=== PATIENT | female | born 1945 | race Caucasian/White ===

== ENCOUNTER 2016-10-27 12:00 | Emergency (ER) | payer MEDICARE, BC ==
--- NOTE | 2016-10-27 12:50 | ED ---
Abdominal Pain HPI - General Chief Complaint: Abdominal Pain Stated Complaint: pain in R side Time Seen by Provider: 10/27/16 12:33 Source: patient, RN notes reviewed Mode of arrival: ambulatory Limitations: no limitations - History of Present Illness Initial Comments: Patient is a 71-year-old female presents to the emergency room for evaluation of right-sided pain. Patient states the pain began about 3 days ago. Patient states she has been holding her niece over the past few days. Patient states pain is worse when she moves or takes a deep breath. Patient states the pain is over her right anterior rib area. Patient denies any nausea or vomiting. Patient denies fevers or chills. Patient denies shortness of breath or chest pain. Patient denies pain or burning during urination, trouble urinating or blood in urine. Patient denies any flank pain. Patient states she has a history of right nephrectomy and appendectomy. Patient denies any injury or direct trauma to her ribs. Patient states she's been taking ibuprofen with no relief of symptoms. - Related Data Home Medications Medication Instructions Recorded Confirmed Benazepril/Hydrochlorothiazide 1 tab PO BID 10/27/16 10/27/16 [Benazepril-Hctz 20-25 mg Tab] Estradiol [Yuvafem] 10 mcg VAGINAL DIRECTED 10/27/16 10/27/16 amLODIPine [Norvasc] 2.5 mg PO DAILY 10/27/16 10/27/16 Previous Rx's Medication Instructions Recorded Acetaminophen-Codeine 300-30mg 1 tab PO Q6H PRN #10 tablet 10/27/16 [Tylenol #3] Allergies Allergy/AdvReac Type Severity Reaction Status Date / Time codeine AdvReac Confusion Verified 10/27/16 12:45 Review of Systems ROS Statement: Those systems with pertinent positive or pertinent negative responses have been documented in the HPI. ROS Other: All systems not noted in ROS Statement are negative. Past Medical History Past Medical History: Hypertension, Skin Disorder Additional Past Medical History / Comment(s): rosacea, hx of heart murmur, only has one kidney History of Any Multi-Drug Resistant Organisms: None Reported Past Surgical History: Appendectomy, Tubal Ligation Additional Past Surgical History / Comment(s): had a non-functioning kidney removed Past Anesthesia/Blood Transfusion Reactions: No Reported Reaction Past Psychological History: No Psychological Hx Reported Smoking Status: Never smoker Past Alcohol Use History: None Reported Past Drug Use History: None Reported General Exam - General Exam Comments Initial Comments: Sitting in exam room in no acute distress. Limitations: no limitations General appearance: alert, in no apparent distress Head exam: Present: atraumatic, normocephalic, normal inspection Eye exam: Present: normal appearance ENT exam: Present: normal exam Neck exam: Present: normal inspection Respiratory exam: Present: normal lung sounds bilaterally, chest wall tenderness (Right anterior rib pain on palpation). Absent: respiratory distress Cardiovascular Exam: Present: regular rate, normal rhythm, normal heart sounds GI/Abdominal exam: Present: soft, tenderness (RUQ), normal bowel sounds. Absent : distended, guarding, rebound, rigid Extremities exam: Present: normal inspection Back exam: Present: normal inspection Neurological exam: Present: alert, oriented X3, CN II-XII intact, normal gait Psychiatric exam: Present: normal affect, normal mood Skin exam: Present: warm, dry, intact, normal color. Absent: rash Course Vital Signs 10/27/16 12:05 Temperature 97.3 F L Pulse Rate 86 Respiratory 20 Rate Blood Pressure 190/84 O2 Sat by Pulse 99 Oximetry Medical Decision Making - Medical Decision Making Patient is a 71-year-old female presents to the emergency room for evaluation of right anterior rib pain. Labs showed no significant findings. Checks x-ray shows no acute findings. Patient's symptoms most likely pleuritic. Advised patient to take anti-inflammatories and follow-up with her primary care provider on Saturday for reevaluation. It is sent patient home with pain medications. Patient states she hasn't taken Tylenol 3 in the past and has had no reaction. Patient states the only medication she has had a reaction to with codeine in it is cough syrup. Patient states she understands everything that was discussed with her. Return parameters discussed. Case discussed with Dr. Russell. - Lab Data Result diagrams: 10/27/16 13:15 10/27/16 13:15 Lab Results 10/27/16 10/27/16 10/27/16 Range/Units 13:15 13:15 13:33 WBC 12.0 H (3.8-10.6) k/uL RBC 4.24 (3.80-5.40) m/uL Hgb 14.0 (11.4-16.0) gm/dL Hct 41.5 (34.0-46.0) % MCV 97.7 (80.0-100.0) fL MCH 32.9 (25.0-35.0) pg MCHC 33.7 (31.0-37.0) g/dL RDW 13.1 (11.5-15.5) % Plt Count 203 (150-450) k/uL Neutrophils % 78 % Lymphocytes % 11 % Monocytes % 8 % Eosinophils % 1 % Basophils % 1 % Neutrophils # 9.4 H (1.3-7.7) k/uL Lymphocytes # 1.3 (1.0-4.8) k/uL Monocytes # 0.9 (0-1.0) k/uL Eosinophils # 0.1 (0-0.7) k/uL Basophils # 0.1 (0-0.2) k/uL Sodium 128 L (137-145) mmol/L Potassium 3.7 (3.5-5.1) mmol/L Chloride 92 L (98-107) mmol/L Carbon Dioxide 24 (22-30) mmol/L Anion Gap 12 mmol/L BUN 11 (7-17) mg/dL Creatinine 0.64 (0.52-1.04) mg/dL Est GFR (MDRD) Af Amer >60 (>60 ml/min/1.73 sqM) Est GFR (MDRD) Non-Af >60 (>60 ml/min/1.73 sqM) Glucose 92 (74-99) mg/dL Calcium 9.7 (8.4-10.2) mg/dL Total Bilirubin 0.8 (0.2-1.3) mg/dL AST 33 (14-36) U/L ALT 41 (9-52) U/L Alkaline Phosphatase 71 (38-126) U/L Total Protein 7.1 (6.3-8.2) g/dL Albumin 4.4 (3.5-5.0) g/dL Urine Color Light Yellow Urine Appearance Clear (Clear) Urine pH 7.0 (5.0-8.0) Ur Specific [place] 1.005 (1.001-1.035) Urine Protein Negative (Negative) Urine Glucose (UA) Negative (Negative) Urine Ketones Negative (Negative) Urine Blood Negative (Negative) Urine Nitrate Negative (Negative) Urine Bilirubin Negative (Negative) Urine Urobilinogen <2.0 (<2.0) mg/dL Ur Leukocyte Esterase Negative (Negative) - Radiology Data Radiology results: report reviewed, image reviewed Disposition Clinical Impression: Pleuritic pain Disposition: HOME SELF-CARE Condition: Good Instructions: Pleurisy (ED) Additional Instructions: Alternate Tylenol and ibuprofen. Please follow up with primary care provider on Saturday for reevaluation. If any new symptom arises, symptoms worsen or fever develops, return to ER as soon as possible. Prescriptions: Acetaminophen-Codeine 300-30mg [Tylenol #3] 1 tab PO Q6H PRN #10 tablet PRN Reason: Pain Referrals: Delano Lemus MD [Primary Care Provider] - 1-2 days Time of Disposition: 14:45
[2016-10-27 13:32] LABS: Basophils # (A) 0.1 k/uL (0-0.2); Basophils % (A) 1 %; CH 34.7; CHCM 35.7; Eosinophils # (A) 0.1 k/uL (0-0.7); Eosinophils % (A) 1 %; HCT 41.5 % (34.0-46.0); HDW 2.42; Luc # (Auto) 0.16; Luc % (Auto) 1; Lymphocytes # (A) 1.3 k/uL (1.0-4.8); Lymphocytes % (A) 11 %; MCH 32.9 pg (25.0-35.0); MCHC 33.7 g/dL (31.0-37.0); MCV 97.7 fL (80.0-100.0); Mean Platelet Volume 8.2; Monocytes # (A) 0.9 k/uL (0-1.0); Monocytes % (A) 8 %; Neutrophils # (A) 9.4 k/uL (1.3-7.7); Neutrophils % (A) 78 %; RBC 4.24 m/uL (3.80-5.40); RDW 13.1 % (11.5-15.5); WBC (Perox) 11.95
[2016-10-27 13:39] LABS: Appearance,Urine Clear (Clear); Bilirubin,Urine Negative (Negative); Glucose,Urine (UA) Negative (Negative); Ketones,Urine Negative (Negative); Leukocyte Esterase,Urine Negative (Negative); Nitrite,Urine Negative (Negative); Protein,Urine Negative (Negative); Specific Gravity,Urine 1.005 (1.001-1.035); UA Billing (MACRO vs. MICRO) CHEM; Urobilinogen,Urine <2.0 mg/dL (<2.0)
[2016-10-27 13:41] LABS: ALT 41 U/L (9-52); AST 33 U/L (14-36); Alkaline Phosphatase 71 U/L (38-126); Anion Gap 12 mmol/L; Blood Urea Nitrogen 11 mg/dL (7-17); Calcium 9.7 mg/dL (8.4-10.2); Carbon Dioxide 24 mmol/L (22-30); Chloride 92 mmol/L (98-107); Glucose 92 mg/dL (74-99); Non-African American GFR(MDRD) >60 (>60 ml/min/1.73 sqM); Potassium 3.7 mmol/L (3.5-5.1); Sodium 128 mmol/L (137-145); Total Bilirubin 0.8 mg/dL (0.2-1.3); Total Protein 7.1 g/dL (6.3-8.2)
--- NOTE | 2016-10-27 14:23 | XR ---
EXAMINATION TYPE: XR chest 2V DATE OF EXAM: 10/27/2016 1:46 PM COMPARISON: None HISTORY: 71-year-old female right-sided mid axillary rib pain TECHNIQUE: PA and lateral views FINDINGS: Heart is upper limits of normal in size. Aorta within normal limits. Normal variant azygos fissure. D iffuse interstitial opacities likely chronic. There are trace pleural effusions OR posterior basilar patchy atelectasis. No enrique consolidation. IMPRESSION: Chronic appearing changes. There are either trace effusions OR patchy posterior basilar atelectasis.
[2016-10-27] MEDS ORDERED: Acetaminophen-Codeine 300-30mg TAB PO STA (14:47)
[2016-10-27 15:08] VITALS: BP 168/72; PULSE 88; RESP 18; TEMP 97.4
== END 2016-10-27 15:07 | disposition home or self-care (01) ==
LOC: EC 12:00
DX: R09.1 Pleurisy (principal); R10.11 Right upper quadrant pain; I10 Essential (primary) hypertension; Z86.79 Personal history of other diseases of the circulatory system; Z79.899 Other long term (current) drug therapy; Z79.3 Long term (current) use of hormonal contraceptives; Z88.5 Allergy status to narcotic agent; Z90.49 Acquired absence of other specified parts of digestive tract; Z90.5 Acquired absence of kidney; Z98.51 Tubal ligation status
CPT/HCPCS: 36415; 71020; 80053; 81003; 85025; 99284

== ENCOUNTER → 2017-05-13 | Outpatient (CLI) | payer MEDICARE, BC ==
[2017-05-13 09:04] LABS: Basophils # (A) 0.1 k/uL (0-0.2); Basophils % (A) 1 %; CH 34.3; CHCM 35.2; Eosinophils # (A) 0.2 k/uL (0-0.7); Eosinophils % (A) 3 %; HCT 41.9 % (34.0-46.0); HDW 2.42; HGB 14.5 gm/dL (11.4-16.0); Luc # (Auto) 0.26; Luc % (Auto) 4; Lymphocytes # (A) 1.8 k/uL (1.0-4.8); Lymphocytes % (A) 25 %; MCH 33.8 pg (25.0-35.0); MCHC 34.6 g/dL (31.0-37.0); MCV 97.7 fL (80.0-100.0); Mean Platelet Volume 7.8; Monocytes # (A) 0.5 k/uL (0-1.0); Monocytes % (A) 7 %; Neutrophils # (A) 4.3 k/uL (1.3-7.7); Neutrophils % (A) 60 %; RBC 4.28 m/uL (3.80-5.40); WBC 7.1 k/uL (3.8-10.6); WBC (Perox) 7.21
[2017-05-13 09:13] LABS: ALT 35 U/L (9-52); AST 30 U/L (14-36); Alkaline Phosphatase 60 U/L (38-126); Anion Gap 12 mmol/L; Blood Urea Nitrogen 13 mg/dL (7-17); Carbon Dioxide 27 mmol/L (22-30); Chloride 95 mmol/L (98-107); Cholesterol 178 mg/dL (<200); Glucose 82 mg/dL (74-99); HDL Cholesterol 59 mg/dL (40-60); Non-African American GFR(MDRD) >60 (>60 ml/min/1.73 sqM); Potassium 4.2 mmol/L (3.5-5.1); Sodium 134 mmol/L (137-145); Total Bilirubin 0.9 mg/dL (0.2-1.3); Total Protein 7.1 g/dL (6.3-8.2); Triglycerides 135 mg/dL (<150)
== END | disposition home or self-care (01) ==
LOC: LABWHC1 08:04
PROVIDERS: ATTEND Family Medicine
DX: E78.5 Hyperlipidemia, unspecified (principal); E55.9 Vitamin D deficiency, unspecified
CPT/HCPCS: 36415; 80053; 80061; 82306; 84443; 85025

== ENCOUNTER → 2018-06-05 | Outpatient (CLI) | payer MEDICARE, BC ==
[2018-06-05 09:21] LABS: Basophils # (A) 0.1 k/uL (0-0.2); Basophils % (A) 1 %; Eosinophils # (A) 0.2 k/uL (0-0.7); Eosinophils % (A) 2 %; HCT 42.6 % (34.0-46.0); HGB 14.5 gm/dL (11.4-16.0); Lymphocytes # (A) 1.5 k/uL (1.0-4.8); Lymphocytes % (A) 22 %; MCH 33.6 pg (25.0-35.0); Mean Platelet Volume 7.9; Monocytes # (A) 0.6 k/uL (0-1.0); Monocytes % (A) 9 %; Neutrophils # (A) 4.6 k/uL (1.3-7.7); Neutrophils % (A) 65 %; Platelet Count 212 k/uL (150-450); RDW 13.1 % (11.5-15.5)
[2018-06-05 09:58] LABS: ALT 40 U/L (9-52); AST 35 U/L (14-36); Albumin 4.5 g/dL (3.5-5.0); Alkaline Phosphatase 56 U/L (38-126); Anion Gap 8 mmol/L; Blood Urea Nitrogen 12 mg/dL (7-17); Carbon Dioxide 29 mmol/L (22-30); Chloride 95 mmol/L (98-107); Cholesterol 169 mg/dL (<200); Glucose 88 mg/dL (74-99); HDL Cholesterol 59 mg/dL (40-60); LDL Cholesterol,Calculated 85 mg/dL (0-99); Potassium 4.7 mmol/L (3.5-5.1); Sodium 132 mmol/L (137-145); Total Bilirubin 0.9 mg/dL (0.2-1.3); Triglycerides 125 mg/dL (<150)
[2018-06-05 10:11] LABS: T4, Free (Free Thyroxine) 0.98 ng/dL (0.78-2.19)
== END | disposition home or self-care (01) ==
LOC: LABWHC1 08:54
PROVIDERS: ATTEND Family Medicine
DX: I10 Essential (primary) hypertension (principal); Z20.9 Contact with and (suspected) exposure to unspecified communicable disease
CPT/HCPCS: 36415; 80053; 80061; 84439; 84443; 85025; 86803

== ENCOUNTER → 2019-06-16 | Outpatient (CLI) | payer MEDICARE ==
--- NOTE | 2019-06-17 09:25 | ECHOF ---
Referral Reason:I34.1 nonrhematic mitral valve prolapse MEASUREMENTS -------- HEIGHT: 162.6 cm WEIGHT: 61.2 kg BP: RVIDd: 3.0 cm (< 3.3) IVSd: 0.9 cm (0.6 - 1.1) LVIDd: 4.8 cm (3.9 - 5.3) LVPWd: 1.0 cm (0.6 - 1.1) IVSs: 1.5 cm LVIDs: 3.0 cm LVPWs: 1.4 cm LA Diam: 5.2 cm (2.7 - 3.8) LAESV Index (A-L): 47.94 ml/m Ao Diam: 2.6 cm (2.0 - 3.7) AV Cusp: 1.8 cm (1.5 - 2.6) LA Diam: 4.2 cm (2.7 - 3.8) MV EXCURSION: 28.460 mm (> 18.000) MV EF SLOPE: 59 mm/s (70 - 150) EPSS: 0.3 cm MV E Fred: 0.59 m/s MV DecT: 205 ms MV A Fred: 0.82 m/s MV E/A Ratio: 0.72 AR PHT: 778 ms RAP: 5.00 mmHg RVSP: 26.16 mmHg FINDINGS -------- Sinus rhythm. This was a technically good study. LV size, wall thickness and systolic function are normal, with an EF greater than 55%. The left parish tricular size is normal. The right ventricle is normal in size. The left atrium is markedly dilated. LA is severely dilated >40 ml/m2 The right atrial size is normal. There is mild aortic valve sclerosis. There is mild aortic regurgitation. The mitral valve leaflets are mildly thickened. [id number] mitral regurgitation is present. Cannot exclude mitral valve prolapse , predominately a posteriorly directed jet. Mild tricuspid regurgitation present. There is no evidence of pulmonary hypertension. The right v entricular systolic pressure, as measured by Doppler, is 26.16mmHg. There is no pulmonic regurgitation present. The aortic root size is normal. There is no pericardial effusion. CONCLUSIONS -------- 1. Sinus rhythm. 2. This was a technically good study. 3. LV size, wall thickness and systolic function are normal, with an EF greater than 55%. 4. The left ventricular size is normal. 5. The right ventricle is normal in size. 6. The left atrium is markedly dilated. 7. LA is severely dilated >40 ml/m2 8. The right atrial size is normal. 9. There is mild aortic valve sclerosis. 10. There is mild aortic regurgitation. 11. The mitral valve leaflets are mildly thickened. 12. [id number]-txqpcb mitral regurgitation is present. 13. Cannot exclude mitral valve prolapse. 14. , predominately a posteriorly directed jet. 15. Mild tricuspid regurgitation present. 16. There is no evidence of pulmonary hypertension. 17. The right ventricular systolic pressure, as measured by Doppler, is 26.16mmHg. 18. There is no pulmonic regurgitation present. 19. The aortic root size is normal. 20. There is no pericardial effusion. SOLID TIRE FINISHER: Crissy Rodriguez RDCS
== END | disposition home or self-care (01) ==
LOC: RADECHMAIN 11:09
PROVIDERS: ATTEND Family Medicine
DX: I08.3 Combined rheumatic disorders of mitral, aortic and tricuspid valves (principal)
CPT/HCPCS: 93306

== ENCOUNTER → 2019-07-15 | Outpatient (CLI) | payer MEDICARE ==
[2019-07-15 09:08] LABS: Basophils # (A) 0.1 k/uL (0-0.2); Basophils % (A) 1 %; Eosinophils # (A) 0.3 k/uL (0-0.7); Eosinophils % (A) 3 %; HCT 39.1 % (34.0-46.0); Lymphocytes # (A) 1.6 k/uL (1.0-4.8); Lymphocytes % (A) 21 %; MCH 34.4 pg (25.0-35.0); MCHC 35.8 g/dL (31.0-37.0); Mean Platelet Volume 6.8; Monocytes # (A) 0.7 k/uL (0-1.0); Monocytes % (A) 9 %; Neutrophils # (A) 4.9 k/uL (1.3-7.7); Neutrophils % (A) 63 %; Platelet Count 226 k/uL (150-450); RBC 4.08 m/uL (3.80-5.40); RDW 13.5 % (11.5-15.5); WBC 7.7 k/uL (3.8-10.6)
[2019-07-15 21:27] LABS: African American GFR (CKD) 73.5 (60.0-200.0); Albumin 4.4 g/dL (3.80-4.90); Albumin/Globulin Ratio 2.2 (1.60-3.17); BUN/Creat Ratio 17.78 Ratio (12.00-20.00); Calcium 9.7 mg/dL (8.7-10.3); Chol/HDL Ratio 3.13; LDL Cholesterol,Calculated 95.2 mg/dL (0.0-131.0); Potassium 3.7 mmol/L (3.5-5.5); Total Protein 6.4 g/dL (6.2-8.2); VLDL Calculation 23.8 mg/dL (5.00-40.00)
[2019-07-15 21:51] LABS: T4, Free (Free Thyroxine) 1.1 ng/dL (0.80-1.80)
== END | disposition home or self-care (01) ==
LOC: LABWHC1 08:20
PROVIDERS: ATTEND Family Medicine
DX: E78.5 Hyperlipidemia, unspecified (principal)
CPT/HCPCS: 36415; 80053; 80061; 84439; 84443; 85025

== ENCOUNTER → 2020-06-03 | Outpatient (CLI) | payer MEDICARE ==
[2020-06-03 19:51] LABS: African American GFR (CKD) 84.2 (60.0-200.0); Anion Gap 11.6 mmol/L (4.00-12.00); BUN/Creat Ratio 18.75 Ratio (12.00-20.00); Calcium 10.1 mg/dL (8.7-10.3); Carbon Dioxide 24.4 mmol/L (21.6-31.8); Non-African American GFR(CKD) 72.6 (60.0-200.0); Potassium 3.9 mmol/L (3.5-5.5)
== END | disposition home or self-care (01) ==
LOC: LABWHC1 11:01
PROVIDERS: ATTEND Nurse Practitioner Family
DX: E87.1 Hypo-osmolality and hyponatremia (principal)
CPT/HCPCS: 36415; 80048

== ENCOUNTER → 2020-06-03 | Outpatient (CLI) | payer MEDICARE ==
--- NOTE | 2020-06-22 10:03 | P.CEMON ---
This is a report on 7 day event monitor. Patient rhythm is sinus. Patient had frequent PVCs with of episodes of wide complex tachycardia the longest episode lasting about almost 19 seconds. She had frequent episodes. Patient in addition had episodes of supraventricular tachycardia with the higher started up about 160. Patient has reported several nonspecific symptoms, mostly cor relating PVCs and episodes of nonsustained V. tach/sustained V. tach. Final impression #1. Sinus rhythm. #2. Frequent PVCs with episodes of sustained or nonsustained V. tach. The longest run consisting of 19 seconds. #3. APCs and episodes of supraventricular tachycardia. The fastest heart rate with SVT is about 160 and fastest heart rate at the nonsustained V. tach since 197. #4. Patient did complain of several symptoms which are nonspecific correlating with ventricular arrhythmias, mostly with nonsustained/sustained V. tach
--- NOTE | 2020-06-22 12:24 | EM ---
This is a report on 7 day event monitor. Patient rhythm is sinus. Patient had frequent PVCs with of episodes of wide complex tachycardia the longest episode lasting about almost 19 seconds. She had frequent episodes. Patient in addition had episodes of supraventricular tachycardia with the higher started up about 160. Patient has reported several nonspecific symptoms, mostly correlating PVCs and episodes of nonsustained V. tach/sustained V. tach. Final impression #1. Sinus rhythm. #2. Frequent PVCs with episodes of sustained and nonsustained V. tach. The longest run consisting of 19 seconds. #3. APCs and episodes of supraventricular tachycardia. The fastest heart rate with SVT is about 160 and fastest heart rate at the nonsustained V. tach since 197. #4. Patient did complain of several symptoms which are nonspecific correlating with ventricular arrhythmias, mostly with nonsustained/sustained V. tach MTDD
== END | disposition home or self-care (01) ==
LOC: RADECHMAIN 11:34
PROVIDERS: ATTEND Family Medicine
DX: R00.2 Palpitations (principal); I47.1 Supraventricular tachycardia
CPT/HCPCS: 93270

== ENCOUNTER 2020-06-10 21:41 | Inpatient (IN) | payer MEDICARE ==
[2020-06-10] MEDS ORDERED: ASPIRIN 81 MG PO STA (22:34)
[2020-06-10] MEDS ORDERED: SODIUM CHLORIDE 0.9% 500 ML 500 ML IV STA (22:34)
[2020-06-10 22:53] LABS: Basophils # (A) 0.1 k/uL (0-0.2); Basophils % (A) 1 %; Eosinophils # (A) 0.2 k/uL (0-0.7); Eosinophils % (A) 2 %; HCT 44.2 % (34.0-46.0); HGB 15.3 gm/dL (11.4-16.0); Lymphocytes % (A) 21 %; MCH 34.1 pg (25.0-35.0); MCHC 34.5 g/dL (31.0-37.0); MCV 98.7 fL (80.0-100.0); Mean Platelet Volume 8.9; Monocytes % (A) 11 %; Neutrophils # (A) 5.8 k/uL (1.3-7.7); Neutrophils % (A) 62 %; Platelet Count 217 k/uL (150-450); RBC 4.48 m/uL (3.80-5.40); RDW 13.6 % (11.5-15.5); WBC 9.3 k/uL (3.8-10.6)
[2020-06-10 23:01] LABS: INR 0.9 (<1.2); Partial Thromboplastin Time 24.4 sec (22.0-30.0); Prothrombin Time 9.9 sec (9.0-12.0)
[2020-06-10 23:02] LABS: ALT 20 U/L (4-34); AST 34 U/L (14-36); African American GFR (CKD) >90 (>60 ml/min/1.73 sqM); Albumin 5.1 g/dL (3.5-5.0); Alkaline Phosphatase 66 U/L (38-126); Anion Gap 13 mmol/L; Blood Urea Nitrogen 17 mg/dL (7-17); Calcium 10.1 mg/dL (8.4-10.2); Carbon Dioxide 22 mmol/L (22-30); Chloride 90 mmol/L (98-107); Glucose 90 mg/dL (74-99); Magnesium 1.9 mg/dL (1.6-2.3); Non-African American GFR(CKD) 82 (>60 ml/min/1.73 sqM); Potassium 3.4 mmol/L (3.5-5.1); Sodium 125 mmol/L (137-145); Total Protein 7.5 g/dL (6.3-8.2)
--- NOTE | 2020-06-10 23:10 | ED ---
Chest Pain HPI - General Chief Complaint: Chest Pain Stated Complaint: Heart Issues Time Seen by Provider: 06/10/20 22:13 Source: patient, family Mode of arrival: wheelchair Limitations: no limitations - History of Present Illness Initial Comments: 75-year-old female patient presents to the emergency department today for evaluation of palpitations. Patient states for the last 3 weeks she has been having intermittent episodes where she feels like her heart is racing and she feels unwell. Patient states that she feels dizzy when the episodes come on. She denies any chest pain, shortness of breath, or sweats with this. States that she did see her primary care physician for this and did wear a heart monitor for a week. States the heart monitor came off today and she is supposed to get results in a week or 2. Patient does have a history of high blood pressure and mitral valve prolapse. Denies any new medications. States her blood pressure is controlled. Patient denies any recent rash, fever, chills, cough, abdominal pain, nausea, vomiting, diarrhea, constipation, back pain, numbness, tingling, hematuria, dysuria, urinary urgency, urinary frequency, headache, visual changes, or any other complaints. - Related Data Home Medications Medication Instructions Recorded Confirmed Benazepril/Hydrochlorothiazide 1 tab PO BID@0730,1930 10/27/16 06/10/20 [Benazepril-Hctz 20-25 mg Tab] amLODIPine [Norvasc] 2.5 mg PO DAILY@0730 10/27/16 06/10/20 Allergies Allergy/AdvReac Type Severity Reaction Status Date / Time codeine AdvReac Confusion Verified 06/10/20 23:32 Review of Systems ROS Statement: Those systems with pertinent positive or pertinent negative responses have been documented in the HPI. ROS Other: All systems not noted in ROS Statement are negative. EKG Findings - EKG Comments: EKG Findings:: EKG obtained at 2203 shows sinus rhythm with premature atrial complexes. Ventricular rate is 73, ME interval 182, QRS duration 118, QTC 396, QTc 436. No evidence of ST elevation or depression 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 Past Anesthesia/Blood Transfusion Reactions: No Reported Reaction Past Psychological History: No Psychological Hx Reported Smoking Status: Never smoker Past Alcohol Use History: None Reported Past Drug Use History: None Reported - Past Family History Mother Family Medical History: Hypertension General Exam Limitations: no limitations General appearance: alert, in no apparent distress, other (This is a well- developed, well-nourished elderly female patient in no acute distress. Vital signs upon presentation are temperature 98.8F, pulse 77, respirations 16, blood pressure 172/81, pulse ox 98% on room air.) Eye exam: Present: normal appearance, PERRL, EOMI. Absent: scleral icterus, conjunctival injection, periorbital swelling ENT exam: Present: normal exam, normal oropharynx, mucous membranes moist Respiratory exam: Present: normal lung sounds bilaterally. Absent: respiratory distress, wheezes, rales, rhonchi, stridor Cardiovascular Exam: Present: regular rate, normal rhythm, irregular rhythm, normal heart sounds, other (PVCs on the gambling monitor). Absent: systolic m urmur, diastolic murmur, rubs, gallop, clicks GI/Abdominal exam: Present: soft, normal bowel sounds. Absent: distended, tenderness, guarding, rebound, rigid Neurological exam: Present: alert, oriented X3, CN II-XII intact Psychiatric exam: Present: normal affect, normal mood Skin exam: Present: warm, dry, intact, normal color. Absent: rash Course Vital Signs 06/10/20 06/10/20 21:47 22:54 Temperature 98.8 F Pulse Rate 77 68 Respiratory 16 17 Rate Blood Pressure 172/81 139/80 O2 Sat by Pulse 98 98 Oximetry Chest Pain MDM - MDM 75-year-old female patient presents to the emergency department today for evaluation of palpitations and dizziness. Patient states she's had multiple episodes today. States that this is been going on for the last 3 weeks but today feels worse. Physical examination is unremarkable. EKG showed sinus rhythm with PACs. Review of her cardiac monitoring does reveal PVCs. Labs reviewed and does reveal decreased potassium, we did replace this with 40 mEq. Remainder of labs are unremarkable. Upon reevaluation patient is resting comfortably in bed. States she feels quite fatigued. We'll admit to the hospital for further cardiac monitoring evaluation by cardiology. She is agreeable to this plan. Disposition Clinical Impression: Palpitations, Dizziness Disposition: ADMITTED IP TO THIS HOSP Condition: Serious Referrals: Delano Lemus MD [Primary Care Provider] - 1-2 days Decision to Admit Reason: Admit from EC Decision Date: 06/11/20 Decision Time: 00:26
--- NOTE | 2020-06-10 23:24 | XR ---
EXAMINATION TYPE: XR chest 2V DATE OF EXAM: 06/10/2020 COMPARISON: 10/27/2016 HISTORY: Dysrhythmia TECHNIQUE: FINDINGS: Heart is normal. Lungs are clear of infiltrate. There is no heart failure. There are no hil ar masses. There are chest leads. Bony thorax is intact. IMPRESSION: No active cardiopulmonary disease. There is clearing of the mild pleural reaction at the left lung base compared to old exam.
[2020-06-10] MEDS ORDERED: POTASSIUM CHLORIDE ER 20 MEQ TAB.ER PO STA (23:25)
[2020-06-10 23:58] LABS: T4, Free (Free Thyroxine) 1.31 ng/dL (0.78-2.19)
[2020-06-11] MEDS ORDERED: NALOXONE 0.4 MG/ML 1 ML VIAL IV PRN (00:26)
[2020-06-11] MEDS ORDERED: hydroCHLOROthiazide 25 MG TAB PO SCH (08:00)
[2020-06-11 08:29] LABS: African American GFR (CKD) >90 (>60 ml/min/1.73 sqM); Anion Gap 7 mmol/L; Blood Urea Nitrogen 14 mg/dL (7-17); Calcium 9.6 mg/dL (8.4-10.2); Carbon Dioxide 24 mmol/L (22-30); Chloride 96 mmol/L (98-107); Glucose 94 mg/dL (74-99); Magnesium 1.8 mg/dL (1.6-2.3); Non-African American GFR(CKD) 85 (>60 ml/min/1.73 sqM); Potassium 4.1 mmol/L (3.5-5.1); Sodium 127 mmol/L (137-145)
[2020-06-11 08:46] LABS: T4, Free (Free Thyroxine) 1.26 ng/dL (0.78-2.19)
[2020-06-11] MEDS: METOPROLOL TARTRATE 25 MG TAB PO SCH ×2 (09:37→20:44)
[2020-06-11] MEDS: lisinopriL 20 MG TAB PO SCH (09:37)
[2020-06-11] MEDS: FAMOTIDINE 20 MG/2 ML VIAL IV SCH ×2 (09:39→20:45)
[2020-06-11] MEDS: HEPARIN SODIUM,PORCINE 5,000 UNIT/ML 1 ML VIAL SQ SCH ×2 (09:39→20:44)
--- NOTE | 2020-06-11 10:16 | P.HPIM ---
History of Present Illness This is a pleasant 75 years old female with past medical history of hypertension and hysterectomy. She is a patient of Dr. Lemus. She presents because of 3 weeks of racing heart and lightheadedness on and off. Usually she sits on for a few minutes and the lightheadedness goes away but she keeps feeling "chon" as per patient description for about half an hour. She denies chest pain or dyspnea or coughing. No headache or neck pain. No weakness or numbness or slurred speech or blurred vision. No change in urine or bowel habits. No fever. She went to see her PCP Dr. Lemus who put her on a heart monitor for 1 week and has been taken off yesterday, however patient decided this time to come to the hospital. 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 She says that she drinks a lot of water and a standard of coffee, she does not have great home which however she starts with a cup in the morning and keep drinking as well as a day. She denies smoking, alcohol or illicit drugs. Labs including CBC, INR unremarkable, BMP showing hyponatremia of 125. Creatinine is normal, troponin is slightly elevated at less than 0.012, 0.041, 0.031, TSH is elevated at 6.7 and normal free T4 at 1.3 Echocardiogram on 06/16/2019 showed ejection fraction of 55%, and moderate to severe mitral regurgitation In the emergency room patient received 500 bolus normal saline and aspirin 325 mg 1 tab Review of Systems CONSTITUTIONAL: No fever, no malaise, no fatigue. HEENT: No recent visual problems or hearing problems. Denied any sore throat. CARDIOVASCULAR: No orthopnea, PND, no palpitations, no syncope. PULMONARY: No shortness of breath, no cough, no hemoptysis. GASTROINTESTINAL: No diarrhea, no nausea, no vomiting, no abdominal pain. Normoactive bowel sounds. NEUROLOGICAL: No headaches, no weakness, no numbness. HEMATOLOGICAL: Denies any bleeding or petechiae. GENITOURINARY: Denies any burning micturition, frequency, or urgency. MUSCULOSKELETAL/RHEUMATOLOGICAL: Denies any joint pain, swelling, or any muscle pain. ENDOCRINE: Denies any polyuria or polydipsia. Past Medical History Past Medical History: Hypertension Additional Past Medical History / Comment(s): HAS ONE KIDNEY ON THE LEFT History of Any Multi-Drug Resistant Organisms: None Reported Past Surgical History: Appendectomy, Hysterectomy, Tubal Ligation Additional Past Surgical History / Comment(s): had a non-functioning kidney r emoved on the right Past Anesthesia/Blood Transfusion Reactions: No Reported Reaction Past Psychological History: No Psychological Hx Reported Smoking Status: Never smoker Past Alcohol Use History: None Reported Past Drug Use History: None Reported - Past Family History Mother Family Medical History: Hypertension Medications and Allergies Home Medications Medication Instructions Recorded Confirmed Type Benazepril/Hydrochlorothiazide 1 tab PO BID@0730,1930 10/27/16 06/10/20 History [Benazepril-Hctz 20-25 mg Tab] amLODIPine [Norvasc] 2.5 mg PO DAILY@0730 10/27/16 06/10/20 History Allergies Allergy/AdvReac Type Severity Reaction Status Date / Time codeine AdvReac Confusion Verified 06/10/20 23:32 Physical Exam Vitals: Vital Signs Temp Pulse Pulse Resp BP BP Pulse Ox 06/11/20 03:00 98.1 F 71 16 138/54 98 06/11/20 02:07 16 06/11/20 01:09 97.9 F 64 16 145/76 98 06/11/20 00:55 98.3 F 64 18 133/65 98 06/10/20 22:54 68 17 139/80 98 06/10/20 21:47 98.8 F 77 16 172/81 98 Intake and Output 06/10/20 06/11/20 06/11/20 22:59 06:59 14:59 Other: Voiding Method Toilet # Voids 1 Weight 62.596 kg 62.596 kg GENERAL: The patient is alert and oriented x3, not in any acute distress. Well developed, well nourished. HEENT: Pupils are round and equally reacting to light. EOMI. No scleral icterus. No conjunctival pallor. Normocephalic, atraumatic. No pharyngeal erythema. No thyromegaly. CARDIOVASCULAR: S1 and S2 present. No murmurs, rubs, or gallops. PULMONARY: Chest is clear to auscultation, no wheezing or crackles. ABDOMEN: Soft, nontender, nondistended, normoactive bowel sounds. No palpable organomegaly. MUSCULOSKELETAL: No joint swelling or deformity. EXTREMITIES: No cyanosis, clubbing, or pedal edema. NEUROLOGICAL: Gross neurological examination did not reveal any focal deficits. Meningeal signs are absent, strength is 5/5 in all extremities and sensation is intact. Cranial nerves are grossly intact SKIN: No rashes. No petechiae Results CBC & Chem 7: 06/10/20 22:41 06/11/20 08:02 Labs: Abnormal Lab Results - Last 24 Hours (Table) 06/10/20 06/11/20 Range/Units 22:41 03:14 Sodium 125 L (137-145) mmol/L Potassium 3.4 L (3.5-5.1) mmol/L Chloride 90 L (98-107) mmol/L Troponin I 0.041 H* (0.000-0.034) ng/mL Albumin 5.1 H (3.5-5.0) g/dL TSH 6.700 H (0.465-4.680) mIU/L Thrombosis Risk Factor Assmnt - Choose All That Apply Any of the Below Risk Factors Present?: No Each Risk Factor Represents 2 Points: Age 61-74 years Other congenital or acquired thrombophilia - If yes, enter type in comment: No Thrombosis Risk Factor Assessment Total Risk Factor Score: 2 Thrombosis Risk Factor Assessment Level: Low Risk Assessment and Plan Assessment: Lightheadedness with racing heartbeat, rule out cardiac causes Acute and chronic hyponatremia. Looks like patient is euvolemic. Patient also drinks a lot of water Hypertension Moderate to severe mitral regurgitation Subclinical hypothyroidism Plan: This is a pleasant 75 race old female who presents because of chest pain and hyponatremia. Loose red troponin, echocardiogram, cardiology consult. Continue with aspirin . Check serum and urine osmolality and urine sodium. Follow-up sodium level. Continue with telemetry. We will check lipid profile and We'll call him for nephrology consult for hyponatremia. Patient is counseled to cut down on her water drinking. We'll check hemoglobin A1c Labs and medication were reviewed.. Continue same treatment. Continue with symptomatic treatment. Resume home medication. Monitor lytes and vitals. DVT and GI prophylaxis. Further recommendations of the clinical course of the edita ent DVT prophylaxis: Subcutaneous heparin GI Prophylaxis: Pepcid PT/OT: Pending Prognosis is guarded
[2020-06-11 10:53] LABS: Cholesterol 152 mg/dL (<200); HDL Cholesterol 52 mg/dL (40-60); LDL Cholesterol,Calculated 85 mg/dL (0-99); Triglycerides 76 mg/dL (<150)
[2020-06-11] MEDS ORDERED: AMIODARONE 360 MG in DEXTROSE 5% IN WATER 200 ML IV ONE ×2 (11:00)
[2020-06-11] MEDS ORDERED: DEXTROSE 5% IN WATER 100 ML with AMIODARONE 150 MG IV ONE (11:00)
[2020-06-11] MEDS ORDERED: ALPRAZolam 0.25 MG TAB PO PRN (12:10)
[2020-06-11] MEDS ORDERED: SODIUM CHLORIDE 0.9% 1,000 ML in EMPTY BAG 1 BAG IV ONE (12:10)
[2020-06-11] MEDS ORDERED: ALPRAZolam 0.5 MG TAB PO PRN (12:10)
[2020-06-11] MEDS ORDERED: NITROGLYCERIN SL TABS 0.4 MG TAB SUBLINGUAL PRN (12:10)
--- NOTE | 2020-06-11 12:10 | P.CRDCN ---
History of Present Illness History of present illness: HISTORY OF PRESENTING ILLNESS This is a pleasant 75-year-old female past medical history significant for hypertension and nephrectomy. She follows in the office with a general internal medicine doctor out of [facility] who she has not seen in over 5 years. We have been asked to see in consultation for old palpitations. She states for the previous 3 weeks she has been experiencing a rapid heartbeat most days after eating one and dinner. She states it feels like her heart is beating very rapidly for a few seconds associated with feeling lightheaded, weak and generally unwell. She states the palpitations themselves only last for a few seconds but she continues to feel lightheaded and not herself for a few minutes afterwards. She denies ever having had symptoms of chest pain, shortness of breath, nausea or diaphoresis associated with these episodes. She did follow-up with her PCP r aguila this and wore an event monitor over the previous one week. Those records are unavailable at this time. Yesterday she had the episode after lunch and again after dinner but then had it again in the evening and it seemed more intense and lasted a little bit longer prompting her to come to the hospital for further evaluation. Telemetry tracings indicate multiple PVCs with a short run of nonsustained ventricular tachycardia at 5:00 this morning of 5 beats. She was given a breakfast tray after eating breakfast she got up to walk to the restroom and she had a sustained episode of ventricular tachycardia. Her DVT begins with a single PVC and then transitions to a sustained wide complex tachycardia of a different morphology. She has symptomatic this morning when this occurred. DIAGNOSTICS EKG reveals sinus mechanism with APCs. Chest xray negative for an acute cardiopulmonary process. Laboratory reviewed, CBC unremarkable, sodium 127, potassium on admission 3. 4 repeat today 4.1, creatinine 0.71, magnesium 1.9, troponin 0.041, 0.031 and 0.020, LDL 85, TSH 3.79 and free T4 1 0.26. Current cardiac medications include amlodipine 2.5 mg daily and benazepril/HCTZ 20/25 mg twice a day. Most recent echocardiogram obtained June 2019 revealed preserved LV systolic function with ejection fraction greater than 55%, severely dilated left atrium, moderate to severe mitral regurgitation with a posterior directed mitral valve prolapse and mild tricuspid regurgitation. REVIEW OF SYSTEMS At the time of my exam: CONSTITUTIONAL: Denies fever or chills. CARDIOVASCULAR: Denies chest pain, shortness of breath, orthopnea, PND or palpitations. RESPIRATORY: Denies cough. GASTROINTESTINAL: Denies abdominal pain, diarrhea, constipation, nausea or vomiting. MUSCULOSKELETAL: Denies myalgias. NEUROLOGIC: Denies numbness, tingling or weakness. ENDOCRINE: Denies fatigue, weight change, polydipsia or polyurina. GENITOURINARY: Denies burning, hematuria or urgency with micturation. HEMATOLOGIC: Denies history of anemia or bleeding. PHYSICAL EXAMINATION Blood pressure 156/83 heart rate 80 afebrile and maintaining oxygen saturation on room air. CONSTITUTIONAL: No apparent distress. HEENT: Head is normocephalic. Pupils are equal, round. Sclerae anicteric. Mucous membranes of the mouth are moist. No JVD. No carotid bruit. CHEST EXAMINATION: Lungs are clear to auscultation. No chest wall tenderness is noted on palpation or with deep breathing. HEART EXAMINATION: Irregular rate and rhythm. S1, S2 heard. Soft systolic ejection murmur at the apex, no gallops or rub. ABDOMEN: Soft, nontender. Positive bowel sounds. EXTREMITIES: 2+ peripheral pulses, no lower extremity edema and no calf tenderness. NEUROLOGIC EXAMINATION: Patient is awake, alert and oriented x3. ASSESSMENT Near syncope and palpitations Polymorphic ventricular tachycardia Hypertension History of nephrectomy PLAN Initiate amiodarone bolus and infusion. Transfer to selective care unit. Initiate Lopressor 25 mg twice a day. Obtain 2-D echocardiogram and Doppler study to assess cardiac structure and f unction. Discontinue hydrochlorothiazide secondary to hyponatremia. Recommend proceeding with cardiac catheterization to assess for underlying coronary artery disease. I have discussed the risks, benefits and alternative therapies for the above-mentioned procedure and for both sedation/analgesia as well as necessary blood product administration, if indicated, as they pertain to this patient. The patient has indicated understanding and acceptance of the risks and procedures discussed. Questions have been answered appropriately and she is agreeable to move forward with the above-stated procedure. Further recommendations to follow based upon clinical course. Thank you kindly for this consultation. Nurse Practitioner note has been reviewed, I agree with a documented findings and plan of care. Patient was seen and examined. 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 Past Anesthesia/Blood Transfusion Reactions: No Reported Reaction Past Psychological History: No Psychological Hx Reported Smoking Status: Never smoker Past Alcohol Use History: None Reported Past Drug Use History: None Reported - Past Family History Mother Family Medical History: Hypertension Medications and Allergies Home Medications Medication Instructions Recorded Confirmed Type Benazepril/Hydrochlorothiazide 1 tab PO BID@0730,1930 10/27/16 06/10/20 History [Benazepril-Hctz 20-25 mg Tab] amLODIPine [Norvasc] 2.5 mg PO DAILY@0730 10/27/16 06/10/20 History Allergies Allergy/AdvReac Type Severity Reaction Status Date / Time codeine AdvReac Confusion Verified 06/10/20 23:32 Physical Exam Vitals: Vital Signs Temp Pulse Pulse Pulse Pulse Pulse Resp 06/11/20 08:53 71 16 06/11/20 08:19 98.5 F 72 78 63 16 06/11/20 03:00 98.1 F 71 16 06/11/20 02:07 16 06/11/20 01:09 97.9 F 64 16 06/11/20 00:55 98.3 F 64 18 06/10/20 22:54 68 17 06/10/20 21:47 98.8 F 77 16 BP BP BP BP BP Pulse Ox 06/11/20 08:53 06/11/20 08:19 160/78 153/78 139/75 99 06/11/20 03:00 138/54 98 06/11/20 02:07 06/11/20 01:09 145/76 98 06/11/20 00:55 133/65 98 06/10/20 22:54 139/80 98 06/10/20 21:47 172/81 98 Intake and Output 06/10/20 06/11/20 06/11/20 22:59 06:59 14:59 Other: Voiding Method Toilet Toilet # Voids 1 Weight 62.596 kg 62.596 kg Results 06/10/20 22:41 06/11/20 08:02 Cardiac Enzymes 06/10/20 06/10/20 06/11/20 Range/Units 22:41 22:41 03:14 AST 34 (14-36) U/L Troponin I <0.012 0.041 H* (0.000-0.034) ng/mL 06/11/20 06/11/20 Range/Units 05:43 08:02 AST (14-36) U/L Troponin I 0.031 0.020 (0.000-0.034) ng/mL Coagulation 06/10/20 Range/Units 22:41 PT 9.9 (9.0-12.0) sec APTT 24.4 (22.0-30.0) sec CBC 06/10/20 Range/Units 22:41 WBC 9.3 (3.8-10.6) k/uL RBC 4.48 (3.80-5.40) m/uL Hgb 15.3 (11.4-16.0) gm/dL Hct 44.2 (34.0-46.0) % Plt Count 217 (150-450) k/uL Comprehensive Metabolic Panel 06/10/20 06/11/20 Range/Units 22:41 08:02 Sodium 125 L 127 L (137-145) mmol/L Potassium 3.4 L 4.1 (3.5-5.1) mmol/L Chloride 90 L 96 L (98-107) mmol/L Carbon Dioxide 22 24 (22-30) mmol/L BUN 17 14 (7-17) mg/dL Creatinine 0.73 0.71 (0.52-1.04) mg/dL Glucose 90 94 (74-99) mg/dL Calcium 10.1 9.6 (8.4-10.2) mg/dL AST 34 (14-36) U/L ALT 20 (4-34) U/L Alkaline Phosphatase 66 (38-126) U/L Total Protein 7.5 (6.3-8.2) g/dL Albumin 5.1 H (3.5-5.0) g/dL Current Medications Generic Name Dose Route Start Last Admin Trade Name Freq PRN Reason Stop Dose Admin Amlodipine Besylate 2.5 mg 06/11/20 08:00 Norvasc PO DAILY@0730 [facility] Famotidine 20 mg 06/11/20 09:00 Pepcid IV Q12HR [facility] Heparin Sodium (Porcine) 5,000 unit 06/11/20 09:00 Heparin SQ Q12HR [facility] Hydrochlorothiazide 25 mg 06/11/20 08:00 Hydrodiuril PO BID@0730,1930 [facility] Lisinopril 40 mg 06/11/20 08:00 Zestril PO DAILY@0730 [facility] Metoprolol Tartrate 25 mg 06/11/20 09:15 Lopressor PO BID [facility] Naloxone HCl 0.2 mg 06/11/20 00:26 Narcan IV Q2M PRN Opioid Reversal Intake and Output 06/10/20 06/11/20 06/11/20 22:59 06:59 14:59 Other: Voiding Method Toilet Toilet # Voids 1 Weight 62.596 kg 62.596 kg 06/10/20 22:41 06/11/20 08:02
[2020-06-11] MEDS: amLODIPine 2.5 MG TAB PO SCH (12:30)
--- NOTE | 2020-06-11 14:48 | ECHOF ---
Referral Reason:trop elev MEASUREMENTS -------- HEIGHT: 165.1 cm WEIGHT: 62.6 kg BP: 160/78 RVIDd: 3.3 cm (< 3.3) IVSd: 1.1 cm (0.6 - 1.1) LVIDd: 4.4 cm (3.9 - 5.3) LVPWd: 1.0 cm (0.6 - 1.1) IVSs: 1.4 cm LVIDs: 3.6 cm LVPWs: 1.4 cm LA Diam: 5.9 cm (2.7 - 3.8) LAESV Index (A-L): 53.70 ml/m Ao Diam: 2.7 cm (2.0 - 3.7) AV Cusp: 1.6 cm (1.5 - 2.6) MV EXCURSION: 24.989 mm (> 18.000) MV EF SLOPE: 145 mm/s (70 - 150) EPSS: 0.5 cm MV E Fred: 0.90 m/s MV DecT: 186 ms MV A Fred: 0.86 m/s MV E/A Ratio: 1.04 RAP: 5.00 mmHg RVSP: 26.27 mmHg FINDINGS -------- Sinus rhythm. This was a technically good study. The left ventricular size is normal. Left ventricular wall thickness is normal. Overall left vent ricular systolic function is low-normal with, an EF between 50 - 55 %. The right ventricle is normal in size. The left atrium is markedly dilated. LA is severely dilated >40 ml/m2 The right atrial size is normal. There is mild aortic regurgitation. The mitral valve leaflets are mildly thickened. Moderate EXTRINSIC mitral regurgitation is present . Mild prolapse of the anterior mitral valve leaflet. Mild tricuspid regurgitation present. Right ventricular systolic pressure is normal at < 35 mmHg. There is no pulmonic regurgitation present. The aortic root is dilated measuring 2.7cm. There is no pericardial effusion. CONCLUSIONS -------- 1. The left ventricular size is normal. 2. Left ventricular wall thickness is normal. 3. Overall left ventricular systolic function is low-normal with, an EF between 50 - 55 %. 4. The right ventricle is normal in size. 5. The left atrium is markedly dilated. 6. LA is severely dilated >40 ml/m2 7. The right atrial size is normal. 8. There is mild aortic regurgitation. 9. The mitral valve leaflets are mildly thickened. 10. Moderate EXTRINSIC mitral regurgitation is present. 11. Mild prolapse of the anterior mitral valve leaflet. 12. Mild tricuspid regurgitation present. 13. There is no pulmonic regurgitation present. SERVICE CONSULTANT: Crissy Rodriguez RDCS
[2020-06-11] MEDS: AMIODARONE 300 MG in DEXTROSE 5% IN WATER 250 ML IV SCH ×2 (17:06)
[2020-06-11] MEDS: ASPIRIN 81 MG PO SCH (17:11)
[2020-06-11 19:58] LABS: Hemoglobin A1C 5.1 % (4.0-6.0)
[2020-06-11] MEDS: MAGNESIUM OXIDE 400 MG TAB PO SCH (20:44)
[2020-06-12] MEDS: AMIODARONE 300 MG in DEXTROSE 5% IN WATER 250 ML IV SCH ×2 (03:52)
[2020-06-12] MEDS ORDERED: ATORVASTATIN 80 MG TAB PO ONE (06:00)
[2020-06-12] MEDS ORDERED: ASPIRIN 325 MG TAB PO ONE (06:00)
[2020-06-12] MEDS: MAGNESIUM OXIDE 400 MG TAB PO SCH ×2 (06:35→20:45)
[2020-06-12] MEDS: amLODIPine 2.5 MG TAB PO SCH (06:35)
[2020-06-12] MEDS: FAMOTIDINE 20 MG/2 ML VIAL IV SCH ×2 (06:36→20:45)
[2020-06-12] MEDS: lisinopriL 20 MG TAB PO SCH (06:36)
[2020-06-12 07:06] LABS: African American GFR (CKD) >90 (>60 ml/min/1.73 sqM); Anion Gap 7 mmol/L; Blood Urea Nitrogen 15 mg/dL (7-17); Carbon Dioxide 24 mmol/L (22-30); Chloride 99 mmol/L (98-107); Glucose 87 mg/dL (74-99); Non-African American GFR(CKD) 85 (>60 ml/min/1.73 sqM); Potassium 3.9 mmol/L (3.5-5.1); Sodium 130 mmol/L (137-145)
[2020-06-12] MEDS: ASPIRIN 81 MG PO SCH (07:40)
[2020-06-12] MEDS: HEPARIN SODIUM,PORCINE 5,000 UNIT/ML 1 ML VIAL SQ SCH ×2 (07:41→20:46)
[2020-06-12] MEDS ORDERED: LIDOCAINE 1% INJ 10MG/ML (20 ML MDV) ONE (07:53)
[2020-06-12] MEDS ORDERED: VERAPAMIL 2.5 MG/ML 2 ML AMP ONE (07:53)
[2020-06-12] MEDS ORDERED: fentaNYL (PF) 50 MCG/ML 2 ML AMP ONE (07:54)
[2020-06-12] MEDS ORDERED: IV FLUID CONTINUATION 900 ML IV ONE (07:58)
[2020-06-12] MEDS ORDERED: MIDAZOLAM 2 MG/2 ML VIAL IVP ONE (08:03)
[2020-06-12] MEDS ORDERED: fentaNYL (PF) 50 MCG/ML 2 ML AMP IVP ONE (08:03)
[2020-06-12] MEDS: LIDOCAINE 1% INJ 10MG/ML (20 ML MDV) SQ ONE ×2 (08:06→08:13)
[2020-06-12] MEDS ORDERED: IOPAMIDOL-370 50ML BTL INJ ONE (08:41)
[2020-06-12] MEDS ORDERED: IOPAMIDOL-370 125ML BTL INJ ONE (08:49)
[2020-06-12] MEDS ORDERED: RX INFO: IV CONTRAST WAS GIVEN 1 EACH MISC MISCELLANE PRN (08:59)
--- NOTE | 2020-06-12 09:23 | P.CARDCATH ---
Date of Procedure: 06/12/20 Preoperative Diagnosis: Ventricular arrhythmias, mitral valve prolapse and mitral regurgitation Postoperative Diagnosis: Normal coronary arteries, severe mitral regurgitation and mitral valve prolapse Procedure(s) Performed: Left heart catheterization with left ventriculography Description of Procedure: HISTORY: This is a 75-year-old female with history of mitral valve prolapse and mitral regurgitation who was admitted to the hospital with episodes of dizziness. She was found to have and the tachycardia lasting about 9-10 seconds associated with symptoms. She was treated with IV amiodarone. She is advised to have a cardiac catheterization for definitive diagnosis CONSENT:I have discussed the risks, benefits and alternative therapies for the above-mentioned procedure and for both sedation/analgesia as well as necessary blood product administration, if indicated, as they pertain to this patient. The patient has indicated understanding and acceptance of the risks and procedures discussed. [] PROCEDURE: Patient was brought to the lab in a fasting state. Patient was given some IV sedation. Attempts were made to do catheterization from the right patient. Radial artery was entered and the wire could not be advanced beyond the elbow. The procedure was abandoned and was carried out from the right groin approach. TR band was applied for hemostasis. The right groin is infiltrated with lidocaine and right femoral artery was entered using Seldinger technique. The iliac arteries are very tortuous and it was difficult to manage the catheters a 90 the coronary system.. Regular 6- Irish sheath was changed to long sheath and selective coronary arteriography and left ventriculography was performed. The right coronary artery is posterior in origin. Jorgito posterior catheter was used pain in the right coronary artery. 4 bend left Jacqueline catheter was used to study the left coronary system Patient tolerated the procedure well. . No immediate complications were noted and patient was transferred to [facility] in a stable condition Conscious Sedation: Versed 1mg Fentanyl 25 g Duration 45minutes HEMODYNAMICS: Aortic pressure is about 150/70. Left ventricular end-diastolic pressure was 16. There was no gradient across the aortic valve SELECTIVE CORONARY ARTERIOGRAPHY: LEFT MAIN: Short and divides into left anterior descending and left circumflex. Free of occlusive disease THE LEFT ANTERIOR DESCENDING CORONARY ARTERY:. This is a good caliber vessel giving rise good-sized diagonal branch. The LAD and branches are free of any significant occlusive disease THE LEFT CIRCUMFLEX AND IS CORONARY ARTERY:. This is a good caliber vessel giving rise to good-sized PLV branch. The circumflex coronary artery and branches are free of occlusive disease THE RIGHT CORONARY ARTERY:. This is a good caliber vessel and posterior in origin. It gives rise to PDA and PLV branches. The right coronary artery and branches are free of occlusive disease LEFT VENTRICULOGRAPHY: This revealed mildly enlarged left ventricle with ejection fraction about 50-55%. There is evidence of mitral valve prolapse and 4+ mitral regurgitation FINAL IMPRESSION: #1. Normal coronary arteries #2. Mitral valve prolapse #3. Severe mitral regurgitation #4. Left ventricular function is near normal. 5. left atrium is enlarged PLAN: Patient requires mitral valve repair. Subsequently she needs an EP evaluation and possible AICD implantation was of minus ablation. Meanwhile we'll continue amiodarone PROGNOSIS: Guarded
[2020-06-12] MEDS: SODIUM CHLORIDE 0.9% 1,000 ML IV SCH ×2 (11:19→20:46)
--- NOTE | 2020-06-12 12:15 | P.GSCN ---
History of Present Illness Consult date: 06/12/20 Reason for Consult: Mitral valve regurgitation Requesting physician: Migel Mathew History of present illness: This is a 75-year-old active female who follows on an outpatient basis with Dr. Delano Lemus. She has a previous medical history of hypertension, mitral valve prolapse, and right nephrectomy. She presented to [facility] emergency room 2 days ago with complaints of intermittent spells of dizziness and heart palpitations for the last 3 weeks. Apparently she had reported this to her primary care physician who had placed a Holter monitor which was returned to the registered safety engineer, yet to be red. She denies any chest pain, shortness of breath, or diaphoresis. White blood cell count 9.3, hemoglobin 15.3, BUN 0.73, sodium 127, troponins negative, TSH 6.7 with free T4 1 0.31. Chest x-ray demonstrated no acute process. EKG showed normal sinus rhythm with occasional PACs and evidence of biatrial enlargement. She was admitted for evaluation and treatment with consultation placed to cardiology. Yesterday a transthoracic echocardiogram was completed demonstrating normal left ventricular systolic function with EF 50- 55%, dilated left atrium, mild aortic insufficiency, moderate eccentric mitral regurgitation with mild prolapse of the anterior mitral leaflet, and mild tricuspid regurgitation. She had runs of nonsustained ventricular tachycardia and subsequently was recommended to undergo heart catheterization which was completed today and which demonstrated normal coronary arteries with 4+ mitral regurgitation. Due to these findings consultation was placed to Dr. Durán for recommendations for surgical mitral valve repair versus replacement. Review of Systems Review of systems was completed and was negative except as noted - Cardiovascular Reports as per HPI, Reports lightheadedness, Reports palpitations Past Medical History Past Medical History: Hypertension, Mitral Valve Prolapse (MVP) Additional Past Medical History / Comment(s): HAS ONE KIDNEY ON THE LEFT History of Any Multi-Drug Resistant Organisms: None Reported Past Surgical History: Appendectomy, Hysterectomy, Tubal Ligation Additional Past Surgical History / Comment(s): Right nephrectomy Past Anesthesia/Blood Transfusion Reactions: No Reported Reaction Past Psychological History: No Psychological Hx Reported Smoking Status: Never smoker Past Alcohol Use History: None Reported Past Drug Use History: None Reported - Past Family History Mother Family Medical History: Hypertension Medications and Allergies Home Medications Medication Instructions Recorded Confirmed Type Benazepril/Hydrochlorothiazide 1 tab PO BID@0730,1930 10/27/16 06/10/20 History [Benazepril-Hctz 20-25 mg Tab] amLODIPine [Norvasc] 2.5 mg PO DAILY@0730 10/27/16 06/10/20 History Allergies Allergy/AdvReac Type Severity Reaction Status Date / Time codeine AdvReac Confusion Verified 06/10/20 23:32 Surgical - Exam Vital Signs Temp Pulse Resp BP Pulse Ox 98.8 F 77 16 172/81 98 06/10/20 21:47 06/10/20 21:47 06/10/20 21:47 06/10/20 21:47 06/10/20 21:47 - General well developed, well nourished, no distress, no pain - Eyes normal ocular movement - ENT no hearing loss - Neck no masses, no bruits, trachea midline - Respiratory Lungs sounds clear bilaterally. Respirations even, nonlabored. Currently on room air with oxygen saturation 98%. No chest wall deformities. No clubbing or cyanosis present. - Cardiovascular S1, S2 present. Slow but regular rate and rhythm, sinus bradycardia on telemetry. Palpable peripheral pulses bilaterally. No edema present. No calf pain or tenderness noted. - Abdomen Abdomen: soft, non tender, bowel sounds - Genitourinary Deferred - Rectum Deferred - Integumentary no rash, no growths - Neurologic normal coordination, normal sensation - Musculoskeletal normal posture - Psychiatric oriented to time, oriented to person, oriented to place, speech is normal, memory intact Results - Labs 06/10/20 22:41 06/12/20 06:06 Abnormal Lab Results - Last 24 Hours (Table) 06/12/20 Range/Units 06:06 Sodium 130 L (137-145) mmol/L Diabetes panel 06/10/20 06/12/20 Range/Units 22:30 06:06 Sodium 130 L (137-145) mmol/L Potassium 3.9 (3.5-5.1) mmol/L Chloride 99 (98-107) mmol/L Carbon Dioxide 24 (22-30) mmol/L BUN 15 (7-17) mg/dL Creatinine 0.71 (0.52-1.04) mg/dL Glucose 87 (74-99) mg/dL Hemoglobin A1c 5.1 (4.0-6.0) % Calcium 9.0 (8.4-10.2) mg/dL Calcium panel 06/12/20 Range/Units 06:06 Calcium 9.0 (8.4-10.2) mg/dL Pituitary panel 06/12/20 Range/Units 06:06 Sodium 130 L (137-145) mmol/L Potassium 3.9 (3.5-5.1) mmol/L Chloride 99 (98-107) mmol/L Carbon Dioxide 24 (22-30) mmol/L BUN 15 (7-17) mg/dL Creatinine 0.71 (0.52-1.04) mg/dL Glucose 87 (74-99) mg/dL Calcium 9.0 (8.4-10.2) mg/dL Adrenal panel 06/12/20 Range/Units 06:06 Sodium 130 L (137-145) mmol/L Potassium 3.9 (3.5-5.1) mmol/L Chloride 99 (98-107) mmol/L Carbon Dioxide 24 (22-30) mmol/L BUN 15 (7-17) mg/dL Creatinine 0.71 (0.52-1.04) mg/dL Glucose 87 (74-99) mg/dL Calcium 9.0 (8.4-10.2) mg/dL - Imaging Chest x-ray: report reviewed, image reviewed EKG: image reviewed Additional studies: Heart catheterization films and echocardiogram films were reviewed with Dr. Jose xie Assessment and Plan Assessment: 1. Mitral valve regurgitation with mitral valve prolapse of the anterior leaflet 2. Nonsustained V. tach 3. History of hypertension 4. History of nephrectomy Plan: The patient was seen and examined at the bedside with Dr. Durán. Chart/diagnostics were reviewed. Case was discussed between Dr. Durán and Dr. Mathew. The usual perioperative course of mitral valve surgery was discus sed in detail the patient and her , risks and benefits were reviewed, questions were answered. We recommend transesophageal echocardiogram which likely will be completed tomorrow morning by Dr. Mathew. Preoperative workup was initiated. Once all testing has been completed patient may be discharged to home from our standpoint when okay with other services to follow- up in the office with Dr. Durán to discuss appropriateness and timing of mitral valves surgery. If surgery is felt to be appropriate patient will need dental clearance prior to surgery. This was discussed with the patient and her and they are in agreement. More recommendations to follow. Thank you Dr. Mathew for this consult. We look forward to working with you in the care of your patient. Time with Patient: Greater than 30
--- NOTE | 2020-06-12 14:03 | US ---
EXAMINATION TYPE: US carotid duplex BILAT DATE OF EXAM: 06/12/2020 COMPARISON: NONE CLINICAL HISTORY: Pre-Op Cardiac Surgery. EXAM MEASUREMENTS: RIGHT: Peak Systolic Velocity (PSV) cm/sec ----- Right CCA: 60.7 ----- Right ICA: 95.0 ----- Right ECA: 42.0 ICA/CCA ratio: 1.6 RIGHT: End Diastole cm/sec ----- Right CCA: 14.5 ----- Right ICA: 0.0 ----- Right ECA: 0.0 LEFT: Peak Systolic Velocity (PSV) cm/sec ----- Left CCA: 62.2 ----- Left ICA: 105.0 ----- Left ECA: 43.4 ICA/CCA ratio: 1.7 LEFT: End Diastole cm/sec ----- Left CCA: 13.8 ----- Left ICA: 38.4 ----- Left ECA: 4.6 VERTEBRALS (direction of flow): Right Vertebral: Antegrade Left Vertebral: Antegrade Rhythm: Arrhythmia Mild atherosclerotic changes with no significant velocity elevations. IMPRESSION: 1. Atheromatous plaquing without significant flow-limiting stenosis. Bilateral intimal thickening is noted. Criteria for Assigning % of Stenosis / Diameter reduction (Estimation based on the indirect measurements of the internal carotid artery velocities (ICA PSV). 1. Normal (no stenosis)=ICA PSV < 125 cm/s: ratio < 2.0: ICA EDV<40 cm/s. 2. Less than 50% stenosis=ICA PSV < 125 cm/s: ratio < 2.0: ICA EDV<40 cm/s. 3. 50 to 69% stenosis=ICA PSV of 125 to 230 cm/s: ration 2.0 ? 4.0: ICA EDV 40-100 cm/s. 4. Greater than 70% stenosis to near occlusion= ICA PSV > 230 cm/s: ratio > 4.0: ICA EDV > 100 cm/s. 5. Near occlusion= ICA PSV velocities may be low or undetectable: variable ratio and ICA EDV. 6. Total occlusion=unable to detect flow.
[2020-06-12] MEDS: AMIODARONE 200 MG TAB PO SCH ×2 (16:15→21:00)
[2020-06-12 16:32] LABS: Appearance,Urine Clear (Clear); Bilirubin,Urine Negative (Negative); Blood,Urine Negative (Negative); Color,Urine Light Yellow; Glucose,Urine (UA) Negative (Negative); Ketones,Urine Negative (Negative); Leukocyte Esterase,Urine Negative (Negative); Nitrite,Urine Negative (Negative); Protein,Urine Negative (Negative); Specific Gravity,Urine 1.027 (1.001-1.035); Urobilinogen,Urine <2.0 mg/dL (<2.0)
--- NOTE | 2020-06-12 21:30 | P.PN ---
Subjective This is a 75-year-old active female who follows on an outpatient basis with Dr. Delano Lemus. She has a previous medical history of hypertension, mitral valve prolapse, and right nephrectomy. She presented to [facility] emergency room 2 days ago with complaints of intermittent spells of dizziness and heart palpitations for the last 3 weeks. Apparently she had reported this to her primary care physician who had placed a Holter monitor which was returned to the umbrella frame maker, yet to be red. She denies any chest pain, shortness of breath, or diaphoresis. White blood cell count 9.3, hemoglobin 15.3, BUN 0.73, sodium 127, troponins negative, TSH 6.7 with free T4 1 0.31. Chest x-ray demonstrated no acute process. EKG showed normal sinus rhythm with occasional PACs and evidence of biatrial enlargement. She was admitted for evaluation and treatment with consultation placed to cardiology. Yesterday a transthoracic echocardiogram was completed demonstrating normal left ventricular systolic function with EF 50- 55%, dilated left atrium, mild aortic insufficiency, moderate eccentric mitral regurgitation with mild prolapse of the anterior mitral leaflet, and mild tricuspid regurgitation. She had runs of nonsustained ventricular tachycardia and subsequently was recommended to undergo heart catheterization which was completed today and which demonstrated normal coronary arteries with 4+ mitral regurgitation. Due to these findings consultation was placed to Dr. Durán for recommendations for surgical mitral valve repair versus replacement. 06/12/2020 Patient underwent cardiac cath today which showed normal coronary artery but with mitral prolapse and severe mitral valve regurgitation Surgical consult was requested, patient is going for a LAURIE tomorrow by cardiology team, and most likely patient will be discharged to follow-up with vascular surgery as an outpatient for appropriate time of surgical intervention after further workup. Review of systems CONSTITUTIONAL: No fever, no malaise, no fatigue. HEENT: No recent visual problems or hearing problems. Denied any sore throat. CARDIOVASCULAR: No orthopnea, PND, no palpitations, no syncope. PULMONARY: No shortness of breath, no cough, no hemoptysis. GASTROINTESTINAL: No diarrhea, no nausea, no vomiting, no abdominal pain. Normoactive bowel sounds. NEUROLOGICAL: No headaches, no weakness, no numbness. Active Medications Generic Name Dose Route Start Last Admin Trade Name Freq PRN Reason Stop Dose Admin Alprazolam 0.25 mg 06/11/20 12:10 Xanax PO Q6HR PRN Mild Anxiety Alprazolam 0.5 mg 06/11/20 12:10 Xanax PO Q6HR PRN Moderate Anxiety Amiodarone HCl 200 mg 06/12/20 16:00 06/12/20 21:00 Cordarone PO 200 mg TID [facility] Administration Amlodipine Besylate 5 mg 06/13/20 07:30 Norvasc PO DAILY@0730 [facility] Aspirin 81 mg 06/11/20 12:15 06/12/20 07:40 Aspirin PO Not Given DAILY [facility] Famotidine 20 mg 06/11/20 09:00 06/12/20 20:45 Pepcid IV 20 mg Q12HR [facility] Administration Furosemide 20 mg 06/13/20 09:00 Lasix PO DAILY [facility] Heparin Sodium (Porcine) 5,000 unit 06/11/20 09:00 06/12/20 20:46 Heparin SQ Not Given Q12HR [facility] Sodium Chloride 1,000 mls @ 75 mls/hr 06/12/20 09:00 06/12/20 20:46 Saline 0.9% IV 75 mls/hr .[id number] [facility] Administration Lisinopril 40 mg 06/11/20 08:00 06/12/20 06:36 Zestril PO 40 mg DAILY@0730 [facility] Administration Miscellaneous Information 1 each 06/12/20 08:59 Rx Info: Iv Contrast Was Given MISCELLANE 06/14/20 08:59 DAILY PRN Per Protocol Naloxone HCl 0.2 mg 06/11/20 00:26 Narcan IV Q2M PRN Opioid Reversal Nitroglycerin 0.4 mg 06/11/20 12:10 Nitrostat SUBLINGUAL Q5M PRN Chest Pain Potassium Chloride 10 meq 06/13/20 09:00 K-Dur 10 PO DAILY [facility] Objective - Vital Signs Vital signs: Vital Signs Temp 98.1 F 06/12/20 11:00 Pulse 54 L 06/12/20 11:50 Resp 18 06/12/20 11:50 BP 133/65 06/12/20 11:50 Pulse Ox 98 06/12/20 11:50 Intake & Output 06/11/20 06/12/20 06/12/20 18:59 06:59 18:59 Intake Total 945 226 8007 Balance 607 370 8828 Weight 63.1 kg Intake: IV 1100 .9 @ 75 900 Intake, IV Titration 300 250 Amount Amiodarone 300 mg In 250 Dextrose 5% in Water 250 ml @ 0.5 MG/MIN 25 mls/hr IV .Q10H [facility] Rx#: [id number] Amiodarone 360 mg In 200 Dextrose 5% in Water 200 ml @ 1 MG/MIN 33.333 mls/ hr IV .Q6H ONE Rx#: [id number] Dextrose 5% in Water 100 100 ml @ 618 mls/hr IV .Q10M ONE with Amiodarone 150 mg Rx#:[id number] Oral 580 Other: Voiding Method Toilet Toilet Toilet # Voids 3 1 1 - Exam GENERAL: The patient is alert and oriented x3, not in any acute distress. Well developed, well nourished. HEENT: Pupils are round and equally reacting to light. EOMI. No scleral icterus. No conjunctival pallor. Normocephalic, atraumatic. No pharyngeal erythema. No thyromegaly. CARDIOVASCULAR: S1 and S2 present. No murmurs, rubs, or gallops. PULMONARY: Chest is clear to auscultation, no wheezing or crackles. ABDOMEN: Soft, nontender, nondistended, normoactive bowel sounds. No palpable organomegaly. MUSCULOSKELETAL: No joint swelling or deformity. EXTREMITIES: No cyanosis, clubbing, or pedal edema. NEUROLOGICAL: Gross neurological examination did not reveal any focal deficits. SKIN: No rashes. no petechiae. - Labs CBC & Chem 7: 06/10/20 22:41 06/12/20 06:06 Labs: Abnormal Lab Results - Last 24 Hours (Table) 06/12/20 Range/Units 06:06 Sodium 130 L (137-145) mmol/L Assessment and Plan Assessment: Severe mitral regurgitation Lightheadedness with racing heartbeat, feels better Acute and chronic hyponatremia. Looks like patient is euvolemic. Patient also drinks a lot of water Hypertension Moderate to severe mitral regurgitation Subclinical hypothyroidism Plan: This is a pleasant 75 race old female who presents because of severe mitral regurgitation. and hyponatremia. Cardiology and cardio-thoracic surgery on the case. Patient is scheduled for LAURIE tomorrow and then she will follow up with cardiac surgery team upon discharge. Sodium is improved. Check the level, We'll check hemoglobin A1c Labs and medication were reviewed.. Continue same treatment. Continue with symptomatic treatment. Resume home medication. Monitor lytes and vitals. DVT and GI prophylaxis. Further recommendations of the clinical course of the patient DVT prophylaxis: Subcutaneous heparin GI Prophylaxis: Pepcid PT/OT: Pending Prognosis is guarded
[2020-06-13] MEDS: amLODIPine 5 MG TAB PO SCH (06:32)
[2020-06-13] MEDS: lisinopriL 20 MG TAB PO SCH (06:32)
[2020-06-13 07:34] LABS: Basophils # (A) 0.1 k/uL (0-0.2); Basophils % (A) 1 %; Eosinophils # (A) 0.2 k/uL (0-0.7); Eosinophils % (A) 3 %; HCT 39.8 % (34.0-46.0); HGB 13.3 gm/dL (11.4-16.0); Lymphocytes # (A) 1.9 k/uL (1.0-4.8); Lymphocytes % (A) 25 %; MCH 33.9 pg (25.0-35.0); MCHC 33.5 g/dL (31.0-37.0); MCV 101.2 fL (80.0-100.0); Macrocytosis Slight; Mean Platelet Volume 8.8; Monocytes # (A) 0.5 k/uL (0-1.0); Monocytes % (A) 7 %; Neutrophils % (A) 63 %; Platelet Count 176 k/uL (150-450); RBC 3.93 m/uL (3.80-5.40); RDW 13.7 % (11.5-15.5); WBC 7.9 k/uL (3.8-10.6)
[2020-06-13 07:54] LABS: Albumin 4.1 g/dL (3.5-5.0); Calcium 9.2 mg/dL (8.4-10.2); Potassium 4.2 mmol/L (3.5-5.1); Total Bilirubin 0.7 mg/dL (0.2-1.3); Total Protein 6.4 g/dL (6.3-8.2)
[2020-06-13] MEDS ORDERED: fentaNYL (PF) 50 MCG/ML 2 ML AMP ONE (08:03)
[2020-06-13] MEDS ORDERED: BENZOCAINE SPRAY 1 CAN MUCOUS MEM ONE ×2 (08:19→08:27)
[2020-06-13] MEDS ORDERED: IV FLUID CONTINUATION 700 ML IV ONE (08:20)
[2020-06-13] MEDS ORDERED: fentaNYL (PF) 50 MCG/ML 2 ML AMP IVP ONE ×2 (08:40→08:44)
[2020-06-13] MEDS ORDERED: MIDAZOLAM 2 MG/2 ML VIAL IVP ONE ×2 (08:40→08:43)
--- NOTE | 2020-06-13 09:19 | P.TEE ---
Indications for Procedure(s): Assessment mitral regurgitation and mitral valve prolapse Date of Procedure: 06/13/20 Preoperative Diagnosis: Mitral valve prolapse and mitral regurgitation Postoperative Diagnosis: Prolapse of the anterior mitral leaflet with a maximum changes. Eccentric mitral regurgitation appears to be 3-4+ Procedure(s) Performed: LAURIE Description of Procedure(s): This is a 75-year-old female who was admitted to the hospital with recurrent episodes of ventricular tachycardia lasting up to 9-10 seconds associated with symptoms of dizziness. Patient is found to have evidence of mitral valve prolapse and mitral regurgitation. Had a cardiac catheterization which revealed severe mitral regurgitation and normal coronary arteries. Patient is advised to have a LAURIE examination for further evaluation of mitral valve disease. CONSENT: Informed consent was obtained from the patient verbally PROCEDURE: Patient was brought to the lab in a fasting state. Patient was prepped and draped in the usual fashion. The throat was sprayed with Cetacaine. A lubricated Omni probe was introduced into the oropharynx and was advanced into the esophagus. Multiple views were obtained from the esophagus and stomach. Color pulse and continuous-wave Doppler studies were performed. Saline contrast bubble injection is done. Patient tolerated the procedure well FINDINGS:. The aortic valve is tricuspid and function normally. The mitral valve shows thickening of the especially mitral leaflet with prolapse. There is eccentric mitral regurgitation. The PISA of value is about 0.8 to 1. The mitral regurgitation appears to be 3-4+. There is no reversal of flow in a rather of the pulmonary veins. No clot in the left atrial appendage. Interatrial septum is intact. No shunt noted. Aorta showed minimal plaque. The left atrium is enlarged. The LV function appears to be in a normal IMPRESSION: #1. Mitral valve prolapse and 3-4+ mitral regurgitation #2. No PFO #3. No clot in left atrial appendage. #4. Left atrial enlargement. #5. Left ankle function appears to be near normal PLAN: Mitral valve repair
--- NOTE | 2020-06-13 09:42 | P.PN ---
Subjective Progress Note Date: 06/13/20 Principal diagnosis: Moderate to severe mitral valve regurgitation, nonsustained V. tach. Previous medical history of hypertension and right nephrectomy The patient was seen this morning sitting up in the recliner in no acute distress. She denied any pain or shortness of breath or any other symptomatology. She was waiting to have her transesophageal echocardiogram done which has since been completed, per report from Dr. Mathew there is 3-4+ eccentric mitral valve regurgitation with anterior mitral valve leaflet prolapse. No new concerns. Objective - Vital Signs Vital signs: Vital Signs Temp 97.8 F 06/13/20 04:00 Pulse 58 L 06/13/20 08:51 Resp 16 06/13/20 08:51 BP 133/58 06/13/20 08:51 Pulse Ox 100 06/13/20 08:51 Intake & Output 06/12/20 06/13/20 06/13/20 18:59 06:59 18:59 Intake Total 1540 600 100 Output Total 950 Balance 590 600 100 Weight 61.9 kg Intake: IV 1100 600 100 .9 @ 75 900 600 Oral 440 Output: Urine 950 Other: Voiding Method Toilet Toilet # Voids 1 1 - Constitutional General appearance: Present: cooperative, no acute distress - Respiratory Details: Lungs sounds clear bilaterally. Respirations even, nonlabored. Currently on room air with oxygen saturation 99%. Able to achieve 1750 mL on her incentive spirometry - Cardiovascular Details: S1, S2 present. Regular rate and rhythm, sinus rhythm on telemetry. Palpable peripheral pulses bilaterally. No edema present. No calf pain or tenderness noted. - Gastrointestinal Gastrointestinal Comment(s): Abdomen soft, nontender, nondistended. Active bowel sounds present x 4 quadrants. - Genitourinary Genitourinary Comment(s): Continues to void - Integumentary Integumentary Comment(s): Skin is warm and dry with evidence of good perfusion - Neurologic Neurologic: Present: CNII-XII intact - Musculoskeletal Musculoskeletal: Present: gait normal, strength equal bilaterally - Psychiatric Psychiatric: Present: A&O x's 3, appropriate affect, intact judgment & insight - Allied health notes Allied health notes reviewed: nursing - Labs CBC & Chem 7: 06/13/20 06:37 06/13/20 06:37 Labs: Abnormal Lab Results - Last 24 Hours (Table) 06/13/20 06/13/20 Range/Units 06:37 06:37 MCV 101.2 H (80.0-100.0) fL Sodium 133 L (137-145) mmol/L Microbiology - Last 24 Hours (Table) 06/12/20 12:30 Nasal Screen MRSA/MSSA - Preliminary Nasal Swab - Imaging and Cardiology Chest x-ray: report reviewed, image reviewed Carotid Doppler results reviewed Assessment and Plan Assessment: 1. Mitral valve regurgitation with mitral valve prolapse of the anterior leaflet 2. Nonsustained V. tach 3. History of hypertension 4. History of right nephrectomy Plan: 1. LAURIE completed this morning, results discussed with Dr. Mathew. Will discuss results with Dr. Durán 2. Preoperative testing completed, will calculate STS risk and discuss with the patient 3. Patient may be discharged to home from cardiothoracic surgery standpoint when okay with Dr. Mathew, follow-up appointment has been made with Dr. Durán for 07/01/20 at 10:45 AM to discuss surgical recommendations. Our contact information was given to the patient 4. Patient will need dental clearance prior to surgery, this was discussed with the patient, she does see a dentist on a regular basis. 5. Management of other comorbidities per primary care service, cardiology 6. Please call us with any further questions Time with Patient: Greater than 30
[2020-06-13] MEDS: AMIODARONE 200 MG TAB PO SCH ×3 (11:08→20:50)
[2020-06-13] MEDS: POTASSIUM CHLORIDE ER 10 MEQ TAB.ER.PRT PO SCH (11:08)
[2020-06-13] MEDS: ASPIRIN 81 MG PO SCH (11:08)
[2020-06-13] MEDS: FUROSEMIDE 20 MG TAB PO SCH (11:08)
[2020-06-13] MEDS: HEPARIN SODIUM,PORCINE 5,000 UNIT/ML 1 ML VIAL SQ SCH ×3 (11:09→20:52)
[2020-06-13] MEDS: FAMOTIDINE 20 MG/2 ML VIAL IV SCH (11:09)
[2020-06-13] MEDS: SODIUM CHLORIDE 0.9% 1,000 ML IV SCH ×2 (11:10→13:26)
[2020-06-13 12:41] LABS: Hepatitis A Antibody IgM Non-Reactive (Non-Reactive); Hepatitis B Core IgM Non-Reactive (Non-Reactive); Hepatitis B Surface Antigen Non-Reactive (Non-Reactive); Hepatitis C IgG Antibody Non-Reactive (Non-Reactive)
[2020-06-13] MEDS: METOPROLOL TARTRATE 12.5 MG TAB PO SCH (13:23)
--- NOTE | 2020-06-13 17:48 | P.CRDCN ---
History of Present Illness History of present illness: This is Dr. Holloway dictating a consult on this patient The patient was interviewed and examined This is an electrophysiology consult requested by Dr. Mathew. Patient of Dr. Delano Lemus IMPRESSION / ASSESSMENT: 75-year-old female presenting with several weeks of recurrent palpitations without syncope Telemetry documented fast ventricular tachycardia with a right bundle branch block like morphology upright QRS and AV dissociation consistent with fast left ventricular VT PVCs noted of a different morphology Past history of sustained tachycardia almost 20 years back. At that time she went to the emergency room and she was given an intravenous medication. She does not remember the diagnosis Mitral valve prolapse with 3-4+ mitral regurgitation, normal coronary arteries mildly dilated left ventricle, severely dilated left atrium PLAN: I had a detailed discussion with the patient and I would recommend the following. This was also discussed with Dr. Mathew who is her primary copy machine operator. Proceed with mitral valve repair LifeVest for about 4 months Continue amiodarone 200 mg 3 times a day for one week, then 200 mg twice a day for 2 weeks and then 200 mg daily Stop amiodarone 2-3 weeks following mitral valve repair After mitral valve repair and being off amiodarone for at least 6 weeks, I would recommend a diagnostic EP study Further recommendations will be made based on the EP study. She has had an episode of sustained palpitations almost 20 years back. She was treated with intravenous medications in the ER. She comes with episodes of ventricular tachycardia, recurrent She also has a PVC of a different morphology as well as PVCs and ventricular couplets of the same morphology as the ventricular tachycardia I discussed the options of ICD implantation versus radio frequency ablation the final decision will be made at EP study It is important that she must be off amiodarone for at least 6-8 weeks prior to the EP study Continue LifeVest therapy as a backup until then HPI Patient presented with recurrent palpitations. She saw Dr. Delano Lemus/nurse practitioner Junie An event monitor was prescribed She presents to the hospital once again with palpitations Here on telemetry. Documented PVCs as well as almost sustained fast ventricular tachycardia The tachycardia has an upright morphology in lead 23 and aVF, right bundle branch block like morphology in V1 and evidence of AV dissociation 20 years back the patient had an episode of sustained palpitations that took her to an ER there and she says she was given an intravenous medication and sent home No details available ROS: No fever chills or rigors, no cough, phlegm or expectoration, no nausea, vomiting or diarrhea, no hematuria, dysuria, no musculoskeletal complaints, no strokes or seizures, no skin lesions. EXAMINATION: afebrile 97.8F, pulse rate in the 50s and 60s blood pressure 126/68 mmHg Breath sounds are clear no rhonchi no crackles Heart sounds S2 are normal, systolic murmur Abdomen is soft nontender Extremities warm no edema No JVD REVIEW OF LABS, ECG & MEDICAL DATA Currently on amiodarone 200 mg 3 times a day metoprolol lisinopril 12-lead ECG showed sinus rhythm normal SC narrow QRS normal ST segments 2-D echo shows normal LV size, ejection fraction at the lower limits of normal, markedly dilated left atrium, eccentric mitral regurgitation with prolapse of the anterior mitral leaflet Cardiac catheterization revealed a mildly enlarged left ventricle with ejection fraction of about 50%. 4+ mitral regurgitation, normal coronary arteries, left atrial enlargement Past Medical History Past Medical History: Hypertension, Mitral Valve Prolapse (MVP) Additional Past Medical History / Comment(s): HAS ONE KIDNEY ON THE LEFT History of Any Multi-Drug Resistant Organisms: None Reported Past Surgical History: Appendectomy, Hysterectomy, Tubal Ligation Additional Past Surgical History / Comment(s): Right nephrectomy Past Anesthesia/Blood Transfusion Reactions: No Reported Reaction Past Psychological History: No Psychological Hx Reported Smoking Status: Never smoker Past Alcohol Use History: None Reported Past Drug Use History: None Reported - Past Family History Mother Family Medical History: Hypertension Medications and Allergies Home Medications Medication Instructions Recorded Confirmed Type Benazepril/Hydrochlorothiazide 1 tab PO BID@0730,1930 10/27/16 06/10/20 History [Benazepril-Hctz 20-25 mg Tab] amLODIPine [Norvasc] 2.5 mg PO DAILY@0730 10/27/16 06/10/20 History Allergies Allergy/AdvReac Type Severity Reaction Status Date / Time codeine AdvReac Confusion Verified 06/10/20 23:32 Physical Exam Vitals: Vital Signs Temp Pulse Resp BP BP Pulse Ox 06/13/20 16:00 97.8 F 54 L 18 160/93 98 06/13/20 12:00 66 18 126/68 100 06/13/20 10:37 18 140/64 99 06/13/20 10:27 18 146/66 98 06/13/20 10:12 18 141/55 06/13/20 09:57 18 157/68 98 06/13/20 09:42 98.7 F 68 18 176/72 98 06/13/20 08:51 58 L 16 133/58 100 06/13/20 08:47 57 L 16 138/63 100 06/13/20 08:43 55 L 16 159/67 100 06/13/20 08:40 57 L 18 138/63 100 06/13/20 08:28 61 18 178/70 100 06/13/20 08:00 18 06/13/20 04:00 97.8 F 59 L 18 137/62 99 06/13/20 03:34 67 18 06/12/20 23:39 67 18 06/12/20 23:36 98.3 F 67 18 128/70 99 06/12/20 20:00 98.1 F 66 18 170/69 96 Intake and Output 06/13/20 06/13/20 06/13/20 06:59 14:59 22:59 Intake Total 600 940 Balance 600 940 Intake: IV 600 700 .9 @ 75 600 600 Oral 240 Other: Voiding Method Toilet Toilet Toilet # Voids 1 Weight 61.9 kg Results 06/13/20 06:37 06/13/20 06:37 Cardiac Enzymes 06/13/20 Range/Units 06:37 AST 32 (14-36) U/L CBC 06/13/20 Range/Units 06:37 WBC 7.9 (3.8-10.6) k/uL RBC 3.93 (3.80-5.40) m/uL Hgb 13.3 (11.4-16.0) gm/dL Hct 39.8 (34.0-46.0) % Plt Count 176 (150-450) k/uL Comprehensive Metabolic Panel 06/13/20 Range/Units 06:37 Sodium 133 L (137-145) mmol/L Potassium 4.2 (3.5-5.1) mmol/L Chloride 102 (98-107) mmol/L Carbon Dioxide 24 (22-30) mmol/L BUN 13 (7-17) mg/dL Creatinine 0.80 (0.52-1.04) mg/dL Glucose 81 (74-99) mg/dL Calcium 9.2 (8.4-10.2) mg/dL AST 32 (14-36) U/L ALT 22 (4-34) U/L Alkaline Phosphatase 50 (38-126) U/L Total Protein 6.4 (6.3-8.2) g/dL Albumin 4.1 (3.5-5.0) g/dL Current Medications Generic Name Dose Route Start Last Admin Trade Name Freq PRN Reason Stop Dose Admin Alprazolam 0.25 mg 06/11/20 12:10 Xanax PO Q6HR PRN Mild Anxiety Alprazolam 0.5 mg 06/11/20 12:10 Xanax PO Q6HR PRN Moderate Anxiety Amiodarone HCl 200 mg 06/12/20 16:00 06/13/20 15:59 Cordarone PO 200 mg TID [facility] Administration Amlodipine Besylate 5 mg 06/13/20 07:30 06/13/20 06:32 Norvasc PO 5 mg DAILY@0730 [facility] Administration Aspirin 81 mg 06/11/20 12:15 06/13/20 11:08 Aspirin PO 81 mg DAILY [facility] Administration Famotidine 20 mg 06/13/20 21:00 Pepcid PO Q12HR [facility] Furosemide 20 mg 06/13/20 09:00 06/13/20 11:08 Lasix PO 20 mg DAILY [facility] Administration Heparin Sodium (Porcine) 5,000 unit 06/11/20 09:00 06/13/20 11:09 Heparin SQ Not Given Q12HR [facility] Sodium Chloride 1,000 mls @ 75 mls/hr 06/12/20 09:00 06/13/20 13:26 Saline 0.9% IV 75 mls/hr .[id number] [facility] Administration Sodium Chloride 1,000 mls @ 20 mls/hr 06/13/20 09:15 06/13/20 11:10 Saline 0.9% IV 20 mls/hr .Q24H [facility] Administration Lisinopril 40 mg 06/11/20 08:00 06/13/20 06:32 Zestril PO 40 mg DAILY@0730 [facility] Administration Metoprolol Tartrate 12.5 mg 06/13/20 13:15 06/13/20 13:23 Lopressor PO 12.5 mg DAILY [facility] Administration Miscellaneous Information 1 each 06/12/20 08:59 Rx Info: Iv Contrast Was Given MISCELLANE 06/14/20 08:59 DAILY PRN Per Protocol Naloxone HCl 0.2 mg 06/11/20 00:26 Narcan IV Q2M PRN Opioid Reversal Nitroglycerin 0.4 mg 06/11/20 12:10 Nitrostat SUBLINGUAL Q5M PRN Chest Pain Potassium Chloride 10 meq 06/13/20 09:00 06/13/20 11:08 K-Dur 10 PO 10 meq DAILY [facility] Administration Intake and Output 06/13/20 06/13/20 06/13/20 06:59 14:59 22:59 Intake Total 600 940 Balance 600 940 Intake: IV 600 700 .9 @ 75 600 600 Oral 240 Other: Voiding Method Toilet Toilet Toilet # Voids 1 Weight 61.9 kg 06/13/20 06:37 06/13/20 06:37
[2020-06-13] MEDS: FAMOTIDINE 20 MG TAB PO SCH (20:50)
[2020-06-14] MEDS: SODIUM CHLORIDE 0.9% 1,000 ML IV SCH ×3 (03:54→14:20)
[2020-06-14] MEDS: lisinopriL 20 MG TAB PO SCH (06:31)
[2020-06-14] MEDS: amLODIPine 5 MG TAB PO SCH (06:31)
[2020-06-14 08:10] VITALS: RESP 16
[2020-06-14] MEDS: METOPROLOL TARTRATE 12.5 MG TAB PO SCH (08:10)
[2020-06-14] MEDS: FAMOTIDINE 20 MG TAB PO SCH (08:10)
[2020-06-14] MEDS: FUROSEMIDE 20 MG TAB PO SCH (08:10)
[2020-06-14] MEDS: ASPIRIN 81 MG PO SCH (08:10)
[2020-06-14] MEDS: AMIODARONE 200 MG TAB PO SCH ×2 (08:10→15:37)
[2020-06-14] MEDS: POTASSIUM CHLORIDE ER 10 MEQ TAB.ER.PRT PO SCH (08:11)
[2020-06-14] MEDS: HEPARIN SODIUM,PORCINE 5,000 UNIT/ML 1 ML VIAL SQ SCH (08:11)
--- NOTE | 2020-06-14 10:23 | PN ---
PROGRESS NOTE This lady has severe mitral regurgitation, preserved LV function and also has nonsustained ventricular tachycardia. Electrolyte profile is good. She is going to go home today with a life vest. We will see Dr. Mathew in one week and Dr. Durán next Saturday for discussion regarding the timing of mitral valve repair that she requires. She has no CAD. She will go home on amiodarone. This was explained to the patient. She is doing well. Vitals are stable. No JVD, S1-S2 heard normally. Systolic murmur at the apex is audible, not very obvious. Lungs are clear. Abdomen and lower extremity exam otherwise unchanged. PLAN: To increase activity and discharge her today on current medications including amiodarone and a small dose of beta evelyn and she will see Dr. Mathew in one week. She will also see Dr. Durán next Saturday. All questions were answered and patient is quite comfortable about going home today. MMODL / IJN: [id number] /
[2020-06-14 12:02] VITALS: BP 132/65; PULSE 57; TEMP 98
--- NOTE | 2020-06-14 22:50 | P.DS ---
Providers Date of admission: 06/11/20 15:29 Attending physician: Gonzalez Meng Consults: 06/11/20 00:27 Consult Physician Routine Consulting Provider: [facility] Consult Reason/Comments: Palpitations; Dizziness Do you want consulting provider notified?: Yes 06/12/20 09:42 Consult Physician Routine Consulting Provider: Nain Durán Consult Reason/Comments: MR and mitral valve prolapse Do you want consulting provider notified?: Yes 06/13/20 12:10 Consult Physician Routine Consulting Provider: Sourav Holloway Consult Reason/Comments: run of V-tach Do you want consulting provider notified?: Yes Primary care physician: Delano Lemus Hospital Course: Diagnoses: Severe mitral regurgitation, with plan for follow-up with cardiothoracic surgery for surgical repair in the outpatient setting Ventricular tachycardia, status post life vest upon discharge, patient needs to follow up with Dr. Roa 4 weeks after her mitral valve repair surgery Near-syncope secondary to above Acute and chronic hyponatremia. Looks like patient is euvolemic. Patient also drinks a lot of water. Patient is counseled and her sodium improved close to normal Hypertension Subclinical hypothyroidism Hospital course: This is a 75-year-old active female who follows on an outpatient basis with Dr. Delano Lemus. She has a previous medical history of hypertension, mitral valve prolapse, and right nephrectomy. She presented to [facility] emergency room 2 days ago with complaints of intermittent spells of dizziness and heart palpitations for the last 3 weeks. Patient was admitted to observation unit, noticed to have purulence of ventricular tachycardia and patient was started on amiodarone drip and transferred to select unit, O on switched to oral amiodarone, Lopressor is added and Dr. Roa evaluated the patient with recommendation for outpatient follow-up. transthoracic echocardiogram was completed demonstrating normal left ventricular systolic function with EF 50-55%, dilated left atrium, mild aortic insufficiency, moderate eccentric mitral regurgitation with mild prolapse of the anterior mitral leaflet, and mild tricuspid regurgitation. She had runs of nonsustained ventricular tachycardia and subsequently was recommended to undergo heart catheterization which was completed and demonstrated normal coronary arteries with 4+ mitral regurgitation. Due to these findings consultation was placed to Dr. Durán for recommendations for surgical mitral valve repair versus replacement. However they recommended a LAURIE showing mitral valve prolapse and 3-4+ mitral regurgitation, no PFO, no clot in the left atrial appendage, left atrial enlargement. Patient remains asymptomatic, after workup cardiothoracic surgical team wanted to discharge patient to follow-up in the office with Dr. Durán to discuss appropriateness and timing of mitral valves surgery. surgical team cleared The patient for discharge for outpatient and to follow up with Dr. Durán on 07/01 and patient agrees with this appointment. Cardiology team also cleared The patient for discharge after LifeVest provided at bedside prior to discharge. Problems and management plan were discussed with the patient and he verbalized understanding and acceptance Patient was found stable and can be discharged home however he needs follow-up as an outpatient. Patient was instructed to follow up with PCP within one week a nd patient agrees. Patient agrees with Dr. Lemus appointment on 06/28, and Dr. Durán appointment as above. Dr. Mathew office for contacted and they were going to call the patient for appointment, patient informed and she agrees. Also Dr. Roa's wanted the patient to follow-up with him and 4 weeks after mitral valve repair for EP study, with recommendation to hold amiodarone for 6-8 weeks prior to that, patient is aware of this recommendation and states she will follow up with him as well Gen: patient is a AAOx3, no distress CVS: S1-S2, RRR, no murmur Lungs: B/L CTA, no wheezing Abdomen: soft, no distention, no tenderness, positive bowel sounds Extremity: no leg edema or induration Time spent more than 35 minutes Patient Condition at Discharge: Serious Plan - Discharge Summary New Discharge Prescriptions: New Amiodarone [Cordarone] 200 mg PO TID #90 tab Aspirin 81 mg PO DAILY #30 chew Potassium Chloride ER [K-Dur 10] 10 meq PO DAILY #30 tab.er.prt Furosemide [Lasix] 20 mg PO DAILY #30 tab Metoprolol Tartrate [Lopressor] 12.5 mg PO DAILY #30 tab Nitroglycerin Sl Tabs [Nitrostat] 0.4 mg SUBLINGUAL Q5M PRN #20 tab PRN Reason: Chest Pain amLODIPine [Norvasc] 5 mg PO DAILY@07 #30 tab Famotidine [Pepcid] 20 mg PO DAILY #30 tab lisinopriL [Zestril] 40 mg PO DAILY@0730 30 Days #40 tab Discontinued Benazepril/Hydrochlorothiazide [Benazepril-Hctz 20-25 mg Tab] 1 tab PO BID@729,193 amLODIPine [Norvasc] 2.5 mg PO DAILY@729 Discharge Medication List Amiodarone [Cordarone] 200 mg PO TID #90 tab 06/14/20 [Rx] Aspirin 81 mg PO DAILY #30 chew 06/14/20 [Rx] Famotidine [Pepcid] 20 mg PO DAILY #30 tab 06/14/20 [Rx] Furosemide [Lasix] 20 mg PO DAILY #30 tab 06/14/20 [Rx] Metoprolol Tartrate [Lopressor] 12.5 mg PO DAILY #30 tab 06/14/20 [Rx] Nitroglycerin Sl Tabs [Nitrostat] 0.4 mg SUBLINGUAL Q5M PRN #20 tab 06/14/20 [Rx] Potassium Chloride ER [K-Dur 10] 10 meq PO DAILY #30 tab.er.prt 06/14/20 [Rx] amLODIPine [Norvasc] 5 mg PO DAILY@729 #30 tab 06/14/20 [Rx] lisinopriL [Zestril] 40 mg PO DAILY@729 30 Days #40 tab 06/14/20 [Rx] Follow up Appointment(s)/Referral(s): Delano Lemus MD [Primary Care Provider] - 06/28/20 2:00 pm Nain Durán MD [STAFF PHYSICIAN] - 07/01/20 10:45 am () Migel Mathew MD [STAFF PHYSICIAN] - 1 Week (Doctor's office will call with appt.) Patient Instructions/Handouts: Heart Palpitations (DC), Dizziness (GEN) Activity/Diet/Wound Care/Special Instructions: heart healthy diet activity is limited till you see your doctor Follow-up with Dr. Holloway 4 weeks after mitral valve repair Amiodarone should be stopped a few weeks after valve surgery Dr. Holloway will discuss the role of a diagnostic EP study and consider device implantation versus radiofrequency ablation based upon the results of the EP study you must be off amiodarone for at least 6-8 weeks prior to the EP study to look for any inducible VT as well as any other arrhythmias Discharge Disposition: HOME SELF-CARE
--- NOTE | 2020-06-15 09:36 | P.VSCSTY ---
Greater Saphenous Vein Mapping This is bilateral lower extremity greater saphenous vein mapping. Date of service: 06/12/2020 Vein quality and ultrasound appearance: We see no obvious intraluminal thrombus or wall changes.. Vein size groin right : 3 x 2.5 groin left: 4.6 x 4.6 High thigh right: 2 x 2 high thigh left: 4.6 x 4.6 Mid thigh right: 2.4 x 2.4 mid thigh left:2.8 x 2.1 Above-knee right: 2.7 x 3.3 above- knee left: 3 x 2.3 Below knee right: 2.5 x 2.2 below-knee left: 1.2 x 1 Mid calf right: 2.7 x 1.7 mid calf left: 1 x 0.8 Ankle right: 1.7 x 1.3 ankle left: 1.4 x 0.9 Impression: There appears to be usable vein in both eyes. Both lower legs look small especially on the left. Clinical correlation recommended..
--- NOTE | 2020-06-15 09:39 | P.ARTDOP ---
Arterial Doppler LOWER EXTREMITY ARTERIAL DOPPLER: DATE OF SERVICE: 06/13/2020 Reason for study: Preop CABG. Doppler waveforms: Multiphasic bilaterally throughout. Pulse volume recording: Pressure gradients: Only at the foot level. Ankle-brachial indices: greater than 1 bilaterally. Toe brachial indices: 0.36 on the right, 0.39left Impression: Normal study proximally. Decreased toe pressures related either to significant vasospasm or less likely distal disease.
== END 2020-06-14 15:42 | disposition home or self-care (01) | DRG 287 ==
LOC: EC 21:41 → 3NCARDOBS 06-11 00:14 → 3SCARD 06-11 11:04 → OBSVTOIN 06-11 15:29
PROVIDERS: ADMIT Hospitalist; ATTEND Hospitalist
PROC: B54DZZZ Ultrasonography of Bilateral Lower Extremity Veins (ICD-10-PCS; 2020-06-12)
PROC: B2151ZZ Fluoroscopy of Left Heart using Low Osmolar Contrast (ICD-10-PCS; principal; 2020-06-12 08:00)
PROC: B2111ZZ Fluoroscopy of Multiple Coronary Arteries using Low Osmolar Contrast (ICD-10-PCS; principal; 2020-06-12 08:00)
PROC: 4A023N7 Measurement of Cardiac Sampling and Pressure, Left Heart, Percutaneous Approach (ICD-10-PCS; principal; 2020-06-12 08:00)
PROC: B246ZZ4 Ultrasonography of Right and Left Heart, Transesophageal (ICD-10-PCS; 2020-06-13)
DX: I47.2 Ventricular tachycardia (principal); E87.1 Hypo-osmolality and hyponatremia; I10 Essential (primary) hypertension; E03.9 Hypothyroidism, unspecified; I08.1 Rheumatic disorders of both mitral and tricuspid valves; I45.10 Unspecified right bundle-branch block; F41.9 Anxiety disorder, unspecified; Z79.899 Other long term (current) drug therapy; Z90.5 Acquired absence of kidney; Z90.710 Acquired absence of both cervix and uterus; Z90.49 Acquired absence of other specified parts of digestive tract; Z88.5 Allergy status to narcotic agent; Z82.49 Family history of ischemic heart disease and other diseases of the circulatory system
CPT/HCPCS: 36415; 71046; 80048; 80053; 80061; 80074; 81003; 83036; 83735; 83930; 83935; 84300; 84439; 84443; 84484; 85025; 85610; 85730; 87070; 93005; 93306; 93312; 93320; 93325; 93458; 93880; 93922; 93923; 93970; 94150; 99285

== ENCOUNTER → 2020-07-08 | Outpatient (CLI) | payer MEDICARE ==
[2020-07-08 11:30] LABS: HCT 41.9 % (34.0-46.0); HGB 14.3 gm/dL (11.4-16.0); MCHC 34.1 g/dL (31.0-37.0); MCV 102.7 fL (80.0-100.0); Macrocytosis Slight; Mean Platelet Volume 8.9; Platelet Count 214 k/uL (150-450); RBC 4.07 m/uL (3.80-5.40); RDW 14.9 % (11.5-15.5); WBC 11.4 k/uL (3.8-10.6)
[2020-07-08 11:35] LABS: INR 0.9 (<1.2); Partial Thromboplastin Time 24.6 sec (22.0-30.0); Prothrombin Time 9.9 sec (9.0-12.0)
[2020-07-08 11:43] LABS: Albumin 4.5 g/dL (3.5-5.0); Calcium 9.5 mg/dL (8.4-10.2); Potassium 4.4 mmol/L (3.5-5.1); Total Bilirubin 0.9 mg/dL (0.2-1.3)
--- NOTE | 2020-07-08 13:27 | P.PN ---
Progress Note - Text Progress Note Date: 07/08/20 5 meter walk completed: #1 3.77 sec #2 3.26 sec #3 4.15 sec Patient tolerated well. STS risk was calculated and discussed with patient and .
== END | disposition home or self-care (01) ==
LOC: LABPAT 08:07
PROVIDERS: ATTEND Surgery
DX: Z20.828 Contact with and (suspected) exposure to other viral communicable diseases (principal); Z95.4 Presence of other heart-valve replacement; Z79.01 Long term (current) use of anticoagulants
CPT/HCPCS: 80053; 85027; 85610; 85730; 36415; U0003; C9803

== ENCOUNTER 2020-07-13 08:00 | Inpatient (IN) | payer MEDICARE ==
[~2020-07-13 08:00] MED LIST: ALBUMIN HUMAN 25% 50 ML IV ONE; ALBUMIN HUMAN 5% 500 ML IVPB ONE; ASPIRIN 325 MG TAB PO ONE; ATORVASTATIN 10 MG TAB PO ONE; CALCIUM CHLORIDE 100 MG/ML 10 ML SYRINGE IV ONE; CHLORHEXIDINE GLUCONATE 15 ML CUP MUCOUS MEM ONE; CLEVIDIPINE BUTYRATE 25 MG in EMPTY BAG 1 BAG IV ONE; DEXTROSE 5% IN WATER 1,000 ML with POTASSIUM CHLORIDE 110 MEQ, MAGNESIUM SULFATE 16 MEQ... IV ONE; DEXTROSE 5% IN WATER 1,000 ML with POTASSIUM CHLORIDE 25 MEQ, SODIUM CHLORIDE 2.5MEQ/ML... IRRIGATION ONE; HEPARIN SODIUM 1,000 UN/ML (10ML VL) IV ONE; HEPARIN SODIUM,PORCINE 5,000 UNIT in SODIUM CHLORIDE 0.9% 500 ML 500 ML IV ONE; INSULIN REGULAR 100 UNIT in SODIUM CHLORIDE 0.9% 100 ML IV ONE; LACTATED RINGERS 1,000 ML IV ONE; MAGNESIUM SULFATE MG 500 MG/ML IV ONE; MANNITOL 25% 12.5 GM/50 ML VIAL IV ONE; METOPROLOL TARTRATE 12.5 MG TAB PO ONE; NITROGLYCERIN-D5W PMX 25 MG/250 ML BTL IV ONE; NOREPINEPHRINE 4 MG in SODIUM CHLORIDE 0.9% 250 ML IV ONE; PAPAVERINE 360 MG in SODIUM CHLORIDE 0.9% 90 ML IV ONE; PHENYLEPHRINE 10 MG/ML VIAL IV ONE; PHENYLEPHRINE 40 MG in SODIUM CHLORIDE 0.9% 250 ML IV ONE; PROTAMINE SULFATE 10 MG/ML 25 ML VIAL IV ONE; PROTAMINE SULFATE 250 MG in EMPTY BAG 1 BAG IV ONE; SODIUM BICARB 8.4% 50 ML SYR (1 MEQ/ML) IV ONE; SODIUM CHLORIDE 0.9% 1,000 ML IV ONE; TRANEXAMIC ACID 2,000 MG in SODIUM CHLORIDE 0.9% 80 ML IV ONE; VANCOMYCIN 1,000 MG VIAL MISCELLANE ONE; ceFAZolin 1,000 MG in SODIUM CHLORIDE 0.9% IRRIGATIO 1,000 ML IRRIGATION ONE; ceFAZolin 2,000 MG in SODIUM CHLORIDE 0.9% 30 ML IVPB ONE; propofoL 1,000 MG/100 ML VIAL IV ONE
[2020-07-13] MEDS ORDERED: MUPIROCIN 2% OINT 22 GM TUBE NASAL ONE (15:30)
[2020-07-15] MEDS ORDERED: DEXTROSE 5% IN WATER 1,000 ML with POTASSIUM CHLORIDE 110 MEQ, MAGNESIUM SULFATE 16 MEQ... IV ONE ×5 (05:00)
[2020-07-15] MEDS ORDERED: MANNITOL 25% 12.5 GM/50 ML VIAL IV ONE (05:00)
[2020-07-15] MEDS ORDERED: SODIUM CHLORIDE 0.9% 1,000 ML IV ONE (05:00)
[2020-07-15] MEDS ORDERED: SODIUM BICARB 8.4% 50 ML SYR (1 MEQ/ML) IV ONE (05:00)
[2020-07-15] MEDS ORDERED: NOREPINEPHRINE 4 MG in SODIUM CHLORIDE 0.9% 250 ML IV ONE (05:00)
[2020-07-15] MEDS ORDERED: ATORVASTATIN 10 MG TAB PO ONE (05:00)
[2020-07-15] MEDS ORDERED: VANCOMYCIN 1,000 MG VIAL MISCELLANE ONE (05:00)
[2020-07-15] MEDS ORDERED: ceFAZolin 2,000 MG in SODIUM CHLORIDE 0.9% 30 ML IVPB ONE ×4 (05:00)
[2020-07-15] MEDS ORDERED: LACTATED RINGERS 1,000 ML IV ONE (05:00)
[2020-07-15] MEDS ORDERED: PAPAVERINE 360 MG in SODIUM CHLORIDE 0.9% 90 ML IV ONE (05:00)
[2020-07-15] MEDS ORDERED: DEXTROSE 5% IN WATER 1,000 ML with POTASSIUM CHLORIDE 25 MEQ, SODIUM CHLORIDE 2.5MEQ/ML... IRRIGATION ONE ×6 (05:00)
[2020-07-15] MEDS ORDERED: ASPIRIN 325 MG TAB PO ONE (05:00)
[2020-07-15] MEDS ORDERED: INSULIN REGULAR 100 UNIT in SODIUM CHLORIDE 0.9% 100 ML IV ONE (05:00)
[2020-07-15] MEDS ORDERED: HEPARIN SODIUM 1,000 UN/ML (10ML VL) IV ONE (05:00)
[2020-07-15] MEDS ORDERED: TRANEXAMIC ACID 2,000 MG in SODIUM CHLORIDE 0.9% 80 ML IV ONE (05:00)
[2020-07-15] MEDS ORDERED: MAGNESIUM SULFATE MG 500 MG/ML IV ONE (05:00)
[2020-07-15] MEDS ORDERED: NITROGLYCERIN-D5W PMX 25 MG/250 ML BTL IV ONE (05:00)
[2020-07-15] MEDS ORDERED: METOPROLOL TARTRATE 12.5 MG TAB PO ONE (05:00)
[2020-07-15] MEDS ORDERED: ALBUMIN HUMAN 25% 50 ML IV ONE ×2 (05:00)
[2020-07-15] MEDS ORDERED: PROTAMINE SULFATE 10 MG/ML 25 ML VIAL IV ONE (05:00)
[2020-07-15] MEDS ORDERED: CLEVIDIPINE BUTYRATE 25 MG in EMPTY BAG 1 BAG IV ONE (05:00)
[2020-07-15] MEDS ORDERED: propofoL 1,000 MG/100 ML VIAL IV ONE (05:00)
[2020-07-15] MEDS ORDERED: CHLORHEXIDINE GLUCONATE 15 ML CUP MUCOUS MEM ONE (05:00)
[2020-07-15] MEDS ORDERED: PHENYLEPHRINE 40 MG in SODIUM CHLORIDE 0.9% 250 ML IV ONE (05:00)
[2020-07-15] MEDS ORDERED: CALCIUM CHLORIDE 100 MG/ML 10 ML SYRINGE IV ONE (05:00)
[2020-07-15] MEDS ORDERED: ALBUMIN HUMAN 5% 500 ML IVPB ONE ×6 (05:00)
[2020-07-15] MEDS ORDERED: PROTAMINE SULFATE 250 MG in EMPTY BAG 1 BAG IV ONE (05:00)
[2020-07-15] MEDS ORDERED: ceFAZolin 1,000 MG in SODIUM CHLORIDE 0.9% IRRIGATIO 1,000 ML IRRIGATION ONE (05:00)
[2020-07-15] MEDS ORDERED: PHENYLEPHRINE 10 MG/ML VIAL IV ONE (05:00)
[2020-07-15] MEDS ORDERED: HEPARIN SODIUM,PORCINE 5,000 UNIT in SODIUM CHLORIDE 0.9% 500 ML 500 ML IV ONE (05:00)
[2020-07-15] MEDS ORDERED: LACTATED RINGERS 1,000 ML IV SCH (05:33)
[2020-07-15] MEDS ORDERED: LIDOCAINE 1% (10MG/ML) FOR IV START INTRADERMA PRN (05:33)
[2020-07-15 06:19] LABS: Glucose,Whole Blood 93 mg/dL (75-99)
[2020-07-15] MEDS ORDERED: SODIUM CHLORIDE 0.9% IRRIG 1,000 ML BTL IRRIGATION ONE (07:39)
[2020-07-15] MEDS ORDERED: POTASSIUM CHLORIDE OPEN HEART 20 MEQ/50 ML BAG IVPB ONE (07:39)
[2020-07-15] MEDS ORDERED: PROPOFOL 10 MG/ML 20 ML VIAL IV ONE (07:39)
[2020-07-15] MEDS ORDERED: ALBUMIN HUMAN 5% (25gm) 500 ML VIAL IVPB ONE (07:39)
[2020-07-15] MEDS ORDERED: fentaNYL (PF) 50 MCG/ML 2 ML AMP ONE (07:39)
[2020-07-15] MEDS ORDERED: PROTAMINE SULFATE 10 MG/ML 5 ML VIAL IV ONE (07:39)
[2020-07-15] MEDS ORDERED: SODIUM CHLORIDE 0.9% 250 ML BAG ONE (07:39)
[2020-07-15] MEDS ORDERED: fentaNYL (PF) 50 MCG/ML 50 ML VIAL ONE (07:39)
[2020-07-15] MEDS ORDERED: LIDOCAINE 2% SYG (PF) 100 MG/5 ML ONE (07:39)
[2020-07-15] MEDS ORDERED: MIDAZOLAM 2 MG/2 ML VIAL ONE (07:39)
[2020-07-15] MEDS ORDERED: INSULIN REGULAR 100 UNIT/ML VIAL ONE (07:39)
[2020-07-15] MEDS ORDERED: ELECTROLYTE-R (PH 7.4) 1,000 ML IV.SOLN IV ONE (07:39)
[2020-07-15] MEDS ORDERED: VECURONIUM 10 MG VIAL IV ONE (07:39)
[2020-07-15] MEDS ORDERED: HEPARIN SODIUM,PORCINE 10,000 UNIT/ML 1 ML VIAL ONE (07:39)
[2020-07-15] MEDS ORDERED: ePHEDrine SULFATE/0.9% NACL/PF 50 MG/5 ML SYRINGE IV ONE (07:39)
[2020-07-15] MEDS ORDERED: TRANEXAMIC ACID 1,000 MG/10 ML VIAL ONE (07:39)
[2020-07-15 08:11] LABS: ABG Base Excess -1.1 mmol/L; ABG Glucose Whole Blood 94 mg/dL (75-99); ABG HCO3 23 mmol/L (21-25); ABG Hematocrit 38 % (34.0-46.0); ABG Ionized Calcium 4.8 mg/dL (4.5-5.3); ABG Lactic Acid Whole Blood 1.3 mmol/L (0.5-1.6); ABG PCO2 35 mmHg (35-45); ABG PH 7.43 (7.35-7.45); ABG Potassium Whole Blood 3.8 mmol/L (3.4-4.5); ABG Sodium Whole Blood 135 mmol/L (135-146); ABG TCO2 24 mmol/L (19-24)
[2020-07-15 09:14] LABS: ABG Base Excess -1.4 mmol/L; ABG Glucose Whole Blood 104 mg/dL (75-99); ABG HCO3 24 mmol/L (21-25); ABG Hematocrit 34 % (34.0-46.0); ABG Ionized Calcium 4.7 mg/dL (4.5-5.3); ABG Lactic Acid Whole Blood 0.5 mmol/L (0.5-1.6); ABG Oxygen Saturation 99.9 % (94-97); ABG PCO2 41 mmHg (35-45); ABG PH 7.37 (7.35-7.45); ABG PO2 270 mmHg (83-108); ABG Potassium Whole Blood 3.8 mmol/L (3.4-4.5); ABG Sodium Whole Blood 135 mmol/L (135-146); ABG TCO2 25 mmol/L (19-24)
[2020-07-15 10:09] LABS: ABG Base Excess -2.1 mmol/L; ABG Glucose Whole Blood 110 mg/dL (75-99); ABG HCO3 21 mmol/L (21-25); ABG Hematocrit 26 % (34.0-46.0); ABG Ionized Calcium 4.2 mg/dL (4.5-5.3); ABG Lactic Acid Whole Blood 0.7 mmol/L (0.5-1.6); ABG PCO2 30 mmHg (35-45); ABG PH 7.46 (7.35-7.45); ABG Potassium Whole Blood 3.8 mmol/L (3.4-4.5); ABG Sodium Whole Blood 134 mmol/L (135-146); ABG TCO2 22 mmol/L (19-24)
[2020-07-15 10:32] LABS: ABG Base Excess -2.5 mmol/L; ABG Glucose Whole Blood 174 mg/dL (75-99); ABG HCO3 22 mmol/L (21-25); ABG Ionized Calcium 4.2 mg/dL (4.5-5.3); ABG Lactic Acid Whole Blood 0.8 mmol/L (0.5-1.6); ABG PCO2 38 mmHg (35-45); ABG PH 7.38 (7.35-7.45); ABG PO2 393 mmHg (83-108); ABG Potassium Whole Blood 4.7 mmol/L (3.4-4.5); ABG Sodium Whole Blood 130 mmol/L (135-146); ABG TCO2 24 mmol/L (19-24)
[2020-07-15 11:03] LABS: ABG Base Excess 0.6 mmol/L; ABG Glucose Whole Blood 162 mg/dL (75-99); ABG HCO3 25 mmol/L (21-25); ABG Ionized Calcium 4.2 mg/dL (4.5-5.3); ABG Lactic Acid Whole Blood 1.1 mmol/L (0.5-1.6); ABG PCO2 39 mmHg (35-45); ABG PH 7.42 (7.35-7.45); ABG PO2 367 mmHg (83-108); ABG Potassium Whole Blood 4.3 mmol/L (3.4-4.5); ABG Sodium Whole Blood 133 mmol/L (135-146); ABG TCO2 26 mmol/L (19-24)
[2020-07-15 11:38] LABS: ABG Base Excess 0.1 mmol/L; ABG Glucose Whole Blood 139 mg/dL (75-99); ABG HCO3 24 mmol/L (21-25); ABG Lactic Acid Whole Blood 1.8 mmol/L (0.5-1.6); ABG PCO2 37 mmHg (35-45); ABG PH 7.43 (7.35-7.45); ABG PO2 418 mmHg (83-108); ABG Potassium Whole Blood 4.2 mmol/L (3.4-4.5); ABG Sodium Whole Blood 133 mmol/L (135-146); ABG TCO2 25 mmol/L (19-24)
[2020-07-15] MEDS ORDERED: CLEVIDIPINE BUTYRATE 25 MG in EMPTY BAG 1 BAG IV SCH (13:19)
[2020-07-15] MEDS ORDERED: Phosphorus Replacement Protoco 1 EACH MISC MISCELLANE PRN (13:19)
[2020-07-15] MEDS ORDERED: IPRATROPIUM-ALBUTEROL 3 ML NEB INHALATION PRN (13:19)
[2020-07-15] MEDS ORDERED: CALCIUM GLUCONATE 2 GM in SODIUM CHLORIDE 0.9% 100 ML IVPB PRN (13:19)
[2020-07-15] MEDS ORDERED: hydrALAZINE HCL 20 MG/ML 1 ML VIAL IVP PRN (13:19)
[2020-07-15] MEDS ORDERED: AMIODARONE 300 MG in DEXTROSE 5% IN WATER 250 ML IV PRN ×2 (13:19)
[2020-07-15] MEDS ORDERED: Magnesium Replacement Protocol 1 EACH MISC MISCELLANE PRN (13:19)
[2020-07-15] MEDS ORDERED: INSULIN REGULAR 100 UNIT in SODIUM CHLORIDE 0.9% 100 ML IV SCH (13:19)
[2020-07-15] MEDS ORDERED: MORPHINE SULFATE 2 MG/ML SYRINGE IVP PRN (13:19)
[2020-07-15] MEDS ORDERED: DEXTROSE 5% IN WATER 100 ML with AMIODARONE 150 MG IV PRN (13:19)
[2020-07-15] MEDS ORDERED: METOCLOPRAMIDE 5 MG/ML 2 ML VIAL IVP PRN (13:19)
[2020-07-15] MEDS ORDERED: DEXMEDETOMIDINE/0.9% NACL(PMX) 400 MCG in EMPTY BAG 1 BAG IV SCH (13:19)
[2020-07-15] MEDS ORDERED: Potassium Replacement Protocol 1 EACH MISC MISCELLANE PRN (13:19)
[2020-07-15] MEDS ORDERED: AMIODARONE 360 MG in DEXTROSE 5% IN WATER 200 ML IV PRN ×2 (13:19)
[2020-07-15 13:24] LABS: ABG PO2 >420 mmHg (83-108)
[2020-07-15 13:25] LABS: ABG PO2 >420 mmHg (83-108)
[2020-07-15 13:26] LABS: ABG Hematocrit 23 % (34.0-46.0)
[2020-07-15 13:26] LABS: ABG Hematocrit 23 % (34.0-46.0)
[2020-07-15 13:27] LABS: ABG Hematocrit 23 % (34.0-46.0)
[2020-07-15 13:38] LABS: Glucose,Whole Blood 104 mg/dL (75-99)
[2020-07-15 14:03] LABS: Basophils % (A) 0 %; Eosinophils # (A) 0.3 k/uL (0-0.7); Eosinophils % (A) 2 %; HCT 31.4 % (34.0-46.0); Lymphocytes % (A) 7 %; MCH 34.3 pg (25.0-35.0); MCHC 33.3 g/dL (31.0-37.0); MCV 103.1 fL (80.0-100.0); Macrocytosis Slight; Monocytes # (A) 0.7 k/uL (0-1.0); Monocytes % (A) 5 %; Neutrophils # (A) 13.7 k/uL (1.3-7.7); Neutrophils % (A) 86 %; RBC 3.04 m/uL (3.80-5.40); RDW 15.1 % (11.5-15.5); WBC 15.9 k/uL (3.8-10.6)
[2020-07-15 14:06] LABS: Ionized Calcium 4.5 mg/dL (4.5-5.3)
[2020-07-15 14:07] LABS: ABG Base Excess -0.6 mmol/L; ABG HCO3 25 mmol/L (21-25); ABG PCO2 43 mmHg (35-45); ABG PH 7.37 (7.35-7.45); ABG PO2 >400 mmHg (83-108); ABG TCO2 26 mmol/L (19-24); Allen Test Performed? Yes
[2020-07-15 14:07] LABS: HGB 10.4 gm/dL (11.4-16.0); Platelet Count 102 k/uL (150-450)
[2020-07-15] MEDS: SODIUM CHLORIDE 0.9% 1,000 ML IV SCH (14:20)
[2020-07-15 14:24] LABS: Albumin 2.7 g/dL (3.5-5.0); Calcium 7.8 mg/dL (8.4-10.2); Magnesium 2.6 mg/dL (1.6-2.3); Total Protein 4.3 g/dL (6.3-8.2)
--- NOTE | 2020-07-15 14:24 | XR ---
EXAMINATION TYPE: XR chest 1V portable DATE OF EXAM: 07/15/2020 COMPARISON: Prior chest x-ray 06/10/2020 HISTORY: Postop cardiac surgery, intubated TECHNIQUE: Single frontal view of the chest is obtained. FINDINGS: Patient is post median sternotomy, left atrial appendage clipping placement, cardiac valve replacement. Endotracheal tube, NG tube, right jugular central venous catheter, median sternal drain , right chest 2R overlying appropriate positions. There is no sizable pneumothorax or pleural effusio n. Subsegmental basilar atelectatic changes are suspected. Heart size may be accentuated by technique , rotation, there is a spinal curvature. Interstitium is mildly increased. There is an azygos fissure noted incidentally. Epicardial pacing leads are present. IMPRESSION: Satisfactory postoperative chest x-ray. Probable basilar atelectatic changes, there may b e a component of volume overload, interstitial edema.
[2020-07-15 14:25] LABS: INR 1.3 (<1.2); Partial Thromboplastin Time 51.7 sec (22.0-30.0); Prothrombin Time 12.6 sec (9.0-12.0)
[2020-07-15 14:29] LABS: Glucose,Whole Blood 118 mg/dL (75-99)
[2020-07-15] MEDS: ALBUMIN HUMAN 5% 250 ML in EMPTY BAG 1 BAG IVPB PRN ×4 (14:30→17:06)
[2020-07-15] MEDS: IPRATROPIUM-ALBUTEROL 3 ML NEB INHALATION SCH ×2 (15:32→19:08)
--- NOTE | 2020-07-15 15:34 | P.CNPUL ---
History of Present Illness Consult date: 07/15/20 Requesting physician: Laura Pineda Reason for consult: other Chief complaint: Dizzy spells, heart palpitations, mitral valve prolapse History of present illness: 75-year-old white female patient of Dr. Delano Lemus with a history of hypertension, known history of mitral valve prolapse, and right nephrectomy who was recently hospitalized from 06/10/2020 through all 06/14/2020 4 complaints of intermittent spells of dizziness, heart palpitations. Patient was admitted, she did have episodes of ventricular tachycardia while in the hospital, she was evaluated by Dr. Roa. Echocardiogram showed moderate eccentric mitral regurgitation with mild prolapse of the anterior mitral leaflet, mild tricuspid regurgitation, dilated left atrium, mild aortic insufficiency, preserved LV function with EF of 50-55%. Heart catheterization showed normal coronary arteries, with 4+ mitral regurgitation. Transesophageal echocardiogram showed mitral valve prolapse and 3-4+ mitral regurgitation, no evidence of PFO, and no clot in the left atrial appendage, it did show left atrial enlargement. Patient was referred to cardiothoracic surgical team for evaluation, and today on 07/15/2020 patient underwent mitral valve repair, modified Scott, and exclusion of the left atrial appendage. Patient is seen in the postoperative period in the intensive care unit, sedated and intubated on mechanical ventilator, currently on SIMV with a rate of 12, tidal lines 450, FiO2 is 40% PEEP of 5, and a pressure support of 5. Hemodynamically patient is stable, 0.9 normal sinus rhythm at 50 ML per hour, Diprivan is at 20 mics per kilo per minute, no other drips. Patient has mediastinal chest tube with 140 mL of single is output and pleural chest tube with 10 mL of sanguinous output, epicardial wires to external pacemaker and patient is currently being atrially paced at a rate of 80 BPM, PA pressures of 35/19, CVP is 13, cardiac output is 3.5, cardiac index is 2.1. Postoperative chest x-ray was viewed showing satisfactory postoperative chest x- ray, probable basilar atelectatic changes and the possibility of some volume overload and interstitial edema. Postoperative blood gas showed pO2 of greater than 400, pCO2 43, pH of 7.37, this was done on FiO2 of 100%, which has since been dropped to 40%. Postoperative blood work shows white blood cell count of 15.9, hemoglobin of 10.4, INR is 1.3, sodium is 132, direct electrolytes and renal profile were within normal limits. Review of Systems All systems: negative Constitutional: Denies chills, Denies fever Eyes: denies blurred vision, denies pain Ears, nose, mouth and throat: Denies headache, Denies sore throat Cardiovascular: Reports palpitations, Denies chest pain, Denies shortness of breath Respiratory: Denies cough Gastrointestinal: Denies abdominal pain, Denies diarrhea, Denies nausea, Denies vomiting Genitourinary: Denies dysuria, Denies hematuria Musculoskeletal: Denies myalgias Integumentary: Denies pruritus, Denies rash Neurological: Denies numbness, Denies weakness Psychiatric: Denies anxiety, Denies depression Endocrine: Denies fatigue, Denies weight change Past Medical History Past Medical History: Hypertension, Mitral Valve Prolapse (MVP) Additional Past Medical History / Comment(s): HAS ONE KIDNEY ON THE LEFT, wearing life vest currently History of Any Multi-Drug Resistant Organisms: None Reported Past Surgical History: Appendectomy, Heart Catheterization, Hysterectomy, Tubal Ligation Additional Past Surgical History / Comment(s): Right nephrectomy Past Anesthesia/Blood Transfusion Reactions: No Reported Reaction Past Psychological History: No Psychological Hx Reported Smoking Status: Never smoker Past Alcohol Use History: None Reported Past Drug Use History: None Reported - Past Family History Mother Family Medical History: Hypertension Medications and Allergies Home Medications Medication Instructions Recorded Confirmed Type Aspirin 81 mg PO DAILY #30 chew 06/14/20 07/15/20 Rx Furosemide [Lasix] 20 mg PO DAILY #30 tab 06/14/20 07/15/20 Rx Metoprolol Tartrate [Lopressor] 12.5 mg PO DAILY #30 tab 06/14/20 07/15/20 Rx Nitroglycerin Sl Tabs [Nitrostat] 0.4 mg SUBLINGUAL Q5M PRN #20 tab 06/14/20 07/15/20 Rx Potassium Chloride ER [K-Dur 10] 10 meq PO DAILY #30 tab.er.prt 06/14/20 0 Rx amLODIPine [Norvasc] 5 mg PO DAILY@0730 #30 tab 06/14/20 07/15/20 Rx lisinopriL [Zestril] 40 mg PO DAILY@0730 30 Days #40 tab 06/14/20 07/15/20 Rx Amiodarone [Cordarone] 200 mg PO DAILY 07/08/20 07/15/20 History Ascorbic Acid [Vitamin C] 500 mg PO DAILY 07/08/20 07/15/20 History Cholecalciferol [Vitamin D3 (25 1,000 unit PO DAILY 07/08/20 07/15/20 History Mcg = 1000 Iu)] Famotidine [Pepcid] 20 mg PO DAILY PRN 07/08/20 07/15/20 History Multivitamins, Thera [Multivitamin 1 tab PO DAILY 07/08/20 07/15/20 History (formulary)] Mupirocin 2% Oint [Bactroban 2% 1 applic NASAL BID #1 tube 07/09/20 07/15/20 Rx Oint] Allergies Allergy/AdvReac Type Severity Reaction Status Date / Time codeine AdvReac Confusion Verified 07/15/20 06:00 Physical Exam Vitals: Vital Signs Temp Pulse Pulse Resp BP BP BP 07/15/20 14:00 80 12 07/15/20 13:50 80 12 07/15/20 13:40 80 12 113/67 07/15/20 13:30 96.4 F L 70 12 07/15/20 06:27 179/80 07/15/20 06:23 98.3 F 55 L 18 150/78 Pulse Ox 07/15/20 14:00 100 07/15/20 13:50 100 07/15/20 13:40 100 07/15/20 13:30 100 07/15/20 06:27 07/15/20 06:23 98 Intake and Output 07/15/20 07/15/20 07/15/20 06:59 14:59 22:59 Intake Total 100 32 11.346 Output Total 1650 Balance 100 -1618 11.346 Intake: IV 100 32 Intake, IV Titration 11.346 Amount propofoL 1,000 mg In 11.346 Empty Bag 1 bag @ Titrate IV .Q[facility]M [facility] Rx#: [id number] Output: Urine 450 Estimated Blood Loss 1200 Other: Weight 61 kg ABP, PAP, CO, CI - Last 8 Hours Arterial Blood Pressure 131/74 Arterial Blood Pressure 138/63 Arterial Blood Pressure 130/69 Arterial Blood Pressure 102/65 Pulmonary Artery Pressure 35/24 Pulmonary Artery Pressure 34/19 Pulmonary Artery Pressure 38/23 Pulmonary Artery Pressure 39/20 Cardiac Output 3.6 Cardiac Output 3.7 Cardiac Index 2.2 Cardiac Index 2.2 GENERAL EXAM: Sedated, intubated, 75-year-old white female, on SIMV mode of ventilation with FiO2 40% and per support of 5, comfortable in no apparent distress. HEAD: Normocephalic/atraumatic. EYES: Normal reaction of pupils, equal size. Conjunctiva pink, sclera white. NOSE: Clear with pink turbinates. THROAT: No erythema or exudates. NECK: No masses, no JVD, no thyroid enlargement, no adenopathy. CHEST: No chest wall deformity. Symmetrical expansion. Midsternal incision is clean dry and intact, chest tube sites clean dry and intact, with small amount of serous output in the Pleur-evac, no air leak, to wall suction. Epicardial wires connected to external pacemaker box, and patient is being H we paced at a rate of 80 BPM LUNGS: Equal air entry with no crackles, wheeze, rhonchi or dullness. CVS: Regular rate and rhythm, normal S1 and S2, no gallops, no murmurs, no rubs ABDOMEN: Soft, nontender. No hepatosplenomegaly, normal bowel sounds, no guarding or rigidity. EXTREMITIES: No clubbing, no edema, no cyanosis, 2+ pulses and upper and lower extremities. MUSCULOSKELETAL: Muscle strength and tone normal. SPINE: No scoliosis or deformity SKIN: No rashes CENTRAL NERVOUS SYSTEM: Sedated. No focal deficits, tone is normal in all 4 extremities. Results - Laboratory Findings CBC and BMP: 07/15/20 13:30 07/15/20 13:30 ABG ABG pH 7.37 (7.35-7.45) 07/15/20 14:06 ABG pCO2 43 mmHg (35-45) 07/15/20 14:06 ABG pO2 >400 mmHg (83-108) H 07/15/20 14:06 ABG O2 Saturation 100.0 % (94-97) H 07/15/20 14:06 PT/INR, D-dimer PT 12.6 sec (9.0-12.0) H 07/15/20 13:30 INR 1.3 (<1.2) H 07/15/20 13:30 Abnormal lab findings: Abnormal Labs 0907/15/20 07/15/20 10:00 08:16 09:19 WBC RBC Hgb Hct MCV Plt Count Neutrophils # PT INR APTT ABG pH ABG pCO2 ABG pO2 >420 H 270 H ABG Total CO2 25 H ABG O2 Saturation 100.0 H 99.9 H ABG Hematocrit ABG Sodium ABG Potassium ABG Ionized Calcium ABG Glucose 104 H ABG Lactic Acid Hemoglobin 11.1 L Sodium Glucose POC Glucose (mg/dL) Calcium Magnesium AST Total Protein Albumin Arterial Blood Potassium Arterial Blood Glucose 104 H Crossmatch See Detail 07/15/20 07/15/20 07/15/20 10:14 10:37 11:08 WBC RBC Hgb Hct MCV Plt Count Neutrophils # PT INR APTT ABG pH 7.46 H ABG pCO2 30 L ABG pO2 >420 H 393 H 367 H ABG Total CO2 26 H ABG O2 Saturation 100.0 H 100.0 H 100.0 H ABG Hematocrit 26 L 23 L 23 L ABG Sodium 134 L 130 L 133 L ABG Potassium 4.7 H ABG Ionized Calcium 4.2 L 4.2 L 4.2 L ABG Glucose 110 H 174 H 162 H ABG Lactic Acid Hemoglobin 8.4 L 7.5 L 7.5 L Sodium Glucose POC Glucose (mg/dL) Calcium Magnesium AST Total Protein Albumin Arterial Blood Potassium 4.7 H Arterial Blood Glucose 110 H 174 H 162 H Crossmatch 07/15/20 07/15/20 07/15/20 11:43 13:30 13:30 WBC 15.9 H RBC 3.04 L Hgb 10.4 L D Hct 31.4 L MCV 103.1 H Plt Count 102 L D Neutrophils # 13.7 H PT 12.6 H INR 1.3 H APTT 51.7 H ABG pH ABG pCO2 ABG pO2 418 H ABG Total CO2 25 H ABG O2 Saturation 100.0 H ABG Hematocrit 23 L ABG Sodium 133 L ABG Potassium ABG Ionized Calcium 4.0 L ABG Glucose 139 H ABG Lactic Acid 1.8 H Hemoglobin 7.6 L Sodium Glucose POC Glucose (mg/dL) Calcium Magnesium AST Total Protein Albumin Arterial Blood Potassium Arterial Blood Glucose 139 H Crossmatch 07/15/20 07/15/20 07/15/20 13:30 13:34 14:06 WBC RBC Hgb Hct MCV Plt Count Neutrophils # PT INR APTT ABG pH ABG pCO2 ABG pO2 >400 H ABG Total CO2 26 H ABG O2 Saturation 100.0 H ABG Hematocrit ABG Sodium ABG Potassium ABG Ionized Calcium ABG Glucose ABG Lactic Acid Hemoglobin Sodium 132 L Glucose 106 H POC Glucose (mg/dL) 104 H Calcium 7.8 L Magnesium 2.6 H AST 65 H Total Protein 4.3 L Albumin 2.7 L Arterial Blood Potassium Arterial Blood Glucose Crossmatch 07/15/20 14:28 WBC RBC Hgb Hct MCV Plt Count Neutrophils # PT INR APTT ABG pH ABG pCO2 ABG pO2 ABG Total CO2 ABG O2 Saturation ABG Hematocrit ABG Sodium ABG Potassium ABG Ionized Calcium ABG Glucose ABG Lactic Acid Hemoglobin Sodium Glucose POC Glucose (mg/dL) 118 H Calcium Magnesium AST Total Protein Albumin Arterial Blood Potassium Arterial Blood Glucose Crossmatch - Diagnostic Findings Chest x-ray: report reviewed, image reviewed Assessment and Plan Plan: Assessment: #1. Severe mitral regurgitation, status post mitral valve repair, modified Scott Maze procedure, and exclusion of left atrial appendage, postoperative day #0 #2. Recent hospitalization for nonsustained ventricular tachycardia, palpitations, and intermittent spells of dizziness related to severe mitral regurgitation #3. Routine postoperative ventilator management #4. History of hypertension #5. History of right nephrectomy #6. Lifetime nonsmoker, preop PFT showed FEV1 of 70% of predicted #7. Leukocytosis likely reactive secondary to surgery #8. Hyponatremia, likely hypervolemic Plan: Postoperative blood gases reviewed, chest x-ray reviewed, patient was evaluated along with Dr. Og, hemodynamically stable, no significant output from the chest tubes, no vasoactive drips, no arrhythmias. Wean sedation, we'll proceed with spontaneous breathing trials once the patient is awake and following command. Maintain pain control, nebulized bronchodilators every 4 hours a [id number] while on the ventilator and 4 times a day and when necessary after extubation. Incentive spirometer to the bedside. Follow-up blood work in 4 hours per protocol, and on a daily basis, daily chest x-rays. We'll continue monitoring electrolytes, serum sodium level. GI and DVT prophylaxis per cardiothoracic surgery. We'll continue to closely follow with the patient along with cardiothoracic surgery. I performed a history & physical examination of the patient and discussed their management with my nurse practitioner, Natasha Arellano. I reviewed the nurse practitioner's note and agree with the documented findings and plan of care. Lung sounds are positive for clear breath sounds. The findings and the impression was discussed with the patient. I attest to the documentation by the nurse practitioner. Time with Patient: Greater than 30
[2020-07-15 15:39] LABS: Glucose,Whole Blood 114 mg/dL (75-99)
[2020-07-15 15:48] LABS: Basophils # (A) 0.1 k/uL (0-0.2); Basophils % (A) 0 %; Eosinophils # (A) 0.2 k/uL (0-0.7); Eosinophils % (A) 2 %; HCT 28.7 % (34.0-46.0); HGB 9.4 gm/dL (11.4-16.0); Lymphocytes # (A) 0.8 k/uL (1.0-4.8); Lymphocytes % (A) 6 %; MCH 33.9 pg (25.0-35.0); MCHC 32.8 g/dL (31.0-37.0); MCV 103.3 fL (80.0-100.0); Macrocytosis Slight; Mean Platelet Volume 10.6; Monocytes # (A) 0.6 k/uL (0-1.0); Monocytes % (A) 5 %; Neutrophils # (A) 10.9 k/uL (1.3-7.7); Neutrophils % (A) 87 %; RBC 2.77 m/uL (3.80-5.40); RDW 14.6 % (11.5-15.5); WBC 12.6 k/uL (3.8-10.6)
[2020-07-15 15:59] LABS: Platelet Count 92 k/uL (150-450)
[2020-07-15] MEDS ORDERED: IPRATROPIUM-ALBUTEROL 3 ML NEB INHALATION SCH (16:00)
[2020-07-15] MEDS ORDERED: MUPIROCIN 2% OINT 22 GM TUBE NASAL ONE (16:00)
[2020-07-15] MEDS: POTASSIUM CHLORIDE 10 MEQ in WATER FOR INJECTION 1 100ML.BAG IVPB SCH ×2 (16:44→17:57)
[2020-07-15 16:51] LABS: Glucose,Whole Blood 123 mg/dL (75-99)
[2020-07-15] MEDS: KETOROLAC 15 MG/ML 1 ML VIAL IVP SCH (17:58)
[2020-07-15] MEDS: ACETAMINOPHEN IV (For NPO) 1,000 MG in EMPTY BAG 1 BAG IVPB SCH ×2 (18:01→23:34)
[2020-07-15 18:05] LABS: Glucose,Whole Blood 136 mg/dL (75-99)
[2020-07-15] MEDS ORDERED: CALCIUM GLUCONATE 1 GM in SODIUM CHLORIDE 0.9% 100 ML IVPB ONE (18:45)
[2020-07-15 18:56] LABS: Glucose,Whole Blood 140 mg/dL (75-99)
[2020-07-15 18:58] LABS: ABG Base Excess -3.5 mmol/L; ABG HCO3 22 mmol/L (21-25); ABG Oxygen Saturation 97.3 % (94-97); ABG PCO2 37 mmHg (35-45); ABG PH 7.38 (7.35-7.45); ABG PO2 86 mmHg (83-108); ABG TCO2 23 mmol/L (19-24); Allen Test Performed? Yes
[2020-07-15 19:10] LABS: Basophils % (A) 0 %; Eosinophils % (A) 0 %; HGB 9.1 gm/dL (11.4-16.0); Lymphocytes # (A) 0.5 k/uL (1.0-4.8); Lymphocytes % (A) 4 %; MCH 33.8 pg (25.0-35.0); MCHC 32.6 g/dL (31.0-37.0); MCV 103.5 fL (80.0-100.0); Macrocytosis Slight; Mean Platelet Volume 10.8; Monocytes # (A) 0.5 k/uL (0-1.0); Monocytes % (A) 4 %; Neutrophils # (A) 11.6 k/uL (1.3-7.7); Neutrophils % (A) 91 %; RBC 2.71 m/uL (3.80-5.40); RDW 14.7 % (11.5-15.5); WBC 12.7 k/uL (3.8-10.6)
[2020-07-15 19:11] LABS: Platelet Count 98 k/uL (150-450)
[2020-07-15 19:59] LABS: Glucose,Whole Blood 136 mg/dL (75-99)
[2020-07-15] MEDS: HEPARIN SODIUM,PORCINE 5,000 UNIT/ML 1 ML VIAL SQ SCH (20:53)
--- NOTE | 2020-07-15 20:53 | P.CONS ---
History of Present Illness - Reason for Consult Consult date: 07/15/20 Medical Management - Chief Complaint Status post mitral valve repair due to severe MR - History of Present Illness Patient is a 75-year-old female with a known history of hypertension, mitral valve prolapse and history of right nephrectomy was admitted to the hospital for mitral valve repair. Patient was recently admitted to the hospital with dizziness and palpitations and was found to have ventricular tachycardia. Echocardiogram showed moderate eccentric mitral regurgitation with mitral prolapse of the anterior mitral leaflet, mild tricuspid regurgitation, dilated left atrium and mild aortic insufficiency preserved LV function with ejection fraction 40 to 55%. Cardiac catheterization showed normal coronaries and 4+ MR. LARUIE showed mitral valve prolapse and 3-4+ mitral regurgitation with no evidence of PFO. No left atrial appendage thrombus noted. Did show left atrial enlargement. Patient was evaluated by CT surgery and is currently admitted for mitral valve repair. Postoperatively patient is currently in the intensive care unit. Patient is currently intubated. Sedation is off and is planning for extubation. Laboratory data showed WBC 15.9, hemoglobin 10.4 and platelets 102 INR 1.3 ABG showed pH of 7.43, PCO2 37 and PO2 418 Sodium 132, potassium 4.0 BUN 13 and creatinine 0.86 Albumin 2.7 AST 65, ALT 27 and alk phos 44 Blood sugar is 104 Chest x-ray showed satisfactory postoperative chest x-ray. Probable bibasilar atelectatic changes. There may be component of volume overload, interstitial edema. Review of Systems Review of systems could not be obtained from the patient at this time Past Medical History Past Medical History: Hypertension, Mitral Valve Prolapse (MVP) Additional Past Medical History / Comment(s): HAS ONE KIDNEY ON THE LEFT, wearing life vest currently History of Any Multi-Drug Resistant Organisms: None Reported Past Surgical History: Appendectomy, Heart Catheterization, Hysterectomy, Tubal Ligation Additional Past Surgical History / Comment(s): Right nephrectomy Past Anesthesia/Blood Transfusion Reactions: No Reported Reaction Past Psychological History: No Psychological Hx Reported Smoking Status: Never smoker Past Alcohol Use History: None Reported Past Drug Use History: None Reported - Past Family History Mother Family Medical History: Hypertension Medications and Allergies Home Medications Medication Instructions Recorded Confirmed Type Aspirin 81 mg PO DAILY #30 chew 06/14/20 07/15/20 Rx Furosemide [Lasix] 20 mg PO DAILY #30 tab 06/14/20 07/15/20 Rx Metoprolol Tartrate [Lopressor] 12.5 mg PO DAILY #30 tab 06/14/20 07/15/20 Rx Nitroglycerin Sl Tabs [Nitrostat] 0.4 mg SUBLINGUAL Q5M PRN #20 tab 06/14/20 07/15/20 Rx Potassium Chloride ER [K-Dur 10] 10 meq PO DAILY #30 tab.er.prt 06/14/20 07/15/20 Rx amLODIPine [Norvasc] 5 mg PO DAILY@0730 #30 tab 06/14/20 07/15/20 Rx lisinopriL [Zestril] 40 mg PO DAILY@0730 30 Days #40 tab 06/14/20 07/15/20 Rx Amiodarone [Cordarone] 200 mg PO DAILY 07/08/20 07/15/20 History Ascorbic Acid [Vitamin C] 500 mg PO DAILY 07/08/20 07/15/20 History Cholecalciferol [Vitamin D3 (25 1,000 unit PO DAILY 07/08/20 07/15/20 History Mcg = 1000 Iu)] Famotidine [Pepcid] 20 mg PO DAILY PRN 07/08/20 07/15/20 History Multivitamins, Thera [Multivitamin 1 tab PO DAILY 07/08/20 07/15/20 History (formulary)] Mupirocin 2% Oint [Bactroban 2% 1 applic NASAL BID #1 tube 07/09/20 07/15/20 Rx Oint] Allergies Allergy/AdvReac Type Severity Reaction Status Date / Time codeine AdvReac Confusion Verified 07/15/20 06:00 Physical Exam Vitals: Vital Signs Temp Pulse Pulse Resp BP BP BP 07/15/20 15:16 80 07/15/20 15:00 95.7 F L 80 12 07/15/20 14:45 80 12 07/15/20 14:30 80 12 07/15/20 14:15 80 12 114/65 07/15/20 14:00 80 12 07/15/20 13:50 80 12 07/15/20 13:40 80 12 113/67 07/15/20 13:30 96.4 F L 70 12 07/15/20 06:27 179/80 07/15/20 06:23 98.3 F 55 L 18 150/78 Pulse Ox 07/15/20 15:16 07/15/20 15:00 99 07/15/20 14:45 100 07/15/20 14:30 99 07/15/20 14:15 100 07/15/20 14:00 100 07/15/20 13:50 100 07/15/20 13:40 100 07/15/20 13:30 100 07/15/20 06:27 07/15/20 06:23 98 Intake and Output 07/15/20 07/15/20 07/15/20 06:59 14:59 22:59 Intake Total 100 532 311.346 Output Total 2155 100 Balance 100 -1623 211.346 Intake: IV 100 32 Intake, IV Titration 500 311.346 Amount Albumin Human 5% 250 ml 250 250 In Empty Bag 1 bag @ 250 mls/hr IVPB Q1HR PRN Rx#: [id number] Sodium Chloride 0.9% 1, 250 50 000 ml @ 50 mls/hr IV . Q20H [facility] Rx#:[id number] propofoL 1,000 mg In 11.346 Empty Bag 1 bag @ Titrate IV .Q0M [facility] Rx#: [id number] Output: Chest Tube Drainage 145 25 LEFT PLEURAL 5 5 Mediastinal 140 20 Urine 810 75 Estimated Blood Loss 1200 Other: Weight 61 kg ABP, PAP, CO, CI - Last 8 Hours Arterial Blood Pressure 102/55 Arterial Blood Pressure 101/57 Arterial Blood Pressure 100/57 Arterial Blood Pressure 115/65 Arterial Blood Pressure 131/74 Arterial Blood Pressure 138/63 Arterial Blood Pressure 130/69 Arterial Blood Pressure 102/65 Pulmonary Artery Pressure 34/19 Pulmonary Artery Pressure 35/21 Pulmonary Artery Pressure 30/18 Pulmonary Artery Pressure 33/22 Pulmonary Artery Pressure 35/24 Pulmonary Artery Pressure 34/19 Pulmonary Artery Pressure 38/23 Pulmonary Artery Pressure 39/20 Cardiac Output 4.8 Cardiac Output 3.5 Cardiac Output 3.6 Cardiac Output 3.7 Cardiac Index 2.9 Cardiac Index 2.1 Cardiac Index 2.2 Cardiac Index 2.2 PHYSICAL EXAMINATION: Patient is Currently on mechanical ventilator. Sedated. HEENT: Normocephalic. Neck is supple. Pupils reactive. Nostrils clear. Oral cavity is moist. Ears reveal no drainage. Neck reveals no JVD, carotid bruits, or thyromegaly. CHEST EXAMINATION: Trachea is central. Symmetrical expansion. Bibasilar diminished air entry otherwiseLung torres clear to auscultation and percussion. Chest tubes in place. CARDIAC: Normal S1, S2 with no gallops. No murmurs ABDOMEN: Soft. Bowel sounds present. No organomegaly. No abdominal bruits. Extremities: reveal no edema. No clubbing or cyanosis Neurologically on vent. No focal deficits noted Skin: No rash or skin lesions. Psychiatric:Could not be assessed at this time. Musculoskeletal: No joint swelling or deformity. Results CBC & Chem 7: 07/15/20 19:00 07/15/20 15:40 Labs: Abnormal Lab Results - Last 24 Hours (Table) 07/08/20 07/15/20 07/15/20 Range/Units 10:00 08:16 09:19 WBC (3.8-10.6) k/uL RBC (3.80-5.40) m/uL Hgb (11.4-16.0) gm/dL Hct (34.0-46.0) % MCV (80.0-100.0) fL Plt Count (150-450) k/uL Neutrophils # (1.3-7.7) k/uL PT (9.0-12.0) sec INR (<1.2) APTT (22.0-30.0) sec ABG pH (7.35-7.45) ABG pCO2 (35-45) mmHg ABG pO2 >420 H 270 H (83-108) mmHg ABG Total CO2 25 H (19-24) mmol/L ABG O2 Saturation 100.0 H 99.9 H (94-97) % ABG Hematocrit (34.0-46.0) % ABG Sodium (135-146) mmol/L ABG Potassium (3.4-4.5) mmol/L ABG Ionized Calcium (4.5-5.3) mg/dL ABG Glucose 104 H (75-99) mg/dL ABG Lactic Acid (0.5-1.6) mmol/L Hemoglobin 11.1 L (11.4-16.0) gm/dL Sodium (137-145) mmol/L Glucose (74-99) mg/dL POC Glucose (mg/dL) (75-99) mg/dL Calcium (8.4-10.2) mg/dL Magnesium (1.6-2.3) mg/dL AST (14-36) U/L Total Protein (6.3-8.2) g/dL Albumin (3.5-5.0) g/dL Arterial Blood Potassium (3.4-4.5) mmol/L Arterial Blood Glucose 104 H (75-99) mg/dL Crossmatch See Detail 07/15/20 07/15/20 07/15/20 Range/Units 10:14 10:37 11:08 WBC (3.8-10.6) k/uL RBC (3.80-5.40) m/uL Hgb (11.4-16.0) gm/dL Hct (34.0-46.0) % MCV (80.0-100.0) fL Plt Count (150-450) k/uL Neutrophils # (1.3-7.7) k/uL PT (9.0-12.0) sec INR (<1.2) APTT (22.0-30.0) sec ABG pH 7.46 H (7.35-7.45) ABG pCO2 30 L (35-45) mmHg ABG pO2 >420 H 393 H 367 H (83-108) mmHg ABG Total CO2 26 H (19-24) mmol/L ABG O2 Saturation 100.0 H 100.0 H 100.0 H (94-97) % ABG Hematocrit 26 L 23 L 23 L (34.0-46.0) % ABG Sodium 134 L 130 L 133 L (135-146) mmol/L ABG Potassium 4.7 H (3.4-4.5) mmol/L ABG Ionized Calcium 4.2 L 4.2 L 4.2 L (4.5-5.3) mg/dL ABG Glucose 110 H 174 H 162 H (75-99) mg/dL ABG Lactic Acid (0.5-1.6) mmol/L Hemoglobin 8.4 L 7.5 L 7.5 L (11.4-16.0) gm/dL Sodium (137-145) mmol/L Glucose (74-99) mg/dL POC Glucose (mg/dL) (75-99) mg/dL Calcium (8.4-10.2) mg/dL Magnesium (1.6-2.3) mg/dL AST (14-36) U/L Total Protein (6.3-8.2) g/dL Albumin (3.5-5.0) g/dL Arterial Blood Potassium 4.7 H (3.4-4.5) mmol/L Arterial Blood Glucose 110 H 174 H 162 H (75-99) mg/dL Crossmatch 07/15/20 07/15/20 07/15/20 Range/Units 11:43 13:30 13:30 WBC 15.9 H (3.8-10.6) k/uL RBC 3.04 L (3.80-5.40) m/uL Hgb 10.4 L D (11.4-16.0) gm/dL Hct 31.4 L (34.0-46.0) % MCV 103.1 H (80.0-100.0) fL Plt Count 102 L D (150-450) k/uL Neutrophils # 13.7 H (1.3-7.7) k/uL PT 12.6 H (9.0-12.0) sec INR 1.3 H (<1.2) APTT 51.7 H (22.0-30.0) sec ABG pH (7.35-7.45) ABG pCO2 (35-45) mmHg ABG pO2 418 H (83-108) mmHg ABG Total CO2 25 H (19-24) mmol/L ABG O2 Saturation 100.0 H (94-97) % ABG Hematocrit 23 L (34.0-46.0) % ABG Sodium 133 L (135-146) mmol/L ABG Potassium (3.4-4.5) mmol/L ABG Ionized Calcium 4.0 L (4.5-5.3) mg/dL ABG Glucose 139 H (75-99) mg/dL ABG Lactic Acid 1.8 H (0.5-1.6) mmol/L Hemoglobin 7.6 L (11.4-16.0) gm/dL Sodium (137-145) mmol/L Glucose (74-99) mg/dL POC Glucose (mg/dL) (75-99) mg/dL Calcium (8.4-10.2) mg/dL Magnesium (1.6-2.3) mg/dL AST (14-36) U/L Total Protein (6.3-8.2) g/dL Albumin (3.5-5.0) g/dL Arterial Blood Potassium (3.4-4.5) mmol/L Arterial Blood Glucose 139 H (75-99) mg/dL Crossmatch 07/15/20 07/15/20 07/15/20 Range/Units 13:30 13:34 14:06 WBC (3.8-10.6) k/uL RBC (3.80-5.40) m/uL Hgb (11.4-16.0) gm/dL Hct (34.0-46.0) % MCV (80.0-100.0) fL Plt Count (150-450) k/uL Neutrophils # (1.3-7.7) k/uL PT (9.0-12.0) sec INR (<1.2) APTT (22.0-30.0) sec ABG pH (7.35-7.45) ABG pCO2 (35-45) mmHg ABG pO2 >400 H (83-108) mmHg ABG Total CO2 26 H (19-24) mmol/L ABG O2 Saturation 100.0 H (94-97) % ABG Hematocrit (34.0-46.0) % ABG Sodium (135-146) mmol/L ABG Potassium (3.4-4.5) mmol/L ABG Ionized Calcium (4.5-5.3) mg/dL ABG Glucose (75-99) mg/dL ABG Lactic Acid (0.5-1.6) mmol/L Hemoglobin (11.4-16.0) gm/dL Sodium 132 L (137-145) mmol/L Glucose 106 H (74-99) mg/dL POC Glucose (mg/dL) 104 H (75-99) mg/dL Calcium 7.8 L (8.4-10.2) mg/dL Magnesium 2.6 H (1.6-2.3) mg/dL AST 65 H (14-36) U/L Total Protein 4.3 L (6.3-8.2) g/dL Albumin 2.7 L (3.5-5.0) g/dL Arterial Blood Potassium (3.4-4.5) mmol/L Arterial Blood Glucose (75-99) mg/dL Crossmatch 07/15/20 Range/Units 14:28 WBC (3.8-10.6) k/uL RBC (3.80-5.40) m/uL Hgb (11.4-16.0) gm/dL Hct (34.0-46.0) % MCV (80.0-100.0) fL Plt Count (150-450) k/uL Neutrophils # (1.3-7.7) k/uL PT (9.0-12.0) sec INR (<1.2) APTT (22.0-30.0) sec ABG pH (7.35-7.45) ABG pCO2 (35-45) mmHg ABG pO2 (83-108) mmHg ABG Total CO2 (19-24) mmol/L ABG O2 Saturation (94-97) % ABG Hematocrit (34.0-46.0) % ABG Sodium (135-146) mmol/L ABG Potassium (3.4-4.5) mmol/L ABG Ionized Calcium (4.5-5.3) mg/dL ABG Glucose (75-99) mg/dL ABG Lactic Acid (0.5-1.6) mmol/L Hemoglobin (11.4-16.0) gm/dL Sodium (137-145) mmol/L Glucose (74-99) mg/dL POC Glucose (mg/dL) 118 H (75-99) mg/dL Calcium (8.4-10.2) mg/dL Magnesium (1.6-2.3) mg/dL AST (14-36) U/L Total Protein (6.3-8.2) g/dL Albumin (3.5-5.0) g/dL Arterial Blood Potassium (3.4-4.5) mmol/L Arterial Blood Glucose (75-99) mg/dL Crossmatch Assessment and Plan Assessment: Status post mitral valve repair. Modified Scott maze procedure. Postoperative day 0 Severe 4+ mitral regurgitation with Normal EF Patient hospitalized with nonsustained V. tach and dizziness related to valvular insufficiency. Hypertension History of right nephrectomy Mild protein calorie malnutrition GI and DVT prophylaxis Plan: Patient is currently on mechanical ventilation and is on weaning trial. Replace electrolytes. Continue with IV hydration. On insulin drip for better blood sugar control. Continue supportive care and follow-up closely. Further re commendations based on clinical course. Intensive care team and CT surgery is on board. Thank you for consult. Time with Patient: Greater than 30
[2020-07-15 21:12] LABS: Glucose,Whole Blood 137 mg/dL (75-99)
[2020-07-15 22:07] LABS: Glucose,Whole Blood 136 mg/dL (75-99)
[2020-07-15 22:58] LABS: Glucose,Whole Blood 132 mg/dL (75-99)
--- NOTE | 2020-07-15 22:59 | OP ---
OPERATIVE REPORT DATE OF SURGERY: 07/15/2020. SURGEON: Dr. Nain Durán. ASSISTANTS: 1. FELIPE Zhao. 2. FELIPE Zhang. PREOPERATIVE DIAGNOSES: 1. Severe mitral valve regurgitation. 2. Ventricular tachycardia. 3. Hypertension. 4. Status post nephrectomy. 5. Biatrial enlargement. POSTOPERATIVE DIAGNOSES: 1. Severe mitral valve regurgitation. 2. Ventricular tachycardia. 3. Hypertension. 4. Status post nephrectomy. 5. Biatrial enlargement. 6. 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 PROCEDURES: 1. Complex mitral valve repair by construction of 6 NeoChords to the A-2 segment and complete semi-rigid annuloplasty using a 34 mm [id number]. 2. Modified left-sided MAZE procedure by performing a box lesion using radiofrequency ablation. 3. Exclusion of the left atrial appendage using a 35 mm AtriClip. 4. Intraoperative transesophageal echocardiogram and epiaortic scanning. INDICATION FOR SURGERY: The patient is a 75-year-old lady who has been complaining of progressive dyspnea on exertion. Workup showed severe mitral valve regurgitation with dilated left atrium from what seems to be a thickened anterior leaflet and a prolapsed A-2 segment. She had evidence of wide-complex tachycardia when she presented initially to the emergency room and she was wearing a LifeVest. The patient has been brought in today for mitral valve repair, possible replacement, and I will probably be performing a limited radiofrequency ablation in a box lesion in view of her indeterminant arrhythmia along with exclusion of her left atrial appendage. The STS risk was discussed with her and her . They understood and agreed to proceed. DESCRIPTION OF THE PROCEDURE: With the patient in supine position in the preoperative holding area, right internal jugular Virgilina-Tracy catheter and right radial arterial line were placed. Cardiac index was 2.6 and she had normal PA pressure. Subsequently she was brought to the operative room, where general endotracheal anesthesia was induced uneventfully. Jasso catheter was inserted. The chest, abdomen and both lower extremities were prepped and draped using ChloraPrep. Ioban was used to cover the skin. The patient received 2 grams of cefazolin intravenously. Transesophageal echocardiogram confirmed the preoperative finding of prolapsed A-2 with thickened anterior leaflet and preserved systolic function. There were no clots in the left atrial appendage. Midline sternotomy was performed and the bone was moderately osteoporotic. No bone wax was used. There was a small breach in the right pleura that was drained with a 19- Haitian Andrew drain. Mediastinal fat was transected between 2 ties and epiaortic scanning revealed normal ascending aorta. Pericardium was opened in an inverted T- fashion and a pericardial cradle was created. Findings included a normal soft aorta and a mildly enlarged heart and dilated atria. After systemic heparinization, after placement of respective pledgeted pursestrings, aortic cannulation with a 21-H[place]ian Softflow cannula, direct SVC cannulation with a 28- Haitian right-angle cannula and IVC cannulation via the right atrial appendage with a 30- Haitian cannula was performed. Antegrade as well as retrograde cardioplegia catheters were placed. Cardiopulmonary bypass was initiated. The patient's temperature was allowed to drift down to 34 degrees Celsius. I initially performed with the heart beating and empty an ablation of the right-sided pulmonary vein using a bipolar clamp from AtriCure. Three ablations were performed at that level. Subsequently the aorta was clamped, as it was hard to see the left side, and myocardial protection was achieved. An initial dose of 800 mL of antegrade cold blood cardioplegia was followed by 400 mL of retrograde cold blood cardioplegia. All subsequent doses were given retrograde at 15-minute intervals. At this point, I completed the left-sided encircling left pulmonary vein and ablation. Initially the ligament of Reinaldo was incised with the Bovie, and the space between the pulmonary artery and the left superior pulmonary vein was developed and a radiofrequency bipolar clamp from AtriCure was used to perform 3 ablations at the level of the antrum of the left-sided pulmonary veins. At this point, the left atrial appendage was excluded using a 35 mm AtriClip deployed at its base. The Ibeth mitral retractor was used to help us for good exposure in this case. The interatrial groove was developed. Both vena cavae were encircled but not snared. A standard transverse left atriotomy was performed. We had good exposure of the mitral valve. Findings included what seemed to be dilated anulus and an obviously prolapsing A-2 with some filiform chords from the P3 area and from the A-2. They were disrupted. Those chords were excised and sent for pathology. The posterior leaflet appeared to be not prolapsing and was very well supported by good primary chordae. The A-2 segment which was large was thickened, not calcified, and there was an obvious prolapse of A-2. There was no prolapse of A-1 or A-3. I started by placing a posterior annuloplasty suture using TiCron 2-0 from trigone to trigone. That helped with the exposure. Subsequently I passed 2 pairs of NeoChords using [place] 4-0 from the anterior papillary muscle and one pair of NeoChords from the posterior papillary muscles that were deployed on the A-2 segment all along its free margin, and the length was judged appropriately. Those NeoChords, after proper testing showing no leaks, were tied. The anulus was measured at 34 mm and a Physio-2- Ring from the same size was selected. We completed the annuloplasty sutures anteriorly. A total of 12 sutures was placed and they were passed symmetrically into the ring that seated nicely. All the needles were cut and the sutures tied using the Corknot device. Testing of the valve revealed excellent seal. With that, rewarming was started as we closed the left atrium using a single layer of Prolene 4-0. This was reinforced in some areas with a thinned-out left atrial wall with 2 pledgeted 4-0 Prolene in the mid aspect of the atriotomy. At this point, the CO2 that was flowing over the field was stopped. We gave a total of 800 mL of warm blood via the retrograde route. The patient was given lidocaine and magnesium. De-airing maneuvers were followed and the patient was placed in Trendelenburg position as we unclamped the aorta with the aortic root vent on maximum. The patient regained spontaneous sinus rhythm with good conduction. Two monopolar atrial pacing wires were affixed to the respective pursestrings of the right atrium. One bipolar ventricular pacing wire was driven via the inferior aspect of the right ventricle. After a period of reperfusion and after proper de-airing, we were able to wean off cardiopulmonary bypass without the need of any inotropic or vasopressor support. LAURIE at this point showed no evidence of any mitral regurgitation and no evidence of GIUSEPPE. De-airing was adequate. Left ventricular function was acceptable. With that, all suckers were stopped. Test-dose and full-dose protamine were given. One 32-H[place]ian chest tube was left substernally. Mediastinal fat was approximated with one suture. After ensuring adequate hemostasis and hemodynamics and after correct sponge, instrument and needle count, the sternum was closed using 5 [id number] pineal cables after interposing Fibrillar between the sternal edges. Thorough irrigation with cefazolin followed. The rest of the closure proceeded in layers. Patient did not receive any blood bank product but received 440 mL of CellSaver blood. She was transferred to the ICU with stable hemodynamics, on no drips, and normal EKG and conduction. MMODL / IJN: [id number] /
[2020-07-16] MEDS: ONDANSETRON 4 MG/2 ML VIAL IVP PRN ×2 (00:04→10:17)
[2020-07-16 00:09] LABS: Glucose,Whole Blood 139 mg/dL (75-99)
[2020-07-16] MEDS: KETOROLAC 15 MG/ML 1 ML VIAL IVP SCH ×4 (00:09→17:55)
[2020-07-16] MEDS ORDERED: HYDROcodone/APAP 5-325MG 1 EACH TAB PO PRN (00:10)
[2020-07-16] MEDS: ALBUMIN HUMAN 5% 250 ML in EMPTY BAG 1 BAG IVPB PRN ×5 (00:45→06:38)
[2020-07-16 01:05] LABS: Glucose,Whole Blood 147 mg/dL (75-99)
[2020-07-16 02:06] LABS: Glucose,Whole Blood 150 mg/dL (75-99)
[2020-07-16 03:08] LABS: Glucose,Whole Blood 129 mg/dL (75-99)
[2020-07-16 03:58] LABS: Glucose,Whole Blood 120 mg/dL (75-99)
[2020-07-16] MEDS: HEPARIN SODIUM,PORCINE 5,000 UNIT/ML 1 ML VIAL SQ SCH ×3 (04:10→20:09)
[2020-07-16 04:13] LABS: Basophils % (A) 0 %; Eosinophils % (A) 0 %; HCT 26.6 % (34.0-46.0); HGB 8.6 gm/dL (11.4-16.0); Lymphocytes # (A) 0.8 k/uL (1.0-4.8); Lymphocytes % (A) 6 %; MCH 33.8 pg (25.0-35.0); MCHC 32.5 g/dL (31.0-37.0); Macrocytosis Moderate; Monocytes # (A) 0.7 k/uL (0-1.0); Monocytes % (A) 5 %; Neutrophils # (A) 12.2 k/uL (1.3-7.7); Neutrophils % (A) 89 %; RBC 2.55 m/uL (3.80-5.40); RDW 14.9 % (11.5-15.5); WBC 13.8 k/uL (3.8-10.6)
[2020-07-16 04:17] LABS: Platelet Count 90 k/uL (150-450)
[2020-07-16] MEDS: HYDROcodone/APAP 5-325MG 1 EACH TAB PO PRN ×2 (04:24→16:10)
[2020-07-16 04:25] LABS: Ionized Calcium 4.7 mg/dL (4.5-5.3)
[2020-07-16 04:35] LABS: Albumin 3.4 g/dL (3.5-5.0); Calcium 8.1 mg/dL (8.4-10.2); Total Bilirubin 0.7 mg/dL (0.2-1.3); Total Protein 4.9 g/dL (6.3-8.2)
[2020-07-16 05:17] LABS: Glucose,Whole Blood 126 mg/dL (75-99)
[2020-07-16 06:09] LABS: Glucose,Whole Blood 136 mg/dL (75-99)
[2020-07-16 07:04] LABS: Glucose,Whole Blood 132 mg/dL (75-99)
--- NOTE | 2020-07-16 07:33 | XR ---
EXAMINATION TYPE: XR chest 1V portable DATE OF EXAM: 07/16/2020 COMPARISON: Prior chest x-ray 07/15/2020 HISTORY: Postop cardiac surgery, extubated TECHNIQUE: Single frontal view of the chest is obtained. FINDINGS: There is been interval removal of endotracheal tube and NG tube. Right jugular [place] o[place] catheter, median sternal drain, right chest tube are again noted and are stable. No evident pneum othorax. Heart size appears prominently. Patient is post median sternotomy and atrial appendage clipp ing placement, cardiac valve replacement. Bibasilar increased attenuation is noted. There are overlyi ng cardiac leads, artifacts. There is some improvement in the interstitium. IMPRESSION: Improvement in patient's volume status, lung volumes and aeration. Interval extubation. Bibasilar atelectasis versus edema, associated effusions. Pneumonia not excluded.
[2020-07-16] MEDS ORDERED: CALCIUM GLUCONATE 1 GM in SODIUM CHLORIDE 0.9% 100 ML IVPB ONE (08:04)
[2020-07-16] MEDS ORDERED: FUROSEMIDE 10 MG/ML 2 ML VIAL IV STA (08:04)
[2020-07-16 08:09] LABS: Glucose,Whole Blood 173 mg/dL (75-99)
[2020-07-16] MEDS: CHOLECALCIFEROL 1,000 UNIT TAB PO SCH (08:23)
[2020-07-16] MEDS: MULTIVITAMINS, THERA 1 EACH TAB PO SCH (08:24)
[2020-07-16] MEDS: METOPROLOL TARTRATE 12.5 MG TAB PO SCH ×2 (08:24→20:09)
[2020-07-16] MEDS: ASPIRIN 325 MG TAB PO SCH (08:24)
[2020-07-16] MEDS: CLOPIDOGREL 75 MG TAB PO SCH (08:24)
[2020-07-16] MEDS: ASCORBIC ACID 500 MG TAB PO SCH (08:24)
[2020-07-16] MEDS: NOREPINEPHRINE 4 MG in SODIUM CHLORIDE 0.9% 250 ML IV SCH (08:24)
[2020-07-16] MEDS: ATORVASTATIN 40 MG TAB PO SCH (08:24)
[2020-07-16] MEDS: MAGNESIUM SULFATE-D5W PMX 1 GM in DEXTROSE/WATER 1 100ML.BAG IVPB SCH ×2 (08:25→09:47)
[2020-07-16] MEDS: AMIODARONE 200 MG TAB PO SCH (08:27)
[2020-07-16] MEDS: IPRATROPIUM-ALBUTEROL 3 ML NEB INHALATION SCH ×4 (08:29→20:50)
--- NOTE | 2020-07-16 08:36 | P.PN ---
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 Previous medical history of nonsustained ventr icular tachycardia, hypertension, right nephrectomy, biatrial enlargement, lifelong nonsmoker with mild obstructive lung disease and preoperative FEV1 70% of predicted POD #1 complex mitral valve repair by construction of 6 Shan-chords to the A-2 segment and complete semi-rigid annuloplasty using a 34 mm Physio-2 ring, modified left-sided maze procedure by performing a box lesion using radiofreque ncy ablation, exclusion of the left atrial appendage using a 35 mm AtriClip, intraoperative transesophageal echocardiogram and epi-aortic scanning Postoperative acute blood loss anemia, thrombocytopenia, expected secondary to hemodilution and cardiopulmonary bypass pump Postoperative hypotension, expected The patient is currently sitting up in a recliner in the intensive care unit in no acute distress. She was successfully extubated last night and at 19:10. She states pain is controlled on current medication regimen, denies shortness of breath, only complaint is being sleepy. She is atrially paced at 80 bpm with underlying rhythm sinus in the high 50s-low 60s. Her blood pressure has been on the low side and she did receive 2 1/2 liters of IV albumin since surgery. Right internal jugular [place]/Cordis, right radial arterial line, mediastinal and right pleural chest tubes all present. Objective - Vital Signs Vital signs: Vital Signs Temp 97.9 F 07/16/20 06:00 Pulse 90 07/16/20 07:00 Resp 0 L 07/16/20 07:00 BP 99/65 07/16/20 07:00 Pulse Ox 96 07/16/20 07:00 Intake & Output 07/15/20 07/16/20 07/16/20 18:59 06:59 18:59 Intake Total 8910.367 8670.869 559 Output Total 3305 1202 185 Balance -1655.698 746.869 374 Weight 65.5 kg Intake: IV 32 189 9 0.9% CO/CI 90 Pressure bags 99 9 Intake, IV Titration 4835.087 5719.869 550 Amount ACETAMINOPHEN IV (For NPO 100 100 ) 1,000 mg In Empty Bag 1 bag @ 400 mls/hr IVPB Q6HR [facility] Rx#:[id number] Albumin Human 5% 250 ml 1000 1000 500 In Empty Bag 1 bag @ 250 mls/hr IVPB Q1HR PRN Rx#: [id number] Insulin Regular 100 unit 1.381 9.869 In Sodium Chloride 0.9% 100 ml @ Per Protocol IV .Q0M [facility] Rx#:[id number] Potassium Chloride 10 meq 200 In Water For Injection 1 100ml.bag @ 100 mls/hr IVPB Q1H [facility] Rx#: [id number] Sodium Chloride 0.9% 1, 250 600 50 000 ml @ 50 mls/hr IV . Q20H [facility] Rx#:[id number] ceFAZolin 2 gm In Sodium 50 50 Chloride 0.9% 50 ml @ 100 mls/hr IVPB Q8HR [facility] Rx# :[id number] propofoL 1,000 mg In 15.921 Empty Bag 1 bag @ Titrate IV .Q0M [facility] Rx#: [id number] Output: Chest Tube Drainage 280 258 150 LEFT PLEURAL 50 88 140 Mediastinal 230 170 10 Urine 1825 944 35 Estimated Blood Loss 1200 Other: Voiding Method Indwelling Catheter Indwelling Catheter ABP, PAP, CO, CI - Last Documented Arterial Blood Pressure 110/45 Pulmonary Artery Pressure 28/15 Cardiac Output 3.9 Cardiac Index 2.3 - Constitutional General appearance: Present: cooperative, no acute distress - Respiratory Details: Lungs sounds diminished bilaterally. Respirations even, nonlabored. Currently on 2 L nasal cannula with oxygen saturation 96%. Able to achieve 750 mL on her incentive spirometry. Strong cough. Mediastinal and right pleural chest tubes present to continuous wall suction without any air leak present. Mediastinal chest tube with 80 mL serosanguineous drainage right, 420 mL since surgery. Right pleural chest tube with 40 mL serosanguineous drainage overnight, 250 mL since surgery. - Cardiovascular Details: S1, S2 present. Regular rate and rhythm, atrially paced at 80 bpm on telemetry with underlying rhythm sinus in the 50s-60s with occasional PVCs. Sternum stable. A/V epicardial pacemaker wires present, connected to generator, AAI mode with with rate 80 bpm. Right internal jugular [place]/Cordis, right radial arterial line present. Last CO/CI 3.9/2.3. Palpable peripheral pulses bilaterally. No edema present. No calf pain or tenderness noted. Heart hugger in place patient demonstrating appropriate use. Antiembolism stockings, SCDs present. - Gastrointestinal Gastrointestinal Comment(s): Abdomen soft, nontender, nondistended. Hypoactive bowel sounds present 4 quadrants. Tolerating sips of clear liquids. Negative flatus, positive belching - Genitourinary Genitourinary Comment(s): Jasso present draining clear, yellow urine. Output 30-40 mL/h overnight. - Integumentary Integumentary Comment(s): Skin is warm and dry with evidence of good perfusion. Anterior chest incision well approximated and covered with dry intact dressing. - Neurologic Neurologic: Present: CNII-XII intact - Musculoskeletal Musculoskeletal: Present: strength equal bilaterally - Psychiatric Psychiatric: Present: A&O x's 3, appropriate affect, intact judgment & insight - Allied health notes Allied health notes reviewed: nursing - Labs CBC & Chem 7: 07/16/20 03:55 07/16/20 03:55 Labs: Abnormal Lab Results - Last 24 Hours (Table) 07/08/20 07/15/20 07/15/20 Range/Units 10:00 08:16 09:19 WBC (3.8-10.6) k/uL RBC (3.80-5.40) m/uL Hgb (11.4-16.0) gm/dL Hct (34.0-46.0) % MCV (80.0-100.0) fL Plt Count (150-450) k/uL Neutrophils # (1.3-7.7) k/uL Lymphocytes # (1.0-4.8) k/uL PT (9.0-12.0) sec INR (<1.2) APTT (22.0-30.0) sec ABG pH (7.35-7.45) ABG pCO2 (35-45) mmHg ABG pO2 >420 H 270 H (83-108) mmHg ABG Total CO2 25 H (19-24) mmol/L ABG O2 Saturation 100.0 H 99.9 H (94-97) % ABG Hematocrit (34.0-46.0) % ABG Sodium (135-146) mmol/L ABG Potassium (3.4-4.5) mmol/L ABG Ionized Calcium (4.5-5.3) mg/dL ABG Glucose 104 H (75-99) mg/dL ABG Lactic Acid (0.5-1.6) mmol/L Hemoglobin 11.1 L (11.4-16.0) gm/dL Sodium (137-145) mmol/L Carbon Dioxide (22-30) mmol/L Glucose (74-99) mg/dL POC Glucose (mg/dL) (75-99) mg/dL Calcium (8.4-10.2) mg/dL Magnesium (1.6-2.3) mg/dL AST (14-36) U/L Alkaline Phosphatase (38-126) U/L Total Protein (6.3-8.2) g/dL Albumin (3.5-5.0) g/dL Arterial Blood Potassium (3.4-4.5) mmol/L Arterial Blood Glucose 104 H (75-99) mg/dL Crossmatch See Detail 07/15/20 07/15/20 07/15/20 Range/Units 10:14 10:37 11:08 WBC (3.8-10.6) k/uL RBC (3.80-5.40) m/uL Hgb (11.4-16.0) gm/dL Hct (34.0-46.0) % MCV (80.0-100.0) fL Plt Count (150-450) k/uL Neutrophils # (1.3-7.7) k/uL Lymphocytes # (1.0-4.8) k/uL PT (9.0-12.0) sec INR (<1.2) APTT (22.0-30.0) sec ABG pH 7.46 H (7.35-7.45) ABG pCO2 30 L (35-45) mmHg ABG pO2 >420 H 393 H 367 H (83-108) mmHg ABG Total CO2 26 H (19-24) mmol/L ABG O2 Saturation 100.0 H 100.0 H 100.0 H (94-97) % ABG Hematocrit 26 L 23 L 23 L (34.0-46.0) % ABG Sodium 134 L 130 L 133 L (135-146) mmol/L ABG Potassium 4.7 H (3.4-4.5) mmol/L ABG Ionized Calcium 4.2 L 4.2 L 4.2 L (4.5-5.3) mg/dL ABG Glucose 110 H 174 H 162 H (75-99) mg/dL ABG Lactic Acid (0.5-1.6) mmol/L Hemoglobin 8.4 L 7.5 L 7.5 L (11.4-16.0) gm/dL Sodium (137-145) mmol/L Carbon Dioxide (22-30) mmol/L Glucose (74-99) mg/dL POC Glucose (mg/dL) (75-99) mg/dL Calcium (8.4-10.2) mg/dL Magnesium (1.6-2.3) mg/dL AST (14-36) U/L Alkaline Phosphatase (38-126) U/L Total Protein (6.3-8.2) g/dL Albumin (3.5-5.0) g/dL Arterial Blood Potassium 4.7 H (3.4-4.5) mmol/L Arterial Blood Glucose 110 H 174 H 162 H (75-99) mg/dL Crossmatch 07/15/20 07/15/20 07/15/20 Range/Units 11:43 13:30 13:30 WBC 15.9 H (3.8-10.6) k/uL RBC 3.04 L (3.80-5.40) m/uL Hgb 10.4 L D (11.4-16.0) gm/dL Hct 31.4 L (34.0-46.0) % MCV 103.1 H (80.0-100.0) fL Plt Count 102 L D (150-450) k/uL Neutrophils # 13.7 H (1.3-7.7) k/uL Lymphocytes # (1.0-4.8) k/uL PT 12.6 H (9.0-12.0) sec INR 1.3 H (<1.2) APTT 51.7 H (22.0-30.0) sec ABG pH (7.35-7.45) ABG pCO2 (35-45) mmHg ABG pO2 418 H (83-108) mmHg ABG Total CO2 25 H (19-24) mmol/L ABG O2 Saturation 100.0 H (94-97) % ABG Hematocrit 23 L (34.0-46.0) % ABG Sodium 133 L (135-146) mmol/L ABG Potassium (3.4-4.5) mmol/L ABG Ionized Calcium 4.0 L (4.5-5.3) mg/dL ABG Glucose 139 H (75-99) mg/dL ABG Lactic Acid 1.8 H (0.5-1.6) mmol/L Hemoglobin 7.6 L (11.4-16.0) gm/dL Sodium (137-145) mmol/L Carbon Dioxide (22-30) mmol/L Glucose (74-99) mg/dL POC Glucose (mg/dL) (75-99) mg/dL Calcium (8.4-10.2) mg/dL Magnesium (1.6-2.3) mg/dL AST (14-36) U/L Alkaline Phosphatase (38-126) U/L Total Protein (6.3-8.2) g/dL Albumin (3.5-5.0) g/dL Arterial Blood Potassium (3.4-4.5) mmol/L Arterial Blood Glucose 139 H (75-99) mg/dL Crossmatch 07/15/20 07/15/20 07/15/20 Range/Units 13:30 13:34 14:06 WBC (3.8-10.6) k/uL RBC (3.80-5.40) m/uL Hgb (11.4-16.0) gm/dL Hct (34.0-46.0) % MCV (80.0-100.0) fL Plt Count (150-450) k/uL Neutrophils # (1.3-7.7) k/uL Lymphocytes # (1.0-4.8) k/uL PT (9.0-12.0) sec INR (<1.2) APTT (22.0-30.0) sec ABG pH (7.35-7.45) ABG pCO2 (35-45) mmHg ABG pO2 >400 H (83-108) mmHg ABG Total CO2 26 H (19-24) mmol/L ABG O2 Saturation 100.0 H (94-97) % ABG Hematocrit (34.0-46.0) % ABG Sodium (135-146) mmol/L ABG Potassium (3.4-4.5) mmol/L ABG Ionized Calcium (4.5-5.3) mg/dL ABG Glucose (75-99) mg/dL ABG Lactic Acid (0.5-1.6) mmol/L Hemoglobin (11.4-16.0) gm/dL Sodium 132 L (137-145) mmol/L Carbon Dioxide (22-30) mmol/L Glucose 106 H (74-99) mg/dL POC Glucose (mg/dL) 104 H (75-99) mg/dL Calcium 7.8 L (8.4-10.2) mg/dL Magnesium 2.6 H (1.6-2.3) mg/dL AST 65 H (14-36) U/L Alkaline Phosphatase (38-126) U/L Total Protein 4.3 L (6.3-8.2) g/dL Albumin 2.7 L (3.5-5.0) g/dL Arterial Blood Potassium (3.4-4.5) mmol/L Arterial Blood Glucose (75-99) mg/dL Crossmatch 07/15/20 07/15/20 07/15/20 Range/Units 14:28 15:38 15:40 WBC 12.6 H (3.8-10.6) k/uL RBC 2.77 L (3.80-5.40) m/uL Hgb 9.4 L (11.4-16.0) gm/dL Hct 28.7 L (34.0-46.0) % MCV 103.3 H (80.0-100.0) fL Plt Count 92 L (150-450) k/uL Neutrophils # 10.9 H (1.3-7.7) k/uL Lymphocytes # 0.8 L (1.0-4.8) k/uL PT (9.0-12.0) sec INR (<1.2) APTT (22.0-30.0) sec ABG pH (7.35-7.45) ABG pCO2 (35-45) mmHg ABG pO2 (83-108) mmHg ABG Total CO2 (19-24) mmol/L ABG O2 Saturation (94-97) % ABG Hematocrit (34.0-46.0) % ABG Sodium (135-146) mmol/L ABG Potassium (3.4-4.5) mmol/L ABG Ionized Calcium (4.5-5.3) mg/dL ABG Glucose (75-99) mg/dL ABG Lactic Acid (0.5-1.6) mmol/L Hemoglobin (11.4-16.0) gm/dL Sodium (137-145) mmol/L Carbon Dioxide (22-30) mmol/L Glucose (74-99) mg/dL POC Glucose (mg/dL) 118 H 114 H (75-99) mg/dL Calcium (8.4-10.2) mg/dL Magnesium (1.6-2.3) mg/dL AST (14-36) U/L Alkaline Phosphatase (38-126) U/L Total Protein (6.3-8.2) g/dL Albumin (3.5-5.0) g/dL Arterial Blood Potassium (3.4-4.5) mmol/L Arterial Blood Glucose (75-99) mg/dL Crossmatch 07/15/20 07/15/20 07/15/20 Range/Units 16:50 18:03 18:53 WBC (3.8-10.6) k/uL RBC (3.80-5.40) m/uL Hgb (11.4-16.0) gm/dL Hct (34.0-46.0) % MCV (80.0-100.0) fL Plt Count (150-450) k/uL Neutrophils # (1.3-7.7) k/uL Lymphocytes # (1.0-4.8) k/uL PT (9.0-12.0) sec INR (<1.2) APTT (22.0-30.0) sec ABG pH (7.35-7.45) ABG pCO2 (35-45) mmHg ABG pO2 (83-108) mmHg ABG Total CO2 (19-24) mmol/L ABG O2 Saturation (94-97) % ABG Hematocrit (34.0-46.0) % ABG Sodium (135-146) mmol/L ABG Potassium (3.4-4.5) mmol/L ABG Ionized Calcium (4.5-5.3) mg/dL ABG Glucose (75-99) mg/dL ABG Lactic Acid (0.5-1.6) mmol/L Hemoglobin (11.4-16.0) gm/dL Sodium (137-145) mmol/L Carbon Dioxide (22-30) mmol/L Glucose (74-99) mg/dL POC Glucose (mg/dL) 123 H 136 H 140 H (75-99) mg/dL Calcium (8.4-10.2) mg/dL Magnesium (1.6-2.3) mg/dL AST (14-36) U/L Alkaline Phosphatase (38-126) U/L Total Protein (6.3-8.2) g/dL Albumin (3.5-5.0) g/dL Arterial Blood Potassium (3.4-4.5) mmol/L Arterial Blood Glucose (75-99) mg/dL Crossmatch 07/15/20 07/15/20 07/15/20 Range/Units 18:56 19:00 19:57 WBC 12.7 H (3.8-10.6) k/uL RBC 2.71 L (3.80-5.40) m/uL Hgb 9.1 L (11.4-16.0) gm/dL Hct 28.0 L (34.0-46.0) % MCV 103.5 H (80.0-100.0) fL Plt Count 98 L (150-450) k/uL Neutrophils # 11.6 H (1.3-7.7) k/uL Lymphocytes # 0.5 L (1.0-4.8) k/uL PT (9.0-12.0) sec INR (<1.2) APTT (22.0-30.0) sec ABG pH (7.35-7.45) ABG pCO2 (35-45) mmHg ABG pO2 (83-108) mmHg ABG Total CO2 (19-24) mmol/L ABG O2 Saturation 97.3 H (94-97) % ABG Hematocrit (34.0-46.0) % ABG Sodium (135-146) mmol/L ABG Potassium (3.4-4.5) mmol/L ABG Ionized Calcium (4.5-5.3) mg/dL ABG Glucose (75-99) mg/dL ABG Lactic Acid (0.5-1.6) mmol/L Hemoglobin (11.4-16.0) gm/dL Sodium (137-145) mmol/L Carbon Dioxide (22-30) mmol/L Glucose (74-99) mg/dL POC Glucose (mg/dL) 136 H (75-99) mg/dL Calcium (8.4-10.2) mg/dL Magnesium (1.6-2.3) mg/dL AST (14-36) U/L Alkaline Phosphatase (38-126) U/L Total Protein (6.3-8.2) g/dL Albumin (3.5-5.0) g/dL Arterial Blood Potassium (3.4-4.5) mmol/L Arterial Blood Glucose (75-99) mg/dL Crossmatch 07/15/20 07/15/20 07/15/20 Range/Units 21:09 22:06 22:56 WBC (3.8-10.6) k/uL RBC (3.80-5.40) m/uL Hgb (11.4-16.0) gm/dL Hct (34.0-46.0) % MCV (80.0-100.0) fL Plt Count (150-450) k/uL Neutrophils # (1.3-7.7) k/uL Lymphocytes # (1.0-4.8) k/uL PT (9.0-12.0) sec INR (<1.2) APTT (22.0-30.0) sec ABG pH (7.35-7.45) ABG pCO2 (35-45) mmHg ABG pO2 (83-108) mmHg ABG Total CO2 (19-24) mmol/L ABG O2 Saturation (94-97) % ABG Hematocrit (34.0-46.0) % ABG Sodium (135-146) mmol/L ABG Potassium (3.4-4.5) mmol/L ABG Ionized Calcium (4.5-5.3) mg/dL ABG Glucose (75-99) mg/dL ABG Lactic Acid (0.5-1.6) mmol/L Hemoglobin (11.4-16.0) gm/dL Sodium (137-145) mmol/L Carbon Dioxide (22-30) mmol/L Glucose (74-99) mg/dL POC Glucose (mg/dL) 137 H 136 H 132 H (75-99) mg/dL Calcium (8.4-10.2) mg/dL Magnesium (1.6-2.3) mg/dL AST (14-36) U/L Alkaline Phosphatase (38-126) U/L Total Protein (6.3-8.2) g/dL Albumin (3.5-5.0) g/dL Arterial Blood Potassium (3.4-4.5) mmol/L Arterial Blood Glucose (75-99) mg/dL Crossmatch 07/16/20 07/16/20 07/16/20 Range/Units 00:07 01:04 02:04 WBC (3.8-10.6) k/uL RBC (3.80-5.40) m/uL Hgb (11.4-16.0) gm/dL Hct (34.0-46.0) % MCV (80.0-100.0) fL Plt Count (150-450) k/uL Neutrophils # (1.3-7.7) k/uL Lymphocytes # (1.0-4.8) k/uL PT (9.0-12.0) sec INR (<1.2) APTT (22.0-30.0) sec ABG pH (7.35-7.45) ABG pCO2 (35-45) mmHg ABG pO2 (83-108) mmHg ABG Total CO2 (19-24) mmol/L ABG O2 Saturation (94-97) % ABG Hematocrit (34.0-46.0) % ABG Sodium (135-146) mmol/L ABG Potassium (3.4-4.5) mmol/L ABG Ionized Calcium (4.5-5.3) mg/dL ABG Glucose (75-99) mg/dL ABG Lactic Acid (0.5-1.6) mmol/L Hemoglobin (11.4-16.0) gm/dL Sodium (137-145) mmol/L Carbon Dioxide (22-30) mmol/L Glucose (74-99) mg/dL POC Glucose (mg/dL) 139 H 147 H 150 H (75-99) mg/dL Calcium (8.4-10.2) mg/dL Magnesium (1.6-2.3) mg/dL AST (14-36) U/L Alkaline Phosphatase (38-126) U/L Total Protein (6.3-8.2) g/dL Albumin (3.5-5.0) g/dL Arterial Blood Potassium (3.4-4.5) mmol/L Arterial Blood Glucose (75-99) mg/dL Crossmatch 07/16/20 07/16/20 07/16/20 Range/Units 03:05 03:55 03:55 WBC 13.8 H (3.8-10.6) k/uL RBC 2.55 L (3.80-5.40) m/uL Hgb 8.6 L (11.4-16.0) gm/dL Hct 26.6 L (34.0-46.0) % MCV 104.0 H (80.0-100.0) fL Plt Count 90 L (150-450) k/uL Neutrophils # 12.2 H (1.3-7.7) k/uL Lymphocytes # 0.8 L (1.0-4.8) k/uL PT (9.0-12.0) sec INR (<1.2) APTT (22.0-30.0) sec ABG pH (7.35-7.45) ABG pCO2 (35-45) mmHg ABG pO2 (83-108) mmHg ABG Total CO2 (19-24) mmol/L ABG O2 Saturation (94-97) % ABG Hematocrit (34.0-46.0) % ABG Sodium (135-146) mmol/L ABG Potassium (3.4-4.5) mmol/L ABG Ionized Calcium (4.5-5.3) mg/dL ABG Glucose (75-99) mg/dL ABG Lactic Acid (0.5-1.6) mmol/L Hemoglobin (11.4-16.0) gm/dL Sodium 133 L (137-145) mmol/L Carbon Dioxide 21 L (22-30) mmol/L Glucose 111 H (74-99) mg/dL POC Glucose (mg/dL) 129 H (75-99) mg/dL Calcium 8.1 L (8.4-10.2) mg/dL Magnesium (1.6-2.3) mg/dL AST 69 H (14-36) U/L Alkaline Phosphatase 32 L (38-126) U/L Total Protein 4.9 L (6.3-8.2) g/dL Albumin 3.4 L (3.5-5.0) g/dL Arterial Blood Potassium (3.4-4.5) mmol/L Arterial Blood Glucose (75-99) mg/dL Crossmatch 07/16/20 07/16/20 07/16/20 Range/Units 03:55 05:15 06:07 WBC (3.8-10.6) k/uL RBC (3.80-5.40) m/uL Hgb (11.4-16.0) gm/dL Hct (34.0-46.0) % MCV (80.0-100.0) fL Plt Count (150-450) k/uL Neutrophils # (1.3-7.7) k/uL Lymphocytes # (1.0-4.8) k/uL PT (9.0-12.0) sec INR (<1.2) APTT (22.0-30.0) sec ABG pH (7.35-7.45) ABG pCO2 (35-45) mmHg ABG pO2 (83-108) mmHg ABG Total CO2 (19-24) mmol/L ABG O2 Saturation (94-97) % ABG Hematocrit (34.0-46.0) % ABG Sodium (135-146) mmol/L ABG Potassium (3.4-4.5) mmol/L ABG Ionized Calcium (4.5-5.3) mg/dL ABG Glucose (75-99) mg/dL ABG Lactic Acid (0.5-1.6) mmol/L Hemoglobin (11.4-16.0) gm/dL Sodium (137-145) mmol/L Carbon Dioxide (22-30) mmol/L Glucose (74-99) mg/dL POC Glucose (mg/dL) 120 H 126 H 136 H (75-99) mg/dL Calcium (8.4-10.2) mg/dL Magnesium (1.6-2.3) mg/dL AST (14-36) U/L Alkaline Phosphatase (38-126) U/L Total Protein (6.3-8.2) g/dL Albumin (3.5-5.0) g/dL Arterial Blood Potassium (3.4-4.5) mmol/L Arterial Blood Glucose (75-99) mg/dL Crossmatch 07/16/20 Range/Units 07:02 WBC (3.8-10.6) k/uL RBC (3.80-5.40) m/uL Hgb (11.4-16.0) gm/dL Hct (34.0-46.0) % MCV (80.0-100.0) fL Plt Count (150-450) k/uL Neutrophils # (1.3-7.7) k/uL Lymphocytes # (1.0-4.8) k/uL PT (9.0-12.0) sec INR (<1.2) APTT (22.0-30.0) sec ABG pH (7.35-7.45) ABG pCO2 (35-45) mmHg ABG pO2 (83-108) mmHg ABG Total CO2 (19-24) mmol/L ABG O2 Saturation (94-97) % ABG Hematocrit (34.0-46.0) % ABG Sodium (135-146) mmol/L ABG Potassium (3.4-4.5) mmol/L ABG Ionized Calcium (4.5-5.3) mg/dL ABG Glucose (75-99) mg/dL ABG Lactic Acid (0.5-1.6) mmol/L Hemoglobin (11.4-16.0) gm/dL Sodium (137-145) mmol/L Carbon Dioxide (22-30) mmol/L Glucose (74-99) mg/dL POC Glucose (mg/dL) 132 H (75-99) mg/dL Calcium (8.4-10.2) mg/dL Magnesium (1.6-2.3) mg/dL AST (14-36) U/L Alkaline Phosphatase (38-126) U/L Total Protein (6.3-8.2) g/dL Albumin (3.5-5.0) g/dL Arterial Blood Potassium (3.4-4.5) mmol/L Arterial Blood Glucose (75-99) mg/dL Crossmatch - Imaging and Cardiology Chest x-ray: report reviewed, image reviewed Assessment and Plan Assessment: 1. 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 Recent history of nonsustained ventricular tachycardia 3. History of hypertension, currently hypotensive, expected 4. History of right nephrectomy 5. Lifelong nonsmoker with mild obstructive lung disease and preoperative FEV1 70% of predicted 6. Postoperative acute blood loss anemia, thrombocytopenia, expected Plan: 1. Continue aspirin, statin, Plavix, beta evelyn therapy. Will restart oral amiodarone 2. May use low-dose IV Levophed to support blood pressure, keep mean arterial pressure greater than 60 3. Wean O2 as tolerated. Bronchodilators per pulmonology. Encourage incentive spirometry use 10 times every hour while awake 4. Will monitor daily labs and x-rays. Electrolyte replacement per protocol. We will give IV Lasix today as well as replace calcium, magnesium, potassium 5. Increase activity, ambulate as tolerated. PT/OT/cardiac rehab consulted 6. Discontinue [place]. Connect Cordis to continue CVP monitoring 7. Insulin management per primary care service. Patient is not diabetic, hemoglobin A1c 5.1% 8. Pain control with current medication regimen. 9. Continue chest tubes for another 24 hours 10. Continue Jasso for another 24 hours. Strict accurate intake and output. Daily weights 11. More recommendations to follow a stone patient's progress Time with Patient: Greater than 30
[2020-07-16] MEDS ORDERED: MAGNESIUM HYDROXIDE 2,400 MG/10 ML CUP PO PRN (09:00)
[2020-07-16] MEDS ORDERED: bisacodyL 10 MG SUPP RECTAL PRN (09:00)
[2020-07-16] MEDS ORDERED: POTASSIUM CHLORIDE ER 20 MEQ TAB.ER PO SCH (09:00)
[2020-07-16] MEDS ORDERED: PANTOPRAZOLE 40 MG/10 ML VIAL IVP SCH (09:00)
[2020-07-16 09:12] LABS: Glucose,Whole Blood 211 mg/dL (75-99)
--- NOTE | 2020-07-16 10:11 | P.PN ---
Subjective Progress Note Date: 07/16/20 Principal diagnosis: Severe mitral regurgitation, status post mitral valve repair. Postoperative day #1 75-year-old white female patient of Dr. Delano Lemus with a history of hyp ertension, known history of mitral valve prolapse, and right nephrectomy who was recently hospitalized from 06/10/2020 through all 06/14/2020 4 complaints of intermittent spells of dizziness, heart palpitations. Patient was admitted, she did have episodes of ventricular tachycardia while in the hospital, she was evaluated by Dr. Roa. Echocardiogram showed moderate eccentric mitral regurgitation with mild prolapse of the anterior mitral leaflet, mild tricuspid regurgitation, dilated left atrium, mild aortic insufficiency, preserved LV function with EF of 50-55%. Heart catheterization showed normal coronary arteries, with 4+ mitral regurgitation. Transesophageal echocardiogram showed m itral valve prolapse and 3-4+ mitral regurgitation, no evidence of PFO, and no clot in the left atrial appendage, it did show left atrial enlargement. Patient was referred to cardiothoracic surgical team for evaluation, and today on 07/15/2020 patient underwent mitral valve repair, modified Scott, and exclusion of the left atrial appendage. Patient is seen in the postoperative period in the intensive care unit, sedated and intubated on mechanical ventilator, currently on SIMV with a rate of 12, tidal lines 450, FiO2 is 40% PEEP of 5, and a pressure support of 5. Hemodynamically patient is stable, 0.9 normal sinus rhythm at 50 ML per hour, Diprivan is at 20 mics per kilo per minute, no other drips. Patient has mediastinal chest tube with 140 mL of single is output and pleural chest tube with 10 mL of sanguinous output, epicardial wires to external pacemaker and patient is currently being atrially paced at a rate of 80 BPM, PA pressures of 35/19, CVP is 13, cardiac output is 3.5, cardiac index is 2.1. Postoperative chest x-ray was viewed showing satisfactory postoperative chest x-ray, probable basilar atelectatic changes and the possibility of some volume overload and interstitial edema. Postoperative blood gas showed pO2 of greater than 400, pCO2 43, pH of 7.37, this was done on FiO2 of 100%, which has since been dropped to 40%. Postoperative blood work shows white blood cell count of 15.9, hemoglobin of 10.4, INR is 1.3, sodium is 132, direct electrolytes and renal profile were within normal limits. The patient is seen today 07/16/2020 in follow-up in the intensive care unit. She is status post mitral valve repair and Maze procedure. Postoperative day #1. He was successfully extubated within 6 hours as leaving the OR. She is currently sitting up in a chair at the bedside. Awake and alert in no acute distress. She is somewhat drowsy and sleepy she states feeling the effects of anesthesia still. She is maintaining O2 saturations in the 90s on 2 L/m per n shiv cannula. She's receiving 0.9% normal saline at 50 MLS per hour. Insulin drip at 3 units per hour. Norepinephrine at 1.3 mcg/m. Mediastinal and right pleural chest tubes are present to continuous wall suction without any air leak. 420 ML's out since surgery on the mediastinal with 250 out on the right pleural chest tube. Chest x-ray reveals improved aeration the patient's volume status. Bibasilar atelectasis. Working with the incentive spirometer. White count 13.8. Hemoglobin 8.6. Platelets 90,000. Sodium 133. Potassium 4.0. Creatinine 0.76. Objective - Vital Signs Vital signs: Vital Signs Temp 98.1 F 07/16/20 08:00 Pulse 80 07/16/20 09:00 Resp 16 07/16/20 09:00 BP 94/49 07/16/20 09:00 Pulse Ox 94 L 07/16/20 09:00 Intake & Output 07/15/20 07/16/20 07/16/20 18:59 06:59 18:59 Intake Total 7302.556 2884.869 1169.386 Output Total 3305 1202 615 Balance -1655.698 746.869 554.386 Weight 65.5 kg Intake: IV 32 189 37 0.9% CO/CI 90 10 Pressure bags 99 27 Intake, IV Titration 9560.112 1810.869 892.386 Amount ACETAMINOPHEN IV (For NPO 100 100 ) 1,000 mg In Empty Bag 1 bag @ 400 mls/hr IVPB Q6HR [facility] Rx#:[id number] Albumin Human 5% 250 ml 1000 1000 500 In Empty Bag 1 bag @ 250 mls/hr IVPB Q1HR PRN Rx#: [id number] Calcium Gluconate 1 gm In 100 Sodium Chloride 0.9% 100 ml @ 100 mls/hr IVPB ONCE ONE Rx#:[id number] Insulin Regular 100 unit 1.381 9.869 10.532 In Sodium Chloride 0.9% 100 ml @ Per Protocol IV .Q0M [facility] Rx#:[id number] Magnesium Sulfate-D5w Pmx 100 1 gm In Dextrose/Water 1 100ml.bag @ 100 mls/hr IVPB Q1H [facility] Rx#: [id number] Norepinephrine 4 mg In 11.854 Sodium Chloride 0.9% 250 ml @ 0.05 MCG/KG/MIN 12. 478 mls/hr IV .[id number] [facility] Rx#:[id number] Potassium Chloride 10 meq 200 In Water For Injection 1 100ml.bag @ 100 mls/hr IVPB Q1H [facility] Rx#: [id number] Sodium Chloride 0.9% 1, 250 600 120 000 ml @ 20 mls/hr IV . Q24H [facility] Rx#:[id number] ceFAZolin 2 gm In Sodium 50 50 50 Chloride 0.9% 50 ml @ 100 mls/hr IVPB Q8HR [facility] Rx# :[id number] propofoL 1,000 mg In 15.921 Empty Bag 1 bag @ Titrate IV .Q0M [facility] Rx#: [id number] Oral 240 Output: Chest Tube Drainage 280 258 250 LEFT PLEURAL 50 88 240 Mediastinal 230 170 10 Urine 1825 944 365 Estimated Blood Loss 1200 Other: Voiding Method Indwelling Catheter Indwelling Catheter ABP, PAP, CO, CI - Last Documented Arterial Blood Pressure 134/42 Pulmonary Artery Pressure 29/13 Cardiac Output 3.9 Cardiac Index 2.3 - Exam GENERAL EXAM: Awake, alert very pleasant 75-year-old female patient, on 2 L nasal cannula, fairly comfortable in no apparent distress. HEAD: Normocephalic/atraumatic. EYES: Normal reaction of pupils, equal size. Conjunctiva pink, sclera white. NOSE: Clear with pink turbinates. THROAT: No erythema or exudates. NECK: Right IJ [place] catheter in place. No masses, no JVD, no thyroid enlargement, no adenopathy. CHEST: No chest wall deformity. Symmetrical expansion. Midsternal incision is clean dry and intact, chest tube sites clean dry and intact, no air leak, to wall suction. Epicardial wires connected to external pacemaker box, and patient is being A paced at a rate of 80 BPM, underlying rhythm reveals sinus in the high 50s and low 60s LUNGS: Equal air entry with crackles in the bilateral bases. CVS: Regular rate and rhythm, normal S1 and S2, no gallops, no murmurs, no rubs ABDOMEN: Soft, nontender. No hepatosplenomegaly, normal bowel sounds, no guarding or rigidity. EXTREMITIES: No clubbing, no edema, no cyanosis, 2+ pulses and upper and lower extremities. MUSCULOSKELETAL: Muscle strength and tone normal. SPINE: No scoliosis or deformity SKIN: No rashes CENTRAL NERVOUS SYSTEM: Sedated. No focal deficits, tone is normal in all 4 extremities. - Labs CBC & Chem 7: 07/16/20 03:55 07/16/20 03:55 Labs: Abnormal Lab Results - Last 24 Hours (Table) 07/08/20 07/15/20 07/15/20 Range/Units 10:00 08:16 09:19 WBC (3.8-10.6) k/uL RBC (3.80-5.40) m/uL Hgb (11.4-16.0) gm/dL Hct (34.0-46.0) % MCV (80.0-100.0) fL Plt Count (150-450) k/uL Neutrophils # (1.3-7.7) k/uL Lymphocytes # (1.0-4.8) k/uL PT (9.0-12.0) sec INR (<1.2) APTT (22.0-30.0) sec ABG pH (7.35-7.45) ABG pCO2 (35-45) mmHg ABG pO2 >420 H 270 H (83-108) mmHg ABG Total CO2 25 H (19-24) mmol/L ABG O2 Saturation 100.0 H 99.9 H (94-97) % ABG Hematocrit (34.0-46.0) % ABG Sodium (135-146) mmol/L ABG Potassium (3.4-4.5) mmol/L ABG Ionized Calcium (4.5-5.3) mg/dL ABG Glucose 104 H (75-99) mg/dL ABG Lactic Acid (0.5-1.6) mmol/L Hemoglobin 11.1 L (11.4-16.0) gm/dL Sodium (137-145) mmol/L Carbon Dioxide (22-30) mmol/L Glucose (74-99) mg/dL POC Glucose (mg/dL) (75-99) mg/dL Calcium (8.4-10.2) mg/dL Magnesium (1.6-2.3) mg/dL AST (14-36) U/L Alkaline Phosphatase (38-126) U/L Total Protein (6.3-8.2) g/dL Albumin (3.5-5.0) g/dL Arterial Blood Potassium (3.4-4.5) mmol/L Arterial Blood Glucose 104 H (75-99) mg/dL Crossmatch See Detail 07/15/20 07/15/20 07/15/20 Range/Units 10:14 10:37 11:08 WBC (3.8-10.6) k/uL RBC (3.80-5.40) m/uL Hgb (11.4-16.0) gm/dL Hct (34.0-46.0) % MCV (80.0-100.0) fL Plt Count (150-450) k/uL Neutrophils # (1.3-7.7) k/uL Lymphocytes # (1.0-4.8) k/uL PT (9.0-12.0) sec INR (<1.2) APTT (22.0-30.0) sec ABG pH 7.46 H (7.35-7.45) ABG pCO2 30 L (35-45) mmHg ABG pO2 >420 H 393 H 367 H (83-108) mmHg ABG Total CO2 26 H (19-24) mmol/L ABG O2 Saturation 100.0 H 100.0 H 100.0 H (94-97) % ABG Hematocrit 26 L 23 L 23 L (34.0-46.0) % ABG Sodium 134 L 130 L 133 L (135-146) mmol/L ABG Potassium 4.7 H (3.4-4.5) mmol/L ABG Ionized Calcium 4.2 L 4.2 L 4.2 L (4.5-5.3) mg/dL ABG Glucose 110 H 174 H 162 H (75-99) mg/dL ABG Lactic Acid (0.5-1.6) mmol/L Hemoglobin 8.4 L 7.5 L 7.5 L (11.4-16.0) gm/dL Sodium (137-145) mmol/L Carbon Dioxide (22-30) mmol/L Glucose (74-99) mg/dL POC Glucose (mg/dL) (75-99) mg/dL Calcium (8.4-10.2) mg/dL Magnesium (1.6-2.3) mg/dL AST (14-36) U/L Alkaline Phosphatase (38-126) U/L Total Protein (6.3-8.2) g/dL Albumin (3.5-5.0) g/dL Arterial Blood Potassium 4.7 H (3.4-4.5) mmol/L Arterial Blood Glucose 110 H 174 H 162 H (75-99) mg/dL Crossmatch 07/15/20 07/15/20 07/15/20 Range/Units 11:43 13:30 13:30 WBC 15.9 H (3.8-10.6) k/uL RBC 3.04 L (3.80-5.40) m/uL Hgb 10.4 L D (11.4-16.0) gm/dL Hct 31.4 L (34.0-46.0) % MCV 103.1 H (80.0-100.0) fL Plt Count 102 L D (150-450) k/uL Neutrophils # 13.7 H (1.3-7.7) k/uL Lymphocytes # (1.0-4.8) k/uL PT 12.6 H (9.0-12.0) sec INR 1.3 H (<1.2) APTT 51.7 H (22.0-30.0) sec ABG pH (7.35-7.45) ABG pCO2 (35-45) mmHg ABG pO2 418 H (83-108) mmHg ABG Total CO2 25 H (19-24) mmol/L ABG O2 Saturation 100.0 H (94-97) % ABG Hematocrit 23 L (34.0-46.0) % ABG Sodium 133 L (135-146) mmol/L ABG Potassium (3.4-4.5) mmol/L ABG Ionized Calcium 4.0 L (4.5-5.3) mg/dL ABG Glucose 139 H (75-99) mg/dL ABG Lactic Acid 1.8 H (0.5-1.6) mmol/L Hemoglobin 7.6 L (11.4-16.0) gm/dL Sodium (137-145) mmol/L Carbon Dioxide (22-30) mmol/L Glucose (74-99) mg/dL POC Glucose (mg/dL) (75-99) mg/dL Calcium (8.4-10.2) mg/dL Magnesium (1.6-2.3) mg/dL AST (14-36) U/L Alkaline Phosphatase (38-126) U/L Total Protein (6.3-8.2) g/dL Albumin (3.5-5.0) g/dL Arterial Blood Potassium (3.4-4.5) mmol/L Arterial Blood Glucose 139 H (75-99) mg/dL Crossmatch 07/15/20 07/15/20 07/15/20 Range/Units 13:30 13:34 14:06 WBC (3.8-10.6) k/uL RBC (3.80-5.40) m/uL Hgb (11.4-16.0) gm/dL Hct (34.0-46.0) % MCV (80.0-100.0) fL Plt Count (150-450) k/uL Neutrophils # (1.3-7.7) k/uL Lymphocytes # (1.0-4.8) k/uL PT (9.0-12.0) sec INR (<1.2) APTT (22.0-30.0) sec ABG pH (7.35-7.45) ABG pCO2 (35-45) mmHg ABG pO2 >400 H (83-108) mmHg ABG Total CO2 26 H (19-24) mmol/L ABG O2 Saturation 100.0 H (94-97) % ABG Hematocrit (34.0-46.0) % ABG Sodium (135-146) mmol/L ABG Potassium (3.4-4.5) mmol/L ABG Ionized Calcium (4.5-5.3) mg/dL ABG Glucose (75-99) mg/dL ABG Lactic Acid (0.5-1.6) mmol/L Hemoglobin (11.4-16.0) gm/dL Sodium 132 L (137-145) mmol/L Carbon Dioxide (22-30) mmol/L Glucose 106 H (74-99) mg/dL POC Glucose (mg/dL) 104 H (75-99) mg/dL Calcium 7.8 L (8.4-10.2) mg/dL Magnesium 2.6 H (1.6-2.3) mg/dL AST 65 H (14-36) U/L Alkaline Phosphatase (38-126) U/L Total Protein 4.3 L (6.3-8.2) g/dL Albumin 2.7 L (3.5-5.0) g/dL Arterial Blood Potassium (3.4-4.5) mmol/L Arterial Blood Glucose (75-99) mg/dL Crossmatch 07/15/20 07/15/20 07/15/20 Range/Units 14:28 15:38 15:40 WBC 12.6 H (3.8-10.6) k/uL RBC 2.77 L (3.80-5.40) m/uL Hgb 9.4 L (11.4-16.0) gm/dL Hct 28.7 L (34.0-46.0) % MCV 103.3 H (80.0-100.0) fL Plt Count 92 L (150-450) k/uL Neutrophils # 10.9 H (1.3-7.7) k/uL Lymphocytes # 0.8 L (1.0-4.8) k/uL PT (9.0-12.0) sec INR (<1.2) APTT (22.0-30.0) sec ABG pH (7.35-7.45) ABG pCO2 (35-45) mmHg ABG pO2 (83-108) mmHg ABG Total CO2 (19-24) mmol/L ABG O2 Saturation (94-97) % ABG Hematocrit (34.0-46.0) % ABG Sodium (135-146) mmol/L ABG Potassium (3.4-4.5) mmol/L ABG Ionized Calcium (4.5-5.3) mg/dL ABG Glucose (75-99) mg/dL ABG Lactic Acid (0.5-1.6) mmol/L Hemoglobin (11.4-16.0) gm/dL Sodium (137-145) mmol/L Carbon Dioxide (22-30) mmol/L Glucose (74-99) mg/dL POC Glucose (mg/dL) 118 H 114 H (75-99) mg/dL Calcium (8.4-10.2) mg/dL Magnesium (1.6-2.3) mg/dL AST (14-36) U/L Alkaline Phosphatase (38-126) U/L Total Protein (6.3-8.2) g/dL Albumin (3.5-5.0) g/dL Arterial Blood Potassium (3.4-4.5) mmol/L Arterial Blood Glucose (75-99) mg/dL Crossmatch 07/15/20 07/15/20 07/15/20 Range/Units 16:50 18:03 18:53 WBC (3.8-10.6) k/uL RBC (3.80-5.40) m/uL Hgb (11.4-16.0) gm/dL Hct (34.0-46.0) % MCV (80.0-100.0) fL Plt Count (150-450) k/uL Neutrophils # (1.3-7.7) k/uL Lymphocytes # (1.0-4.8) k/uL PT (9.0-12.0) sec INR (<1.2) APTT (22.0-30.0) sec ABG pH (7.35-7.45) ABG pCO2 (35-45) mmHg ABG pO2 (83-108) mmHg ABG Total CO2 (19-24) mmol/L ABG O2 Saturation (94-97) % ABG Hematocrit (34.0-46.0) % ABG Sodium (135-146) mmol/L ABG Potassium (3.4-4.5) mmol/L ABG Ionized Calcium (4.5-5.3) mg/dL ABG Glucose (75-99) mg/dL ABG Lactic Acid (0.5-1.6) mmol/L Hemoglobin (11.4-16.0) gm/dL Sodium (137-145) mmol/L Carbon Dioxide (22-30) mmol/L Glucose (74-99) mg/dL POC Glucose (mg/dL) 123 H 136 H 140 H (75-99) mg/dL Calcium (8.4-10.2) mg/dL Magnesium (1.6-2.3) mg/dL AST (14-36) U/L Alkaline Phosphatase (38-126) U/L Total Protein (6.3-8.2) g/dL Albumin (3.5-5.0) g/dL Arterial Blood Potassium (3.4-4.5) mmol/L Arterial Blood Glucose (75-99) mg/dL Crossmatch 07/15/20 07/15/20 07/15/20 Range/Units 18:56 19:00 19:57 WBC 12.7 H (3.8-10.6) k/uL RBC 2.71 L (3.80-5.40) m/uL Hgb 9.1 L (11.4-16.0) gm/dL Hct 28.0 L (34.0-46.0) % MCV 103.5 H (80.0-100.0) fL Plt Count 98 L (150-450) k/uL Neutrophils # 11.6 H (1.3-7.7) k/uL Lymphocytes # 0.5 L (1.0-4.8) k/uL PT (9.0-12.0) sec INR (<1.2) APTT (22.0-30.0) sec ABG pH (7.35-7.45) ABG pCO2 (35-45) mmHg ABG pO2 (83-108) mmHg ABG Total CO2 (19-24) mmol/L ABG O2 Saturation 97.3 H (94-97) % ABG Hematocrit (34.0-46.0) % ABG Sodium (135-146) mmol/L ABG Potassium (3.4-4.5) mmol/L ABG Ionized Calcium (4.5-5.3) mg/dL ABG Glucose (75-99) mg/dL ABG Lactic Acid (0.5-1.6) mmol/L Hemoglobin (11.4-16.0) gm/dL Sodium (137-145) mmol/L Carbon Dioxide (22-30) mmol/L Glucose (74-99) mg/dL POC Glucose (mg/dL) 136 H (75-99) mg/dL Calcium (8.4-10.2) mg/dL Magnesium (1.6-2.3) mg/dL AST (14-36) U/L Alkaline Phosphatase (38-126) U/L Total Protein (6.3-8.2) g/dL Albumin (3.5-5.0) g/dL Arterial Blood Potassium (3.4-4.5) mmol/L Arterial Blood Glucose (75-99) mg/dL Crossmatch 07/15/20 07/15/20 07/15/20 Range/Units 21:09 22:06 22:56 WBC (3.8-10.6) k/uL RBC (3.80-5.40) m/uL Hgb (11.4-16.0) gm/dL Hct (34.0-46.0) % MCV (80.0-100.0) fL Plt Count (150-450) k/uL Neutrophils # (1.3-7.7) k/uL Lymphocytes # (1.0-4.8) k/uL PT (9.0-12.0) sec INR (<1.2) APTT (22.0-30.0) sec ABG pH (7.35-7.45) ABG pCO2 (35-45) mmHg ABG pO2 (83-108) mmHg ABG Total CO2 (19-24) mmol/L ABG O2 Saturation (94-97) % ABG Hematocrit (34.0-46.0) % ABG Sodium (135-146) mmol/L ABG Potassium (3.4-4.5) mmol/L ABG Ionized Calcium (4.5-5.3) mg/dL ABG Glucose (75-99) mg/dL ABG Lactic Acid (0.5-1.6) mmol/L Hemoglobin (11.4-16.0) gm/dL Sodium (137-145) mmol/L Carbon Dioxide (22-30) mmol/L Glucose (74-99) mg/dL POC Glucose (mg/dL) 137 H 136 H 132 H (75-99) mg/dL Calcium (8.4-10.2) mg/dL Magnesium (1.6-2.3) mg/dL AST (14-36) U/L Alkaline Phosphatase (38-126) U/L Total Protein (6.3-8.2) g/dL Albumin (3.5-5.0) g/dL Arterial Blood Potassium (3.4-4.5) mmol/L Arterial Blood Glucose (75-99) mg/dL Crossmatch 07/16/20 07/16/20 07/16/20 Range/Units 00:07 01:04 02:04 WBC (3.8-10.6) k/uL RBC (3.80-5.40) m/uL Hgb (11.4-16.0) gm/dL Hct (34.0-46.0) % MCV (80.0-100.0) fL Plt Count (150-450) k/uL Neutrophils # (1.3-7.7) k/uL Lymphocytes # (1.0-4.8) k/uL PT (9.0-12.0) sec INR (<1.2) APTT (22.0-30.0) sec ABG pH (7.35-7.45) ABG pCO2 (35-45) mmHg ABG pO2 (83-108) mmHg ABG Total CO2 (19-24) mmol/L ABG O2 Saturation (94-97) % ABG Hematocrit (34.0-46.0) % ABG Sodium (135-146) mmol/L ABG Potassium (3.4-4.5) mmol/L ABG Ionized Calcium (4.5-5.3) mg/dL ABG Glucose (75-99) mg/dL ABG Lactic Acid (0.5-1.6) mmol/L Hemoglobin (11.4-16.0) gm/dL Sodium (137-145) mmol/L Carbon Dioxide (22-30) mmol/L Glucose (74-99) mg/dL POC Glucose (mg/dL) 139 H 147 H 150 H (75-99) mg/dL Calcium (8.4-10.2) mg/dL Magnesium (1.6-2.3) mg/dL AST (14-36) U/L Alkaline Phosphatase (38-126) U/L Total Protein (6.3-8.2) g/dL Albumin (3.5-5.0) g/dL Arterial Blood Potassium (3.4-4.5) mmol/L Arterial Blood Glucose (75-99) mg/dL Crossmatch 07/16/20 07/16/20 07/16/20 Range/Units 03:05 03:55 03:55 WBC 13.8 H (3.8-10.6) k/uL RBC 2.55 L (3.80-5.40) m/uL Hgb 8.6 L (11.4-16.0) gm/dL Hct 26.6 L (34.0-46.0) % MCV 104.0 H (80.0-100.0) fL Plt Count 90 L (150-450) k/uL Neutrophils # 12.2 H (1.3-7.7) k/uL Lymphocytes # 0.8 L (1.0-4.8) k/uL PT (9.0-12.0) sec INR (<1.2) APTT (22.0-30.0) sec ABG pH (7.35-7.45) ABG pCO2 (35-45) mmHg ABG pO2 (83-108) mmHg ABG Total CO2 (19-24) mmol/L ABG O2 Saturation (94-97) % ABG Hematocrit (34.0-46.0) % ABG Sodium (135-146) mmol/L ABG Potassium (3.4-4.5) mmol/L ABG Ionized Calcium (4.5-5.3) mg/dL ABG Glucose (75-99) mg/dL ABG Lactic Acid (0.5-1.6) mmol/L Hemoglobin (11.4-16.0) gm/dL Sodium 133 L (137-145) mmol/L Carbon Dioxide 21 L (22-30) mmol/L Glucose 111 H (74-99) mg/dL POC Glucose (mg/dL) 129 H (75-99) mg/dL Calcium 8.1 L (8.4-10.2) mg/dL Magnesium (1.6-2.3) mg/dL AST 69 H (14-36) U/L Alkaline Phosphatase 32 L (38-126) U/L Total Protein 4.9 L (6.3-8.2) g/dL Albumin 3.4 L (3.5-5.0) g/dL Arterial Blood Potassium (3.4-4.5) mmol/L Arterial Blood Glucose (75-99) mg/dL Crossmatch 07/16/20 07/16/20 07/16/20 Range/Units 03:55 05:15 06:07 WBC (3.8-10.6) k/uL RBC (3.80-5.40) m/uL Hgb (11.4-16.0) gm/dL Hct (34.0-46.0) % MCV (80.0-100.0) fL Plt Count (150-450) k/uL Neutrophils # (1.3-7.7) k/uL Lymphocytes # (1.0-4.8) k/uL PT (9.0-12.0) sec INR (<1.2) APTT (22.0-30.0) sec ABG pH (7.35-7.45) ABG pCO2 (35-45) mmHg ABG pO2 (83-108) mmHg ABG Total CO2 (19-24) mmol/L ABG O2 Saturation (94-97) % ABG Hematocrit (34.0-46.0) % ABG Sodium (135-146) mmol/L ABG Potassium (3.4-4.5) mmol/L ABG Ionized Calcium (4.5-5.3) mg/dL ABG Glucose (75-99) mg/dL ABG Lactic Acid (0.5-1.6) mmol/L Hemoglobin (11.4-16.0) gm/dL Sodium (137-145) mmol/L Carbon Dioxide (22-30) mmol/L Glucose (74-99) mg/dL POC Glucose (mg/dL) 120 H 126 H 136 H (75-99) mg/dL Calcium (8.4-10.2) mg/dL Magnesium (1.6-2.3) mg/dL AST (14-36) U/L Alkaline Phosphatase (38-126) U/L Total Protein (6.3-8.2) g/dL Albumin (3.5-5.0) g/dL Arterial Blood Potassium (3.4-4.5) mmol/L Arterial Blood Glucose (75-99) mg/dL Crossmatch 07/16/20 07/16/20 07/16/20 Range/Units 07:02 08:07 09:11 WBC (3.8-10.6) k/uL RBC (3.80-5.40) m/uL Hgb (11.4-16.0) gm/dL Hct (34.0-46.0) % MCV (80.0-100.0) fL Plt Count (150-450) k/uL Neutrophils # (1.3-7.7) k/uL Lymphocytes # (1.0-4.8) k/uL PT (9.0-12.0) sec INR (<1.2) APTT (22.0-30.0) sec ABG pH (7.35-7.45) ABG pCO2 (35-45) mmHg ABG pO2 (83-108) mmHg ABG Total CO2 (19-24) mmol/L ABG O2 Saturation (94-97) % ABG Hematocrit (34.0-46.0) % ABG Sodium (135-146) mmol/L ABG Potassium (3.4-4.5) mmol/L ABG Ionized Calcium (4.5-5.3) mg/dL ABG Glucose (75-99) mg/dL ABG Lactic Acid (0.5-1.6) mmol/L Hemoglobin (11.4-16.0) gm/dL Sodium (137-145) mmol/L Carbon Dioxide (22-30) mmol/L Glucose (74-99) mg/dL POC Glucose (mg/dL) 132 H 173 H 211 H (75-99) mg/dL Calcium (8.4-10.2) mg/dL Magnesium (1.6-2.3) mg/dL AST (14-36) U/L Alkaline Phosphatase (38-126) U/L Total Protein (6.3-8.2) g/dL Albumin (3.5-5.0) g/dL Arterial Blood Potassium (3.4-4.5) mmol/L Arterial Blood Glucose (75-99) mg/dL Crossmatch Assessment and Plan Assessment: 1 Severe mitral regurgitation, status post mitral valve repair, modified Scott Maze procedure, and exclusion of left atrial appendage, postoperative day #1 2 Recent hospitalization for nonsustained ventricular tachycardia, palpitations, and intermittent spells of dizziness related to severe mitral regurgitation 3 Routine postoperative ventilator management and was successfully extubated within 6 hours of leaving the operating room 4 History of hypertension 5 History of right nephrectomy 6 Lifetime nonsmoker, preop PFT showed FEV1 of 70% of predicted 7 Leukocytosis likely reactive secondary to surgery 8 Hyponatremia, likely hypervolemic Plan: The patient was seen and evaluated by Dr. Og Chest x-ray and labs reviewed Continue bronchodilators Encouraged the increased use of the incentive spirometer Up in a chair at the bedside Requiring low-dose norepinephrine Titrate insulin drip as tolerated We will continue to follow and make further recommendations based on her clinical status I, the cosigning physician, performed a history & physical examination of the patient. Lungs sounds with crackles in the bilateral posterior bases. Maintaining good O2 saturations in the 90s on 2 L/m per nasal. I discussed the assessment and plan of care with my nurse practitioner, Pati Block. I attest to the above note as dictated by her.
[2020-07-16 10:22] LABS: Glucose,Whole Blood 194 mg/dL (75-99)
[2020-07-16 11:18] LABS: Glucose,Whole Blood 153 mg/dL (75-99)
[2020-07-16 12:26] LABS: Glucose,Whole Blood 122 mg/dL (75-99)
--- NOTE | 2020-07-16 12:26 | CONS ---
CONSULTATION Mrs. Scales is a 75-year-old female who underwent mitral valve repair. She presented to the hospital in May and was found to have an ejection fraction of 50% to 55% with severe mitral regurgitation. She had runs of nonsustained ventricular tachycardia, underwent cardiac catheterization at that time. She had no evidence of obstructive coronary artery disease. She is extubated, sitting up in the chair. Denies any symptoms of chest discomfort. She is feeling sore and sleepy, but otherwise no other symptoms. She has been told that she had a heart murmur for a long time, but no recent cardiac workup was noted. She has a prior history of hypertension and prior history of nephrectomy. She underwent transesophageal echocardiogram prior to her surgical intervention and at that time was found to have an eccentric mitral regurgitation with 4+ mitral regurgitation. Left ventricular systolic function was near normal. The patient has no history of smoking. Her coronary risk factors are remarkable for history of hypertension. MEDICATION: As an outpatient include: Amiodarone 200 mg daily, aspirin once a day, Lasix 20 mg daily, metoprolol tartrate 12.5 mg daily, amlodipine 5 mg daily, Zestril 40 mg daily. She was maintained on a LifeVest preoperatively. In her surgical intervention, she underwent an exclusion of left atrial appendage with a Maze procedure and mitral valve repair and annuloplasty. REVIEW OF SYSTEMS: Respiratory system: She has no recent wheezing or cough. No history of obstructive lung disease. GI system: No recent GI bleeding. No peptic ulcer disease. system: No dysuria or hematuria. She has history of nephrectomy. NERVOUS SYSTEM: No history of seizure. PHYSICAL EXAMINATION: She is a 75-year-old female, alert, oriented, in no apparent distress. Blood pressure running in the 90s with a heart rate in the 90s. HEAD: Normocephalic. Eyes sclerae anicteric. NECK with Hinkley-Tracy noted. LUNGS: With mild decrease in breath sounds. No wheezes. HEART: Regular rate and rhythm S1, S2. No S3 with systolic murmur at the base. No diastolic murmur. ABDOMEN: Soft. Nontender. Positive bowel sounds. No organomegaly. EXTREMITIES: With no edema. LAB DATA: Revealed BUN and creatinine 9 and 0.76, potassium 4.0, hemoglobin of 8.6, white blood cell of 13.8. IMPRESSION: 1. Status post mitral valve repair for severe mitral regurgitation. 2. Evidence of ventricular tachycardia preoperatively. The patient was on a LifeVest. She has been started on amiodarone. 3. History of hypertension. RECOMMENDATIONS: From the cardiac standpoint, we will continue present therapy. Follow her blood pressure and adjust her antihypertensive regimen and depending on her progress, further recommendations will be made. We will continue incentive spirometry and continue to increase her level of activity. Thank you for this consult. We will follow with you. MMODL / IJN: [id number] /
[2020-07-16] MEDS: SODIUM CHLORIDE 0.9% 1,000 ML IV SCH (13:07)
[2020-07-16 13:10] VITALS: BMI 24.0
[2020-07-16 13:37] LABS: Glucose,Whole Blood 205 mg/dL (75-99)
[2020-07-16 14:39] LABS: Glucose,Whole Blood 151 mg/dL (75-99)
[2020-07-16 16:00] LABS: Glucose,Whole Blood 97 mg/dL (75-99)
[2020-07-16 17:02] LABS: Glucose,Whole Blood 112 mg/dL (75-99)
[2020-07-16 18:05] LABS: Glucose,Whole Blood 177 mg/dL (75-99)
[2020-07-16 19:14] LABS: Glucose,Whole Blood 182 mg/dL (75-99)
[2020-07-16 20:09] LABS: Glucose,Whole Blood 136 mg/dL (75-99)
[2020-07-16] MEDS: SENNOSIDES-DOCUSATE SODIUM 1 EACH TAB PO SCH (20:09)
[2020-07-16] MEDS: ACETAMINOPHEN TAB 500 MG TAB PO PRN (20:13)
[2020-07-16 21:59] LABS: Glucose,Whole Blood 109 mg/dL (75-99)
[2020-07-17 00:03] LABS: Glucose,Whole Blood 116 mg/dL (75-99)
[2020-07-17] MEDS: KETOROLAC 15 MG/ML 1 ML VIAL IVP SCH ×5 (00:09→23:19)
[2020-07-17] MEDS: BENZOCAINE/MENTHOL LOZENG 1 EACH LOZENGE MUCOUS MEM PRN (00:13)
[2020-07-17 02:02] LABS: Glucose,Whole Blood 124 mg/dL (75-99)
[2020-07-17 03:56] LABS: Glucose,Whole Blood 119 mg/dL (75-99)
[2020-07-17 04:09] LABS: Basophils % (A) 0 %; Eosinophils # (A) 0.1 k/uL (0-0.7); Eosinophils % (A) 1 %; HCT 26.4 % (34.0-46.0); HGB 8.7 gm/dL (11.4-16.0); Lymphocytes # (A) 1.3 k/uL (1.0-4.8); Lymphocytes % (A) 8 %; MCH 34.1 pg (25.0-35.0); MCHC 32.8 g/dL (31.0-37.0); MCV 104.1 fL (80.0-100.0); Macrocytosis Moderate; Mean Platelet Volume 9.9; Monocytes % (A) 6 %; Neutrophils % (A) 84 %; Platelet Count 100 k/uL (150-450); RBC 2.54 m/uL (3.80-5.40); WBC 16.6 k/uL (3.8-10.6)
[2020-07-17 04:15] LABS: Ionized Calcium 4.9 mg/dL (4.5-5.3)
[2020-07-17 04:31] LABS: Albumin 3.6 g/dL (3.5-5.0); Calcium 8.7 mg/dL (8.4-10.2); Magnesium 2.4 mg/dL (1.6-2.3); Potassium 3.6 mmol/L (3.5-5.1); Total Bilirubin 0.5 mg/dL (0.2-1.3)
[2020-07-17] MEDS: HEPARIN SODIUM,PORCINE 5,000 UNIT/ML 1 ML VIAL SQ SCH ×3 (04:50→20:02)
[2020-07-17] MEDS: NOREPINEPHRINE 4 MG in SODIUM CHLORIDE 0.9% 250 ML IV SCH (05:40)
[2020-07-17 05:59] LABS: Glucose,Whole Blood 114 mg/dL (75-99)
[2020-07-17] MEDS ORDERED: POTASSIUM BICARBONATE/CIT AC 20 MEQ TABLET.EFF NG-TUBE SCH (06:00)
[2020-07-17] MEDS: PANTOPRAZOLE 40 MG TABLET PO SCH (06:54)
--- NOTE | 2020-07-17 08:00 | XR ---
EXAMINATION TYPE: XR chest 1V portable DATE OF EXAM: 07/17/2020 COMPARISON: 07/16/2020 INDICATION: Postop cardiac surgery TECHNIQUE: Single frontal view of the chest is obtained. FINDINGS: The heart size is mild a prominent. The pulmonary vasculature is normal. Small bilateral pleural fluid collections are present. Some mild bibasilar atelectasis may be adjacen t. Sternotomy wires are present from cardiac valve CABG. Mediastinal tube is present in the midline. Cushing-Tracy catheter is been removed. IMPRESSION: 1. All bilateral pleural effusions with minimal adjacent atelectasis. 2. Mediastinal tube remains present
--- NOTE | 2020-07-17 08:01 | P.PN ---
Subjective Progress Note Date: 07/17/20 Principal diagnosis: Severe mitral valve regurgitation with myxomatous mitral valve and prolapse of A-2 segment with dilated annulus. Previous medical history of nonsustained ventr icular tachycardia, hypertension, right nephrectomy, biatrial enlargement, lifelong nonsmoker with mild obstructive lung disease and preoperative FEV1 70% of predicted POD #2 complex mitral valve repair by construction of 6 Shan-chords to the A-2 segment and complete semi-rigid annuloplasty using a 34 mm Physio-2 ring, modified left-sided maze procedure by performing a box lesion using radiofreque ncy ablation, exclusion of the left atrial appendage using a 35 mm AtriClip, intraoperative transesophageal echocardiogram and epi-aortic scanning Postoperative acute blood loss anemia, thrombocytopenia, expected secondary to hemodilution and cardiopulmonary bypass pump Postoperative hypotension, expected The patient is currently sitting up in a recliner in the intensive care unit in no acute distress. She states pain is controlled on current medication regimen, denies shortness of breath, states she did get some sleep last night. She is atrially paced at 80 bpm with underlying rhythm sinus in the high 60s. Her blood pressure has stable, was started on IV levo yesterday but has been off since early last night. Right internal jugular Cordis, right radial arterial line, mediastinal and right pleural chest tubes all remain present. Objective - Vital Signs Vital signs: Vital Signs Temp 97.9 F 07/17/20 04:00 Pulse 78 07/17/20 07:00 Resp 13 07/17/20 07:00 BP 97/61 07/17/20 06:00 Pulse Ox 95 07/17/20 07:00 Intake & Output 07/16/20 07/17/20 07/17/20 18:59 06:59 18:59 Intake Total 2124.532 1241.461 Output Total 2335 535 Balance -210.468 706.461 Weight 65.5 kg 65.7 kg Intake: IV 97 318 0.9% CO/CI 10 Pressure bags 87 78 Sodium Chloride 0.9% 1, 240 000 ml @ 20 mls/hr IV . Q24H [facility] Rx#:[id number] Intake, IV Titration 1307.532 23.461 Amount Albumin Human 5% 250 ml 500 In Empty Bag 1 bag @ 250 mls/hr IVPB Q1HR PRN Rx#: [id number] Calcium Gluconate 1 gm In 100 Sodium Chloride 0.9% 100 ml @ 100 mls/hr IVPB ONCE ONE Rx#:[id number] Insulin Regular 100 unit 35.648 17.389 In Sodium Chloride 0.9% 100 ml @ Per Protocol IV .Q0M [facility] Rx#:[id number] Magnesium Sulfate-D5w Pmx 200 1 gm In Dextrose/Water 1 100ml.bag @ 100 mls/hr IVPB Q1H [facility] Rx#: [id number] Norepinephrine 4 mg In 41.884 6.072 Sodium Chloride 0.9% 250 ml @ 0.05 MCG/KG/MIN 12. 478 mls/hr IV .[id number] [facility] Rx#:[id number] Sodium Chloride 0.9% 1, 330 000 ml @ 20 mls/hr IV . Q24H [facility] Rx#:[id number] ceFAZolin 2 gm In Sodium 100 Chloride 0.9% 50 ml @ 100 mls/hr IVPB Q8HR [facility] Rx# :[id number] Oral 720 900 Output: Chest Tube Drainage 450 170 Mediastinal 60 70 RIGHT PLEURAL 390 100 Urine 1885 365 Other: Voiding Method Indwelling Catheter Indwelling Catheter ABP, PAP, CO, CI - Last Documented Arterial Blood Pressure 107/47 Pulmonary Artery Pressure 25/9 Cardiac Output 3.9 Cardiac Index 2.3 - Constitutional General appearance: Present: cooperative, no acute distress - Respiratory Details: Lungs sounds diminished bilaterally. Respirations even, nonlabored. Currently on 2 L nasal cannula with oxygen saturation 94%. Able to achieve 1000 mL on her incentive spirometry. Strong cough. Mediastinal and right pleural chest tubes present to continuous wall suction without any air leak present. Mediastinal chest tube with 20 mL serosanguineous drainage right, 100 mL in the last 24 hours. Right pleural chest tube with 70 mL serosanguineous drainage overnight, 400 mL the last 24 hours. - Cardiovascular Details: S1, S2 present. Regular rate and rhythm, atrially paced at 80 bpm on telemetry with underlying rhythm sinus in the 60s with occasional PVCs. Sternum stable. A/V epicardial pacemaker wires present, connected to generator, AAI mode with with rate 80 bpm. Right internal jugular Cordis, right radial arterial line present. Palpable peripheral pulses bilaterally. No edema present. No calf pain or tenderness noted. Heart hugger in place patient demonstrating appropriate use. Antiembolism stockings, SCDs present. - Gastrointestinal Gastrointestinal Comment(s): Abdomen soft, nontender, nondistended. Hypoactive bowel sounds present 4 quadrants. Tolerating sips of clear liquids. Negative flatus, positive belching - Genitourinary Genitourinary Comment(s): Jasso present draining clear, yellow urine. Output 20-30 mL/h overnight. - Integumentary Integumentary Comment(s): Skin is warm and dry with evidence of good perfusion. Anterior chest incision well approximated and covered with dry intact dressing. - Neurologic Neurologic: Present: CNII-XII intact - Musculoskeletal Musculoskeletal: Present: gait normal, strength equal bilaterally - Psychiatric Psychiatric: Present: A&O x's 3, appropriate affect, intact judgment & insight - Allied health notes Allied health notes reviewed: nursing - Labs CBC & Chem 7: 07/17/20 04:00 07/17/20 04:00 Labs: Abnormal Lab Results - Last 24 Hours (Table) 07/16/20 07/16/20 07/16/20 Range/Units 08:07 09:11 10:20 WBC (3.8-10.6) k/uL RBC (3.80-5.40) m/uL Hgb (11.4-16.0) gm/dL Hct (34.0-46.0) % MCV (80.0-100.0) fL Plt Count (150-450) k/uL Neutrophils # (1.3-7.7) k/uL Sodium (137-145) mmol/L Carbon Dioxide (22-30) mmol/L Glucose (74-99) mg/dL POC Glucose (mg/dL) 173 H 211 H 194 H (75-99) mg/dL Magnesium (1.6-2.3) mg/dL AST (14-36) U/L Total Protein (6.3-8.2) g/dL 07/16/20 07/16/20 07/16/20 Range/Units 11:16 12:24 13:33 WBC (3.8-10.6) k/uL RBC (3.80-5.40) m/uL Hgb (11.4-16.0) gm/dL Hct (34.0-46.0) % MCV (80.0-100.0) fL Plt Count (150-450) k/uL Neutrophils # (1.3-7.7) k/uL Sodium (137-145) mmol/L Carbon Dioxide (22-30) mmol/L Glucose (74-99) mg/dL POC Glucose (mg/dL) 153 H 122 H 205 H (75-99) mg/dL Magnesium (1.6-2.3) mg/dL AST (14-36) U/L Total Protein (6.3-8.2) g/dL 07/16/20 07/16/20 07/16/20 Range/Units 14:37 17:00 18:04 WBC (3.8-10.6) k/uL RBC (3.80-5.40) m/uL Hgb (11.4-16.0) gm/dL Hct (34.0-46.0) % MCV (80.0-100.0) fL Plt Count (150-450) k/uL Neutrophils # (1.3-7.7) k/uL Sodium (137-145) mmol/L Carbon Dioxide (22-30) mmol/L Glucose (74-99) mg/dL POC Glucose (mg/dL) 151 H 112 H 177 H (75-99) mg/dL Magnesium (1.6-2.3) mg/dL AST (14-36) U/L Total Protein (6.3-8.2) g/dL 07/16/20 07/16/20 07/16/20 Range/Units 19:12 20:07 21:58 WBC (3.8-10.6) k/uL RBC (3.80-5.40) m/uL Hgb (11.4-16.0) gm/dL Hct (34.0-46.0) % MCV (80.0-100.0) fL Plt Count (150-450) k/uL Neutrophils # (1.3-7.7) k/uL Sodium (137-145) mmol/L Carbon Dioxide (22-30) mmol/L Glucose (74-99) mg/dL POC Glucose (mg/dL) 182 H 136 H 109 H (75-99) mg/dL Magnesium (1.6-2.3) mg/dL AST (14-36) U/L Total Protein (6.3-8.2) g/dL 07/17/20 07/17/20 07/17/20 Range/Units 00:02 02:01 03:55 WBC (3.8-10.6) k/uL RBC (3.80-5.40) m/uL Hgb (11.4-16.0) gm/dL Hct (34.0-46.0) % MCV (80.0-100.0) fL Plt Count (150-450) k/uL Neutrophils # (1.3-7.7) k/uL Sodium (137-145) mmol/L Carbon Dioxide (22-30) mmol/L Glucose (74-99) mg/dL POC Glucose (mg/dL) 116 H 124 H 119 H (75-99) mg/dL Magnesium (1.6-2.3) mg/dL AST (14-36) U/L Total Protein (6.3-8.2) g/dL 07/17/20 07/17/20 07/17/20 Range/Units 04:00 04:00 05:58 WBC 16.6 H (3.8-10.6) k/uL RBC 2.54 L (3.80-5.40) m/uL Hgb 8.7 L (11.4-16.0) gm/dL Hct 26.4 L (34.0-46.0) % MCV 104.1 H (80.0-100.0) fL Plt Count 100 L (150-450) k/uL Neutrophils # 14.0 H (1.3-7.7) k/uL Sodium 130 L (137-145) mmol/L Carbon Dioxide 21 L (22-30) mmol/L Glucose 103 H (74-99) mg/dL POC Glucose (mg/dL) 114 H (75-99) mg/dL Magnesium 2.4 H (1.6-2.3) mg/dL AST 62 H (14-36) U/L Total Protein 5.0 L (6.3-8.2) g/dL - Imaging and Cardiology Chest x-ray: image reviewed Assessment and Plan Assessment: 1. 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 Recent history of nonsustained ventricular tachycardia 3. History of hypertension, currently hypotensive, expected 4. History of right nephrectomy 5. Lifelong nonsmoker with mild obstructive lung disease and preoperative FEV1 70% of predicted 6. Postoperative acute blood loss anemia, thrombocytopenia, expected Plan: 1. Continue aspirin, statin, Plavix, beta evelyn therapy, amiodarone. Patient disconnected from pacemaker generator, intrinsic heart rate in the high 60s and mean blood pressure in the mid 70s 2. Wean O2 as tolerated. Bronchodilators per pulmonology. Encourage incentive spirometry use 10 times every hour while awake 3. Will monitor daily labs and x-rays. Electrolyte replacement per protocol. Will give potassium replacement followed by IV Lasix 4. Increase activity, ambulate as tolerated. PT/OT/cardiac rehab consulted 5. GI/DVT prophylaxis 6. Discontinue arterial line. Keep Cordis for another 24 hours 7. Insulin management per primary care service. Patient is not diabetic, he moglobin A1c 5.1% 8. Pain control with current medication regimen. 9. Will discontinue mediastinal chest tube. Continue right pleural chest tube for another 24 hours 10. Discontinue Jasso after diuresis from Lasix. May bladder scan and straight cathed for greater than 300 mL residual. 11. Strict accurate intake and output. Daily weights on standup scale 12. More recommendations to follow based on patient's progress Time with Patient: Greater than 30
[2020-07-17] MEDS: ATORVASTATIN 40 MG TAB PO SCH (08:34)
[2020-07-17] MEDS: MULTIVITAMINS, THERA 1 EACH TAB PO SCH (08:35)
[2020-07-17] MEDS: CLOPIDOGREL 75 MG TAB PO SCH (08:35)
[2020-07-17] MEDS: CHOLECALCIFEROL 1,000 UNIT TAB PO SCH (08:35)
[2020-07-17] MEDS: ASCORBIC ACID 500 MG TAB PO SCH (08:35)
[2020-07-17] MEDS: ASPIRIN 325 MG TAB PO SCH (08:35)
[2020-07-17] MEDS: METOPROLOL TARTRATE 12.5 MG TAB PO SCH ×2 (08:35→20:02)
[2020-07-17] MEDS: IPRATROPIUM-ALBUTEROL 3 ML NEB INHALATION SCH ×4 (08:46→19:42)
[2020-07-17] MEDS ORDERED: FUROSEMIDE 10 MG/ML 2 ML VIAL IV ONE (09:27)
--- NOTE | 2020-07-17 09:31 | PN ---
PROGRESS NOTE Mrs. Scales is a 75-year-old female who presented and underwent mitral valve repair. She is doing well this morning, appears to be more awake, sitting up in the chair. She continues to be in sinus mechanism, not paced at this time. She denies any dizziness or palpitation. Her appetite is stable. She is on no hemodynamics support. She continued to be on aspirin once a day. Lipitor 40 mg daily, Plavix 75 mg daily, metoprolol tartrate 12.5 mg twice a day. PHYSICAL EXAMINATION: Blood pressure 107/40 with a heart rate 70. LUNGS: With a few crackles at the bases. CARDIOVASCULAR: S1, S2. No S3 with systolic murmur at the base. No diastolic murmur. No rub. ABDOMEN: Soft, nontender, positive bowel sounds. No organomegaly. EXTREMITIES: No edema. LAB DATA: Chest x-ray reveals small pericardial effusion. BUN and creatinine 30 and 0.96, potassium 3.6, hemoglobin 8.7. IMPRESSION: 1. Status post mitral valve repair, stable. 2. Prior history of ventricular ectopic activity prior to surgery, stable. 3. History of hypertension. RECOMMENDATION: From the cardiac standpoint, she is stable. Continue to increase her level activity. Patient has been started on amiodarone 200 mg daily. If her pressure is stable, I will increase the dose of her beta evelyn and depending on her progress, further recommendation will be made. SARA / LESLYEN: [id number] /
[2020-07-17] MEDS: POTASSIUM CHLORIDE 20 MEQ in WATER FOR INJECTION 1 100ML.BAG IVPB SCH ×3 (09:37→14:21)
[2020-07-17] MEDS: AMIODARONE 200 MG TAB PO SCH (09:38)
--- NOTE | 2020-07-17 11:29 | P.PN ---
Subjective Progress Note Date: 07/17/20 Principal diagnosis: Severe mitral regurgitation, status post mitral valve repair. Postoperative day #1 75-year-old white female patient of Dr. Delano Lemus with a history of hyp ertension, known history of mitral valve prolapse, and right nephrectomy who was recently hospitalized from 06/10/2020 through all 06/14/2020 4 complaints of intermittent spells of dizziness, heart palpitations. Patient was admitted, she did have episodes of ventricular tachycardia while in the hospital, she was evaluated by Dr. Roa. Echocardiogram showed moderate eccentric mitral regurgitation with mild prolapse of the anterior mitral leaflet, mild tricuspid regurgitation, dilated left atrium, mild aortic insufficiency, preserved LV function with EF of 50-55%. Heart catheterization showed normal coronary arteries, with 4+ mitral regurgitation. Transesophageal echocardiogram showed m itral valve prolapse and 3-4+ mitral regurgitation, no evidence of PFO, and no clot in the left atrial appendage, it did show left atrial enlargement. Patient was referred to cardiothoracic surgical team for evaluation, and today on 07/15/2020 patient underwent mitral valve repair, modified Scott, and exclusion of the left atrial appendage. Patient is seen in the postoperative period in the intensive care unit, sedated and intubated on mechanical ventilator, currently on SIMV with a rate of 12, tidal lines 450, FiO2 is 40% PEEP of 5, and a pressure support of 5. Hemodynamically patient is stable, 0.9 normal sinus rhythm at 50 ML per hour, Diprivan is at 20 mics per kilo per minute, no other drips. Patient has mediastinal chest tube with 140 mL of single is output and pleural chest tube with 10 mL of sanguinous output, epicardial wires to external pacemaker and patient is currently being atrially paced at a rate of 80 BPM, PA pressures of 35/19, CVP is 13, cardiac output is 3.5, cardiac index is 2.1. Postoperative chest x-ray was viewed showing satisfactory postoperative chest x-ray, probable basilar atelectatic changes and the possibility of some volume overload and interstitial edema. Postoperative blood gas showed pO2 of greater than 400, pCO2 43, pH of 7.37, this was done on FiO2 of 100%, which has since been dropped to 40%. Postoperative blood work shows white blood cell count of 15.9, hemoglobin of 10.4, INR is 1.3, sodium is 132, direct electrolytes and renal profile were within normal limits. The patient is seen today 07/16/2020 in follow-up in the intensive care unit. She is status post mitral valve repair and Maze procedure. Postoperative day #1. He was successfully extubated within 6 hours as leaving the OR. She is currently sitting up in a chair at the bedside. Awake and alert in no acute distress. She is somewhat drowsy and sleepy she states feeling the effects of anesthesia still. She is maintaining O2 saturations in the 90s on 2 L/m per n shiv cannula. She's receiving 0.9% normal saline at 50 MLS per hour. Insulin drip at 3 units per hour. Norepinephrine at 1.3 mcg/m. Mediastinal and right pleural chest tubes are present to continuous wall suction without any air leak. 420 ML's out since surgery on the mediastinal with 250 out on the right pleural chest tube. Chest x-ray reveals improved aeration the patient's volume status. Bibasilar atelectasis. Working with the incentive spirometer. White count 13.8. Hemoglobin 8.6. Platelets 90,000. Sodium 133. Potassium 4.0. Creatinine 0.76. The patient is seen today 07/17/2020 in follow-up in the intensive care unit. She is awake and alert in no acute distress. Sitting up in the recliner at the bedside. She is status post mitral valve repair, maze procedure, postoperative day #2. She is maintaining good O2 saturations in the 90s on 2 L/m per nasal cannula. Chest x-ray reveals small bilateral pleural effusions with minimal adjacent atelectasis. Mediastinal and right pleural chest tubes remains in place. Woodbine-Tracy catheter removed. Cordis in place White count 16.6. Hemoglobin 8.7. Platelet count 100,000. Sodium 1:30. Potassium 3.6. Creatinine 0.96. Magnesium 2.4. Remains on bronchodilators. Heparin for DVT prophylaxis. Protonix for GI prophylaxis. Norepinephrine discontinued last evening. Objective - Vital Signs Vital signs: Vital Signs Temp 97.9 F 07/17/20 08:00 Pulse 62 07/17/20 11:00 Resp 16 07/17/20 11:00 BP 99/55 07/17/20 11:00 Pulse Ox 96 07/17/20 08:00 Intake & Output 07/16/20 07/17/2020 18:59 06:59 18:59 Intake Total 2124.532 1241.461 435 Output Total 2335 535 310 Balance -210.468 706.461 125 Weight 65.5 kg 65.7 kg Intake: IV 97 318 95 0.9% CO/CI 10 Pressure bags 87 78 15 Sodium Chloride 0.9% 1, 240 80 000 ml @ 20 mls/hr IV . Q24H [facility] Rx#:[id number] Intake, IV Titration 1307.532 23.461 100 Amount Albumin Human 5% 250 ml 500 In Empty Bag 1 bag @ 250 mls/hr IVPB Q1HR [facility] Rx#: [id number] Calcium Gluconate 1 gm In 100 Sodium Chloride 0.9% 100 ml @ 100 mls/hr IVPB ONCE ONE Rx#:[id number] Insulin Regular 100 unit 35.648 17.389 In Sodium Chloride 0.9% 100 ml @ Per Protocol IV .Q0M [facility] Rx#:[id number] Magnesium Sulfate-D5w Pmx 200 1 gm In Dextrose/Water 1 100ml.bag @ 100 mls/hr IVPB Q1H [facility] Rx#: [id number] Norepinephrine 4 mg In 41.884 6.072 Sodium Chloride 0.9% 250 ml @ 0.05 MCG/KG/MIN 12. 478 mls/hr IV .[id number] [facility] Rx#:[id number] Potassium Chloride 20 meq 100 In Water For Injection 1 100ml.bag @ 50 mls/hr IVPB Q2H [facility] Rx#: [id number] Sodium Chloride 0.9% 1, 330 000 ml @ 20 mls/hr IV . Q24H [facility] Rx#:[id number] ceFAZolin 2 gm In Sodium 100 Chloride 0.9% 50 ml @ 100 mls/hr IVPB Q8HR [facility] Rx# :[id number] Oral 720 900 240 Output: Chest Tube Drainage 450 170 240 Mediastinal 60 70 0 RIGHT PLEURAL 390 100 240 Urine 1885 365 70 Other: Voiding Method Indwelling Catheter Indwelling Catheter ABP, PAP, CO, CI - Last Documented Arterial Blood Pressure 107/47 Pulmonary Artery Pressure 25/9 Cardiac Output 3.9 Cardiac Index 2.3 - Exam GENERAL EXAM: Awake, alert very pleasant 75-year-old female patient, on 2 L nasal cannula, fairly comfortable in no apparent distress. HEAD: Normocephalic/atraumatic. EYES: Normal reaction of pupils, equal size. Conjunctiva pink, sclera white. NOSE: Clear with pink turbinates. THROAT: No erythema or exudates. NECK: Right IJ Woodbine-Tracy catheter in place. No masses, no JVD, no thyroid enlargement, no adenopathy. CHEST: No chest wall deformity. Symmetrical expansion. Midsternal incision is clean dry and intact, mediastinal and right pleural chest tubes clean dry and intact, no air leak, to wall suction. LUNGS: Equal air entry with crackles in the bilateral bases. CVS: Regular rate and rhythm, normal S1 and S2, no gallops, no murmurs, no rubs ABDOMEN: Soft, nontender. No hepatosplenomegaly, normal bowel sounds, no guarding or rigidity. EXTREMITIES: No clubbing, no edema, no cyanosis, 2+ pulses and upper and lower extremities. MUSCULOSKELETAL: Muscle strength and tone normal. SPINE: No scoliosis or deformity SKIN: No rashes CENTRAL NERVOUS SYSTEM: Sedated. No focal deficits, tone is normal in all 4 extremities. - Labs CBC & Chem 7: 07/17/20 04:00 07/17/20 04:00 Labs: Abnormal Lab Results - Last 24 Hours (Table) 07/16/20 07/16/20 07/16/20 Range/Units 12:24 13:33 14:37 WBC (3.8-10.6) k/uL RBC (3.80-5.40) m/uL Hgb (11.4-16.0) gm/dL Hct (34.0-46.0) % MCV (80.0-100.0) fL Plt Count (150-450) k/uL Neutrophils # (1.3-7.7) k/uL Sodium (137-145) mmol/L Carbon Dioxide (22-30) mmol/L Glucose (74-99) mg/dL POC Glucose (mg/dL) 122 H 205 H 151 H (75-99) mg/dL Magnesium (1.6-2.3) mg/dL AST (14-36) U/L Total Protein (6.3-8.2) g/dL 07/16/20 07/16/20 07/16/20 Range/Units 17:00 18:04 19:12 WBC (3.8-10.6) k/uL RBC (3.80-5.40) m/uL Hgb (11.4-16.0) gm/dL Hct (34.0-46.0) % MCV (80.0-100.0) fL Plt Count (150-450) k/uL Neutrophils # (1.3-7.7) k/uL Sodium (137-145) mmol/L Carbon Dioxide (22-30) mmol/L Glucose (74-99) mg/dL POC Glucose (mg/dL) 112 H 177 H 182 H (75-99) mg/dL Magnesium (1.6-2.3) mg/dL AST (14-36) U/L Total Protein (6.3-8.2) g/dL 07/16/20 07/16/20 07/17/20 Range/Units 20:07 21:58 00:02 WBC (3.8-10.6) k/uL RBC (3.80-5.40) m/uL Hgb (11.4-16.0) gm/dL Hct (34.0-46.0) % MCV (80.0-100.0) fL Plt Count (150-450) k/uL Neutrophils # (1.3-7.7) k/uL Sodium (137-145) mmol/L Carbon Dioxide (22-30) mmol/L Glucose (74-99) mg/dL POC Glucose (mg/dL) 136 H 109 H 116 H (75-99) mg/dL Magnesium (1.6-2.3) mg/dL AST (14-36) U/L Total Protein (6.3-8.2) g/dL 07/17/20 07/17/20 07/17/20 Range/Units 02:01 03:55 04:00 WBC 16.6 H (3.8-10.6) k/uL RBC 2.54 L (3.80-5.40) m/uL Hgb 8.7 L (11.4-16.0) gm/dL Hct 26.4 L (34.0-46.0) % MCV 104.1 H (80.0-100.0) fL Plt Count 100 L (150-450) k/uL Neutrophils # 14.0 H (1.3-7.7) k/uL Sodium (137-145) mmol/L Carbon Dioxide (22-30) mmol/L Glucose (74-99) mg/dL POC Glucose (mg/dL) 124 H 119 H (75-99) mg/dL Magnesium (1.6-2.3) mg/dL AST (14-36) U/L Total Protein (6.3-8.2) g/dL 07/17/20 07/17/20 Range/Units 04:00 05:58 WBC (3.8-10.6) k/uL RBC (3.80-5.40) m/uL Hgb (11.4-16.0) gm/dL Hct (34.0-46.0) % MCV (80.0-100.0) fL Plt Count (150-450) k/uL Neutrophils # (1.3-7.7) k/uL Sodium 130 L (137-145) mmol/L Carbon Dioxide 21 L (22-30) mmol/L Glucose 103 H (74-99) mg/dL POC Glucose (mg/dL) 114 H (75-99) mg/dL Magnesium 2.4 H (1.6-2.3) mg/dL AST 62 H (14-36) U/L Total Protein 5.0 L (6.3-8.2) g/dL Assessment and Plan Assessment: 1 Severe mitral regurgitation, status post mitral valve repair, modified Scott Maze procedure, and exclusion of left atrial appendage, postoperative day #2 2 Recent hospitalization for nonsustained ventricular tachycardia, palpitations, and intermittent spells of dizziness related to severe mitral regurgitation 3 Routine postoperative ventilator management and was successfully extubated within 6 hours of leaving the operating room 4 History of hypertension 5 History of right nephrectomy 6 Lifetime nonsmoker, preop PFT showed FEV1 of 70% of predicted 7 Leukocytosis likely reactive secondary to surgery 8 Hyponatremia, likely hypervolemic Plan: The patient was seen and evaluated by Dr. Og Chest x-ray and labs reviewed Continue bronchodilators Encouraged the increased use of the incentive spirometer Up in a chair at the bedside Up ambulating with assistance We will continue to follow and make further recommendations based on her clinical status I, the cosigning physician, performed a history & physical examination of the patient. Lungs sounds with crackles in the bilateral posterior bases. Maintaining good O2 saturations in the 90s on 2 L/m per nasal. I discussed the assessment and plan of care with my nurse practitioner, Pati Block. I attest to the above note as dictated by her.
[2020-07-17 11:53] LABS: Glucose,Whole Blood 107 mg/dL (75-99)
[2020-07-17] MEDS: INSULIN ASPART (NovoLOG) 100 UNIT/ML VIAL SQ SCH ×3 (12:01→21:26)
[2020-07-17] MEDS: SODIUM CHLORIDE 0.9% 1,000 ML IV SCH (12:13)
[2020-07-17 16:28] LABS: Glucose,Whole Blood 133 mg/dL (75-99)
[2020-07-17] MEDS: SENNOSIDES-DOCUSATE SODIUM 1 EACH TAB PO SCH (20:02)
[2020-07-17 20:55] LABS: Glucose,Whole Blood 123 mg/dL (75-99)
[2020-07-17] MEDS: ACETAMINOPHEN TAB 500 MG TAB PO PRN (20:56)
--- NOTE | 2020-07-17 21:24 | P.PN ---
Subjective Progress Note Date: 07/16/20 Principal diagnosis: Status post mitral valve repair. Modified Scott maze procedure. Patient is a 75-year-old female with a known history of hypertension, mitral valve prolapse and history of right nephrectomy was admitted to the hospital for mitral valve repair. Patient was recently admitted to the hospital with dizziness and palpitations and was found to have ventricular tachycardia. Echocardiogram showed moderate eccentric mitral regurgitation with mitral prolapse of the anterior mitral leaflet, mild tricuspid regurgitation, dilated left atrium and mild aortic insufficiency preserved LV function with ejection fraction 40 to 55%. Cardiac catheterization showed normal coronaries and 4+ MR. LAURIE showed mitral valve prolapse and 3-4+ mitral regurgitation with no evidence of PFO. No left atrial appendage thrombus noted. Did show left atrial enlargement. Patient was evaluated by CT surgery and is currently admitted for mitral valve repair. Postoperatively patient is currently in the intensive care unit. Patient is currently intubated. Sedation is off and is planning for extubation. Laboratory data showed WBC 15.9, hemoglobin 10.4 and platelets 102 INR 1.3 ABG showed pH of 7.43, PCO2 37 and PO2 418 Sodium 132, potassium 4.0 BUN 13 and creatinine 0.86 Albumin 2.7 AST 65, ALT 27 and alk phos 44 Blood sugar is 104 Chest x-ray showed satisfactory postoperative chest x-ray. Probable bibasilar atelectatic changes. There may be component of volume overload, interstitial edema. 07/16/2020 Patient is currently sitting in the chair comfortably patient was extubated successfully yesterday. Awake alert and oriented x3. Some soreness at the surgical site otherwise pain is well controlled. Patient is also on insulin sliding scale and drip for blood sugar control. Currently on low-dose norepinephrine drip. Patient does have chest tubes. Chest x-ray showed improvement in patient's volume status, lung volumes and aeration. Interval extubation. Bibasilar atelectasis versus edema associated effusions. Pneumonia not excluded. Laboratory data showed WBC 13.8, hemoglobin 8.6 and platelets 90 BUN 9 and creatinine 0.76 sodium 133, bicarb is 21 Magnesium 2.0 Current medications reviewed. Objective - Vital Signs Vital signs: Vital Signs Temp 98.1 F 07/17/20 16:00 Pulse 67 07/17/20 19:00 Resp 16 07/17/20 19:00 BP 112/60 10/04/20 19:00 Pulse Ox 94 L 07/17/20 16:00 Intake & Output 07/17/20 07/17/20 07/18/20 06:59 18:59 06:59 Intake Total 7585.094 1308 23 Output Total 535 990 60 Balance 706.461 286 -37 Weight 65.7 kg Intake: IV 318 256 23 Pressure bags 78 36 3 Sodium Chloride 0.9% 1, 240 220 20 000 ml @ 20 mls/hr IV . Q24H [facility] Rx#:[id number] Intake, IV Titration 23.461 300 Amount Insulin Regular 100 unit 17.389 In Sodium Chloride 0.9% 100 ml @ Per Protocol IV .Q0M [facility] Rx#:[id number] Norepinephrine 4 mg In 6.072 Sodium Chloride 0.9% 250 ml @ 0.05 MCG/KG/MIN 12. 478 mls/hr IV .[id number] [facility] Rx#:[id number] Potassium Chloride 20 meq 300 In Water For Injection 1 100ml.bag @ 50 mls/hr IVPB Q2H [facility] Rx#: [id number] Oral 900 720 Output: Chest Tube Drainage 170 320 Mediastinal 70 0 RIGHT PLEURAL 100 320 Urine 365 670 60 Other: Voiding Method Indwelling Catheter Indwelling Catheter ABP, PAP, CO, CI - Last Documented Arterial Blood Pressure 107/47 Pulmonary Artery Pressure 25/9 Cardiac Output 3.9 Cardiac Index 2.3 - Exam PHYSICAL EXAMINATION: Patient is lying in the bed comfortably, no acute distress, awake alert and oriented.. HEENT: Normocephalic. Neck is supple. Pupils reactive. Nostrils clear. Oral cavity is moist. Ears reveal no drainage. Neck reveals no JVD, carotid bruits, or thyromegaly. CHEST EXAMINATION: Trachea is central. Symmetrical expansion. Bibasilar dim inished air entry and minimal crackles .Lung torres clear to auscultation and percussion. Sternal surgical site is bandaged. Chest tubes in place. CARDIAC: Normal S1, S2 with no gallops. No murmurs ABDOMEN: Soft. Bowel sounds normal. No organomegaly. No abdominal bruits. Extremities: trace edema. No clubbing or cyanosis Neurologically awake, alert, oriented x3 with well-coordinated movements. No focal deficits noted Skin: No rash or skin lesions. Psychiatric: Coperative. Nonsuicidal Musculoskeletal: No joint swelling or deformity. Normal range of motion. - Labs CBC & Chem 7: 07/17/20 04:00 07/17/20 04:00 Labs: Abnormal Lab Results - Last 24 Hours (Table) 07/16/20 07/17/20 07/17/20 Range/Units 21:58 00:02 02:01 WBC (3.8-10.6) k/uL RBC (3.80-5.40) m/uL Hgb (11.4-16.0) gm/dL Hct (34.0-46.0) % MCV (80.0-100.0) fL Plt Count (150-450) k/uL Neutrophils # (1.3-7.7) k/uL Sodium (137-145) mmol/L Carbon Dioxide (22-30) mmol/L Glucose (74-99) mg/dL POC Glucose (mg/dL) 109 H 116 H 124 H (75-99) mg/dL Magnesium (1.6-2.3) mg/dL AST (14-36) U/L Total Protein (6.3-8.2) g/dL 07/17/20 07/17/20 07/17/20 Range/Units 03:55 04:00 04:00 WBC 16.6 H (3.8-10.6) k/uL RBC 2.54 L (3.80-5.40) m/uL Hgb 8.7 L (11.4-16.0) gm/dL Hct 26.4 L (34.0-46.0) % MCV 104.1 H (80.0-100.0) fL Plt Count 100 L (150-450) k/uL Neutrophils # 14.0 H (1.3-7.7) k/uL Sodium 130 L (137-145) mmol/L Carbon Dioxide 21 L (22-30) mmol/L Glucose 103 H (74-99) mg/dL POC Glucose (mg/dL) 119 H (75-99) mg/dL Magnesium 2.4 H (1.6-2.3) mg/dL AST 62 H (14-36) U/L Total Protein 5.0 L (6.3-8.2) g/dL 07/17/20 07/17/20 07/17/20 Range/Units 05:58 11:51 16:26 WBC (3.8-10.6) k/uL RBC (3.80-5.40) m/uL Hgb (11.4-16.0) gm/dL Hct (34.0-46.0) % MCV (80.0-100.0) fL Plt Count (150-450) k/uL Neutrophils # (1.3-7.7) k/uL Sodium (137-145) mmol/L Carbon Dioxide (22-30) mmol/L Glucose (74-99) mg/dL POC Glucose (mg/dL) 114 H 107 H 133 H (75-99) mg/dL Magnesium (1.6-2.3) mg/dL AST (14-36) U/L Total Protein (6.3-8.2) g/dL Assessment and Plan Assessment: Status post mitral valve repair. Modified Scott maze procedure. Postoperative day 1 Severe 4+ mitral regurgitation with Normal EF Patient hospitalized with nonsustained V. tach and dizziness related to valvular insufficiency. Hypertension History of right nephrectomy Mild protein calorie malnutrition GI and DVT prophylaxis Plan: Patient is Extubated successfully. c/w IS , Replace electrolytes. Continue with IV hydration. On insulin drip for better blood sugar control. Continue supportive care and follow-up closely. Further recommendations based on clinical course. Intensive care team and CT surgery is on board. Thank you for consult. Time with Patient: Greater than 30
--- NOTE | 2020-07-17 21:27 | P.PN ---
Subjective Progress Note Date: 07/17/20 Principal diagnosis: Status post mitral valve repair. Modified Scott maze procedure. Patient is a 75-year-old female with a known history of hypertension, mitral valve prolapse and history of right nephrectomy was admitted to the hospital for mitral valve repair. Patient was recently admitted to the hospital with dizziness and palpitations and was found to have ventricular tachycardia. Echocardiogram showed moderate eccentric mitral regurgitation with mitral prolapse of the anterior mitral leaflet, mild tricuspid regurgitation, dilated left atrium and mild aortic insufficiency preserved LV function with ejection fraction 40 to 55%. Cardiac catheterization showed normal coronaries and 4+ MR. LAURIE showed mitral valve prolapse and 3-4+ mitral regurgitation with no evidence of PFO. No left atrial appendage thrombus noted. Did show left atrial enlargement. Patient was evaluated by CT surgery and is currently admitted for mitral valve repair. Postoperatively patient is currently in the intensive care unit. Patient is currently intubated. Sedation is off and is planning for extubation. Laboratory data showed WBC 15.9, hemoglobin 10.4 and platelets 102 INR 1.3 ABG showed pH of 7.43, PCO2 37 and PO2 418 Sodium 132, potassium 4.0 BUN 13 and creatinine 0.86 Albumin 2.7 AST 65, ALT 27 and alk phos 44 Blood sugar is 104 Chest x-ray showed satisfactory postoperative chest x-ray. Probable bibasilar atelectatic changes. There may be component of volume overload, interstitial edema. 07/16/2020 Patient is currently sitting in the chair comfortably patient was extubated successfully yesterday. Awake alert and oriented x3. Some soreness at the surgical site otherwise pain is well controlled. Patient is also on insulin sliding scale and drip for blood sugar control. Currently on low-dose norepinephrine drip. Patient does have chest tubes. Chest x-ray showed improvement in patient's volume status, lung volumes and aeration. Interval extubation. Bibasilar atelectasis versus edema associated effusions. Pneumonia not excluded. Laboratory data showed WBC 13.8, hemoglobin 8.6 and platelets 90 BUN 9 and creatinine 0.76 sodium 133, bicarb is 21 Magnesium 2.0 07/17/2020 Patient is currently sitting in his bed comfortably. In the MICU. Awake alert oriented x3. No complaints of chest pain or worsening shortness of breath. Currently on oxygen via nasal cannula 2 L/min. Patient is off pressor support since yesterday evening. Chest tube was removed x1. Chest x-ray showed all bilateral pleural effusions with minimal adjacent atelectasis. Mediastinal tube remains present. Laboratory data showed WBC 16.69, hemoglobin 8.7, MCV 104.1 and platelets 100 Sodium 130, potassium 3.6, bicarb is 21, BUN 13 and creatinine 0.96 Current medications reviewed. Objective - Vital Signs Vital signs: Vital Signs Temp 98.1 F 07/17/20 16:00 Pulse 67 07/17/20 19:00 Resp 16 07/17/20 19:00 BP 112/60 07/17/20 19:00 Pulse Ox 94 L 07/17/20 16:00 Intake & Output 07/17/20 07/17/20 07/18/20 06:59 18:59 06:59 Intake Total 9892.996 5697 23 Output Total 535 990 60 Balance 706.461 286 -37 Weight 65.7 kg Intake: IV 318 256 23 Pressure bags 78 36 3 Sodium Chloride 0.9% 1, 240 220 20 000 ml @ 20 mls/hr IV . Q24H [facility] Rx#:[id number] Intake, IV Titration 23.461 300 Amount Insulin Regular 100 unit 17.389 In Sodium Chloride 0.9% 100 ml @ Per Protocol IV .Q0M [facility] Rx#:[id number] Norepinephrine 4 mg In 6.072 Sodium Chloride 0.9% 250 ml @ 0.05 MCG/KG/MIN 12. 478 mls/hr IV .[id number] [facility] Rx#:[id number] Potassium Chloride 20 meq 300 In Water For Injection 1 100ml.bag @ 50 mls/hr IVPB Q2H [facility] Rx#: [id number] Oral 900 720 Output: Chest Tube Drainage 170 320 Mediastinal 70 0 RIGHT PLEURAL 100 320 Urine 365 670 60 Other: Voiding Method Indwelling Catheter Indwelling Catheter ABP, PAP, CO, CI - Last Documented Arterial Blood Pressure 107/47 Pulmonary Artery Pressure 25/9 Cardiac Output 3.9 Cardiac Index 2.3 - Exam PHYSICAL EXAMINATION: Patient is lying in the bed comfortably, no acute distress, awake alert and oriented.. HEENT: Normocephalic. Neck is supple. Pupils reactive. Nostrils clear. Oral cavity is moist. Ears reveal no drainage. Neck reveals no JVD, carotid bruits, or thyromegaly. CHEST EXAMINATION: Trachea is central. Symmetrical expansion. Bibasilar diminished air entry and minimal crackles .Lung torres clear to auscultation and percussion. Sternal surgical site is bandaged. Chest tubes in place. CARDIAC: Normal S1, S2 with no gallops. No murmurs ABDOMEN: Soft. Bowel sounds normal. No organomegaly. No abdominal bruits. Extremities: trace edema. No clubbing or cyanosis Neurologically awake, alert, oriented x3 with well-coordinated movements. No focal deficits noted Skin: No rash or skin lesions. Psychiatric: Coperative. Nonsuicidal Musculoskeletal: No joint swelling or deformity. Normal range of motion. - Labs CBC & Chem 7: 07/17/20 04:00 07/17/20 04:00 Labs: Abnormal Lab Results - Last 24 Hours (Table) 07/16/20 07/17/20 07/17/20 Range/Units 21:58 00:02 02:01 WBC (3.8-10.6) k/uL RBC (3.80-5.40) m/uL Hgb (11.4-16.0) gm/dL Hct (34.0-46.0) % MCV (80.0-100.0) fL Plt Count (150-450) k/uL Neutrophils # (1.3-7.7) k/uL Sodium (137-145) mmol/L Carbon Dioxide (22-30) mmol/L Glucose (74-99) mg/dL POC Glucose (mg/dL) 109 H 116 H 124 H (75-99) mg/dL Magnesium (1.6-2.3) mg/dL AST (14-36) U/L Total Protein (6.3-8.2) g/dL 07/17/20 07/17/20 07/17/20 Range/Units 03:55 04:00 04:00 WBC 16.6 H (3.8-10.6) k/uL RBC 2.54 L (3.80-5.40) m/uL Hgb 8.7 L (11.4-16.0) gm/dL Hct 26.4 L (34.0-46.0) % MCV 104.1 H (80.0-100.0) fL Plt Count 100 L (150-450) k/uL Neutrophils # 14.0 H (1.3-7.7) k/uL Sodium 130 L (137-145) mmol/L Carbon Dioxide 21 L (22-30) mmol/L Glucose 103 H (74-99) mg/dL POC Glucose (mg/dL) 119 H (75-99) mg/dL Magnesium 2.4 H (1.6-2.3) mg/dL AST 62 H (14-36) U/L Total Protein 5.0 L (6.3-8.2) g/dL 07/17/20 07/17/20 07/17/20 Range/Units 05:58 11:51 16:26 WBC (3.8-10.6) k/uL RBC (3.80-5.40) m/uL Hgb (11.4-16.0) gm/dL Hct (34.0-46.0) % MCV (80.0-100.0) fL Plt Count (150-450) k/uL Neutrophils # (1.3-7.7) k/uL Sodium (137-145) mmol/L Carbon Dioxide (22-30) mmol/L Glucose (74-99) mg/dL POC Glucose (mg/dL) 114 H 107 H 133 H (75-99) mg/dL Magnesium (1.6-2.3) mg/dL AST (14-36) U/L Total Protein (6.3-8.2) g/dL Assessment and Plan Assessment: Status post mitral valve repair. Modified Scott maze procedure. Postoperative day 2 Severe 4+ mitral regurgitation with Normal EF Leukocytosis Patient hospitalized with nonsustained V. tach and dizziness related to valvular insufficiency. Hypertension History of right nephrectomy Mild protein calorie malnutrition GI and DVT prophylaxis Plan: Patient is Extubated successfully. c/w IS , Replace electrolytes. Continue with IV hydration. On insulin drip for better blood sugar control. Continue supportive care and follow-up closely. Further recommendations based on clinical course. Intensive care team and CT surgery is on board. Thank you for consult. Time with Patient: Greater than 30
[2020-07-18] MEDS: NOREPINEPHRINE 4 MG in SODIUM CHLORIDE 0.9% 250 ML IV SCH (00:11)
[2020-07-18 01:41] LABS: Glucose,Whole Blood 108 mg/dL (75-99)
[2020-07-18] MEDS: INSULIN ASPART (NovoLOG) 100 UNIT/ML VIAL SQ SCH ×5 (01:50→20:16)
[2020-07-18] MEDS: HYDROcodone/APAP 5-325MG 1 EACH TAB PO PRN (03:12)
[2020-07-18] MEDS: HEPARIN SODIUM,PORCINE 5,000 UNIT/ML 1 ML VIAL SQ SCH ×3 (04:30→20:16)
[2020-07-18 04:38] LABS: Basophils # (A) 0.1 k/uL (0-0.2); Basophils % (A) 1 %; Eosinophils # (A) 0.2 k/uL (0-0.7); Eosinophils % (A) 1 %; HCT 26.7 % (34.0-46.0); HGB 8.8 gm/dL (11.4-16.0); Lymphocytes # (A) 1.1 k/uL (1.0-4.8); Lymphocytes % (A) 7 %; MCH 34.7 pg (25.0-35.0); Macrocytosis Moderate; Monocytes # (A) 0.8 k/uL (0-1.0); Monocytes % (A) 5 %; Neutrophils # (A) 12.8 k/uL (1.3-7.7); Neutrophils % (A) 85 %; Platelet Count 121 k/uL (150-450); RBC 2.54 m/uL (3.80-5.40); WBC 15.1 k/uL (3.8-10.6)
[2020-07-18 05:08] LABS: Albumin 3.2 g/dL (3.5-5.0); Calcium 8.5 mg/dL (8.4-10.2); Potassium 4.9 mmol/L (3.5-5.1); Total Bilirubin 0.8 mg/dL (0.2-1.3); Total Protein 4.9 g/dL (6.3-8.2)
[2020-07-18] MEDS: PANTOPRAZOLE 40 MG TABLET PO SCH (06:31)
[2020-07-18] MEDS: KETOROLAC 15 MG/ML 1 ML VIAL IVP SCH ×2 (06:31→12:41)
[2020-07-18 06:52] LABS: Glucose,Whole Blood 105 mg/dL (75-99)
[2020-07-18] MEDS ORDERED: MAGNESIUM HYDROXIDE 2,400 MG/10 ML CUP PO STA (07:29)
[2020-07-18] MEDS: IPRATROPIUM-ALBUTEROL 3 ML NEB INHALATION SCH ×4 (07:32→18:45)
--- NOTE | 2020-07-18 07:37 | P.PN ---
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 Previous medical history of nonsustained ventr icular tachycardia, hypertension, right nephrectomy, biatrial enlargement, lifelong nonsmoker with mild obstructive lung disease and preoperative FEV1 70% of predicted POD #3 complex mitral valve repair by construction of 6 Shan-chords to the A-2 segment and complete semi-rigid annuloplasty using a 34 mm Physio-2 ring, modified left-sided maze procedure by performing a box lesion using radiofreque ncy ablation, exclusion of the left atrial appendage using a 35 mm AtriClip, intraoperative transesophageal echocardiogram and epi-aortic scanning Postoperative acute blood loss anemia, thrombocytopenia, expected secondary to hemodilution and cardiopulmonary bypass pump Postoperative hypotension, expected The patient is currently sitting up in a recliner in the intensive care unit in no acute distress. She states pain is controlled on current medication regimen, denies shortness of breath, states she feels better than yesterday. She is currently in sinus rhythm with heart rate in the 60s and hemodynamically stable on no inotropes or pressors. Right internal jugular Cordis, right pleural chest tubes remain present. Patient ambulated short distance yesterday. No new concerns. Objective - Vital Signs Vital signs: Vital Signs Temp 98.2 F 07/18/20 04:00 Pulse 66 07/18/20 06:00 Resp 10 L 07/18/20 06:00 BP 120/71 07/18/20 06:00 Pulse Ox 94 L 07/18/20 06:00 Intake & Output 07/17/20 07/18/20 07/18/20 18:59 06:59 18:59 Intake Total 1276 299 Output Total 990 305 Balance 286 -6 Weight 66.2 kg Intake: IV 256 299 Pressure bags 36 39 Sodium Chloride 0.9% 1, 220 260 000 ml @ 20 mls/hr IV . Q24H [facility] Rx#:[id number] Intake, IV Titration 300 Amount Potassium Chloride 20 meq 300 In Water For Injection 1 100ml.bag @ 50 mls/hr IVPB Q2H [facility] Rx#: [id number] Oral 720 Output: Chest Tube Drainage 320 80 Mediastinal 0 RIGHT PLEURAL 320 80 Urine 670 225 Other: Voiding Method Indwelling Catheter Indwelling Catheter ABP, PAP, CO, CI - Last Documented Arterial Blood Pressure 107/47 Pulmonary Artery Pressure 25/9 Cardiac Output 3.9 Cardiac Index 2.3 - Constitutional General appearance: Present: cooperative, no acute distress - Respiratory Details: Lungs sounds diminished bilaterally. Respirations even, nonlabored. Currently on room air with oxygen saturation 92%. Able to achieve 1000 mL on her incentive spirometry. Strong productive cough. Right pleural chest tube present to continuous wall suction without any air leak present. Right pleural chest tube with 50 mL serous drainage overnight, 400 mL the last 24 hours. - Cardiovascular Details: S1, S2 present. Regular rate and rhythm, sinus rhythm in the 60s on telemetry. Sternum stable. A/V epicardial pacemaker wires present, grounded. Right internal jugular Cordis present with measured CVP 13-18 overnight. Palpable peripheral pulses bilaterally. No edema present. No calf pain or tenderness noted. Heart hugger in place patient demonstrating appropriate use. Antiembolism stockings, SCDs present. - Gastrointestinal Gastrointestinal Comment(s): Abdomen soft, nontender, nondistended. Active bowel sounds present 4 quadrants. Tolerating diet. Positive flatus - Genitourinary Genitourinary Comment(s): Jasso discontinued last night, patient has yet to void, bladder scan revealed only 76 mL urine in her bladder - Integumentary Integumentary Comment(s): Skin is warm and dry with evidence of good perfusion. Anterior chest incision well approximated and covered with dry intact dressing. - Neurologic Neurologic: Present: CNII-XII intact - Musculoskeletal Musculoskeletal: Present: gait normal, strength equal bilaterally - Psychiatric Psychiatric: Present: A&O x's 3, appropriate affect, intact judgment & insight - Allied health notes Allied health notes reviewed: nursing - Labs CBC & Chem 7: 07/18/20 04:10 07/18/20 04:10 Labs: Abnormal Lab Results - Last 24 Hours (Table) 07/17/20 07/17/20 07/17/20 Range/Units 11:51 16:26 20:54 WBC (3.8-10.6) k/uL RBC (3.80-5.40) m/uL Hgb (11.4-16.0) gm/dL Hct (34.0-46.0) % MCV (80.0-100.0) fL Plt Count (150-450) k/uL Neutrophils # (1.3-7.7) k/uL Sodium (137-145) mmol/L BUN (7-17) mg/dL POC Glucose (mg/dL) 107 H 133 H 123 H (75-99) mg/dL AST (14-36) U/L Total Protein (6.3-8.2) g/dL Albumin (3.5-5.0) g/dL 07/18/20 07/18/20 07/18/20 Range/Units 01:39 04:10 04:10 WBC 15.1 H (3.8-10.6) k/uL RBC 2.54 L (3.80-5.40) m/uL Hgb 8.8 L (11.4-16.0) gm/dL Hct 26.7 L (34.0-46.0) % MCV 105.0 H (80.0-100.0) fL Plt Count 121 L (150-450) k/uL Neutrophils # 12.8 H (1.3-7.7) k/uL Sodium 127 L (137-145) mmol/L BUN 21 H (7-17) mg/dL POC Glucose (mg/dL) 108 H (75-99) mg/dL AST 51 H (14-36) U/L Total Protein 4.9 L (6.3-8.2) g/dL Albumin 3.2 L (3.5-5.0) g/dL 07/18/20 Range/Units 06:51 WBC (3.8-10.6) k/uL RBC (3.80-5.40) m/uL Hgb (11.4-16.0) gm/dL Hct (34.0-46.0) % MCV (80.0-100.0) fL Plt Count (150-450) k/uL Neutrophils # (1.3-7.7) k/uL Sodium (137-145) mmol/L BUN (7-17) mg/dL POC Glucose (mg/dL) 105 H (75-99) mg/dL AST (14-36) U/L Total Protein (6.3-8.2) g/dL Albumin (3.5-5.0) g/dL - Imaging and Cardiology Chest x-ray: image reviewed Assessment and Plan Assessment: 1. 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 Recent history of nonsustained ventricular tachycardia 3. History of hypertension 4. History of right nephrectomy 5. Lifelong nonsmoker with mild obstructive lung disease and preoperative FEV1 70% of predicted 6. Postoperative acute blood loss anemia, thrombocytopenia, expected Plan: 1. Continue aspirin, statin, Plavix, beta evelyn therapy, amiodarone. 2. Bronchodilators per pulmonology. Encourage incentive spirometry use 10 times every hour while awake 3. Will monitor daily labs and x-rays. Electrolyte replacement per protocol. Fluid restriction 1500 mL. We'll give Lasix 20 mg IV push 1 today 4. Increase activity, ambulate as tolerated. PT/OT/cardiac rehab consulted 5. GI/DVT prophylaxis 6. Discontinue Cordis 7. Insulin management per primary care service. Patient is not diabetic, hemoglobin A1c 5.1% 8. Pain control with current medication regimen. 9. Will discontinue epicardial pacemaker wires. Patient to remain on bedrest 1 hour post-removal 10. Will discontinue right pleural chest tube. 11. May bladder scan and straight cathed for greater than 300 mL residual. 12. Strict accurate intake and output. Daily weights on standup scale 13. We will place transfers for [address] [place] [address] cardiac stepdown unit. May transfer when bed available 14. Discharge planning in progress. Anticipate discharge to home with home care in 24-48 hours 15. More recommendations to follow based on patient's progress Time with Patient: Greater than 30
[2020-07-18] MEDS: ASPIRIN 325 MG TAB PO SCH (07:55)
[2020-07-18] MEDS: ASCORBIC ACID 500 MG TAB PO SCH (07:55)
[2020-07-18] MEDS: CHOLECALCIFEROL 1,000 UNIT TAB PO SCH (07:55)
[2020-07-18] MEDS: METOPROLOL TARTRATE 12.5 MG TAB PO SCH ×2 (07:55→20:17)
[2020-07-18] MEDS: MULTIVITAMINS, THERA 1 EACH TAB PO SCH (07:56)
[2020-07-18] MEDS: AMIODARONE 200 MG TAB PO SCH (07:56)
[2020-07-18] MEDS: CLOPIDOGREL 75 MG TAB PO SCH (07:56)
[2020-07-18] MEDS: ATORVASTATIN 40 MG TAB PO SCH (07:56)
[2020-07-18] MEDS ORDERED: FUROSEMIDE 10 MG/ML 2 ML VIAL IV ONE (08:30)
--- NOTE | 2020-07-18 09:10 | XR ---
EXAMINATION TYPE: XR chest 1V DATE OF EXAM: 07/18/2020 COMPARISON: Prior chest x-ray 07/17/2020 HISTORY: Status post coronary artery bypass graft, chest tube TECHNIQUE: Single frontal view of the chest is obtained. FINDINGS: Right jugular central venous sheath is overlying appropriate position. Patient is post med bea sternotomy, cardiac valve replacement, atrial appendage clipping placement. There are overlying a rtifacts. Right-sided chest tube remains in place. Bibasilar increased attenuation obscures the hemid iaphragms. Heart is enlarged. There is no pneumothorax. Median sternal drain is no longer seen. Pulmo nary vascularity and lucero not significantly changed. IMPRESSION: Basilar effusions and associated edema versus atelectasis, pneumonia not excluded. Persi stent cardiomegaly.
[2020-07-18] MEDS: SODIUM CHLORIDE 0.9% 1,000 ML IV SCH (09:56)
--- NOTE | 2020-07-18 10:43 | P.PN ---
Subjective This is a pleasant 75-year-old female status post mitral valve repair. She follows in the office with Dr. Mathew. She is seen and examined sitting up in the chair in no acute distress. Chest tube in place. She denies any symptoms of chest discomfort, shortness of breath and dizziness or palpitations. She states she is up ambulating as tolerated with no significant complaints. Blood pressure 111/72 heart rate 71 afebrile maintaining oxygen saturation on room air. Laboratory data reviewed, WBC 15.1, hemoglobin 8.8, platelets 121, sodium 127, potassium 4.9, creatinine 1.02. Currently maintained on amiodarone 200 mg daily, aspirin 325 mg daily, atorvastatin 40 mg daily, Plavix 75 mg daily and metoprolol 12.5 mg twice a day. Telemetry tracings unremarkable. GENERAL: Well-appearing, well-nourished and in no acute distress. NECK: Supple without JVD or thyromegaly. Right line in place. LUNGS: Breath sounds clear to auscultation bilaterally. Respiration equal and unlabored. No wheezes, rales or rhonchi. HEART: Regular rate and rhythm with systolic ejection murmur at the left sternal border, no rubs or gallops. S1 and S2 heard. Heart hugger in place. EXTREMITIES: Normal range of motion, no edema. No clubbing or cyanosis. Peripheral pulses intact. ASSESSMENT Status post mitral valve repair History of non-sustained ventricular tachycardia, on amiodarone Hypertension Hyponatremia PLAN Stable on current medical regimen. Recommend ongoing incentive spirometer use and increasing her activity as tolerated. Nurse Practitioner note has been reviewed, I agree with a documented findings and plan of care. Patient was seen and examined. Objective - Vital Signs Vital signs: Vital Signs Temp 98.4 F 07/18/20 08:00 Pulse 71 07/18/20 09:00 Resp 12 07/18/20 09:00 BP 111/72 07/18/20 09:00 Pulse Ox 90 L 07/18/20 09:00 Intake & Output 07/17/20 07/18/20 07/18/20 18:59 06:59 18:59 Intake Total 1276 299 406 Output Total 990 305 0 Balance 286 -6 406 Weight 66.2 kg Intake: IV 256 299 46 Pressure bags 36 39 6 Sodium Chloride 0.9% 1, 220 260 40 000 ml @ 20 mls/hr IV . Q24H [facility] Rx#:[id number] Intake, IV Titration 300 Amount Potassium Chloride 20 meq 300 In Water For Injection 1 100ml.bag @ 50 mls/hr IVPB Q2H [facility] Rx#: [id number] Oral 720 360 Output: Chest Tube Drainage 320 80 Mediastinal 0 RIGHT PLEURAL 320 80 Urine 670 225 0 Other: Voiding Method Indwelling Catheter Indwelling Catheter ABP, PAP, CO, CI - Last Documented Arterial Blood Pressure 107/47 Pulmonary Artery Pressure 25/9 Cardiac Output 3.9 Cardiac Index 2.3 - Labs CBC & Chem 7: 07/18/20 04:10 07/18/20 04:10 Labs: Abnormal Lab Results - Last 24 Hours (Table) 07/17/20 07/17/20 07/17/20 Range/Units 11:51 16:26 20:54 WBC (3.8-10.6) k/uL RBC (3.80-5.40) m/uL Hgb (11.4-16.0) gm/dL Hct (34.0-46.0) % MCV (80.0-100.0) fL Plt Count (150-450) k/uL Neutrophils # (1.3-7.7) k/uL Sodium (137-145) mmol/L BUN (7-17) mg/dL POC Glucose (mg/dL) 107 H 133 H 123 H (75-99) mg/dL AST (14-36) U/L Total Protein (6.3-8.2) g/dL Albumin (3.5-5.0) g/dL 07/18/20 07/18/20 07/18/20 Range/Units 01:39 04:10 04:10 WBC 15.1 H (3.8-10.6) k/uL RBC 2.54 L (3.80-5.40) m/uL Hgb 8.8 L (11.4-16.0) gm/dL Hct 26.7 L (34.0-46.0) % MCV 105.0 H (80.0-100.0) fL Plt Count 121 L (150-450) k/uL Neutrophils # 12.8 H (1.3-7.7) k/uL Sodium 127 L (137-145) mmol/L BUN 21 H (7-17) mg/dL POC Glucose (mg/dL) 108 H (75-99) mg/dL AST 51 H (14-36) U/L Total Protein 4.9 L (6.3-8.2) g/dL Albumin 3.2 L (3.5-5.0) g/dL 07/18/20 Range/Units 06:51 WBC (3.8-10.6) k/uL RBC (3.80-5.40) m/uL Hgb (11.4-16.0) gm/dL Hct (34.0-46.0) % MCV (80.0-100.0) fL Plt Count (150-450) k/uL Neutrophils # (1.3-7.7) k/uL Sodium (137-145) mmol/L BUN (7-17) mg/dL POC Glucose (mg/dL) 105 H (75-99) mg/dL AST (14-36) U/L Total Protein (6.3-8.2) g/dL Albumin (3.5-5.0) g/dL
[2020-07-18 12:02] LABS: Glucose,Whole Blood 107 mg/dL (75-99)
--- NOTE | 2020-07-18 14:49 | P.PN ---
Subjective Progress Note Date: 07/18/20 07/18/2020 the patient is being seen in follow-up in the intensive care unit and the patient is postop day #3 following a mitral valve repair. 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 The patient also had nonsustained V. tach per history and has hypertension and right nephrectomy. The patient is a lifetime nonsmoker with a preop FEV1 of 70% of predicted. The patient underwent surgery well. The patient is able to sit up on a recliner in the intensive care unit. He did require some norepinephrine infusion postop which was ultimately discontinued. The patient did develop some postoperative anemia which is an expected outcome of surgery. Patient using incentive spirometer. The patient has a mediastinal and a right pleural chest tube. The patient has no evidence of air leak within the chest tubes and output has been noted. Surgical wound site is dry clean and intact. Urine output has been in the order of 20-30 mL an hour. Otherwise no other significant issues for now. The patient is being seen in follow-up on 07/18/2020. Cardiac rhythm remains sinus. The patient was being. The rate of 80 and currently the backup pacemaker is discontinued and the patient has an intrinsic rhythm of sinus. As far as the chest tubes, the right pleural chest tube will be removed today. The mediastinal chest tube was removed yesterday. The patient has no specific complaints. No hypotension. No hemodynamic ins tability. The patient is postop day #3. Objective - Vital Signs Vital signs: Vital Signs Temp 98.4 F 07/18/20 08:00 Pulse 73 07/18/20 14:00 Resp 15 07/18/20 14:00 BP 113/64 07/18/20 13:00 Pulse Ox 92 L 07/18/20 14:00 Intake & Output 07/17/20 07/18/20 07/18/20 18:59 06:59 18:59 Intake Total 1276 299 812 Output Total 990 305 652 Balance 286 -6 160 Weight 66.2 kg Intake: IV 256 299 92 Pressure bags 36 39 12 Sodium Chloride 0.9% 1, 220 260 80 000 ml @ 20 mls/hr IV . Q24H [facility] Rx#:[id number] Intake, IV Titration 300 Amount Potassium Chloride 20 meq 300 In Water For Injection 1 100ml.bag @ 50 mls/hr IVPB Q2H [facility] Rx#: [id number] Oral 720 720 Output: Chest Tube Drainage 320 80 50 Mediastinal 0 RIGHT PLEURAL 320 80 50 Urine 670 225 600 Stool 2 Other: Voiding Method Indwelling Catheter Indwelling Catheter Bedside Commode ABP, PAP, CO, CI - Last Documented Arterial Blood Pressure 107/47 Pulmonary Artery Pressure 25/9 Cardiac Output 3.9 Cardiac Index 2.3 - Exam - Constitutional General appearance: Present: cooperative, no acute distress - Respiratory Details: Lungs sounds diminished bilaterally. Respirations even, nonlabored. Currently on room air with oxygen saturation 92%. Able to achieve 1000 mL on her incentive spirometry. Strong productive cough. Right pleural chest tube pre sent to continuous wall suction without any air leak present. Right pleural chest tube with 50 mL serous drainage overnight, 400 mL the last 24 hours. - Cardiovascular Details: S1, S2 present. Regular rate and rhythm, sinus rhythm in the 60s on telemetry. Sternum stable. A/V epicardial pacemaker wires present, grounded. Right internal jugular Cordis present with measured CVP 13-18 overnight. Palpable peripheral pulses bilaterally. No edema present. No calf pain or tenderness noted. Heart hugger in place patient demonstrating appropriate use. Antiembolism stockings, SCDs present. - Gastrointestinal Gastrointestinal Comment(s): Abdomen soft, nontender, nondistended. Active bowel sounds present 4 quadrants. Tolerating diet. Positive flatus - Genitourinary Genitourinary Comment(s): Jasso discontinued last night, patient has yet to void, bladder scan revealed only 76 mL urine in her bladder - Integumentary Integumentary Comment(s): Skin is warm and dry with evidence of good perfusion. Anterior chest incision well approximated and covered with dry intact dressing. - Neurologic Neurologic: Present: CNII-XII intact - Musculoskeletal Musculoskeletal: Present: gait normal, strength equal bilaterally - Psychiatric Psychiatric: Present: A&O x's 3, appropriate affect, intact judgment & insight - Labs CBC & Chem 7: 07/18/20 04:10 07/18/20 04:10 Labs: Abnormal Lab Results - Last 24 Hours (Table) 07/17/20 07/17/20 07/18/20 Range/Units 16:26 20:54 01:39 WBC (3.8-10.6) k/uL RBC (3.80-5.40) m/uL Hgb (11.4-16.0) gm/dL Hct (34.0-46.0) % MCV (80.0-100.0) fL Plt Count (150-450) k/uL Neutrophils # (1.3-7.7) k/uL Sodium (137-145) mmol/L BUN (7-17) mg/dL POC Glucose (mg/dL) 133 H 123 H 108 H (75-99) mg/dL AST (14-36) U/L Total Protein (6.3-8.2) g/dL Albumin (3.5-5.0) g/dL 07/18/20 07/18/20 07/18/20 Range/Units 04:10 04:10 06:51 WBC 15.1 H (3.8-10.6) k/uL RBC 2.54 L (3.80-5.40) m/uL Hgb 8.8 L (11.4-16.0) gm/dL Hct 26.7 L (34.0-46.0) % MCV 105.0 H (80.0-100.0) fL Plt Count 121 L (150-450) k/uL Neutrophils # 12.8 H (1.3-7.7) k/uL Sodium 127 L (137-145) mmol/L BUN 21 H (7-17) mg/dL POC Glucose (mg/dL) 105 H (75-99) mg/dL AST 51 H (14-36) U/L Total Protein 4.9 L (6.3-8.2) g/dL Albumin 3.2 L (3.5-5.0) g/dL 07/18/20 Range/Units 12:00 WBC (3.8-10.6) k/uL RBC (3.80-5.40) m/uL Hgb (11.4-16.0) gm/dL Hct (34.0-46.0) % MCV (80.0-100.0) fL Plt Count (150-450) k/uL Neutrophils # (1.3-7.7) k/uL Sodium (137-145) mmol/L BUN (7-17) mg/dL POC Glucose (mg/dL) 107 H (75-99) mg/dL AST (14-36) U/L Total Protein (6.3-8.2) g/dL Albumin (3.5-5.0) g/dL Assessment and Plan Plan: 1 mitral valve repair and the patient is postop day #3. 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 The patient underwent mitral valve repair 2 history of nonsustained ventricular tachycardia 3 post thoracotomy and the patient is a mediastinal and pleural chest tube in place on the right 4 blood loss anemia, postop, expected outcome of surgery. 5 right nephrectomy, history of Plan We will the right-sided chest tube today Continue using incentive spirometer Continue aspirin and Plavix and beta blockers and amiodarone Ambulate in the hallway Continue using incentive spirometer Patient has adequate pain control Discontinue the epicardial pacemaker wires The patient can be moved to 3S, cardiac stepdown unit
[2020-07-18 20:08] LABS: Glucose,Whole Blood 121 mg/dL (75-99)
[2020-07-18] MEDS: ACETAMINOPHEN TAB 500 MG TAB PO PRN (20:15)
[2020-07-18] MEDS: SENNOSIDES-DOCUSATE SODIUM 1 EACH TAB PO SCH (20:17)
--- NOTE | 2020-07-18 22:03 | PN ---
PROGRESS NOTE DATE OF SERVICE: 07/18/2020 This 75-year-old woman who was admitted with mitral valve repair is being closely monitored. Chest tube has been removed. The patient also had severe 4+ mitral regurgitation. Past medical history reviewed. REVIEW OF SYSTEMS: CARDIOVASCULAR SYSTEM: No angina, palpitations. RESPIRATORY SYSTEM: As mentioned earlier. GI: As mentioned earlier. : No dysuria or retention. NERVOUS SYSTEM: No numbness, weakness. CURRENT MEDICATIONS: Reviewed. They include Tylenol, DuoNeb, Cordarone, vitamin C, aspirin, Lipitor, Cepacol, dulcolax, Plavix, aspirin. Medication doses are reviewed. PHYSICAL EXAMINATION: Patient alert and oriented x3. Pulse 73, blood pressure 130/64, respiration 19, temperature normal, pulse ox 98% on room air. HEENT: Conjunctivae normal. Oral mucosa moist. NECK: No jugular venous distention. No carotid bruit. No lymph node enlargement. CARDIOVASCULAR SYSTEM: S1, S2 muffled. RESPIRATORY SYSTEM: Breath sounds diminished at the bases. A few scattered rhonchi. ABDOMEN: Soft, non-tender. NERVOUS SYSTEM: No focal deficit. LABS: WBC 15.1, hemoglobin is 8.8, platelets 121. Sodium 127. ASSESSMENT: 1. Status post mitral valve repair, modified Scott Maze procedure. 2. Severe 4+ mitral regurgitation. 3. Leukocytosis. 4. Anemia, thrombocytopenia. 5. Patient previously hospitalized for non-sustained ventricular tachycardia and dizziness. 6. Hypertension. 7. History of right nephrectomy. 8. Mild protein-calorie malnutrition. 9. Gastrointestinal and deep venous thrombosis prophylaxis. 10.Hyponatremia. 11.FULL CODE. RECOMMENDATIONS AND DISCUSSION: In this 75-year-old woman who presented with multiple complex medical issues, we will monitor the patient closely, continue the current medications, continue symptomatic treatment. Incentive spirometry, bronchodilators, repeat labs. Will closely follow. Monitor blood sugars closely. The patient may be asked to follow up with her primary physician closely. Follow up with Dr. Lemus closely. Further recommendations to follow. MMODL / IJN: [id number] /
[2020-07-19 02:11] LABS: Glucose,Whole Blood 115 mg/dL (75-99)
[2020-07-19] MEDS: ACETAMINOPHEN TAB 500 MG TAB PO PRN ×2 (02:16→12:43)
[2020-07-19] MEDS: HEPARIN SODIUM,PORCINE 5,000 UNIT/ML 1 ML VIAL SQ SCH ×3 (02:16→20:32)
[2020-07-19] MEDS: INSULIN ASPART (NovoLOG) 100 UNIT/ML VIAL SQ SCH ×5 (02:29→20:28)
[2020-07-19 04:22] LABS: HCT 27.2 % (34.0-46.0); MCH 35.4 pg (25.0-35.0); MCHC 33.1 g/dL (31.0-37.0); MCV 106.8 fL (80.0-100.0); Macrocytosis Moderate; Mean Platelet Volume 8.8; Platelet Count 166 k/uL (150-450); RBC 2.55 m/uL (3.80-5.40); RDW 15.1 % (11.5-15.5); WBC 15.9 k/uL (3.8-10.6)
[2020-07-19 04:35] LABS: Calcium 8.7 mg/dL (8.4-10.2); Potassium 5.2 mmol/L (3.5-5.1)
[2020-07-19] MEDS: PANTOPRAZOLE 40 MG TABLET PO SCH (07:08)
--- NOTE | 2020-07-19 07:14 | P.PN ---
Subjective Progress Note Date: 07/19/20 Principal diagnosis: Severe mitral valve regurgitation with myxomatous mitral valve and prolapse of A-2 segment with dilated annulus. Previous medical history of nonsustained ventr icular tachycardia, hypertension, right nephrectomy, chronic hyponatremia, biatrial enlargement, lifelong nonsmoker with mild obstructive lung disease and preoperative FEV1 70% of predicted POD #4 complex mitral valve repair by construction of 6 Shan-chords to the A-2 segment and complete semi-rigid annuloplasty using a 34 mm Physio-2 ring, modified left-sided maze procedure by performing a box lesion using radiofrequency ablation, exclusion of the left atrial appendage using a 35 mm AtriClip, intraoperative transesophageal echocardiogram and epi-aortic scanning Postoperative acute blood loss anemia, thrombocytopenia, expected secondary to hemodilution and cardiopulmonary bypass pump Postoperative hypotension, expected Postoperative acute on chronic hyponatremia, likely dilutional, expected as patient consumes large amounts of water The patient is currently sitting up in a recliner in the intensive care unit in no acute distress. She states pain is controlled on current medication regimen, denies shortness of breath, states she feels better everyday. She is currently in sinus rhythm with heart rate in the 60s and hemodynamically stable. Patient ambulated in hallway yesterday. First postop shower this morning. No new concerns. Objective - Vital Signs Vital signs: Vital Signs Temp 98.2 F 07/19/20 06:05 Pulse 72 07/19/20 06:05 Resp 17 07/19/20 06:05 BP 111/59 07/19/20 06:05 Pulse Ox 95 07/19/20 06:05 Intake & Output 07/18/20 07/19/20 07/19/20 18:59 06:59 18:59 Intake Total 1172 240 Output Total 952 Balance 220 240 Intake: IV 92 Pressure bags 12 Sodium Chloride 0.9% 1, 80 000 ml @ 20 mls/hr IV . Q24H [facility] Rx#:[id number] Oral 1080 240 Output: Chest Tube Drainage 50 RIGHT PLEURAL 50 Urine 900 Stool 2 Other: Voiding Method Toilet Toilet # Voids 1 # Bowel Movements 1 ABP, PAP, CO, CI - Last Documented Arterial Blood Pressure 107/47 Pulmonary Artery Pressure 25/9 Cardiac Output 3.9 Cardiac Index 2.3 - Constitutional General appearance: Present: cooperative, no acute distress - Respiratory Details: Lungs sounds diminished bilaterally, left greater than right. Respirations even, nonlabored. Currently on room air with oxygen saturation 96%. Able to achieve 0215-1434 mL on her incentive spirometry. Strong dry cough. - Cardiovascular Details: S1, S2 present. Regular rate and rhythm, sinus rhythm in the 60s on telemetry. Sternum stable. Palpable peripheral pulses bilaterally. Trace bilateral lower extremity edema present. No calf pain or tenderness noted. Heart hugger in place patient demonstrating appropriate use. Antiembolism stockings, SCDs present. - Gastrointestinal Gastrointestinal Comment(s): Abdomen soft, nontender, nondistended. Active bowel sounds present 4 quadrants. Tolerating diet. Positive bowel movement - Genitourinary Genitourinary Comment(s): Jasso discontinued yesterday, patient has voided without significant residual left in bladder - Integumentary Integumentary Comment(s): Skin is warm and dry with evidence of good perfusion. Anterior chest incision well approximated and covered with dry intact dressing. - Neurologic Neurologic: Present: CNII-XII intact - Musculoskeletal Musculoskeletal: Present: gait normal, strength equal bilaterally - Psychiatric Psychiatric: Present: A&O x's 3, appropriate affect, intact judgment & insight - Allied health notes Allied health notes reviewed: nursing - Labs CBC & Chem 7: 07/19/20 03:53 07/19/20 03:53 Labs: Abnormal Lab Results - Last 24 Hours (Table) 07/18/20 07/18/20 07/19/20 Range/Units 12:00 20:06 02:09 WBC (3.8-10.6) k/uL RBC (3.80-5.40) m/uL Hgb (11.4-16.0) gm/dL Hct (34.0-46.0) % MCV (80.0-100.0) fL MCH (25.0-35.0) pg Sodium (137-145) mmol/L Potassium (3.5-5.1) mmol/L Chloride (98-107) mmol/L Carbon Dioxide (22-30) mmol/L BUN (7-17) mg/dL Glucose (74-99) mg/dL POC Glucose (mg/dL) 107 H 121 H 115 H (75-99) mg/dL 07/19/20 07/19/20 Range/Units 03:53 03:53 WBC 15.9 H (3.8-10.6) k/uL RBC 2.55 L (3.80-5.40) m/uL Hgb 9.0 L (11.4-16.0) gm/dL Hct 27.2 L (34.0-46.0) % MCV 106.8 H (80.0-100.0) fL MCH 35.4 H (25.0-35.0) pg Sodium 125 L (137-145) mmol/L Potassium 5.2 H (3.5-5.1) mmol/L Chloride 97 L (98-107) mmol/L Carbon Dioxide 20 L (22-30) mmol/L BUN 26 H (7-17) mg/dL Glucose 100 H (74-99) mg/dL POC Glucose (mg/dL) (75-99) mg/dL - Imaging and Cardiology Chest x-ray: image reviewed Assessment and Plan Assessment: 1. 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 Recent history of nonsustained ventricular tachycardia 3. History of hypertension 4. History of right nephrectomy 5. Lifelong nonsmoker with mild obstructive lung disease and preoperative FEV1 70% of predicted 6. Postoperative acute blood loss anemia, thrombocytopenia, expected 7. Postoperative acute on chronic hyponatremia, expected, likely dilutional Plan: 1. Continue aspirin, statin, Plavix, beta evelyn therapy, amiodarone. 2. Bronchodilators per pulmonology. Encourage incentive spirometry use 10 times every hour while awake. Ultrasound of the chest ordered for marking for possible thoracentesis 3. Will monitor daily labs and x-rays. Electrolyte replacement per protocol. Fluid restriction 1500 mL. 4. Increase activity, ambulate as tolerated. PT/OT/cardiac rehab consulted 5. GI/DVT prophylaxis 6. Insulin management per primary care service. Patient is not diabetic, hemoglobin A1c 5.1% 8. Pain control with current medication regimen. 9. May bladder scan and straight cathed for greater than 300 mL residual. 10. Strict accurate intake and output. Daily weights on standup scale 11. Transfer orders placed yesterday for 3 south cardiac stepdown unit. May transfer when bed available 12. Discharge planning in progress. Anticipate discharge to home with home care in the next 24-48 hours 13. More recommendations to follow based on patient's progress Time with Patient: Greater than 30
[2020-07-19] MEDS: IPRATROPIUM-ALBUTEROL 3 ML NEB INHALATION SCH ×4 (07:52→18:57)
--- NOTE | 2020-07-19 08:23 | XR ---
EXAMINATION TYPE: XR chest 2V DATE OF EXAM: 07/19/2020 COMPARISON: 07/18/2020 INDICATION: Post cardiac surgery TECHNIQUE: Frontal and lateral views of the chest are obtained. FINDINGS: The heart size is normal. The pulmonary vasculature is normal. Small to moderate left and small right pleural effusion is present. Sternotomy wires are present from prior cardiac valve surgery. Right-sided chest tube is been removed. No residual pneumothorax is ev ident. IMPRESSION: 1. Exam stable from comparison
--- NOTE | 2020-07-19 08:41 | US ---
EXAMINATION TYPE: US chest DATE OF EXAM: 07/19/2020 COMPARISON: NONE CLINICAL HISTORY: alma for thoracentesis. TECHNIQUE: Targeted ultrasound of the posterior lower bilateral hemithoraces EXAM MEASUREMENTS: Right Pleural Effusion pocket size: 6.1 cm - lung noted anteriorly Right skin surface to fluid distance: 2.7 cm Left Pleural Effusion pocket size: 9.9 cm - lung noted anteriorly Left skin surface to fluid distance: 4.1 cm Right side marked for possible thoracentesis outside the dept. Left side marked for possible thoracentesis outside the dept. Pulmonologists are able to review the images in the patient?s EMR. IMPRESSIONS: 1. Bilateral pleural effusions
[2020-07-19] MEDS: ASPIRIN 325 MG TAB PO SCH (09:26)
[2020-07-19] MEDS: AMIODARONE 200 MG TAB PO SCH (09:26)
[2020-07-19] MEDS: ATORVASTATIN 40 MG TAB PO SCH (09:27)
[2020-07-19] MEDS: ASCORBIC ACID 500 MG TAB PO SCH (09:27)
[2020-07-19] MEDS: CHOLECALCIFEROL 1,000 UNIT TAB PO SCH (09:27)
[2020-07-19] MEDS: CLOPIDOGREL 75 MG TAB PO SCH (09:27)
[2020-07-19] MEDS: METOPROLOL TARTRATE 12.5 MG TAB PO SCH ×2 (09:28→20:33)
[2020-07-19] MEDS: MULTIVITAMINS, THERA 1 EACH TAB PO SCH (10:10)
--- NOTE | 2020-07-19 10:11 | XR ---
EXAMINATION TYPE: XR chest 1V portable DATE OF EXAM: 07/19/2020 COMPARISON: 07/19/2020 INDICATION: Postthoracentesis TECHNIQUE: Single frontal view of the chest is obtained. FINDINGS: The heart size is mildly prominent. The pulmonary vasculature is normal. Small right pleural effusion remains present. Left pleural effusion has largely resolved. Some atelec tasis likely remains at the left base. IMPRESSION: 1. No pneumothorax post left thoracentesis. 2. Small right and residual left pleural effusion remain.
--- NOTE | 2020-07-19 10:32 | P.PN ---
Subjective This is a pleasant 75-year-old female status post mitral valve repair. She follows in the office with Dr. Mathew. She is seen and examined sitting up in the chair in no acute distress. She was just up getting a shower and ambulating. She is feeling weak and tired. She feels a pain in her back in the mid upper portion when she lays down in bed. Denies shortness of breath, dizziness or palpitations. Blood pressure 125/70 heart rate 75 afebrile maintaining oxygen saturation on room air. Chest x-ray this morning reveals small to moderate left and small right pleural effusion present. Ultrasound of the chest reveals right pleural effusion pocket size of 6.1 cm left pleural effusion pocket size 9.9 cm. Pulmonology will evaluate these for possible thoracentesis. Laboratory data reviewed, WBC 15.9, hemoglobin 9, platelets 166, sodium 125, potassium 5.2 and creatinine 0.98. GENERAL: Well-appearing, well-nourished and in no acute distress. NECK: Supple without JVD or thyromegaly. Right line in place. LUNGS: Breath sounds clear to auscultation bilaterally. Respiration equal and unlabored. No wheezes, rales or rhonchi. HEART: Regular rate and rhythm with systolic ejection murmur at the left sternal border, no rubs or gallops. S1 and S2 heard. Heart hugger in place. EXTREMITIES: Normal range of motion, no edema. No clubbing or cyanosis. Peripheral pulses intact. ASSESSMENT Status post mitral valve repair History of non-sustained ventricular tachycardia, on amiodarone Hypertension Hyponatremia PLAN Stable on current medical regimen. Possible thoracentesis today per pulmonary care team. Recommend ongoing incentive spirometer use and increasing her activity as tolerated. Nurse Practitioner note has been reviewed, I agree with a documented findings and plan of care. Patient was seen and examined. Objective - Vital Signs Vital signs: Vital Signs Temp 98.0 F 07/19/20 09:04 Pulse 85 07/19/20 10:00 Resp 18 07/19/20 09:04 BP 125/70 07/19/20 09:04 Pulse Ox 93 L 07/19/20 09:04 Intake & Output 07/18/20 07/19/20 07/19/20 18:59 06:59 18:59 Intake Total 1172 240 Output Total 952 900 Balance 220 240 -900 Intake: IV 92 Pressure bags 12 Sodium Chloride 0.9% 1, 80 000 ml @ 20 mls/hr IV . Q24H [facility] Rx#:[id number] Oral 1080 240 Output: Chest Tube Drainage 50 RIGHT PLEURAL 50 Gastric Drainage 800 Urine 900 100 Stool 2 Other: Voiding Method Toilet Toilet # Voids 1 # Bowel Movements 1 ABP, PAP, CO, CI - Last Documented Arterial Blood Pressure 107/47 Pulmonary Artery Pressure 25/9 Cardiac Output 3.9 Cardiac Index 2.3 - Labs CBC & Chem 7: 07/19/20 03:53 07/19/20 03:53 Labs: Abnormal Lab Results - Last 24 Hours (Table) 07/18/20 07/18/20 07/19/20 Range/Units 12:00 20:06 02:09 WBC (3.8-10.6) k/uL RBC (3.80-5.40) m/uL Hgb (11.4-16.0) gm/dL Hct (34.0-46.0) % MCV (80.0-100.0) fL MCH (25.0-35.0) pg Sodium (137-145) mmol/L Potassium (3.5-5.1) mmol/L Chloride (98-107) mmol/L Carbon Dioxide (22-30) mmol/L BUN (7-17) mg/dL Glucose (74-99) mg/dL POC Glucose (mg/dL) 107 H 121 H 115 H (75-99) mg/dL 07/19/20 07/19/20 Range/Units 03:53 03:53 WBC 15.9 H (3.8-10.6) k/uL RBC 2.55 L (3.80-5.40) m/uL Hgb 9.0 L (11.4-16.0) gm/dL Hct 27.2 L (34.0-46.0) % MCV 106.8 H (80.0-100.0) fL MCH 35.4 H (25.0-35.0) pg Sodium 125 L (137-145) mmol/L Potassium 5.2 H (3.5-5.1) mmol/L Chloride 97 L (98-107) mmol/L Carbon Dioxide 20 L (22-30) mmol/L BUN 26 H (7-17) mg/dL Glucose 100 H (74-99) mg/dL POC Glucose (mg/dL) (75-99) mg/dL
[2020-07-19 12:18] LABS: Glucose,Whole Blood 107 mg/dL (75-99)
--- NOTE | 2020-07-19 12:31 | P.PN ---
Subjective Progress Note Date: 07/19/20 07/19/2020, the patient is postop day #4. The patient underwent mitral valve repair for severe mitral regurgitation. The patient is doing well. No specific complaints. Chest tubes are removed. Note that the chest x-ray from today shows a significant left-sided pleural effusion with a small right-sided pleural effusion. Ultrasound marking of the chest was done and the patient's ultrasound showed a 9 cm pocket in the left lung. Based on that, I performed a thoracentesis and with a rate of approximately 800 mL of bloody fluid from the left lung without any complications. The chest x-ray shows no the study pneumothorax following the procedure. The patient me what is doing well. The patient is normal sinus rhythm. No evidence of any ventricular tachycardias or other arrhythmias. Sternum stable clean and intact. No cough sputum production chest answer wheezing. She continues to use his incentive spirometer. Urine output is adequate for now. The patient is doing well. Objective - Vital Signs Vital signs: Vital Signs Temp 98.0 F 07/19/20 09:04 Pulse 85 07/19/20 10:00 Resp 18 07/19/20 09:04 BP 125/70 07/19/20 09:04 Pulse Ox 93 L 07/19/20 09:04 Intake & Output 07/18/20 07/19/20 07/19/20 18:59 06:59 18:59 Intake Total 1172 240 Output Total 952 1200 Balance 220 240 -1200 Intake: IV 92 Pressure bags 12 Sodium Chloride 0.9% 1, 80 000 ml @ 20 mls/hr IV . Q24H [facility] Rx#:[id number] Oral 1080 240 Output: Chest Tube Drainage 50 RIGHT PLEURAL 50 Gastric Drainage 800 Urine 900 400 Stool 2 Other: Voiding Method Toilet Toilet Toilet # Voids 1 # Bowel Movements 1 ABP, PAP, CO, CI - Last Documented Arterial Blood Pressure 107/47 Pulmonary Artery Pressure 25/9 Cardiac Output 3.9 Cardiac Index 2.3 - Exam - Constitutional General appearance: Present: cooperative, no acute distress - Respiratory Details: Lungs sounds diminished bilaterally, left greater than right. Respirations even, nonlabored. Currently on room air with oxygen saturation 96%. Able to achieve 8771-8939 mL on her incentive spirometry. Strong dry cough. - Cardiovascular Details: S1, S2 present. Regular rate and rhythm, sinus rhythm in the 60s on telemetry. Sternum stable. Palpable peripheral pulses bilaterally. Trace bilateral lower extremity edema present. No calf pain or tenderness noted. Heart hugger in place patient demonstrating appropriate use. Antiembolism stockings, SCDs present. - Gastrointestinal Gastrointestinal Comment(s): Abdomen soft, nontender, nondistended. Active bowel sounds present 4 quadrants. Tolerating diet. Positive bowel movement - Genitourinary Genitourinary Comment(s): Jasso discontinued yesterday, patient has voided without significant residual left in bladder - Integumentary Integumentary Comment(s): Skin is warm and dry with evidence of good perfusion. Anterior chest incision well approximated and covered with dry intact dressing. - Neurologic Neurologic: Present: CNII-XII intact - Musculoskeletal Musculoskeletal: Present: gait normal, strength equal bilaterally - Psychiatric Psychiatric: Present: A&O x's 3, appropriate affect, intact judgment & insight - Labs CBC & Chem 7: 07/19/20 03:53 07/19/20 03:53 Labs: Abnormal Lab Results - Last 24 Hours (Table) 07/18/20 07/19/20 07/19/20 Range/Units 20:06 02:09 03:53 WBC 15.9 H (3.8-10.6) k/uL RBC 2.55 L (3.80-5.40) m/uL Hgb 9.0 L (11.4-16.0) gm/dL Hct 27.2 L (34.0-46.0) % MCV 106.8 H (80.0-100.0) fL MCH 35.4 H (25.0-35.0) pg Sodium (137-145) mmol/L Potassium (3.5-5.1) mmol/L Chloride (98-107) mmol/L Carbon Dioxide (22-30) mmol/L BUN (7-17) mg/dL Glucose (74-99) mg/dL POC Glucose (mg/dL) 121 H 115 H (75-99) mg/dL 07/19/20 07/19/20 Range/Units 03:53 12:16 WBC (3.8-10.6) k/uL RBC (3.80-5.40) m/uL Hgb (11.4-16.0) gm/dL Hct (34.0-46.0) % MCV (80.0-100.0) fL MCH (25.0-35.0) pg Sodium 125 L (137-145) mmol/L Potassium 5.2 H (3.5-5.1) mmol/L Chloride 97 L (98-107) mmol/L Carbon Dioxide 20 L (22-30) mmol/L BUN 26 H (7-17) mg/dL Glucose 100 H (74-99) mg/dL POC Glucose (mg/dL) 107 H (75-99) mg/dL Assessment and Plan Plan: 1 mitral valve repair and the patient is postop day #4. 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 The patient underwent mitral valve repair 2 history of nonsustained ventricular tachycardia, current rhythm is sinus 3 post thoracotomy and the patient has bilateral pleural effusion left more than right post removal of the chest tubes. 4 blood loss anemia, postop, expected outcome of surgery. The hemoglobin stable at 9.0 5 right nephrectomy, history of 6 hyponatremia with a sodium level of 125 Plan Proceed with a left-sided thoracentesis and the procedure was done successfully with a total of 8 ounces of pleural fluid being aspirated from the left lung Continue using incentive spirometer Continue aspirin and Plavix and beta blockers and amiodarone which is being given orally and the patient's cardiac rhythm is sinus Ambulate in the hallway Continue using incentive spirometer Patient has adequate pain control Fluid restriction and monitor the sodium level, no need for any further diuretics The patient can be moved to , cardiac stepdown unit
--- NOTE | 2020-07-19 12:33 | P.PCN ---
Date of Procedure: 07/19/20 Preoperative Diagnosis: Left-sided pleural effusion Postoperative Diagnosis: Left-sided pleural effusion Procedure(s) Performed: Thoracentesis Anesthesia: local Surgeon: Ata Burleson Estimated Blood Loss (ml): 0 Pathology: none sent Condition: stable Disposition: ICU Operative Findings: A time out was performed and the chest x-ray was reviewed, the appropriate side was confirmed and marked. My hands were washed immediately prior to the procedure. I wore a surgical cap, mask with protective eyewear, sterile gown and sterile gloves throughout the procedure. The patient was prepped and draped in a sterile manner using chlorhexidine scrub after the appropriate level was p ercussed and confirmed by ultrasound. 1% lidocaine was used to anesthesize the skin, subcutaneous tissue, superior aspect of the rib periosteum and parietal pleura. A finder needle was then introduced over the superior aspect of the rib to locate the pleural fluid; 2colored fluid was aspirated at a depth of approximately 2 cm. A 10-blade scalpel was used to ayala the skin at the insertion site. The [id number] needle was then introduced through the skin incision into the pleural space using negative aspiration pressure and the red colometric indicator to confirm appropriate positioning of the needle. The thoracentesis catheter was then threaded without difficulty. 800 ml of turbid colored/bloody fluid was removed without difficulty. The catheter was then removed. No immediate complications were noted during the procedure. A post- procedure chest x-ray is pending at the time of this note. The fluid will not be sent for studies. Estimated blood loss is 0cc
[2020-07-19] MEDS ORDERED: traMADol 50 MG TAB PO STA (14:16)
[2020-07-19] MEDS: KETOROLAC 15 MG/ML 1 ML VIAL IVP SCH ×2 (14:46→20:32)
[2020-07-19 16:43] LABS: Glucose,Whole Blood 103 mg/dL (75-99)
[2020-07-19 20:28] LABS: Glucose,Whole Blood 118 mg/dL (75-99)
[2020-07-19] MEDS: SENNOSIDES-DOCUSATE SODIUM 1 EACH TAB PO SCH (20:28)
[2020-07-19] MEDS: BENZOCAINE/MENTHOL LOZENG 1 EACH LOZENGE MUCOUS MEM PRN (20:34)
[2020-07-19 22:45] VITALS: RESP 18
[2020-07-20 02:06] LABS: Glucose,Whole Blood 95 mg/dL (75-99)
[2020-07-20] MEDS: INSULIN ASPART (NovoLOG) 100 UNIT/ML VIAL SQ SCH ×4 (02:07→17:57)
[2020-07-20] MEDS: KETOROLAC 15 MG/ML 1 ML VIAL IVP SCH (03:46)
[2020-07-20] MEDS: HEPARIN SODIUM,PORCINE 5,000 UNIT/ML 1 ML VIAL SQ SCH ×2 (03:46→12:39)
[2020-07-20 06:11] LABS: Glucose,Whole Blood 100 mg/dL (75-99)
[2020-07-20] MEDS: PANTOPRAZOLE 40 MG TABLET PO SCH (06:43)
[2020-07-20 06:57] LABS: HCT 30.2 % (34.0-46.0); HGB 10.1 gm/dL (11.4-16.0); MCH 35.1 pg (25.0-35.0); MCHC 33.3 g/dL (31.0-37.0); MCV 105.3 fL (80.0-100.0); Macrocytosis Moderate; Mean Platelet Volume 8.2; Platelet Count 239 k/uL (150-450); RBC 2.87 m/uL (3.80-5.40); RDW 15.7 % (11.5-15.5); WBC 15.7 k/uL (3.8-10.6)
[2020-07-20 07:18] LABS: Potassium 5.3 mmol/L (3.5-5.1)
[2020-07-20] MEDS: IPRATROPIUM-ALBUTEROL 3 ML NEB INHALATION SCH ×3 (08:07→16:05)
--- NOTE | 2020-07-20 08:07 | P.PN ---
Subjective This is a pleasant 75 years old female with past medical history of hypertension and mitral valve prolapse. Presents for mitral valve repair and today is postoperative day #4. Patient was sitting in chair, multiple with no complaints of chest pain or dyspnea. She is tolerating diet and have regular bowel movements. No abdominal pain. Hemodynamics the patient is stable. We will see Taper 0.7 K. Sodium is 125, potassium 5.2. Creatinine normal 0.9 Chest x-ray showed left-sided pleural effusion she underwent thoracocentesis by pulmonary team Objective - Vital Signs Vital signs: Vital Signs Temp 97.7 F 07/19/20 12:00 Pulse 73 07/19/20 12:00 Resp 14 07/19/20 12:00 BP 98/60 07/19/20 12:00 Pulse Ox 94 L 07/19/20 12:00 Intake & Output 07/18/20 07/19/20 07/19/20 18:59 06:59 18:59 Intake Total 1172 240 236 Output Total 952 1200 Balance 220 240 -964 Intake: IV 92 Pressure bags 12 Sodium Chloride 0.9% 1, 80 000 ml @ 20 mls/hr IV . Q24H [facility] Rx#:[id number] Oral 1080 240 236 Output: Chest Tube Drainage 50 RIGHT PLEURAL 50 Gastric Drainage 800 Urine 900 400 Stool 2 Other: Voiding Method Toilet Toilet Toilet # Voids 1 # Bowel Movements 1 ABP, PAP, CO, CI - Last Documented Arterial Blood Pressure 107/47 Pulmonary Artery Pressure 25/9 Cardiac Output 3.9 Cardiac Index 2.3 - Exam GENERAL: The patient is alert and oriented x3, not in any acute distress. Well developed, well nourished. HEENT: Pupils are round and equally reacting to light. EOMI. No scleral icterus. No conjunctival pallor. Normocephalic, atraumatic. No pharyngeal erythema. No thyromegaly. CARDIOVASCULAR: S1 and S2 present. No murmurs, rubs, or gallops. PULMONARY: Chest is clear to auscultation, no wheezing or crackles. ABDOMEN: Soft, nontender, nondistended, normoactive bowel sounds. No palpable organomegaly. MUSCULOSKELETAL: No joint swelling or deformity. EXTREMITIES: No cyanosis, clubbing, or pedal edema. NEUROLOGICAL: Gross neurological examination did not reveal any focal deficits. SKIN: No rashes. no petechiae. - Labs CBC & Chem 7: 07/20/20 06:38 07/20/20 06:38 Labs: Abnormal Lab Results - Last 24 Hours (Table) 07/18/20 07/19/20 07/19/20 Range/Units 20:06 02:09 03:53 WBC 15.9 H (3.8-10.6) k/uL RBC 2.55 L (3.80-5.40) m/uL Hgb 9.0 L (11.4-16.0) gm/dL Hct 27.2 L (34.0-46.0) % MCV 106.8 H (80.0-100.0) fL MCH 35.4 H (25.0-35.0) pg Sodium (137-145) mmol/L Potassium (3.5-5.1) mmol/L Chloride (98-107) mmol/L Carbon Dioxide (22-30) mmol/L BUN (7-17) mg/dL Glucose (74-99) mg/dL POC Glucose (mg/dL) 121 H 115 H (75-99) mg/dL 07/19/20 07/19/20 Range/Units 03:53 12:16 WBC (3.8-10.6) k/uL RBC (3.80-5.40) m/uL Hgb (11.4-16.0) gm/dL Hct (34.0-46.0) % MCV (80.0-100.0) fL MCH (25.0-35.0) pg Sodium 125 L (137-145) mmol/L Potassium 5.2 H (3.5-5.1) mmol/L Chloride 97 L (98-107) mmol/L Carbon Dioxide 20 L (22-30) mmol/L BUN 26 H (7-17) mg/dL Glucose 100 H (74-99) mg/dL POC Glucose (mg/dL) 107 H (75-99) mg/dL Assessment and Plan Assessment: Status post mitral valve repair Left side pleural effusion is status post thoracocentesis Hyponatremia Hypertension Plan: This is a pleasant 75 years old female presents with mitral valve repair. Also has hyponatremia. Continue with amiodarone, aspirin, Lipitor and Plavix. Monitor blood pressure. Several consultants on the case within the primary surgical team and pulmonary team. Labs and medication were reviewed.. Continue same treatment. Continue with symptomatic treatment. Resume home medication. Monitor lytes and vitals. DVT and GI prophylaxis. Further recommendations of the clinical course of the patient DVT prophylaxis: Subcutaneous heparin GI Prophylaxis: Ppi
--- NOTE | 2020-07-20 08:15 | XR ---
EXAMINATION TYPE: XR chest 2V DATE OF EXAM: 07/20/2020 COMPARISON: Prior chest x-ray 07/19/2020 HISTORY: Status post open-heart surgery, abnormal chest x-ray TECHNIQUE: Frontal and lateral views of the chest are obtained. FINDINGS: There is blunting the costophrenic angles, left hemidiaphragm remains obscured. Heart is e nlarged. Patient is post median sternotomy, atrial appendage clipping placement, cardiac valve replac ement. There is no pneumothorax. Azygos lobe noted incidentally. There are overlying artifacts. IMPRESSION: Findings are similar to prior exam. Small basilar effusions and associated atelectasis. Postop changes and cardiomegaly.
[2020-07-20] MEDS ORDERED: FUROSEMIDE 10 MG/ML 2 ML VIAL IV STA (08:17)
[2020-07-20] MEDS: MULTIVITAMINS, THERA 1 EACH TAB PO SCH (08:58)
[2020-07-20] MEDS: AMIODARONE 200 MG TAB PO SCH (08:58)
[2020-07-20] MEDS: ASPIRIN 325 MG TAB PO SCH (08:58)
[2020-07-20] MEDS: CHOLECALCIFEROL 1,000 UNIT TAB PO SCH (08:58)
[2020-07-20] MEDS: METOPROLOL TARTRATE 12.5 MG TAB PO SCH (08:58)
[2020-07-20] MEDS: CLOPIDOGREL 75 MG TAB PO SCH (09:00)
[2020-07-20] MEDS: ATORVASTATIN 40 MG TAB PO SCH (09:00)
[2020-07-20] MEDS: ASCORBIC ACID 500 MG TAB PO SCH (09:00)
[2020-07-20] MEDS: hydrALAZINE HCL 25 MG TAB PO SCH ×2 (09:01→17:57)
--- NOTE | 2020-07-20 09:11 | P.PN ---
Subjective Progress Note Date: 07/20/20 Principal diagnosis: Severe mitral valve regurgitation with myxomatous mitral valve and prolapse of A-2 segment with dilated annulus. past medical history significant for nonsustai meredith ventricular tachycardia, hypertension, right nephrectomy, chronic hyponatremia, biatrial enlargement, lifelong nonsmoker with mild obstructive lung disease and preoperative FEV1 70% of predicted value. POD #5 complex mitral valve repair by construction of 6 Shan-chords to the A-2 segment and complete semi-rigid annuloplasty using a 34 mm Physio-2 ring, modified left-sided maze procedure by performing a box lesion using radiofrequency ablation, exclusion of the left atrial appendage using a 35 mm AtriClip, intraoperative transesophageal echocardiogram and epi-aortic scanning. Postoperative acute blood loss anemia, thrombocytopenia, expected secondary to hemodilution and cardiopulmonary bypass pump. Postoperative hypotension, expected. Postoperative acute on chronic hyponatremia, likely dilutional, expected as patient consumes large amounts of water. POD #1 the patient was seen in follow-up today 07/20/2020 at her bedside on the cardiac stepdown unit. Currently she is sitting up to the bedside chair, he is awake, alert and oriented 3 and is in no acute apparent distress. Remote telemetry showing normal sinus rhythm with rare PVC, heart rate 76 BPM. She reports she has been ambulating in the cardiac stepdown unit hallway with minimal assistance from nursing staff. Remains afebrile. Oxygen saturation is 96% on room air and she is achieving 1000 mL on her incentive spirometry. A left thoracentesis was completed at her bedside yesterday performed by Dr. Burleson, 800 mL of turbid- colored/bloody fluid drained. Objective - Vital Signs Vital signs: Vital Signs Temp 97.9 F 07/20/20 04:15 Pulse 74 07/20/20 04:15 Resp 18 07/20/20 04:15 BP 133/67 07/20/20 04:15 Pulse Ox 96 07/20/20 04:15 Intake & Output 07/19/20 07/20/20 07/20/20 18:59 06:59 18:59 Intake Total 1067 100 120 Output Total 1400 400 Balance -333 -300 120 Weight 68 kg 67.6 kg Intake: Oral 1067 100 120 Output: Gastric Drainage 800 Urine 600 400 Other: Voiding Method Toilet Toilet # Voids 1 ABP, PAP, CO, CI - Last Documented Arterial Blood Pressure 107/47 Pulmonary Artery Pressure 25/9 Cardiac Output 3.9 Cardiac Index 2.3 - Constitutional General appearance: Present: average body habitus, cooperative, no acute distress - EENT Eyes: Present: PERRLA, normal appearance. Absent: scleral icterus ENT: Present: hearing grossly normal. Absent: thrush - Neck Details: Neck is supple, no JVD, no lymphadenopathy. - Respiratory Details: Lungs sounds essentially clear throughout, diminished to her left lower lobe. No wheezes, rhonchi or crackles. Respirations are symmetrical and nonlabored. Oxygen saturation is 96% on room air. Achieving 1000 mL on her incentive spirometry. - Cardiovascular Details: Regular rhythm and rate. S1 and S2 present, negative for S3, gallop or murmur. Sternum is stable. Remote telemetry showing normal sinus rhythmwith rare PVC heart rate 76 BPM. Knee-high JHONNY hose and sequential compression devices in place to bilateral lower extremities. Heart hugger is in place and she is demonstrating appropriate use. - Gastrointestinal Gastrointestinal Comment(s): abdomen is soft, nontender and nondistended. Active bowel sounds present in all 4 abdominal quadrants. No guarding or rigidity. No organomegaly appreciated. Tolerating oral intake. Bowel movement yesterday 07/19/2020. - Genitourinary Genitourinary Comment(s): Continues to void. - Integumentary Integumentary Comment(s): Skin is warm, dry and intact. No clubbing or cyanosis is present. Midline sternal incision is clean, dry and approximated. No drainage or redness is pr esent. - Neurologic Neurologic: Present: CNII-XII intact - Musculoskeletal Musculoskeletal: Present: gait normal, strength equal bilaterally - Psychiatric Psychiatric: Present: A&O x's 3, appropriate affect, intact judgment & insight - Allied health notes Allied health notes reviewed: nursing - Labs CBC & Chem 7: 07/20/20 06:38 07/20/20 06:38 Labs: Abnormal Lab Results - Last 24 Hours (Table) 07/19/20 07/19/20 07/19/20 Range/Units 12:16 16:41 20:26 WBC (3.8-10.6) k/uL RBC (3.80-5.40) m/uL Hgb (11.4-16.0) gm/dL Hct (34.0-46.0) % MCV (80.0-100.0) fL MCH (25.0-35.0) pg RDW (11.5-15.5) % Sodium (137-145) mmol/L Potassium (3.5-5.1) mmol/L BUN (7-17) mg/dL Creatinine (0.52-1.04) mg/dL POC Glucose (mg/dL) 107 H 103 H 118 H (75-99) mg/dL 07/20/20 07/20/20 07/20/20 Range/Units 06:11 06:38 06:38 WBC 15.7 H (3.8-10.6) k/uL RBC 2.87 L (3.80-5.40) m/uL Hgb 10.1 L (11.4-16.0) gm/dL Hct 30.2 L (34.0-46.0) % MCV 105.3 H (80.0-100.0) fL MCH 35.1 H (25.0-35.0) pg RDW 15.7 H (11.5-15.5) % Sodium 126 L (137-145) mmol/L Potassium 5.3 H (3.5-5.1) mmol/L BUN 29 H (7-17) mg/dL Creatinine 1.05 H (0.52-1.04) mg/dL POC Glucose (mg/dL) 100 H (75-99) mg/dL - Imaging and Cardiology Chest x-ray: report reviewed, image reviewed Assessment and Plan Assessment: 1. 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 Recent history of nonsustained ventricular tachycardia 3. History of hypertension 4. History of right nephrectomy 5. Lifelong nonsmoker with mild obstructive lung disease and preoperative FEV1 70% of predicted 6. Postoperative acute blood loss anemia, thrombocytopenia, expected 7. Postoperative acute on chronic hyponatremia, expected, likely dilutional 8. Postoperative left pleural effusion, status post left thoracentesis Plan: 1. Continue aspirin, statin, Plavix, beta evelyn and amiodarone. 2. Bronchodilators per pulmonology/critical care medicine. Encourage incentive spirometry use 10 times every hour while awake. 3. Will monitor daily labs and chest x-rays. Electrolyte replacement per protocol. Fluid restriction 1500 mL. 4. Increase activity, ambulate as tolerated. PT/OT/cardiac rehab following. 5. GI/DVT prophylaxis. 6. Insulin management per primary care service. Patient is not diabetic, preoperative hemoglobin A1c 5.1%. 8. Pain control with current medication regimen. Discontinue Toradol as her BUN and creatinine are trending up. 9. May bladder scan and straight cathed for greater than 300 mL residual urine. 10. Strict accurate intake and output. Daily weights on standup scale. 11. Lasix 20 mg IV 1 now, Lasix 20 mg by mouth daily startingtomorrow 07/21/2020. 12. Discharge planning in progress. Anticipate discharge to home with home care in the next 24 hours. 13. Discussed with cardiology regarding afterload reduction. 14. More recommendations to follow based on patient's clinical course. Time with Patient: Greater than 30
[2020-07-20 10:42] VITALS: TEMP 97.6
[2020-07-20] MEDS: BENZOCAINE/MENTHOL LOZENG 1 EACH LOZENGE MUCOUS MEM PRN (10:57)
--- NOTE | 2020-07-20 11:24 | P.PN ---
Subjective This is a pleasant 75 years old female with past medical history of hypertension and mitral valve prolapse. Presents for mitral valve repair and today is postoperative day #4. Patient was sitting in chair, multiple with no complaints of chest pain or dyspnea. She is tolerating diet and have regular bowel movements. No abdominal pain. Hemodynamics the patient is stable. We will see Taper 0.7 K. Sodium is 125, potassium 5.2. Creatinine normal 0.9 Chest x-ray showed left-sided pleural effusion she underwent thoracocentesis by pulmonary team 07/20/2020 Patient is still beta hyponatremic. Patient appears to have been treated for hypervolemic hyponatremia. Patient serum sodium marginally improved with Lasix presently appears to be euvolemic. Patient is on fluid restriction patient is being discharged today which is okay from medical perspective patient had a left-sided pleural effusion for which patient underwent thoracocentesis. I recommended that and discussed with the cardiothoracic nurse practitioner that patient will need a basic metabolic profile tested in couple days and follow up with the nephrology in about a week. Patient is being discharged on probably milligrams of oral Lasix. Patient clinically looks much better Constitutional: Denied any fatigue denied any fever. Cardio vascular: denied any chest pain, palpitations Gastrointestinal denied any nausea vomiting Pulmonary: Denied any shortness of breath cough Neurologic denied any new focal deficits All inpatient medications were reviewed and appropriate changes in these medications as dictated in the interval history and assessment and plan. Objective - Vital Signs Vital signs: Vital Signs Temp 97.6 F 07/20/20 08:00 Pulse 76 07/20/20 08:18 Resp 18 07/20/20 08:00 BP 139/61 07/20/20 08:00 Pulse Ox 99 07/20/20 08:00 Intake & Output 07/19/20 07/20/20 07/20/20 18:59 06:59 18:59 Intake Total 1067 100 120 Output Total 1400 400 Balance -333 -300 120 Weight 68 kg 67.6 kg Intake: Oral 1067 100 120 Output: Gastric Drainage 800 Urine 600 400 Other: Voiding Method Toilet Toilet # Voids 1 ABP, PAP, CO, CI - Last Documented Arterial Blood Pressure 107/47 Pulmonary Artery Pressure 25/9 Cardiac Output 3.9 Cardiac Index 2.3 - Exam GENERAL: The patient is alert and oriented x3, not in any acute distress. Well developed, well nourished. HEENT: Pupils are round and equally reacting to light. EOMI. No scleral icterus. No conjunctival pallor. Normocephalic, atraumatic. No pharyngeal erythema. No thyromegaly. CARDIOVASCULAR: S1 and S2 present. No murmurs, rubs, or gallops. PULMONARY: Chest is clear to auscultation, no wheezing or crackles. ABDOMEN: Soft, nontender, nondistended, normoactive bowel sounds. No palpable organomegaly. MUSCULOSKELETAL: No joint swelling or deformity. EXTREMITIES: No cyanosis, clubbing, minimal pedal edema NEUROLOGICAL: Gross neurological examination did not reveal any focal deficits. SKIN: No rashes. no petechiae. - Labs CBC & Chem 7: 07/20/20 06:38 07/20/20 06:38 Labs: Abnormal Lab Results - Last 24 Hours (Table) 07/19/20 07/19/20 07/19/20 Range/Units 12:16 16:41 20:26 WBC (3.8-10.6) k/uL RBC (3.80-5.40) m/uL Hgb (11.4-16.0) gm/dL Hct (34.0-46.0) % MCV (80.0-100.0) fL MCH (25.0-35.0) pg RDW (11.5-15.5) % Sodium (137-145) mmol/L Potassium (3.5-5.1) mmol/L BUN (7-17) mg/dL Creatinine (0.52-1.04) mg/dL POC Glucose (mg/dL) 107 H 103 H 118 H (75-99) mg/dL 07/20/20 07/20/20 07/20/20 Range/Units 06:11 06:38 06:38 WBC 15.7 H (3.8-10.6) k/uL RBC 2.87 L (3.80-5.40) m/uL Hgb 10.1 L (11.4-16.0) gm/dL Hct 30.2 L (34.0-46.0) % MCV 105.3 H (80.0-100.0) fL MCH 35.1 H (25.0-35.0) pg RDW 15.7 H (11.5-15.5) % Sodium 126 L (137-145) mmol/L Potassium 5.3 H (3.5-5.1) mmol/L BUN 29 H (7-17) mg/dL Creatinine 1.05 H (0.52-1.04) mg/dL POC Glucose (mg/dL) 100 H (75-99) mg/dL Assessment and Plan Plan: Status post mitral valve repair Left side pleural effusion is status post thoracocentesis Hyponatremia: Most probably hypovolemic hyponatremia improved marginally with the Lasix and further plan and recommendations regarding this as mentioned above Hypertension Status post right nephrectomy and 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
--- NOTE | 2020-07-20 11:26 | P.NPCON ---
History of Present Illness - Reason for Consult hyponatremia - History of Present Illness reason for consultation: Hyponatremia History of present illness: A signed patient is a 75-year-old female seen in [facility] consultation for hyponatremia. sodium level was 132 on admission on 07/15/2020 and is 126 as of this morning. patient has history of severe mitral valve regurgitation and underwent mitral valve repair on July 15. she was also noted to have bilateral pleural effusions and underwent left-sided thoracentesis with 800 mL drained on July 19. She's been working with physical therapy and has been ambulating. Oral intake has been fair. She's been drinking quite a bit of water to keep herself hydrated. No vomiting or diarrhea. No chest pain or shortness of breath. Does complain of some edema in her lower exam it is. She did receive IV Lasix 20 mg this morning. She is not on any thiazide diuretics. Denies any history of malignancy. she does have history of right nephrectomy performed in 1962. No history of diabetes. No fever or chills. Hemodynamically stable. she was receiving Toradol as needed for pain and was discontinued early this morning. Vital signs are stable. General: The patient appeared well nourished and normally developed. HEENT: Head exam is unremarkable. Neck is without jugular venous distension. LUNGS: Breath sounds decreased. HEART: Rate and Rhythm are regular. ABDOMEN: soft, nontender. EXTREMITITES: 1+ edema. Past Medical History Past Medical History: Hypertension, Mitral Valve Prolapse (MVP) Additional Past Medical History / Comment(s): HAS ONE KIDNEY ON THE LEFT, wearing life vest currently History of Any Multi-Drug Resistant Organisms: None Reported Past Surgical History: Appendectomy, Heart Catheterization, Hysterectomy, Tubal Ligation Additional Past Surgical History / Comment(s): Right nephrectomy Past Anesthesia/Blood Transfusion Reactions: No Reported Reaction Past Psychological History: No Psychological Hx Reported Smoking Status: Never smoker Past Alcohol Use History: None Reported Past Drug Use History: None Reported - Past Family History Mother Family Medical History: Hypertension Medications and Allergies Home Medications Medication Instructions Recorded Confirmed Type Aspirin 81 mg PO DAILY #30 chew 06/14/20 07/15/20 Rx Furosemide [Lasix] 20 mg PO DAILY #30 tab 06/14/20 07/15/20 Rx Metoprolol Tartrate [Lopressor] 12.5 mg PO DAILY #30 tab 06/14/20 07/15/20 Rx Nitroglycerin Sl Tabs [Nitrostat] 0.4 mg SUBLINGUAL Q5M PRN #20 tab 06/14/20 07/15/20 Rx Potassium Chloride ER [K-Dur 10] 10 meq PO DAILY #30 tab.er.prt 06/14/20 07/15/20 Rx amLODIPine [Norvasc] 5 mg PO DAILY@0730 #30 tab 06/14/20 07/15/20 Rx lisinopriL [Zestril] 40 mg PO DAILY@0730 30 Days #40 tab 06/14/20 07/15/20 Rx Amiodarone [Cordarone] 200 mg PO DAILY 07/08/20 07/15/20 History Ascorbic Acid [Vitamin C] 500 mg PO DAILY 07/08/20 07/15/20 History Cholecalciferol [Vitamin D3 (25 1,000 unit PO DAILY 07/08/20 07/15/20 History Mcg = 1000 Iu)] Famotidine [Pepcid] 20 mg PO DAILY PRN 07/08/20 07/15/20 History Multivitamins, Thera [Multivitamin 1 tab PO DAILY 07/08/20 07/15/20 History (formulary)] Mupirocin 2% Oint [Bactroban 2% 1 applic NASAL BID #1 tube 07/09/20 07/15/20 Rx Oint] Allergies Allergy/AdvReac Type Severity Reaction Status Date / Time codeine AdvReac Confusion Verified 07/15/20 06:00 Physical Exam Vitals: Vital Signs Temp Pulse Pulse Resp BP BP BP 07/20/20 08:18 76 07/20/20 08:07 76 07/20/20 08:00 97.6 F 83 18 139/61 07/20/20 04:15 97.9 F 74 18 133/67 07/20/20 00:00 98.2 F 72 18 113/74 07/19/20 23:00 70 17 07/19/20 22:00 69 18 123/78 07/19/20 21:00 98.4 F 84 22 123/78 07/19/20 20:00 98.4 F 81 84 19 123/78 07/19/20 19:04 90 16 07/19/20 18:58 90 16 07/19/20 16:00 98.3 F 73 16 112/68 07/19/20 13:00 98.0 F 71 16 07/19/20 12:00 97.7 F 73 14 98/60 Pulse Ox 07/20/20 08:18 07/20/20 08:07 07/20/20 08:00 99 07/20/20 04:15 96 07/20/20 00:00 96 07/19/20 23:00 07/19/20 22:00 07/19/20 21:00 07/19/20 20:00 94 L 07/19/20 19:04 07/19/20 18:58 07/19/20 16:00 96 07/19/20 13:00 07/19/20 12:00 94 L Intake and Output 07/19/20 07/20/20 07/20/20 22:59 06:59 14:59 Intake Total 340 120 Output Total 250 250 Balance 90 -250 120 Intake: Oral 340 120 Output: Urine 250 250 Other: Voiding Method Toilet Toilet # Voids 1 Weight 68 kg 67.6 kg Results - Lab Results Most recent lab results ABG pH 7.38 (7.35-7.45) 07/15/20 18:56 ABG pCO2 37 mmHg (35-45) 07/15/20 18:56 ABG pO2 86 mmHg (83-108) 07/15/20 18:56 ABG HCO3 22 mmol/L (21-25) 07/15/20 18:56 ABG O2 Saturation 97.3 % (94-97) H 07/15/20 18:56 Calcium 9.0 mg/dL (8.4-10.2) 07/20/20 06:38 Magnesium 2.4 mg/dL (1.6-2.3) H 07/17/20 04:00 07/20/20 06:38 07/20/20 06:38 Assessment and Plan Plan: assessment: 1. Hyponatremia, hypervolemic. Also component of poor solute intake and further worsened with the use of nonsteroidals. Sodium level CXXVI this morning. 2. Status post mitral valve repair 07/15/2020. 3. Lower extremity edema. 4. pleural effusions status post left-sided thoracentesis on July 19 with 800 mL drained. 5. status post right nephrectomy. 6. 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 Plan: I will give her an additional dose of Lasix 20 mg IV this evening. Agree with fluid restriction. Add ensure 2-3 times daily. Encouraged oral intake, particularly protein. Check serum and urine osmolality and urine sodium level. Repeat electrolytes in the morning. Thank you for the consultation. I will continue to follow the patient with you during her hospital stay.
[2020-07-20 11:40] LABS: Glucose,Whole Blood 97 mg/dL (75-99)
--- NOTE | 2020-07-20 13:26 | P.PN ---
<Demi Davis Suzy - Last Filed: 07/20/20 13:19> Subjective Progress Note Date: 07/20/20 CHIEF COMPLAINT: Post cardiac surgery HISTORY OF PRESENT ILLNESS: Patient is status post mitral valve repair. She was transferred out of the intensive care unit yesterday to the selective care unit. Patient examined this morning sitting up in the chair with Dr. Farmer. She underwent left-sided thoracentesis with removal of 800 mL of fluid. Patient states she is breathing easier today. Denies chest pain or pressure. Blood pressure 139/61. Heart rate in the 80s. Patient received a 1 time dose of IV Lasix today and will begin oral Lasix tomorrow per cardiothoracic surgery. PHYSICAL EXAM: VITAL SIGNS: Reviewed. GENERAL: Well-developed in no acute distress. NECK: Supple. No JVD or thyromegaly LUNGS: Respirations even and unlabored. Lungs diminished. HEART: Regular rate and rhythm. S1 and S2 heard. Heart hugger in place. EXTREMITIES: Normal range of motion. No clubbing or cyanosis. Peripheral pulses intact. Trace lower extremity edema ASSESSMENT: Status post mitral valve repair History of non-sustained ventricular tachycardia, on amiodarone Left-sided pleural effusion, status post thoracentesis Hypertension Hyponatremia PLAN: Agree with Lasix added per CTS surgery Begin hydralazine 25mg TID Continue use of incentive spirometer Possible discharge in the next 24 hours Nurse practitioner note has been reviewed by physician. Signing provider agrees with the documented findings, assessment, and plan of care. Objective - Vital Signs Vital signs: Vital Signs Temp 97.6 F 07/20/20 08:00 Pulse 84 07/20/20 12:03 Resp 18 07/20/20 08:00 BP 139/61 07/20/20 08:00 Pulse Ox 99 07/20/20 08:00 Intake & Output 07/19/20 07/20/20 07/20/20 18:59 06:59 18:59 Intake Total 1067 100 120 Output Total 1400 400 Balance -333 -300 120 Weight 68 kg 67.6 kg Intake: Oral 1067 100 120 Output: Gastric Drainage 800 Urine 600 400 Other: Voiding Method Toilet Toilet # Voids 1 ABP, PAP, CO, CI - Last Documented Arterial Blood Pressure 107/47 Pulmonary Artery Pressure 25/9 Cardiac Output 3.9 Cardiac Index 2.3 - Labs CBC & Chem 7: 07/20/20 06:38 07/20/20 06:38 Labs: Abnormal Lab Results - Last 24 Hours (Table) 07/19/20 07/19/20 07/20/20 Range/Units 16:41 20:26 06:11 WBC (3.8-10.6) k/uL RBC (3.80-5.40) m/uL Hgb (11.4-16.0) gm/dL Hct (34.0-46.0) % MCV (80.0-100.0) fL MCH (25.0-35.0) pg RDW (11.5-15.5) % Sodium (137-145) mmol/L Potassium (3.5-5.1) mmol/L BUN (7-17) mg/dL Creatinine (0.52-1.04) mg/dL POC Glucose (mg/dL) 103 H 118 H 100 H (75-99) mg/dL Osmolality (280-301) mosm/kg 07/20/20 07/20/20 07/20/20 Range/Units 06:36 06:38 06:38 WBC 15.7 H (3.8-10.6) k/uL RBC 2.87 L (3.80-5.40) m/uL Hgb 10.1 L (11.4-16.0) gm/dL Hct 30.2 L (34.0-46.0) % MCV 105.3 H (80.0-100.0) fL MCH 35.1 H (25.0-35.0) pg RDW 15.7 H (11.5-15.5) % Sodium 126 L (137-145) mmol/L Potassium 5.3 H (3.5-5.1) mmol/L BUN 29 H (7-17) mg/dL Creatinine 1.05 H (0.52-1.04) mg/dL POC Glucose (mg/dL) (75-99) mg/dL Osmolality 270 L (280-301) mosm/kg <Lazaro Farmer - Last Filed: 07/20/20 16:19> Subjective Patient transferred from ICU. She did have thoracentesis and admits to some improvement and shortness breath. She does have mild lower extremity edema and we agree with diuresis. Continue to monitor hyponatremia. Hydralazine added for afterload reduction. Objective - Vital Signs Vital signs: Vital Signs Temp 97.6 F 07/20/20 08:00 Pulse 84 07/20/20 12:03 Resp 18 07/20/20 08:00 BP 139/61 07/20/20 08:00 Pulse Ox 99 07/20/20 08:00 Intake & Output 07/19/20 07/20/20 07/20/20 18:59 06:59 18:59 Intake Total 1067 100 600 Output Total 1400 400 Balance -333 -300 600 Weight 68 kg 67.6 kg Intake: Oral 1067 100 600 Output: Gastric Drainage 800 Urine 600 400 Other: Voiding Method Toilet Toilet # Voids 1 3 ABP, PAP, CO, CI - Last Documented Arterial Blood Pressure 107/47 Pulmonary Artery Pressure 25/9 Cardiac Output 3.9 Cardiac Index 2.3 - Labs CBC & Chem 7: 07/20/20 06:38 07/20/20 06:38 Labs: Abnormal Lab Results - Last 24 Hours (Table) 07/19/20 07/19/20 07/20/20 Range/Units 16:41 20:26 06:11 WBC (3.8-10.6) k/uL RBC (3.80-5.40) m/uL Hgb (11.4-16.0) gm/dL Hct (34.0-46.0) % MCV (80.0-100.0) fL MCH (25.0-35.0) pg RDW (11.5-15.5) % Sodium (137-145) mmol/L Potassium (3.5-5.1) mmol/L BUN (7-17) mg/dL Creatinine (0.52-1.04) mg/dL POC Glucose (mg/dL) 103 H 118 H 100 H (75-99) mg/dL Osmolality (280-301) mosm/kg 07/20/20 07/20/20 07/20/20 Range/Units 06:36 06:38 06:38 WBC 15.7 H (3.8-10.6) k/uL RBC 2.87 L (3.80-5.40) m/uL Hgb 10.1 L (11.4-16.0) gm/dL Hct 30.2 L (34.0-46.0) % MCV 105.3 H (80.0-100.0) fL MCH 35.1 H (25.0-35.0) pg RDW 15.7 H (11.5-15.5) % Sodium 126 L (137-145) mmol/L Potassium 5.3 H (3.5-5.1) mmol/L BUN 29 H (7-17) mg/dL Creatinine 1.05 H (0.52-1.04) mg/dL POC Glucose (mg/dL) (75-99) mg/dL Osmolality 270 L (280-301) mosm/kg
--- NOTE | 2020-07-20 13:42 | P.PN ---
Subjective Progress Note Date: 07/20/20 Principal diagnosis: Severe mitral valve stenosis 75-year-old white female patient of Dr. Delano Lemus with a history of hypertension, known history of mitral valve prolapse, and right nephrectomy who was recently hospitalized from 06/10/2020 through all 06/14/2020 4 complaints of intermittent spells of dizziness, heart palpitations. Patient was admitted, she did have episodes of ventricular tachycardia while in the hospital, she was evaluated by Dr. Roa. Echocardiogram showed moderate eccentric mitral regurgitation with mild prolapse of the anterior mitral leaflet, mild tricuspid regurgitation, dilated left atrium, mild aortic insufficiency, preserved LV function with EF of 50-55%. Heart catheterization showed normal coronary arteries, with 4+ mitral regurgitation. Transesophageal echocardiogram showed mitral valve prolapse and 3-4+ mitral regurgitation, no evidence of PFO, and no clot in the left atrial appendage, it did show left atrial enlargement. Patient was referred to cardiothoracic surgical team for evaluation, and today on 07/15/2020 patient underwent mitral valve repair, modified Scott, and exclusion of the left atrial appendage. Patient is seen in the postoperative period in the intensive care unit, sedated and intubated on mechanical ventilator, currently on SIMV with a rate of 12, tidal lines 450, FiO2 is 40% PEEP of 5, and a pressure support of 5. Hemodynamically patient is stable, 0.9 normal sinus rhythm at 50 ML per hour, Diprivan is at 20 mics per kilo per minute, no other drips. Patient has mediastinal chest tube with 140 mL of single is output and pleural chest tube with 10 mL of sanguinous output, epicardial wires to external pacemaker and patient is currently being atrially paced at a rate of 80 BPM, PA pressures of 35/19, CVP is 13, cardiac output is 3.5, cardiac index is 2.1. Postoperative chest x-ray was viewed showing satisfactory postoperative chest x- ray, probable basilar atelectatic changes and the possibility of some volume overload and interstitial edema. Postoperative blood gas showed pO2 of greater than 400, pCO2 43, pH of 7.37, this was done on FiO2 of 100%, which has since been dropped to 40%. Postoperative blood work shows white blood cell count of 15.9, hemoglobin of 10.4, INR is 1.3, sodium is 132, direct electrolytes and renal profile were within normal limits. On 07/20/2020 patient seen in follow-up on selective care unit, she sits up in the chair, she had some mild to moderate amount of discomfort from the left thoracentesis site, but no acute distress, yesterday we removed 800 mL of pleural fluid from the left chest, patient tolerated procedure very well. Today's chest x-ray shows small basilar effusions and associated atelectasis. Breathing is comfortable, patient is on room air pulse ox of 99%, no fever or chills, hemodynamically stable. Today's labs have been reviewed. Serum sodium is 126, potassium is 5.3. Patient was given a dose of IV Lasix today, nephrology is following. Vital signs are stable, all chest tubes all wires Jasso catheter or lines have been removed, patient has been ambulating, tolerating activity well. Patient is on 1100 1250 on her incentive spirometer today. She remains on 1500 mL fluid restriction Objective - Vital Signs Vital signs: Vital Signs Temp 97.6 F 07/20/20 08:00 Pulse 84 07/20/20 12:03 Resp 18 07/20/20 08:00 BP 139/61 07/20/20 08:00 Pulse Ox 99 07/20/20 08:00 Intake & Output 07/19/20 07/20/20 07/20/20 18:59 06:59 18:59 Intake Total 1067 100 120 Output Total 1400 400 Balance -333 -300 120 Weight 68 kg 67.6 kg Intake: Oral 1067 100 120 Output: Gastric Drainage 800 Urine 600 400 Other: Voiding Method Toilet Toilet # Voids 1 ABP, PAP, CO, CI - Last Documented Arterial Blood Pressure 107/47 Pulmonary Artery Pressure 25/9 Cardiac Output 3.9 Cardiac Index 2.3 - Exam GENERAL EXAM: Alert, very pleasant 75-year-old white female, on room air, the pulse ox of 99% comfortable in no apparent distress. HEAD: Normocephalic/atraumatic. EYES: Normal reaction of pupils, equal size. Conjunctiva pink, sclera white. NOSE: Clear with pink turbinates. THROAT: No erythema or exudates. NECK: No masses, no JVD, no thyroid enlargement, no adenopathy. CHEST: No chest wall deformity. Symmetrical expansion. Midsternal incision is clean dry and intact, chest tube sites covered with dressings, clean dry and intact LUNGS: Equal air entry with no crackles, wheeze, rhonchi or dullness. CVS: Regular rate and rhythm, normal S1 and S2, no gallops, no murmurs, no rubs ABDOMEN: Soft, nontender. No hepatosplenomegaly, normal bowel sounds, no guarding or rigidity. EXTREMITIES: No clubbing, no edema, no cyanosis, 2+ pulses and upper and lower extremities. MUSCULOSKELETAL: Muscle strength and tone normal. SPINE: No scoliosis or deformity SKIN: No rashes CENTRAL NERVOUS SYSTEM: Alert and oriented -3. No focal deficits, tone is normal in all 4 extremities. PSYCHIATRIC: Alert and oriented -3. Appropriate affect. Intact judgment and insight. - Labs CBC & Chem 7: 07/20/20 06:38 07/20/20 06:38 Labs: Abnormal Lab Results - Last 24 Hours (Table) 07/19/20 07/19/20 07/20/20 Range/Units 16:41 20:26 06:11 WBC (3.8-10.6) k/uL RBC (3.80-5.40) m/uL Hgb (11.4-16.0) gm/dL Hct (34.0-46.0) % MCV (80.0-100.0) fL MCH (25.0-35.0) pg RDW (11.5-15.5) % Sodium (137-145) mmol/L Potassium (3.5-5.1) mmol/L BUN (7-17) mg/dL Creatinine (0.52-1.04) mg/dL POC Glucose (mg/dL) 103 H 118 H 100 H (75-99) mg/dL Osmolality (280-301) mosm/kg 07/20/20 07/20/20 07/20/20 Range/Units 06:36 06:38 06:38 WBC 15.7 H (3.8-10.6) k/uL RBC 2.87 L (3.80-5.40) m/uL Hgb 10.1 L (11.4-16.0) gm/dL Hct 30.2 L (34.0-46.0) % MCV 105.3 H (80.0-100.0) fL MCH 35.1 H (25.0-35.0) pg RDW 15.7 H (11.5-15.5) % Sodium 126 L (137-145) mmol/L Potassium 5.3 H (3.5-5.1) mmol/L BUN 29 H (7-17) mg/dL Creatinine 1.05 H (0.52-1.04) mg/dL POC Glucose (mg/dL) (75-99) mg/dL Osmolality 270 L (280-301) mosm/kg Assessment and Plan Plan: Assessment: #1. Severe mitral regurgitation, status post mitral valve repair, modified Scott Maze procedure, and exclusion of left atrial appendage, postoperative day #5 #2. Post thoracotomy and the patient has bilateral pleural effusions, left greater than right, post removal of the chest tubes, status post left-sided thoracentesis on 07/19/2020 would removal of 800 mL of dark colored pleural fluid, postsurgical in nature, thoracentesis was therapeutic in nature, fluid was not sent for analysis #3. Acute blood loss anemia, postoperative, expected outcome of surgery #4. Recent hospitalization for nonsustained ventricular tachycardia, palpitations, and intermittent spells of dizziness related to severe mitral regurgitation #5. History of hypertension #6. History of right nephrectomy #7. Lifetime nonsmoker, preop PFT showed FEV1 of 70% of predicted #8. Leukocytosis likely reactive secondary to surgery #9. Hyponatremia, likely hypervolemic, on fluid restriction, nephrology has been consulted Plan: Patient is doing well, continue encouraging deep breathing and coughing, encourage ambulation, today's chest x-ray shows a small bilateral pleural effusions, and atelectasis, left Pleural effusion significantly decreased in size status post left-sided thoracentesis on 07/19/2020, patient is currently stable, she is on room air. We'll continue to follow. Serum sodium remains low, nephrology was consulted. Patient is on water restriction. I performed a history & physical examination of the patient and discussed their management with my nurse practitioner, Natasha Arellano. I reviewed the nurse practitioner's note and agree with the documented findings and plan of care. Lung sounds are positive for clear breath sounds. The findings and the impression was discussed with the patient. I attest to the documentation by the nurse practitioner. Time with Patient: Less than 30
--- NOTE | 2020-07-20 14:22 | P.DS ---
Providers Date of admission: 07/15/20 05:32 Expected date of discharge: 07/20/20 Attending physician: Nain Durán Consults: 07/15/20 13:19 Consult Physician Routine Consulting Provider: Ortega Og Consult Reason/Comments: Web Site Specialist Consult: post cardiac surgery Do you want consulting provider notified?: Yes Consult Physician Routine Consulting Provider: Gonzalez Meng Consult Reason/Comments: [facility]; Dr. Lemus patient Do you want consulting provider notified?: Yes Consult Physician Routine Consulting Provider: Rashel Tejada Consult Reason/Comments: Guide Excursion Consult: post cardiac surgery Do you want consulting provider notified?: Yes 07/20/20 10:49 Consult Physician Routine Consulting Provider: Morales Morales Consult Reason/Comments: Hyponatremia Do you want consulting provider notified?: Yes Primary care physician: Delano Lemus Hospital Course: FINAL DIAGNOSIS: 1. 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 Recent history of nonsustained ventricular tachycardia 3. History of hypertension 4. History of right nephrectomy 5. Lifelong nonsmoker with mild obstructive lung disease and preoperative FEV1 70% of predicted value 6. Postoperative acute blood loss anemia, thrombocytopenia, expected 7. Postoperative acute on chronic hyponatremia, hypervolemic 8. Postoperative left pleural effusion, status post left thoracentesis on 07/19/2020 PRINCIPAL PROCEDURE: 1. Complex mitral valve repair by construction of 6 joey-cords to the A2 segment and complete semirigid annuloplasty using a 34 mm physio-2 ring. 2. Modified left-sided maze procedure by performing a box lesion using radiofrequency ablation. 3. Exclusion of the left atrial appendage using a 35 mm Atriclip. 4. Intraoperative transesophageal echocardiogram. 5. Intraoperative epi-aortic scanning. HISTORY OF PRESENT ILLNESS: This is a 75-year-old active female who follows on an outpatient basis with Dr. Delano Lemus. She has a past medical history significant for hypertension, mitral valve prolapse and right nephrectomy. Recently, she had complaints of intermittent spells of dizziness and heart palpitations which had progressed over 3 week period. After reporting these symptoms to her primary care physician a Holter monitor was placed and was sent to cardiology to be read. The patient did have an emergency room visit due to the above-mentioned symptoms in May 2020. During her hospitalization in May 2020 she underwent a transthoracic echocardiogram which demonstrated a normal left ventricular systolic function with an ejection fraction of 50-55%, a dilated left atrium, mild aortic valve insufficiency, moderate eccentric mitral valve regurgitation with mild prolapse of the anterior mitral leaflet and mild tricuspid valve regurgitation. The patient also had some runs of nonsustained ventricular tachycardia and due to her recent symptoms and nonsustained ventricular tachycardia she underwent a cardiac catheterization on 06/12/2020. The cardiac catheterization showed normal coronary arteries with 4+ mitral valve regurgitation. Due to the findings on the 2-D echocardiogram and cardiac catheterization a consult was placed to Dr. Nian Durán from cardiothoracic surgery for further evaluation and treatment recommendations. The risks and benefits of mitral valve surgery including the STS risk score was discussed with the patient and knowing and understanding these risks the patient wished to proceed with the surgical option. HOSPITAL COURSE: The patient was brought to the hospital on 07/15/2020 on elective basis, taken to the preoperative area, prepared in the usual fashion, and subsequently taken to the operating room where Dr. Nain Durán performed a complex mitral valve repair by construction of 6 joey-cords to the A2 segment and complete semirigid annuloplasty using a 34 mm physio-2 ring, modified left-sided maze procedure by performing a box lesion using radiofrequency ablation, exclusion of the left atrial appendage using a 35 mm Atriclip, intraoperative transesophageal echocardiogram and epi-aortic scanning. Upon completion of the surgery the patient was transferred to the cardiovascular intensive care unit where she was recovered, monitored hemodynamically and where she progressed cardiac rehabilitation phase 1. She was extubated, all lines, tubes and supportive drips were discontinued when appropriate. Subsequently, she was transferred to third floor cardiac stepdown unit for further monitoringand rehabilitation. Her oxygen was titrated down, she continued to work with physical and occupational therapy, she was tolerating an oral diet, her pain was well controlled without narcotics and she was ready to be discharged home with [facility] on postoperative day #5. She has received written and verbal instructions regarding her medications, activity restrictions, signs and symptoms requiring physician notification and her follow-up appointments. COMPLICATIONS: The patient's postoperative recovery was complicated by a postoperative left pleural effusion requiring a left thoracentesis performed by Dr. Burleson. DISCHARGE INSTRUCTIONS: 1. No driving for 4 weeks, or until physician gives their ok. 2. The patient should sleep in their own bed, no medical bed needed. 3. Stairs are not an issue. If the bedroom is upstairs, it is advised that the patient go up at night and down in the morning for the first week. Go slowly, using handrail and take 1 step at a time. 4. JHONNY hose are to be worn for 30 days or until physician discontinues. 5. Heart hugger is to be worn 100% of the time until physician discontinues.(except when showering) 6. No lifting, pushing, or pulling more than 10 pounds for 12 weeks. The physician will advise of any restriction changes. 7. The patient is expected to continue the prescribed walking program. 8. Continue pain control per as needed orders. 9. Continue with incentive spirometry and splinting/heart hugger until otherwise directed by the physician. 10. Must shower daily using liquid antibacterial soap and a separate white washcloth for each individual incision. 11. Routine sternal incision care. No powders, lotions, ointments on incisions. No dressings are necessary on incisions unless they are draining. Dermabond tape is to remain on sternal incision until surgeon follow-up. 12. Please call surgeon/EDUCATION TRAINER for temp greater than 101 F or purulent drainage from incisions. 13. All prescriptions given by surgeon for 30 days. Refills need to be filled through comedian/primary care physician. 14. A Red armband has been placed on the patient. It should be worn for 30 days post surgery and will be removed by the cardiac surgeons. If an ER visit is necessary, please make sure the number on the Red armband is called. 15. You have been referred to and are expected to begin Cardiac Rehab in approximately 4-6 weeks. HOME HEALTH SERVICES TO PROVIDE: RN SKILLED HOME CARE SERVICES FOR POST-OP SURGICAL PATIENTS WITH THE FOLLOWING: Coronary Artery Bypass Surgery (CABG), Mitral Valve Replacement/Repair ( MVR), Aortic Valve Replacement/Repair (AVR) RN TO CONTINUE EDUCATION FROM ``ROAD TO A HEALTH HEART PATIENT EDUCATION MANUAL (GIVEN TO PATIENT IN THE HOSPITAL) MEDICATION RECONCILIATION WITH EDUCATION NEEDED ON FIRST HOME VISIT EMPHASIZE IMPORTANCE OF WEARING BREAST SUPPORT/HEART HUGGER ENCOURAGE USE OF INCENTIVE SPIROMETER 10 X EVERY HOUR WHILE AWAKE ENCOURAGE UTILIZATION OF LOWER EXTREMITY COMPRESSION STOCKINGS/JHONNY HOSE and ELEVATE LEGS ABOVE LEVEL OF HEART WHILE AT REST. ENCOURAGE AMBULATION 3-5x/day INCREASING TOLERATES, WHILE AVOIDING EXTREMES IN TEMPERATURE FREQUENCY: RN TO OPEN THE PATIENT WITHIN 24 HOURS OF DISCHARGE FROM THE HOSPITAL WITH TELEHEALTH [place]STALLED [place] [facility] [place] TO VISIT 2-3 X A WEEK FOR 4 WEEKS ESTABLISHED BY PATIENT NEEDS. LABORATORY: CBC, CMP TO BE DRAWN ON THE THIRD DAY HOME, (RAN STAT) FAX RESULTS TO [phone]. TELEHEALTH PARAMETERS: WEIGHT: NOTIFY MD OF WEIGHT GAIN OF 2 LBS IN 24 HOURS OR 5 LBS IN ONE WEEK HR: NOTIFY MD OF HR <55 BPM OR HR>100 BPM BP: NOTIFY MD IF BP <90/55 OR BP>140/100 O2 SAT: NOTIFY MD IF PO2<93% ON ROOM AIR SEND TELEHEALTH REPORT TO ENVIRONMENTAL SERVICES COORDINATOR AND CARDIOVASCULAR SURGEON THE FIRST WEEK OF CARE AND THEN BI-WEEKLY. PLEASE ADDITIONALLY COMMUNICATE ANY ABNORMALS AND NEW FINDINGS TO THE SURGEONS OFFICE. For any questions or concerns please call maintenance planning clerk Laura @ or Zach @ Plan - Discharge Summary Discharge Rx Participant: Yes New Discharge Prescriptions: New hydrALAZINE HCL [Apresoline] 25 mg PO TID #90 tab Aspirin 325 mg PO DAILY #30 tab Atorvastatin [Lipitor] 40 mg PO DAILY #30 tab Metoprolol Tartrate [Lopressor] 12.5 mg PO BID #60 tab Clopidogrel [Plavix] 75 mg PO DAILY #30 tab Sennosides-Docusate Sodium [Senokot-S] 2 each PO HS #14 tab Acetaminophen Tab [Tylenol] 1,000 mg PO Q6HR PRN tab PRN Reason: Fever And/ Or Pain Furosemide [Lasix] 20 mg PO BID #60 tab Continue Famotidine [Pepcid] 20 mg PO DAILY PRN PRN Reason: Heartburn Cholecalciferol [Vitamin D3 (25 Mcg = 1000 Iu)] 1,000 unit PO DAILY Multivitamins, Thera [Multivitamin (formulary)] 1 tab PO DAILY Ascorbic Acid [Vitamin C] 500 mg PO DAILY Changed Amiodarone [Cordarone] 200 mg PO DAILY #30 tab Discontinued Aspirin 81 mg PO DAILY #30 chew Potassium Chloride ER [K-Dur 10] 10 meq PO DAILY #30 tab.er.prt Furosemide [Lasix] 20 mg PO DAILY #30 tab Metoprolol Tartrate [Lopressor] 12.5 mg PO DAILY #30 tab Nitroglycerin Sl Tabs [Nitrostat] 0.4 mg SUBLINGUAL Q5M PRN #20 tab PRN Reason: Chest Pain amLODIPine [Norvasc] 5 mg PO DAILY@729 #30 tab lisinopriL [Zestril] 40 mg PO DAILY@729 30 Days #40 tab Mupirocin 2% Oint [Bactroban 2% Oint] 1 applic NASAL BID #1 tube Discharge Medication List Ascorbic Acid [Vitamin C] 500 mg PO DAILY 07/08/20 [History] Cholecalciferol [Vitamin D3 (25 Mcg = 1000 Iu)] 1,000 unit PO DAILY 07/08/20 [History] Famotidine [Pepcid] 20 mg PO DAILY PRN 07/08/20 [History] Multivitamins, Thera [Multivitamin (formulary)] 1 tab PO DAILY 07/08/20 [History] Acetaminophen Tab [Tylenol] 1,000 mg PO Q6HR PRN tab 07/20/20 [Rx] Amiodarone [Cordarone] 200 mg PO DAILY #30 tab 07/20/20 [Rx] Aspirin 325 mg PO DAILY #30 tab 07/20/20 [Rx] Atorvastatin [Lipitor] 40 mg PO DAILY #30 tab 07/20/20 [Rx] Clopidogrel [Plavix] 75 mg PO DAILY #30 tab 07/20/20 [Rx] Furosemide [Lasix] 20 mg PO BID #60 tab 07/20/20 [Rx] Metoprolol Tartrate [Lopressor] 12.5 mg PO BID #60 tab 07/20/20 [Rx] Sennosides-Docusate Sodium [Senokot-S] 2 each PO HS #14 tab 07/20/20 [Rx] hydrALAZINE HCL [Apresoline] 25 mg PO TID #90 tab 07/20/20 [Rx] Follow up Appointment(s)/Referral(s): Delano Lemus MD [Primary Care Provider] - 08/02/20 10:30 am Laura Pineda NPC [Nurse Practitioner] - 07/28/20 11:30 am [facility],Cardiac [NON-STAFF] - 4 Weeks (You will receive a call in 4-6 weeks for initial cardiac rehab evaluation) Nain Durán MD [STAFF PHYSICIAN] - 08/12/20 10:45 am Pati Block NPC [Nurse Practitioner] - 08/11/20 2:30 pm [facility], [NON-STAFF] - Migel Mathew MD [STAFF PHYSICIAN] - 08/02/20 4:15 pm Morales Morales DO [STAFF PHYSICIAN] - 1 Week Ambulatory/Diagnostic Orders: Complete Blood Count w/diff [LAB.AMB] Time Frame: 3 Days, Location: None Selected Comprehensive Metabolic Panel [LAB.AMB] Time Frame: 3 Days, Location: None Selected Activity/Diet/Wound Care/Special Instructions: DISCHARGE INSTRUCTIONS: 1. No driving for 4 weeks, or until physician gives their ok. 2. The patient should sleep in their own bed, no medical bed needed. 3. Stairs are not an issue. If the bedroom is upstairs, it is advised that the patient go up at night and down in the morning for the first week. Go slowly, using handrail and take 1 step at a time. 4. JHONNY hose are to be worn for 30 days or until physician discontinues. 5. Heart hugger is to be worn 100% of the time until physician discontinues.(except when showering) 6. No lifting, pushing, or pulling more than 10 pounds for 12 weeks. The physician will advise of any restriction changes. 7. The patient is expected to continue the prescribed walking program. 8. Continue pain control per as needed orders. 9. Continue with incentive spirometry and splinting/heart hugger until otherwise directed by the physician. 10. Must shower daily using liquid antibacterial soap and a separate white washcloth for each individual incision. 11. Routine sternal incision care. No powders, lotions, ointments on incisions. No dressings are necessary on incisions unless they are draining. Dermabond tape is to remain on sternal incision until surgeon follow-up. 12. Please call surgeon/EDUCATION TRAINER for temp greater than 101 F or purulent drainage from incisions. 13. All prescriptions given by surgeon for 30 days. Refills need to be filled through comedian/primary care physician. 14. A Red armband has been placed on the patient. It should be worn for 30 days post surgery and will be removed by the cardiac surgeons. If an ER visit is necessary, please make sure the number on the Red armband is called. 15. You have been referred to and are expected to begin Cardiac Rehab in approximately 4-6 weeks. HOME HEALTH SERVICES TO PROVIDE: RN SKILLED HOME CARE SERVICES FOR POST-OP SURGICAL PATIENTS WITH THE FOLLOWING: Coronary Artery Bypass Surgery (CABG), Mitral Valve Replacement/Repair ( MVR), Aortic Valve Replacement/Repair (AVR) RN TO CONTINUE EDUCATION FROM ``ROAD TO A HEALTH HEART PATIENT EDUCATION MANUAL (GIVEN TO PATIENT IN THE HOSPITAL) MEDICATION RECONCILIATION WITH EDUCATION NEEDED ON FIRST HOME VISIT EMPHASIZE IMPORTANCE OF WEARING BREAST SUPPORT/HEART HUGGER ENCOURAGE USE OF INCENTIVE SPIROMETER 10 X EVERY HOUR WHILE AWAKE ENCOURAGE UTILIZATION OF LOWER EXTREMITY COMPRESSION STOCKINGS/JHONNY HOSE and ELEVATE LEGS ABOVE LEVEL OF HEART WHILE AT REST. ENCOURAGE AMBULATION 3-5x/day INCREASING TOLERATES, WHILE AVOIDING EXTREMES IN TEMPERATURE FREQUENCY: RN TO OPEN THE PATIENT WITHIN 24 HOURS OF DISCHARGE FROM THE HOSPITAL WITH TELEHEALTH INSTALLED AT [facility] [place] RN TO VISIT 2-3 X A WEEK FOR 4 WEEKS ESTABLISHED BY PATIENT NEEDS. LABORATORY: CBC, CMP TO BE DRAWN ON THE THIRD DAY HOME, (RAN STAT) FAX RESULTS TO [phone]. TELEHEALTH PARAMETERS: WEIGHT: NOTIFY MD OF WEIGHT GAIN OF 2 LBS IN 24 HOURS OR 5 LBS IN ONE WEEK HR: NOTIFY MD OF HR <55 BPM OR HR>100 BPM BP: NOTIFY MD IF BP <90/55 OR BP>140/100 O2 SAT: NOTIFY MD IF PO2<93% ON ROOM AIR SEND TELEHEALTH REPORT TO ENVIRONMENTAL SERVICES COORDINATOR AND CARDIOVASCULAR SURGEON THE FIRST WEEK OF CARE AND THEN BI-WEEKLY. PLEASE ADDITIONALLY COMMUNICATE ANY ABNORMALS AND NEW FINDINGS TO THE SURGEONS OFFICE. For any questions or concerns please call maintenance planning clerk Laura @ or Don @ Discharge Disposition: HOME WITH HOME HEALTH SERVICES
[2020-07-20] MEDS ORDERED: FUROSEMIDE 10 MG/ML 2 ML VIAL IV ONE (16:00)
[2020-07-20 16:36] VITALS: BP 100/55; PULSE 82
[2020-07-21] MEDS ORDERED: FUROSEMIDE 20 MG TAB PO SCH (09:00)
== END 2020-07-20 18:15 | disposition home health service (06) | DRG 220 ==
LOC: 2ORMAIN 07-15 05:32 → 2SICU 07-15 13:31 → 3SCARD 07-20 00:35
PROVIDERS: ADMIT Surgery; ATTEND Surgery
PROC: 02L70CK Occlusion of Left Atrial Appendage with Extraluminal Device, Open Approach (ICD-10-PCS; principal; 2020-07-15 08:00)
PROC: 02UG0JZ Supplement Mitral Valve with Synthetic Substitute, Open Approach (ICD-10-PCS; principal; 2020-07-15 08:00)
PROC: 5A1221Z Performance of Cardiac Output, Continuous (ICD-10-PCS; principal; 2020-07-15 08:00)
PROC: 02580ZZ Destruction of Conduction Mechanism, Open Approach (ICD-10-PCS; principal; 2020-07-15 08:00)
PROC: B24BZZ4 Ultrasonography of Heart with Aorta, Transesophageal (ICD-10-PCS; principal; 2020-07-15 08:00)
PROC: 0W9B3ZZ Drainage of Left Pleural Cavity, Percutaneous Approach (ICD-10-PCS; 2020-07-19)
DX: I08.3 Combined rheumatic disorders of mitral, aortic and tricuspid valves (principal); I47.2 Ventricular tachycardia; E44.1 Mild protein-calorie malnutrition; J90 Pleural effusion, not elsewhere classified; E87.1 Hypo-osmolality and hyponatremia; D62 Acute posthemorrhagic anemia; J98.11 Atelectasis; D69.6 Thrombocytopenia, unspecified; I95.9 Hypotension, unspecified; J44.9 Chronic obstructive pulmonary disease, unspecified; I12.9 Hypertensive chronic kidney disease with stage 1 through stage 4 chronic kidney disease, or unspecified chronic kidney disease; N18.2 Chronic kidney disease, stage 2 (mild); E87.70 Fluid overload, unspecified; I49.3 Ventricular premature depolarization; M54.9 Dorsalgia, unspecified; D72.829 Elevated white blood cell count, unspecified; Z68.24 Body mass index [BMI] 24.0-24.9, adult; Z79.82 Long term (current) use of aspirin; Z79.899 Other long term (current) drug therapy; Z87.19 Personal history of other diseases of the digestive system; Z90.5 Acquired absence of kidney; Z90.710 Acquired absence of both cervix and uterus; Z90.49 Acquired absence of other specified parts of digestive tract; Z87.42 Personal history of other diseases of the female genital tract; Z98.51 Tubal ligation status; Z87.448 Personal history of other diseases of urinary system; Z71.3 Dietary counseling and surveillance; Z82.49 Family history of ischemic heart disease and other diseases of the circulatory system
CPT/HCPCS: 71045; 71046; 76604; 80048; 80053; 82330; 82805; 83735; 83930; 84132; 85025; 85027; 85520; 85610; 85730; 86850; 86891; 86900; 86901; 86920; 88305; 94002; 94640

== ENCOUNTER 2020-08-15 10:47 | Day surgery (SDC) | payer MEDICARE ==
[~2020-08-15 10:47] MED LIST changes: +ATROPINE SULFATE 0.4 MG/ML 20 ML VIAL IM NR; -ATROPINE SULFATE 0.4 MG/ML 20 ML VIAL IM ONE; +SODIUM CHLORIDE 0.9% 500 ML 500 ML in EMPTY BAG 1 BAG IV PRN
[2020-08-15 11:25] VITALS: RESP 16
[2020-08-15 12:20] VITALS: BP 114/69; PULSE 75
--- NOTE | 2020-08-15 12:26 | PCN ---
PROCEDURE NOTE PROCEDURE: Right thoracentesis. PREOPERATIVE DIAGNOSIS: Right pleural effusion. POSTOPERATIVE DIAGNOSIS: Right pleural effusion. CATALYST IMPREGNATOR: Dr. Og A time-out was completed verifying correct patient, procedure, site, positioning , and implant (s) or special equipment if applicable. Ultrasound guidance was/was not used and appropriate fluid pocket was identified and marked. Patient was positioned, prepped and draped in usual sterile fashion. Lidocaine was used to anesthetize the area. A Thoracentesis catheter was introduced into the pleural space and fluid was removed. Blood loss was none. A chest x-ray will be ordered to rule out pneumothorax. Total Fluid Removed 1100 mL Color of Fluid Yellow/slightly red Fluid was sent for appropriate laboratory tests including cytology, microbiology and chemistry. Patient tolerated the procedure well and there were no complications. There was no immediate complication, there was informed consent and there was universal timeout. MMRAYRAYL / IJKeila: [id number] /
--- NOTE | 2020-08-15 12:30 | XR ---
EXAMINATION TYPE: XR chest 1V portable DATE OF EXAM: 08/15/2020 CLINICAL HISTORY: post thoracentesis. TECHNIQUE: Portable frontal view of the chest. COMPARISON: 08/11/2020 chest radiograph FINDINGS: Interval decrease in size of right pleural effusion with small volume residual effusion. T here is moderate left pleural effusion, which has increased versus 08/11/2020. No pneumothorax status post right thoracentesis. Sternotomy wires, valvular prosthesis, and left atrial appendage clip. Mil d cardiomegaly. Pulmonary vasculature is normal. IMPRESSION: 1. No pneumothorax status post right thoracentesis. Small residual right pleural effusion. 2. Moderate left pleural effusion, mildly increased versus 08/11/2020.
[2020-08-15 20:17] LABS: Appearance,BF Hazy; Color,BF Brown; Nucleated Cells, Body Fluid 45 /uL
[2020-08-15 20:18] LABS: RBC, Body Fluid 4890 /uL
[2020-08-15 20:21] LABS: Mononuclear WBC,Body Fluid 72 %; Polynuclear WBC,Body Fluid 28 %; Total Cells Counted,Body Fluid 100
[2020-08-15 20:40] LABS: Glucose, BF Source Pleural Fluid; Glucose, Body Fluid 110 mg/dL; LDH, Body Fluid Source Pleural Fluid; Total Protein, Body Fluid 2900 mg/dL
== END 2020-08-15 13:32 ==
LOC: PROCWHC3 10:47
PROVIDERS: ATTEND Internal Medicine Critical Care Medicine
DX: J90 Pleural effusion, not elsewhere classified (principal); I34.0 Nonrheumatic mitral (valve) insufficiency; I10 Essential (primary) hypertension; Z98.51 Tubal ligation status; Z90.710 Acquired absence of both cervix and uterus; Z98.890 Other specified postprocedural states; Z95.1 Presence of aortocoronary bypass graft; Z90.5 Acquired absence of kidney; Z79.02 Long term (current) use of antithrombotics/antiplatelets; Z79.82 Long term (current) use of aspirin; Z79.899 Other long term (current) drug therapy; Z82.49 Family history of ischemic heart disease and other diseases of the circulatory system
CPT/HCPCS: 32554; 71045; 82945; 83615; 84157; 87070; 87075; 87116; 87205; 87206; 88108; 88305; 89050

== ENCOUNTER → 2020-08-15 | Outpatient (CLI) | payer MEDICARE ==
[~2020-08-15] MED LIST changes: -ALBUMIN HUMAN 25% 50 ML IV ONE; -ALBUMIN HUMAN 5% 500 ML IVPB ONE; -ASPIRIN 325 MG TAB PO ONE; -ATORVASTATIN 10 MG TAB PO ONE; +ATROPINE SULFATE 0.4 MG/ML 20 ML VIAL IM ONE; -CALCIUM CHLORIDE 100 MG/ML 10 ML SYRINGE IV ONE; -CHLORHEXIDINE GLUCONATE 15 ML CUP MUCOUS MEM ONE; -CLEVIDIPINE BUTYRATE 25 MG in EMPTY BAG 1 BAG IV ONE; -DEXTROSE 5% IN WATER 1,000 ML with POTASSIUM CHLORIDE 110 MEQ, MAGNESIUM SULFATE 16 MEQ... IV ONE; -DEXTROSE 5% IN WATER 1,000 ML with POTASSIUM CHLORIDE 25 MEQ, SODIUM CHLORIDE 2.5MEQ/ML... IRRIGATION ONE; -HEPARIN SODIUM 1,000 UN/ML (10ML VL) IV ONE; -HEPARIN SODIUM,PORCINE 5,000 UNIT in SODIUM CHLORIDE 0.9% 500 ML 500 ML IV ONE; -INSULIN REGULAR 100 UNIT in SODIUM CHLORIDE 0.9% 100 ML IV ONE; -LACTATED RINGERS 1,000 ML IV ONE; -MAGNESIUM SULFATE MG 500 MG/ML IV ONE; -MANNITOL 25% 12.5 GM/50 ML VIAL IV ONE; -METOPROLOL TARTRATE 12.5 MG TAB PO ONE; -NITROGLYCERIN-D5W PMX 25 MG/250 ML BTL IV ONE; -NOREPINEPHRINE 4 MG in SODIUM CHLORIDE 0.9% 250 ML IV ONE; -PAPAVERINE 360 MG in SODIUM CHLORIDE 0.9% 90 ML IV ONE; -PHENYLEPHRINE 10 MG/ML VIAL IV ONE; -PHENYLEPHRINE 40 MG in SODIUM CHLORIDE 0.9% 250 ML IV ONE; -PROTAMINE SULFATE 10 MG/ML 25 ML VIAL IV ONE; -PROTAMINE SULFATE 250 MG in EMPTY BAG 1 BAG IV ONE; -SODIUM BICARB 8.4% 50 ML SYR (1 MEQ/ML) IV ONE; -SODIUM CHLORIDE 0.9% 1,000 ML IV ONE; -TRANEXAMIC ACID 2,000 MG in SODIUM CHLORIDE 0.9% 80 ML IV ONE; -VANCOMYCIN 1,000 MG VIAL MISCELLANE ONE; -ceFAZolin 1,000 MG in SODIUM CHLORIDE 0.9% IRRIGATIO 1,000 ML IRRIGATION ONE; -ceFAZolin 2,000 MG in SODIUM CHLORIDE 0.9% 30 ML IVPB ONE; -propofoL 1,000 MG/100 ML VIAL IV ONE
--- NOTE | 2020-08-15 11:32 | US ---
EXAMINATION TYPE: US chest DATE OF EXAM: 08/15/2020 COMPARISON: CHEST X-RAY AUGUST 11, 2020 CLINICAL HISTORY: J90 Plureal effusion rt side. TECHNIQUE: Targeted ultrasound of the posterior lower right hemithorax EXAM MEASUREMENTS: Right Pleural Effusion pocket size: 11.9 cm Right skin surface to fluid distance: 2.8 cm Right side marked for possible thoracentesis outside the dept. Pulmonologists are able to review the images in the patient?s EMR. A fairly moderate-sized right pleural effusion is confirmed on the 3 images saved which correlates wi th most recent x-ray IMPRESSIONS: As above.
== END | disposition home or self-care (01) ==
LOC: RADUSWWP 10:46
PROVIDERS: ATTEND Internal Medicine Critical Care Medicine
DX: J90 Pleural effusion, not elsewhere classified (principal)
CPT/HCPCS: 76604

== ENCOUNTER 2020-09-02 09:56 | Day surgery (SDC) | payer MEDICARE ==
[~2020-09-02 09:56] MED LIST changes: -ATROPINE SULFATE 0.4 MG/ML 20 ML VIAL IM NR
[2020-09-02 10:32] VITALS: RESP 16; TEMP 98
[2020-09-02] MEDS ORDERED: ATROPINE SULFATE 0.4 MG/ML 1 ML VIAL IM STA (10:33)
--- NOTE | 2020-09-02 12:24 | PCN ---
PROCEDURE NOTE PROCEDURE: Right thoracentesis. PREOPERATIVE DIAGNOSIS: Right pleural effusion. A time-out was completed verifying correct patient, procedure, site, positioning , and implant (s) or special equipment if applicable. Ultrasound guidance was used and appropriate fluid pocket was identified and marked. Patient was positioned, prepped and draped in usual sterile fashion. Lidocaine was used to anesthetize the area. A Thoracentesis catheter was introduced into the pleural space and fluid was removed. Blood loss was none. A chest x-ray was ordered to evaluate for pneumothorax. Total Fluid Removed: 800 mL Color of Fluid: Yellow Fluid was not sent for appropriate laboratory tests. Patient tolerated the procedure well and there were no complications. Previously, she had fluid sent for analysis, which was benign. There was no immediate complication. There was informed consent and universal timeout. The patient tolerated the procedure well. The fluid will be discarded. The patient will return on Saturday at noon for the left thoracentesis. The wall crane operator was Dr. Og. A chest x-ray was done to rule out pneumothorax. If there is no pneumothorax, the patient could be discharged from the [facility]. MMODL / IJN: [id number] /
[2020-09-02 12:28] VITALS: BP 133/92; PULSE 100
--- NOTE | 2020-09-02 12:36 | XR ---
EXAMINATION TYPE: XR chest 1V portable DATE OF EXAM: 09/02/2020 HISTORY: Shortness of breath. COMPARISON: 08/15/2020 TECHNIQUE: Single view of the chest is submitted. FINDINGS: Demonstrated are scattered senescent parenchymal change. Basilar infiltrates and small effusions. The heart is stable. Hilar and mediastinal structures are within normal limits. Degenerative changes are seen of the dorsal spine. IMPRESSION: 1. Basilar infiltrates and small effusions.
== END 2020-09-05 07:38 ==
LOC: PROCWHC3 09:56
PROVIDERS: ATTEND Internal Medicine Critical Care Medicine
DX: J90 Pleural effusion, not elsewhere classified (principal); I10 Essential (primary) hypertension; I34.1 Nonrheumatic mitral (valve) prolapse; Z98.51 Tubal ligation status; Z90.710 Acquired absence of both cervix and uterus; Z95.1 Presence of aortocoronary bypass graft; Z90.49 Acquired absence of other specified parts of digestive tract; Z98.890 Other specified postprocedural states; Z90.5 Acquired absence of kidney; Z79.82 Long term (current) use of aspirin; Z79.899 Other long term (current) drug therapy; Z82.49 Family history of ischemic heart disease and other diseases of the circulatory system
CPT/HCPCS: 71045; 96372; 32554; J0461

== ENCOUNTER → 2020-09-02 | Outpatient (CLI) | payer MEDICARE ==
--- NOTE | 2020-09-02 10:08 | US ---
EXAMINATION TYPE: US chest DATE OF EXAM: 09/02/2020 COMPARISON: US, chest x ray CLINICAL HISTORY: With Markings Z87.09; J90 pleural Effusion. TECHNIQUE: Targeted ultrasound of the posterior chest bilateral hemithoraces EXAM MEASUREMENTS: Right Pleural Effusion pocket size: 7.4 cm A/P Right skin surface to fluid distance: 2.7 cm A/P Left Pleural Effusion pocket size: 6.9 cm A/P Left skin surface to fluid distance: 2.9 cm A/P Bilateral Chest US was performed for comparison. Right side was marked for possible thoracentesis outside the dept. Left side was marked for possible thoracentesis outside the dept. Pulmonologists are able to review the images in the patient?s EMR. IMPRESSIONS: 1. Bilateral pleural effusions
== END | disposition home or self-care (01) ==
LOC: RADUSWWP 09:35
PROVIDERS: ATTEND Internal Medicine Critical Care Medicine
DX: J90 Pleural effusion, not elsewhere classified (principal)
CPT/HCPCS: 76604

== ENCOUNTER 2020-09-05 11:27 | Day surgery (SDC) | payer MEDICARE ==
[2020-09-05 11:44] VITALS: BP 127/89; TEMP 97.9
[2020-09-05 11:56] VITALS: PULSE 89; RESP 16
[2020-09-05] MEDS ORDERED: ATROPINE SULFATE 0.4 MG/ML 1 ML VIAL IM NR (12:00)
--- NOTE | 2020-09-05 12:29 | XR ---
EXAMINATION TYPE: XR chest 1V portable DATE OF EXAM: 09/05/2020 Comparison: 09/02/2020 Clinical History: 75-year-old female post thora left chest Findings: Small left effusion remains. Persistent moderate right effusion. Heart upper limits of normal in size . Median sternotomy wires with annuloplasty ring. No pneumothorax. Impression: Residual small left pleural effusion with adjacent atelectasis and/or consolidation, decreased from 11/02/2019. No pneumothorax. Persistent moderate right effusion.
--- NOTE | 2020-09-05 13:01 | PCN ---
PROCEDURE NOTE PROCEDURE: Left thoracentesis. PREOPERATIVE DIAGNOSIS: Left pleural effusion. POSTOPERATIVE DIAGNOSIS: Left pleural effusion. There was informed consent and universal timeout. A time-out was completed verifying correct patient, procedure, site, positioning , and implant (s) or special equipment if applicable. Ultrasound guidance was/was not used and appropriate fluid pocket was identified and marked. Patient was positioned, prepped and draped in usual sterile fashion. Lidocaine was used to anesthetize the area. A Thoracentesis catheter was introduced into the pleural space and fluid was removed. Blood loss was none. Total Fluid Removed: 650 mL. Color of Fluid: Yellow Fluid Fluid: Fluid was not sent for appropriate laboratory tests. Patient tolerated the procedure well and there were no complications. She had prior fluid sent down for analysis. The posterior chest was marked by ultrasound. There was no immediate complication. A chest x-ray was ordered to rule out pneumothorax. The patient tolerated the procedure well, MMODL / IJN: [id number] /
--- NOTE | 2020-09-07 07:02 | CDI ---
Date: 09.07.2020 CDS/Adjunct Physical Education Instructor Name: Cherri Donohue Phone: If any questions, call Melanie Sims Strategic Planning Analyst at [phone] Patient Name: Minerva Scales Admit Date 09.05.20 Discharge Date: 09.05.20 ATTENTION: The [facility] Coding Staff appreciate your assistance in clarifying documentation. Please respond to the clarification below the line at the bottom and electronically sign. The [facility] Coding staff will review the response and follow-up if needed. Please note: Queries are made part of the Legal Health Record. If you have any questions, please contact the Strategic Planning Analyst. Dear Dr. Og In order to code to the greatest specificity and for the greatest reimbursement I need the following information: In your documentation you have US guidance was/was not used then in the second paragraph you have chest was marked by US. Please clarify whether US was used. __Yes __No And Also pt has a charge in the acct for an injection/atropine. I find no order or mention of it in your documentation. Was this given? __Yes __No Thank you for your kind consideration. I always use ultrasound, as that is the recommendation of the [place] [employer]. In addition, if the procedure is done over [facility], the patient always gets atropine to prevent a vasovagal reaction. MTDD
== END 2020-09-05 12:43 ==
LOC: PROCWHC3 11:27
PROVIDERS: ATTEND Internal Medicine Critical Care Medicine
DX: J90 Pleural effusion, not elsewhere classified (principal); I10 Essential (primary) hypertension; I34.1 Nonrheumatic mitral (valve) prolapse; I34.0 Nonrheumatic mitral (valve) insufficiency; Z88.5 Allergy status to narcotic agent; Z90.5 Acquired absence of kidney; Z79.51 Long term (current) use of inhaled steroids; Z90.710 Acquired absence of both cervix and uterus; Z98.890 Other specified postprocedural states; Z90.49 Acquired absence of other specified parts of digestive tract; Z95.1 Presence of aortocoronary bypass graft; Z79.899 Other long term (current) drug therapy; Z79.82 Long term (current) use of aspirin; Z79.02 Long term (current) use of antithrombotics/antiplatelets; Z87.09 Personal history of other diseases of the respiratory system; Z82.49 Family history of ischemic heart disease and other diseases of the circulatory system
CPT/HCPCS: 71045; 96372; 32554; J0461

== ENCOUNTER → 2020-11-30 | Outpatient (CLI) | payer MEDICARE ==
--- NOTE | 2020-11-30 08:47 | XR ---
EXAMINATION TYPE: XR chest w ap lordotic DATE OF EXAM: 11/30/2020 COMPARISON: 09/05/2020 INDICATION: History of mitral valve surgery and A. fib TECHNIQUE: Frontal and lateral views of the chest are obtained. Apical lordotic view was also obtain ed. FINDINGS: The heart size is normal. Sternotomy wires are present from prior cardiac valve surgery. The pulmonary vasculature is normal. Small bilateral pleural fluid collections are present. Azygos fissure is present. Suspicious infiltra te is not identified. Lung apices appear clear. IMPRESSION: 1. Small bilateral pleural fluid collections. Some adjacent compressive atelectasis is likely present .
[2020-11-30 20:06] LABS: HCT 41.5 % (37.2-46.3); HGB 14.5 g/dL (12.0-15.0); MCH 34.2 pg (27.0-32.0); MCHC 34.9 g/dL (32.0-37.0); MCV 97.9 fL (80.0-97.0); Mean Platelet Volume 11.5 fL (9.5-12.2); Platelet Count 274 X 10*3/uL (140-440); RBC 4.24 X 10*6/uL (4.10-5.20); RDW 16.5 % (11.5-14.5); WBC 10.61 X 10*3/uL (4.50-10.00)
[2020-11-30 20:33] LABS: African American GFR (CKD) 57.3 (60.0-200.0); Anion Gap 11.8 mmol/L (4.00-12.00); BUN/Creat Ratio 14.55 Ratio (12.00-20.00); Calcium 9.7 mg/dL (8.7-10.3); Carbon Dioxide 24.2 mmol/L (21.6-31.8); Non-African American GFR(CKD) 49.4 (60.0-200.0); Potassium 4.2 mmol/L (3.5-5.5)
== END | disposition home or self-care (01) ==
LOC: LABWHC1 08:01
DX: I48.0 Paroxysmal atrial fibrillation (principal); I42.0 Dilated cardiomyopathy; Z98.890 Other specified postprocedural states
CPT/HCPCS: 36415; 71047; 80048; 83880; 84443; 85027

== ENCOUNTER → 2020-12-20 | Outpatient (CLI) | payer MEDICARE ==
--- NOTE | 2020-12-20 13:23 | US ---
EXAMINATION TYPE: US venous doppler duplex LE LT DATE OF EXAM: 12/20/2020 1:07 PM COMPARISON: NONE CLINICAL HISTORY: R60.0 Localized edema. left foot edema SIDE PERFORMED: left TECHNIQUE: The lower extremity deep venous system is examined utilizing real time linear array sonog juany with graded compression, doppler sonography and color-flow sonography. VESSELS IMAGED: Common Femoral Vein Deep Femoral Vein Greater Saphenous Vein * Femoral Vein Popliteal Vein Small Saphenous Vein * Proximal Calf Veins (* superficial vessels) Left Leg: no evidence of DVT Grayscale, color doppler, spectral doppler imaging performed of the deep veins of the left lower extr emity. There is normal flow, compressibility, vascular waveforms. IMPRESSION: No ultrasound evidence for acute DVT in the left lower extremity.
== END ==
LOC: RADUSWWP 12:38
PROVIDERS: ATTEND Family Medicine
DX: R60.0 Localized edema (principal)

== ENCOUNTER → 2021-01-12 | Outpatient (CLI) | payer MEDICARE ==
--- NOTE | 2021-01-13 10:22 | US ---
EXAMINATION TYPE: US groin RT DATE OF EXAM: 01/12/2021 COMPARISON: NONE CLINICAL HISTORY: 75-year-old female R19.00 groin mass. Lump in right groin, patient noticed in 2019. Technique: Microbiology Technician notes: Scanned right groin at patient's area of concern. FINDINGS: Microbiology Technician notes: There appears to be an area of mixed echogenicity measuring 3.4 cm. This area dashawn ears to show movement of bowel within as the patient performs the valsalva maneuver. IMPRESSION: Sonographic findings are suggestive of a 3.4 cm right inguinal hernia containing a loop of bowel.
== END | disposition home or self-care (01) ==
LOC: RADUSWWP 16:44
PROVIDERS: ATTEND Surgery Plastic and Reconstructive Surgery
DX: R19.00 Intra-abdominal and pelvic swelling, mass and lump, unspecified site (principal)

== ENCOUNTER 2021-03-23 12:32 | Day surgery (SDC) | payer MEDICARE ==
--- NOTE | 2021-03-23 07:53 | P.GSHP ---
History of Present Illness H&P Date: 03/23/21 CHIEF COMPLAINT: Inguinal hernia, right. HISTORY OF PRESENT ILLNESS: The patient is a 75-year-old female who presents with a history of swelling and pain along the right groin over 4 months. She reports change in bowel habits. She has pre-existing history of cardiac disease. Now he presents for repair of her inguinal hernia. PAST MEDICAL HISTORY: Please see list. PAST SURGICAL HISTORY: Please see list. MEDICATIONS: Please see list. ALLERGIES: Please see list. SOCIAL HISTORY: No illicit drug use FAMILY HISTORY: No reports of Crohn disease or ulcerative colitis. REVIEW OF ORGAN SYSTEMS: CONSTITUTIONAL: Denies any fever or chills. HEENT: Denies any trouble with vision, hearing or nosebleeds. No difficulty swallowing. LYMPHATIC: The patient denies any lumps and bumps around the neck. ENDOCRINE: Denies any thyroid disorders. Denies any blood sugar glucose intolerance. RESPIRATORY: Denies pneumonia. Has asthma. CARDIOVASCULAR: Recent cardiac surgery. GASTROINTESTINAL: Denies heart burn, constipation or bright red blood per rectum. GENITOURINARY: Denies any blood in urine or increased urinary frequency. MUSCULOSKELETAL: Has back pain, stiffness, joint arthritis. NEUROLOGIC: Denies any numbness or tingling along the distal extremities. No seizure disorders or headaches. PSYCHIATRIC: Denies depression or suidical ideation. HEMATOLOGIC: Denies any abnormal bleeding or bruising. BREASTS: Denies any breast lumps, pain or nipple discharge. PHYSICAL EXAM: VITAL SIGNS: Stable GENERAL: Well-developed pleasant in no acute distress. HEENT: No scleral icterus. Extraocular movements grossly intact. Moist buccal mucosa. NECK: Supple without lymphadenopathy. CHEST: Unlabored respirations. Equal bilateral excursions. CARDIOVASCULAR: Regular rate and rhythm. Distal 2+ pulses. ABDOMEN: Soft, nondistended. No peritoneal signs. Swelling along the right groin. MUSCULOSKELETAL: No clubbing, cyanosis, or edema. PSYCH: Appropriate affect. STUDIES: US right groin with bowel containing hernia. ASSESSMENT: 1. Inguinal hernia, right initial and symptomatic. PLAN: 1. Recommend proceeding robotic inguinal repair with mesh with possible bilateral approach. 2. Benefits and risks of surgical intervention was discussed including pos sibility of open technique. 3. DVT prophylaxis. 4. Antibiotic prophylaxis. 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 Pleural Effusions. MV repair 07/2020. Rt inguinal hernia. History of Any Multi-Drug Resistant Organisms: None Reported Past Surgical History: Appendectomy, Heart Catheterization, Hysterectomy, Tubal Ligation Additional Past Surgical History / Comment(s): Right nephrectomy. MITRAL VALVE REPAIR. THORACENTESIS-MULTIPLE. Past Anesthesia/Blood Transfusion Reactions: No Reported Reaction Smoking Status: Never smoker - Past Family History Mother Family Medical History: Hypertension Sister(s) Family Medical History: Cancer Medications and Allergies Home Medications Medication Instructions Recorded Confirmed Type Ascorbic Acid [Vitamin C] 500 mg PO BID 07/08/20 03/21/21 History Cholecalciferol [Vitamin D3 (25 2,000 unit PO DAILY 07/08/20 03/21/21 History Mcg = 1000 Iu)] Multivitamins, Thera [Multivitamin 1 tab PO DAILY 07/08/20 03/21/21 History (formulary)] Carvedilol [Coreg] 3.125 mg PO BID 03/21/21 03/21/21 History Lisinopril [Zestril] 10 mg PO DAILY 03/21/21 03/21/21 History Allergies Allergy/AdvReac Type Severity Reaction Status Date / Time codeine AdvReac Confusion Verified 03/21/21 15:51 with cough syrup with codeine
[~2021-03-23 12:32] MED LIST changes: +ACETAMINOPHEN TAB 500 MG TAB PO PRN; +GABAPENTIN 300 MG CAP PO PRN; +HEPARIN SODIUM,PORCINE/PF 5,000 UNIT/0.5 ML SYRINGE SQ PRN; +MELOXICAM 7.5 MG TAB PO PRN; -SODIUM CHLORIDE 0.9% 500 ML 500 ML in EMPTY BAG 1 BAG IV PRN
[2021-03-23] MEDS ORDERED: ONDANSETRON 4 MG/2 ML VIAL IVP ONE (12:47)
[2021-03-23] MEDS ORDERED: DEXAMETHASONE SOD PHOSPHATE 4 MG/ML 1 ML VIAL IV ONE (12:47)
[2021-03-23] MEDS ORDERED: LACTATED RINGERS 1,000 ML IV SCH (12:47)
[2021-03-23] MEDS ORDERED: MIDAZOLAM 2 MG/2 ML VIAL IV PRN (12:47)
[2021-03-23] MEDS ORDERED: HYDROmorphone 0.5 MG/0.5 ML SYRINGE IVP PRN (12:47)
[2021-03-23 13:04] VITALS: TEMP 98.9
[2021-03-23 13:25] LABS: Basophils # (A) 0.1 k/uL (0-0.2); Basophils % (A) 1 %; Eosinophils # (A) 0.3 k/uL (0-0.7); Eosinophils % (A) 3 %; HCT 45.5 % (34.0-46.0); HGB 15.5 gm/dL (11.4-16.0); Lymphocytes # (A) 1.9 k/uL (1.0-4.8); Lymphocytes % (A) 18 %; MCH 34.4 pg (25.0-35.0); MCHC 34.1 g/dL (31.0-37.0); MCV 100.6 fL (80.0-100.0); Macrocytosis Slight; Mean Platelet Volume 8.3; Monocytes # (A) 0.8 k/uL (0-1.0); Monocytes % (A) 8 %; Neutrophils # (A) 7.2 k/uL (1.3-7.7); Neutrophils % (A) 69 %; Platelet Count 201 k/uL (150-450); RBC 4.52 m/uL (3.80-5.40); RDW 14.4 % (11.5-15.5); WBC 10.5 k/uL (3.8-10.6)
[2021-03-23 13:41] LABS: Albumin 4.4 g/dL (3.5-5.0); Potassium 4.5 mmol/L (3.5-5.1); Total Bilirubin 0.9 mg/dL (0.2-1.3)
[2021-03-23] MEDS ORDERED: MIDAZOLAM 2 MG/2 ML VIAL IV ONE (14:47)
[2021-03-23] MEDS ORDERED: LIDOCAINE 2%-EPI 1:100,000 20 ML VIAL SQ ONE ×2 (14:58→15:36)
[2021-03-23] MEDS ORDERED: NEOSTIGMINE 1 MG/ML 10 ML VIAL ONE (14:59)
[2021-03-23] MEDS ORDERED: PHENYLEPHRINE-0.9% NACL SYG 1,000 MCG/10 ML SYRINGE ONE (14:59)
[2021-03-23] MEDS ORDERED: PROPOFOL 10 MG/ML 20 ML VIAL IV ONE (14:59)
[2021-03-23] MEDS ORDERED: GLYCOPYRROLATE 0.2 MG/ML 2 ML VIAL ONE (14:59)
[2021-03-23] MEDS ORDERED: LIDOCAINE 1%-EPI 1:100,000 20 ML VIAL ONE (14:59)
[2021-03-23] MEDS ORDERED: ROCURONIUM 10 MG/ML (5 ML VIAL) IV ONE (14:59)
[2021-03-23] MEDS ORDERED: fentaNYL (PF) 50 MCG/ML 2 ML AMP ONE (14:59)
[2021-03-23] MEDS ORDERED: SUCCINYLCHOLINE CHLORIDE 100 MG/5 ML SYR IV ONE (14:59)
[2021-03-23] MEDS ORDERED: ROPIVACAINE 5 MG/ML 30 ML VIAL ONE (14:59)
[2021-03-23] MEDS ORDERED: LACTATED RINGERS 1,000 ML IV ONE (16:48)
[2021-03-23 17:17] VITALS: RESP 16
--- NOTE | 2021-03-23 17:26 | P.OP ---
Date of Procedure: 03/23/21 Description of Procedure: SURGEON: VIOLETA STEVENS MD PREOPERATIVE DIAGNOSES: 1. Right inguinal hernia with small bowel incarceration, initial 2. Hypertensive heart disease 3. Mitral valve prolapse status post repair POSTOPERATIVE DIAGNOSES: 1. Right inguinal hernia with small bowel incarceration, initial 2. Hypertensive heart disease 3. Mitral valve prolapse status post repair OPERATION: 1.Robotic-assisted da Donna Xi laparoscopic reduction repair of initial incarcerated right indirect inguinal hernia with mesh, 11.[address] ANESTHESIA: General, regional block with local anesthetic ESTIMATED BLOOD LOSS: 10 mL. SPECIMENS: 1. Incarcerated right inguinal hernia sac COMPLICATIONS: None. FINDINGS: 1. Incarcerated right inguinal hernia over 3 x 3 cm, Nyhus III, incorporating small bowel INDICATIONS: The patient is a 75-year-old female who presents with small bowel containing right inguinal hernia. She denies any prior hernia repairs. Now she presents for definitive surgical intervention. Laparoscopic versus open and robotic approaches were discussed including bilateral approach. Benefits and risks including bleeding, infection, chronic groin pain, sterility were reviewed. Placement of mesh was also described. Informed consent was obtained. DESCRIPTION: In the preoperative area, an abdominal block was placed per anesthesia. The patient was brought to the operating room and initially laid in supine position. The abdomen had been prepped and draped in standard sterile fashion. Ioban draping was also placed. Prior to incision, a timeout protocol was confirmed with surgical team regarding patient's name including procedures to be performed. Initial positioning for the robotic assisted ports were selected 20 cm superior to the target anatomy. A 0 degree 5 mm laparoscopic trocar entry was performed at the left upper quadrant. The abdomen was insufflated to 15 mmHg which he tolerated well. Diagnostic laparoscopy demonstrated no injury to bowel, viscera or mesentery. Incarcerated small bowel was identified along the right groin. The small bowel was reduced after applying pressure over the right groin. The left groin was without large hernia defect. Next, along the epigastrium, 8 mm robot trocar was placed. An 8-mm robotic tro car was placed under direct visualization at the right upper quadrant. An 8 mm port was placed at the left upper quadrant. All trocars were positioned between 10-cm apart from each other. The [employer] Top [employer] XI robot was primed, draped, prepared for docking along upper abdomen of the patient. The patient was positioned 19 steep Trendelenburg position. I then went to the [employer] Xi console. The hospital administrative assistant was at bedside for exchange of the robot arms and equipment. Attention was brought to the right groin. A large right inguinal defect was confirmed as the small intestine was reduced from the right groin. Next, the right groin defect was measured 3 x 3-cm hernia with the sac extending inguinal canal, Nyhus type III. The right inguinal hernia sac was evaginated whereby the peritoneum was scored using Endo scissors with cautery. As the hernia sac extended into the groin, complete resection of the sac was done using vessel sealer. The peritoneal sac of the hernia was stripped. The sac was resected and then passed off for further pathological analysis. The size of the hernia defect was 3 cm x 3 cm with intraoperative films obtained. Using nonabsorbable 2-0 VLOC, the peritoneal defect of the right inguinal hernia site was closed using a running suture. The defect was found to be completely closed with complete reduction of the right indirect inguinal hernia was confirmed. As an onlay, an 11.[address] mesh by [employer] was cut in half and entered into the abdominal cavity via the 8 mm trocar. The mesh was tacked to the pelvis using nonabsorbable 2-0 VLOC 9-inch length sutures. A final endoscopic imaging was obtained. The robot was undocked from the patient's bedside. I then rescrubbed into the case. Insufflation was released from the abdominal cavity and all instruments were removed from the abdominal cavity. Pressure was applied along the left groin. The rest of incisions were reapproximated using 4-0 Monocryl in a running subcuticular fashion. Local anesthetic was placed along the incision including for a bilateral groin block. Incisions were cleansed using dilute hydrogen peroxide. Liquid glue was applied to the skin. At the end of the procedure, the needle, sponge and instrument counts had been verified correct by the surgical manager. The patient had tolerated the procedure well and was taken to the postanesthesia care unit in stable condition. Intraoperative images were reviewed with the patient's family who were pleased with the level of care. Plan - Discharge Summary Discharge Rx Participant: No New Discharge Prescriptions: New Ibuprofen [Motrin] 600 mg PO Q8HR PRN #30 tab PRN Reason: Pain Acetaminophen Tab [Tylenol Tab] 500 mg PO Q6H PRN #30 tablet PRN Reason: Pain Continue Cholecalciferol [Vitamin D3 (25 Mcg = 1000 Iu)] 2,000 unit PO DAILY Multivitamins, Thera [Multivitamin (formulary)] 1 tab PO DAILY Ascorbic Acid [Vitamin C] 500 mg PO BID Carvedilol [Coreg] 3.125 mg PO BID Lisinopril [Zestril] 10 mg PO DAILY Discharge Medication List Ascorbic Acid [Vitamin C] 500 mg PO BID 07/08/20 [History] Cholecalciferol [Vitamin D3 (25 Mcg = 1000 Iu)] 2,000 unit PO DAILY 07/08/20 [History] Multivitamins, Thera [Multivitamin (formulary)] 1 tab PO DAILY 07/08/20 [History] Carvedilol [Coreg] 3.125 mg PO BID 03/21/21 [History] Lisinopril [Zestril] 10 mg PO DAILY 03/21/21 [History] Acetaminophen Tab [Tylenol Tab] 500 mg PO Q6H PRN #30 tablet 03/23/21 [Rx] Ibuprofen [Motrin] 600 mg PO Q8HR PRN #30 tab 03/23/21 [Rx] Follow up Appointment(s)/Referral(s): Violeta Stevens MD [STAFF PHYSICIAN] - 03/28/21 Patient Instructions/Handouts: Inguinal Hernia Repair (DC), Laparoscopic Herniorrhaphy (IP) Activity/Diet/Wound Care/Special Instructions: EXPECT BRUISING AND SWELLING. Use ice along incisions for today to prevent swelling. Using antibacterial soap. No lifting over 10 pounds 2 weeksApril 06February shower. No bathtub soaks for 2 weeks, April 06 Wear abdominal binder comfort except for showering. Take tylenol, aleve/ibuprofen, simethicone scheduled for 3 days for best pain relief Discharge Disposition: HOME SELF-CARE
[2021-03-23] MEDS ORDERED: IBUPROFEN 200 MG TAB PO ONE (18:00)
[2021-03-23 18:16] VITALS: BP 164/91; PULSE 72
--- NOTE | 2021-03-23 21:42 | P.ANPRN ---
Procedure Note - Anesthesia - Nerve Block Performed Bilateral Erector Spinae Single Time Out Performed: Yes Date of Procedure: 03/23/21 Procedure Start Time: 14:46 Procedure Stop Time: 14:51 Location of Patient: PreOp Indication: Acute Post-Operative Pain, Requested by Surgeon Sedation Type: Sedate with meaningful contact maintained Preparation: Sterile Prep Position: Prone Needle Types: Pajunk Needle Gauge: 21 Ultrasound used to visualize needle placement: Yes Ultrasound used to observe medication spread: Yes Blood Aspirated: No Pain Paresthesia on Injection Noted: No Resistance on Injection: Normal Image Stored and Saved: Yes Events: Uneventful and Well Tolerated (ropi .5% 15 cc plus xylo 1.5% with epi 15cc at t10 bilaterally)
== END 2021-03-23 18:53 | disposition home or self-care (01) ==
LOC: OR 12:32
PROVIDERS: ATTEND Surgery Plastic and Reconstructive Surgery
DX: K40.30 Unilateral inguinal hernia, with obstruction, without gangrene, not specified as recurrent (principal); I11.9 Hypertensive heart disease without heart failure; I34.1 Nonrheumatic mitral (valve) prolapse; Z90.5 Acquired absence of kidney; Z87.09 Personal history of other diseases of the respiratory system; Z90.710 Acquired absence of both cervix and uterus; Z98.51 Tubal ligation status; Z98.890 Other specified postprocedural states; Z82.49 Family history of ischemic heart disease and other diseases of the circulatory system; Z80.9 Family history of malignant neoplasm, unspecified; Z79.899 Other long term (current) drug therapy; Z88.5 Allergy status to narcotic agent
CPT/HCPCS: 64999; 80053; 85025; 88302; 49650; C1781; J2250; J1100; J2710; J0690; J2405; J3010; J2795; J2370; J0330; J2704; J1644

== ENCOUNTER → 2022-10-15 | Outpatient (CLI) | payer MEDICARE ==
--- NOTE | 2022-10-15 10:01 | US ---
EXAMINATION TYPE: US renal artery duplex complete DATE OF EXAM: 10/15/2022 COMPARISON: NONE CLINICAL HISTORY: I10 HTN. Patient had right kidney removed when she was 17. She states this was due to blood vessel blockage. MEASUREMENTS: RENAL SIZE: Rt Kidney: surgically absent Lt Kidney: 13.2 x 4.8 x 5.3 RESISTANCE INDEX Right: surgically absent Left: 0.4 RA/AO RATIO (< 3.5 ) Right: surgically absent Left: 3.9 RA VELOCITY ( < 180 cm/s) Right: surgically absent Left: 214cm/s Technically difficult study due to extensive overlying bowel gas. Simple appearing cyst medial measuring 1.0 x 1.2 x 0.8, superior there is an area that appears to be septated cyst measuring 1.0 x 1.1 x 0.8. There is scattered echogenic foci, possibly calcified vessel s. There appears to be some mild elevation of mid renal artery velocity. IMPRESSION: 1. Mild left renal artery stenosis by peak systolic velocity and renal artery to aorta ratio. 2. Complicated left renal cystic lesion. Further evaluation with CT/MRI renal mass protocol with IV contrast could provide further classification. 3. Surgically absent right kidney.
== END | disposition home or self-care (01) ==
LOC: RADUSWWP 08:52
PROVIDERS: ATTEND Internal Medicine Cardiovascular Disease
DX: I10 Essential (primary) hypertension (principal); I70.1 Atherosclerosis of renal artery; Z90.5 Acquired absence of kidney
CPT/HCPCS: 93975

== ENCOUNTER → 2023-01-14 | Outpatient (CLI) | payer MEDICARE ==
--- NOTE | 2023-01-14 13:35 | XR ---
EXAMINATION TYPE: XR lumbosacral spine 5 views DATE OF EXAM: 01/14/2023 Comparison: None Clinical History: 77-year-old female M54.50 LOW BACK PAIN Findings: Severe dextroconvex scoliosis of the lumbar spine. 5 lumbar type vertebral bodies. Unable to exclude a severe, grade 2 or grade 3 anterolisthesis at L5-S1. The degree of spinal curvature makes assessmen t very limited. Grade 1 retrolisthesis L1-L2. Severe hypertrophic facet arthropathy and Baastrup's di sease. Overall vertebral body heights are maintained. Impression: 1. Limited assessment due to the severe dextroconvex scoliosis of the lumbar spine. 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 Overall vertebral body heights appear to be maintained. 2. Grade 1 retrolisthesis L1-L2. Unable to exclude a pronounced, grade 2 or grade 3 anterolisthesis a t L5-S1.
--- NOTE | 2023-01-15 08:32 | MM ---
Reason for Exam: Screening (asymptomatic). Last mammogram was performed 4 year(s) and 5 month(s) ago. Patient History: Menarche at age 12. First Full-Term at age 26. Postmenopausal. Hormonal Contraceptives for 2 years from age 23 until age 28. Sister had breast cancer, age 71. Risk Values: Angela 5 year model risk: 3.8%. NCI Lifetime model risk: 7.6%. Prior Study Comparison: 08/27/2012 Bilateral Screening Mammogram, [facility]. 03/01/2015 Bilateral Screening Mammogram, [facility]. 09/11/2018 Bilateral Screening Mammogram, [facility]. Tissue Density: The breast tissue is heterogeneously dense. This may lower the sensitivity of mammography. Findings: Analyzed By CAD. There is no suspicious group of microcalcifications or new suspicious mass in either breast. Overall Assessment: Benign, BI-RAD 2 Management: Screening Mammogram of both breasts in 1 year. A clinical breast exam by your physician is recommended on an annual basis and results should be correlated with mammographic findings. Electronically signed and approved by: Olayinka Vazquez M.D. Radiologis
== END | disposition home or self-care (01) ==
LOC: RADMAMWWP 09:14
PROVIDERS: ATTEND Family Medicine
DX: Z12.31 Encounter for screening mammogram for malignant neoplasm of breast (principal); M48.27 Kissing spine, lumbosacral region; M47.816 Spondylosis without myelopathy or radiculopathy, lumbar region; M43.16 Spondylolisthesis, lumbar region; M43.17 Spondylolisthesis, lumbosacral region; Z78.0 Asymptomatic menopausal state; Z80.3 Family history of malignant neoplasm of breast
CPT/HCPCS: 72110; 77063; 77067

== ENCOUNTER → 2023-12-13 | Outpatient (CLI) | payer MEDICARE ==
[2023-12-13 15:49] LABS: Basophils # (A) 0.14 X 10*3/uL (0.00-0.10); Basophils % (A) 1.3 %; Eosinophils # (A) 0.45 X 10*3/uL (0.04-0.35); Eosinophils % (A) 4.1 %; HCT 42.5 % (37.2-46.3); HGB 14.9 g/dL (12.0-15.0); Lymphocytes # (A) 1.94 X 10*3/uL (0.90-5.00); Lymphocytes % (A) 17.8 %; MCH 35.1 pg (27.0-32.0); MCHC 35.1 g/dL (32.0-37.0); Mean Platelet Volume 12.1 FL (9.5-12.2); Monocytes # (A) 1.13 X 10*3/uL (0.20-1.00); Monocytes % (A) 10.3 %; NRBC Per 100 WBC 0 X 10*3/uL (0.00-0.01); Neutrophils # (A) 7.18 X 10*3/uL (1.80-7.70); Neutrophils % (A) 65.8 %; Platelet Count 174 X 10*3/uL (140-440); RBC 4.25 X 10*6/uL (4.10-5.20); RDW 14.4 % (11.5-14.5); WBC 10.92 X 10*3/uL (4.50-10.00)
[2023-12-13 16:47] LABS: ALT 16 U/L (8-44); AST 28 U/L (13-35); Albumin 4.5 g/dL (3.8-4.9); Albumin/Globulin Ratio 2.14 Ratio (1.60-3.17); Alkaline Phosphatase 59 U/L (41-126); Carbon Dioxide 23.2 mmol/L (21.6-31.8); Chloride 102 mmol/L (96-109); Chol/HDL Ratio 2.56 Ratio; Globulin 2.1 g/dL (1.6-3.3); Glucose 86 mg/dL (70-110); LDL Cholesterol,Calculated 80.2 mg/dL (0.0-131.0); Potassium 4.4 mmol/L (3.5-5.5); Sodium 137 mmol/L (135-145); Total Bilirubin 0.8 mg/dL (0.3-1.2); Total Protein 6.6 g/dL (6.2-8.2); VLDL Calculation 19.06 mg/dL (5.00-40.00)
== END | disposition home or self-care (01) ==
LOC: LABWHC1 08:00
PROVIDERS: ATTEND Family Medicine
DX: E55.9 Vitamin D deficiency, unspecified (principal); E78.5 Hyperlipidemia, unspecified
CPT/HCPCS: 36415; 80053; 80061; 82306; 84443; 85025

== ENCOUNTER → 2024-03-31 | Outpatient (CLI) | payer MEDICARE ==
--- NOTE | 2024-03-31 11:27 | XR ---
EXAMINATION TYPE: XR lumbosacral spine min 4V DATE OF EXAM: 03/31/2024 CLINICAL HISTORY: pain COMPARISON: NONE TECHNIQUE: Frontal, lateral, and oblique images of the lumbar spine are obtained. FINDINGS: Moderate to severe rotoscoliosis convex to the right. Severe multilevel degenerative disc s pace narrowing. Grade 1 anterolisthesis L5 on S1 9.3 mm. IMPRESSION: No acute fracture or dislocation is seen in the lumbar spine.ICD 10 NO FRACTURE, INITIAL EVALUATION
--- NOTE | 2024-03-31 11:30 | XR ---
EXAMINATION TYPE: XR scoliosis survey DATE OF EXAM: 03/31/2024 COMPARISON: NONE HISTORY: Scoliosis TECHNIQUE: Scoliosis series FINDINGS: Thoracic scoliosis convex to the right of 28 degrees. Lumbar scoliosis convex to the right of 50 degrees. IMPRESSION: As above
== END | disposition home or self-care (01) ==
LOC: RADXRMAIN 10:38
PROVIDERS: ATTEND Family Medicine
DX: M41.9 Scoliosis, unspecified (principal); M51.36 Other intervertebral disc degeneration, lumbar region
CPT/HCPCS: 72082; 72110

== ENCOUNTER → 2024-09-14 | Outpatient (CLI) | payer MEDICARE ==
--- NOTE | 2024-09-14 11:42 | CT ---
EXAMINATION TYPE: CT abdomen pelvis wo con CT DLP: 272.3 mGycm, Automated exposure control for dose reduction was used. DATE OF EXAM: 09/14/2024 11:32 AM COMPARISON: Abdominal radiograph 05/06/2023, ultrasound renal artery duplex on 12/03/2022 CLINICAL INDICATION:Female, 79 years old with history of R10.9 unspecified abdominal pain; Right flan k pain x 6 months TECHNIQUE: Standard CT of the abdomen and pelvis without IV or oral contrast. Lack of IV or oral co ntrast limits evaluation of solid and hollow organ viscera. Coronal and sagittal reformats were perfo rmed. FINDINGS: LOWER CHEST: Trace left pleural effusion with associated atelectasis. Minimal subsegmental atelectasi s within the right lung base. Partial visualization of valvular change involving the region of the mi tral valve. ABDOMEN LIVER: No similar hypodense focus within the left hepatic lobe which is too small to characterize but likely represents a cyst. GALLBLADDER AND BILE DUCTS: Unremarkable noncontrast appearance PANCREAS: Unremarkable noncontrast appearance SPLEEN: Unremarkable noncontrast appearance ADRENAL GLANDS: Unremarkable noncontrast appearance. KIDNEYS AND URETERS: No evidence of hydronephrosis or renal calculus involving the left kidney. Hyper dense left mid kidney 1 cm lesion (series 3, image 44). This corresponds to prior ultrasound finding. The right kidney is not visualized. PELVIS BLADDER: Incompletely distended but grossly unremarkable. REPRODUCTIVE: Uterus is atrophic or surgically absent. ABDOMEN & PELVIS STOMACH AND BOWEL: Stomach and duodenum are unremarkable. Distal colonic diverticulosis without evide nce for acute diverticulitis. The appendix is not visualized however no significant inflammatory brunner ges within the right lower quadrant. No evidence of bowel obstruction. PERITONEUM: No evidence of pneumoperitoneum or free fluid. VASCULATURE: No evidence of aortic aneurysm. Pelvic phleboliths. MUSCULOSKELETAL: No acute osseous abnormalities. Marked dextrocurvature of the thoracolumbar spine. M ultilevel degenerative disc disease and facet arthropathy. Grade 2 anterolisthesis of L5 on S1 with b ilateral pars defects. Degenerative changes of the pubic symphysis. LYMPH NODES: No gross evidence for lymphadenopathy. SOFT TISSUE/ABDOMINAL WALL: Unremarkable IMPRESSION: 1. No acute intra-abdominal or pelvic process within the limitations of a noncontrast exam. 2. Distal colonic diverticulosis without evidence for acute diverticulitis. 3. Hyperdense 1 cm lesion within the left kidney which may represent a proteinaceous/hemorrhagic cys t versus other etiologies. Further evaluation with MR abdomen with IV contrast renal mass protocol is recommended. 4. Marked dextrocurvature of the thoracolumbar spine with grade 2 anterolisthesis of L5 on S1 with b ilateral pars defects. 5. Surgically absent right kidney. 6. Trace left pleural effusion with associated atelectasis. [facility], , 09/14/2024 11:39 AM
--- NOTE | 2024-09-14 11:45 | XR ---
EXAMINATION TYPE: XR Hip Bilateral and AP pelvis DATE OF EXAM: 09/14/2024 11:39 AM INDICATION: Patient age:Female; 79 years old; Reason for study: M25.559 hip pain; PHH. COMPARISON: CT abdomen and pelvis 09/14/2024 TECHNIQUE: Both hips were examined in the frontal and lateral projections and a AP pelvis. FINDINGS: No evidence of any acute osseous pathology, joint dislocation, or soft tissue swelling. No significant joint space narrowing or marginal spurring of the hips. There is some subchondral cystic changes within the bilateral femoral heads with some surrounding calcification. Marked dextrocurvatur e of the visualized lumbar spine. Multilevel degenerative disease of the visualized lower lumbar spin e. Pelvic phleboliths. Degenerative changes of the pubic symphysis. IMPRESSION: 1. No acute osseous pathology. 2. Dextro scoliotic curvature of the visualized lumbar spine with degenerative disc disease. 3. Mild osteoarthritic changes of both hips. [facility], , 09/14/2024 11:43 AM
== END | disposition home or self-care (01) ==
LOC: RADCTMAIN 10:52
PROVIDERS: ATTEND Family Medicine
DX: M16.0 Bilateral primary osteoarthritis of hip (principal); M51.369 Other intervertebral disc degeneration, lumbar region without mention of lumbar back pain or lower extremity pain; M43.17 Spondylolisthesis, lumbosacral region; J90 Pleural effusion, not elsewhere classified; K57.30 Diverticulosis of large intestine without perforation or abscess without bleeding; Z90.5 Acquired absence of kidney
CPT/HCPCS: 73521; 74176